=== PATIENT | female | born 1950 | race Caucasian/White ===

== ENCOUNTER 2023-06-30 09:28 | Inpatient (IN) | payer MEDICARE, MEDICAID, SELFPAY ==
[2023-06-30 09:31] VITALS: BP 134/62; PULSE 117; RESP 20; TEMP 36.2; O2SAT 95; BMI 13.6
--- NOTE | 2023-06-30 10:09 | EDS_ITS ---
HPI History of Present Illness Chief Complaint: Confusion [facility] Medical History (Updated 06/30/23 @ 09:37 by Suzanna Tena) Allergic rhinitis Candidal esophagitis COPD (chronic obstructive pulmonary disease) Gastric ulcer Hyperlipidemia Lower back pain Malignant neoplasm of unspecified site of left female breast Mild cognitive impairment Nicotine dependence Osteoporosis Thyrotoxicosis Allergy/AdvReac Type Severity Reaction Status Date / Time Penicillins Allergy Mild Other Verified 06/30/23 09:33 EXAM Physical Exam Const Vital Signs: 06/30/23 09:31 Temperature 97.2 F L Temperature Source Temporal Pulse Rate 117 H Respiratory Rate 20 H Blood Pressure 134/62 H Blood Pressure Mean 86 Pulse Ox 95 Oxygen Delivery Method Room Air MDM MDM MDM Narrative Medical decision making narrative: HISTORY OF PRESENT ILLNESS: 72-year-old female presents with concern for altered mental status. The patient denies being confused. Notes pt had COVID 1.5 weeks ago. Notes recent diarrhea. No falls or recent trauma. Notes symptoms started over the last 2 days. REVIEW OF SYSTEMS: Pertinent positives: None Pertinent negatives: Abdominal pain, nausea vomiting confusion, chest pain, shortness of breath, headache, visual disturbance, focal weakness, slurred speech, PHYSICAL EXAM: Nursing triage notes reviewed, Vital signs reviewed Constitutional: please see mdm HENT: MMM Eyes: Pupils equal round and reactive to light, Extraocular muscles intact Neck: No stridor, no JVD, full neck ROM Lungs: Clear to auscultation, No wheezing or rales. No increased work of breathing, no conversational dyspnea, no accessory muscle use, no nasal flaring. No respiratory distress noted Heart: Regular rate and rhythm, No murmurs, No rubs and No gallops, 2+ distal pulses (radial, femoral, posterior tibial) in all extremities Abdomen: Soft, there is no tenderness, rigidity, rebound or guarding, no obvious peritoneal signs, no palpable pulsatile abdominal masses, no auscultated abdominal bruit : No CVAT Extremities: No edema Neuro: Patient is alert and orient x 2 (person, place, not time), at baseline no focal neurological deficits, cranial nerves II through XII intact, 5/5 strength in all extremities. Intact sensation to light touch in all extremities, 2+ reflexes bilateral patella tendons. No ataxia. Skin: No rash or lesions noted MEDICAL DECISION MAKING: Chief Complaint: Altered mental status External records reviewed: ED visits or hospitalizations noted Factors affecting care: COPD, peptic ulcer disease, history of breast cancer, hyperlipidemia, cognitive impairment, cerebral aneurym Social determinants of health: Current everyday smoker History obtained from others: EMS, Family Consults: Internal Medicine MDM Narrative: The patient was initially tachycardic, tachypneic. There are no focal neurologic deficits. Patient had no complaints initially. I considered the following differential diagnosis: ICH, ACS, UTI, infectious or metabolic encephalopathy I obtained a broad lab and imaging workup to further elucidate etiology patient complaints. Treated patient with a 5 or cc bolus of normal saline. ALL IMAGES (IF OBTAINED) HAVE BEEN PERSONALLY REVIEWED AND INTERPRETED BY MYSELF. EKG with sinus tachycardia, normal axis, prolonged QT interval, no STEMI CBC without leukocytosis, no anemia, no thrombocytopenia COVID/flu negative VBG without significant CO2 retention and respiratory acidosis CMP with hypokalemia, no other significant Lillian normalities, no anion gap or MAGGIE No evidence of hepatobiliary obstruction on CMP Urinalysis shows no evidence of urinary inflammation suggestive of UTI High-sensitivity troponin is negative, no evidence of myocardial ischemia This is of the patient's history, physical exam, labs images suggest no acute explanation for her change in mental status. This may be continued deterioration from already known mild cognitive impairment. Given her age and assisted living status essentially living alone I do believe the patient should be observed and possibly placed in a more acceptable living environment (SNF, NH etc). Discussed this with the hospitalist (Dr. Kong) who agreed to admit the patient. The patient and/or family, caregivers express understanding. The patient and/or family, caregivers agrees with the plan. Shared decision making: I will have a discussion with the patient and or visitors regarding risk/benefits of further testing or admission. They will be made aware of of the risk/benefits inherent in this decision they will be given the opportunity to voice understanding. Total critical care time today provided was at least 0 minutes. This excludes separately billable procedures. Critical care time (if documented) is secondary to the patient having high probability of clinically significant/life threatening deterioration in the patient's condition which required my urgent intervention. Impression: 1. AMS 2. Hypokalemia 3. History of COPD Dispo: admit to med surg Lab Data Labs: Laboratory Results - last 24 hr 06/30/23 06/30/23 10:50 10:56 WBC 7.0 RBC 3.67 L Hgb 10.7 L Hct 35.9 L MCV 97.8 MCH 29.2 MCHC 29.8 L RDW Std Deviation 54.9 H RDW Coeff of Kriss 15.4 H Plt Count 222 MPV 11.6 Immature Gran % (Auto) 0.400 Neut % (Auto) 66.2 Lymph % (Auto) 21.7 [place] % (Auto) 9.5 Eos % (Auto) 1.9 Baso % (Auto) 0.3 Absolute Neuts (auto) 4.6 Absolute Lymphs (auto) 1.51 Nucleated RBC % 0 Sodium 140 Potassium 2.9 L Chloride 105 Carbon Dioxide 29.0 Anion Gap 6 BUN 32 H Creatinine 0.65 Estim Creat Clear Calc 26.66 Est GFR (MDRD) Af Amer 114 Est GFR (MDRD) Non-Af 94 BUN/Creatinine Ratio 48.9 H Glucose 87 Calcium 9.8 Total Bilirubin 0.70 AST 21 ALT 25 Alkaline Phosphatase 146 H Troponin I High Sens 22 Total Protein 7.2 Albumin 3.1 L Globulin 4.1 Albumin/Globulin Ratio 0.8 L Urine Color Yellow Urine Clarity Clear Urine pH 5.0 Ur Specific [place] 1.010 Urine Protein 30 H Urine Glucose (UA) Normal Urine Ketones 5 H Urine Occult Blood 25 H Urine Nitrite Negative Urine Bilirubin Negative Urine Urobilinogen Normal Ur Leukocyte Esterase Negative Urine RBC 0 SEEN Urine WBC 0-5 SEEN Ur Squamous Epith Cells 5-10 SEEN Urine Bacteria 1+ Urine Mucus 1+ ABG Data ABG results: ABG 06/30/23 11:27 Specimen Type MOLLY Sample Site Not entered VBG pH 7.48 H VBG pO2 15 L* VBG HCO3 27 H VBG Total CO2 28 VBG O2 Sat (Calc) 23 L VBG Base Excess 3 POC Mix VBG pCO2 Pt Tmp 36.1 L O2 Delivery Device Not entered Crit Call To/Read Back Yes Blood Gas Notified Whom TA Blood Gas Notified Time 11:29:14 Radiography Diagnostic Testing: Clinical Impression(s) from Imaging Studies Brain CT 06/30/23 10:34 IMPRESSION: Mild generalized volume loss and moderate chronic white matter changes. No hydrocephalus in shunt patient. Chronic right frontal encephalomalacia. 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 Coiling at the basilar tip. No acute intracranial hemorrhage identified. Electronically Signed: Ofelia Willingham MD at 11:40 EST , Chest X-Ray 06/30/23 11:07 IMPRESSION: Mild perihilar inflammatory change. Electronically Signed: Ofelia Willingham MD at 11:23 EST , Discharge Plan Triage Chief Complaint: Confusion ED Provider: Tomi Mcbride Dx/Rx/DC Orders Primary Care Provider: GONZÁLEZ MANCINI Referrals: NOT,DEFINED [Non-Staff] -
--- NOTE | 2023-06-30 10:34 | CT_ITS ---
HISTORY: confusion. TECHNIQUE: Multiple axial images were obtained of the head without intravenous contrast. A radiation dose optimization technique was used for this scan. 234 images. COMPARISON: None. FINDINGS: BRAIN PARENCHYMA: Multiple regions of low attenuation in the bilateral cerebral white matter. No acute intra-axial hemorrhage. Mild low attenuation in the right frontal lobe around the shunt catheter. Mild-moderate chronic left frontotemporal infarct with a small calcification. Artifact from coiling of the basilar tip. CSF SPACES: Shunt catheter tip in the third ventricle. Mild generalized volume loss without significant hydrocephalus. No midline shift or other significant mass effect. No acute extra-axial hemorrhage. OTHER: Right frontal ravinder hole. No significant air fluid levels in the paranasal sinuses or mastoid air cells. Bilateral lens resections. CT/Brain/Head without Contrast IMPRESSION: Mild generalized volume loss and moderate chronic white matter changes. No hydrocephalus in shunt patient. Chronic right frontal encephalomalacia. 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 Coiling at the basilar tip. No acute intracranial hemorrhage identified. Electronically Signed: Ofelia Willingham MD at 11:40 EST ,
--- NOTE | 2023-06-30 10:34 | EKG12_ITS ---
Test Reason : CONFUSED Blood Pressure : / mmHG Vent. Rate : 106 BPM Atrial Rate : 106 BPM P-R Int : 182 ms QRS Dur : 084 ms QT Int : 382 ms P-R-T Axes : 083 077 264 degrees QTc Int : 507 ms Sinus tachycardia Possible Left atrial enlargement Minimal voltage criteria for LVH, may be normal variant ( Sokolow-Montiel ) T wave abnormality, consider inferior ischemia T wave abnormality, consider anterior ischemia Abnormal ECG Confirmed by MARY LEON, KERMIT ([id number]), supervising editor news reel ELTON JOSEPH ([id number]) on 07/09/2023 9:14:58 AM Referred By: Confirmed By:KERMIT HERNANDEZ MD
--- OUTSIDE RECORDS SUMMARY | 2023-06-30 10:44 | XMS RPT_ITS | CCD ---
Author Name Unknown Address [address] [place] [address] Organization [facility] Care Team Providers Care Orientation And Mobility Specialist Name Role Phone Doncals, Floridalma Unavailable Unavailable PROVIDER, UNKNOWN Unavailable Unavailable Dino, Heron Unavailable Unavailable Doncals, Floridalma Unavailable Unavailable PROVIDER, UNKNOWN Unavailable Unavailable Dino, Heron Unavailable Unavailable Bartolome LEON, Pee E Unavailable [phone] Bartolome LEON, Pee E Unavailable Heron Sun MD Primary Care Provider Bartolome LEON, Pee E Unavailable [phone] Bartolome LEON, Pee E Unavailable [phone] Dino LEON, Heron Primary Care Provider [phone] Bartolome LEON, Pee E Unavailable Bartolome LEON, Pee E Unavailable Heron Sun MD Primary Care Provider Heron Sun MD Primary Care Provider NORA PEDRO Referring Unavailable DINO, HERON Primary Care Unavailable DINO, HERON Primary Care Unavailable HASAN, JANKI Referring Unavailable DINO, HERON Primary Care Unavailable HASAN, JANKI Referring Unavailable DINO, HERON Primary Care Unavailable RAGINI MCGEE Referring Unavailable DINO, HERON Primary Care Unavailable Dino LEON, Heron Primary Care Provider DINO HERON Referring Unavailable NORA PEDRO Attending Unavailable DINO, HERON Primary Care Unavailable DINO, HERON Referring Unavailable JANKI JOHN Attending Unavailable DINOHERON Primary Care Unavailable RAGINI MCGEE Attending Unavailable DAISY AN Referring Unavailable DINOHERON Primary Care Unavailable DAISY AN Referring Unavailable DINOHERON Primary Care Unavailable NORA PEDRO Attending Unavailable DINOHERON Primary Care Unavailable Allergies Allergy Classification Reported Allergen(s) Allergy Type Date of Onset Reaction(s) Facility (3 sources) Penicillins; Translations: [PENICILLINS] Propensity to adverse reactions to drug 06-28-2010 Unknown [facility] Work Phone: (15 sources) Penicillins Propensity to adverse reactions to drug 06-28-2010 Unknown [facility] Work Phone: Medications Current Medications Medication Drug Class(es) Dates Sig (Normalized) Sig (Original) benoxinate hydrochloride 4 mg/ml / fluorescein sodium 2.5 mg/ml ophthalmic solution (1 source) Diagnostic Dye Start: 11-13-2021 End: 11-14-2021 fluorescein-benoxi desmond 0.25-0.4 % 1 Drop (FLURESS) phenylephrine hydrochloride 25 mg/ml ophthalmic solution (1 source) alpha-1 Adrenergic Agonist Start: 11-13-2021 End: 11-14-2021 PHENYLephrine 2.5 % 1 Drop (AK-DILATE, SHERRI-SYNEPHRINE) tropicamide 10 mg/ml ophthalmic solution (1 source) Anticholinergic Start: 11-13-2021 End: 11-14-2021 tropicamide 1 % 1 Drop (MYDRIACYL) Completed/Discontinued Medications Medication Drug Class(es) Dates Sig (Normalized) Sig (Original) [id number] 200 actuat albuterol 0.09 mg/actuat metered dose inhaler (16 sources) beta2-Adrenergic Agonist Start: 05-21-2017 albuterol HFA (VENTOLIN HFA) 90 mcg/actuation inhaler Inhale by mouth as instructed. 18 g 0 05/21/2017 Active Problems Active Problems Problem Classification Problem Date Documented Date Episodic/Chronic Anxiety disorders (16 sources) Anxiety; Translations: [Anxiety disorder, unspecified] Onset: 7 05-21-2017 Chronic Cancer of breast (20 sources) Malignant neoplasm of upper-outer quadrant of female breast; Translations: [Malignant neoplasm of upper-outer quadrant of left female breast] Onset: 8 11-12-2017 Chronic Cardiac and circulatory congenital anomalies (16 sources) Congenital anomaly of cerebrovascular system; Translations: [Other malformations of cerebral vessels] Onset: 4 Chronic Cataract (17 sources) Bilateral pseudophakia; Translations: [Presence of intraocular lens] Onset: 5 Chronic Chronic obstructive pulmonary disease and bronchiectasis (16 sources) Chronic obstructive lung disease; Translations: [Chronic obstructive pulmonary disease, unspecified] Onset: 7 11-15-2017 Chronic Disorders of lipid metabolism (17 sources) Hyperlipidemia; Translations: [Hyperlipidemia, unspecified] Onset: 7 05-21-2017 Chronic Essential hypertension (17 sources) Hypertensive disorder; Translations: [Essential (primary) hypertension] Onset: 7 05-29-2021 Chronic Nutritional deficiencies (20 sources) Vitamin D deficiency; Translations: [Vitamin D deficiency, unspecified] Onset: 7 05-21-2017 Chronic Osteoporosis (16 sources) Osteoporosis; Translations: [Age-related osteoporosis without current pathological fracture] 05-21-2017 Chronic Other hematologic conditions (1 source) Other abnormality of red blood cells; Translations: [Other abnormality of red blood cells] Onset: 3 Episodic Other nervous system disorders (13 sources) Ventriculoperitoneal shunt in situ; Translations: [Presence of cerebrospinal fluid drainage device] Onset: 7 05-21-2017 Chronic Other nutritional; endocrine; and metabolic disorders (1 source) Hypercalcemia; Translations: [Hypercalcemia] Onset: 3 Chronic Other nutritional; endocrine; and metabolic disorders (1 source) Abnormal weight loss; Translations: [Abnormal weight loss] Episodic Retinal detachments; defects; vascular occlusion; and retinopathy (20 sources) Exudative age-related macular degeneration; Translations: [Exudative age-related macular degeneration, right eye, with active choroidal neovascularization] Onset: 8 Chronic Substance-related disorders (16 sources) Tobacco user; Translations: [Nicotine dependence, unspecified, uncomplicated] Onset: 1 09-09-2020 Chronic Thyroid disorders (20 sources) Graves' disease; Translations: [Thyrotoxicosis with diffuse goiter without thyrotoxic crisis or storm] Onset: 05-29-2021 Chronic Past or Other Problems Problem Classification Problem Date Documented Da te Episodic/Chronic Malaise and fatigue (16 sources) Asthenia; Translations: [Weakness] Onset: 05-21-2017 05-21-2017 Episodic Other circulatory disease (16 sources) History of subarachnoid hemorrhage; Translations: [Personal history of other diseases of the circulatory system] Onset: 05-21-2017 05-21-2017 Episodic Other eye disorders (17 sources) Tear film insufficiency; Translations: [Dry eye syndrome of bilateral lacrimal glands] Onset: 11-13-2021 Episodic Other gastrointestinal disorders (16 sources) Dysphagia; Translations: [Dysphagia, unspecified] Onset: 05-21-2017 05-21-2017 Episodic Other screening for suspected conditions (not mental disorders or infectious disease) (4 sources) Patient encounter status; Translations: [Encounter for screening mammogram for malignant neoplasm of breast] Onset: 10-04-2022 Episodic Results Test Name Value Interpretation Reference Range Facil ity Vital Signs Date Time Vital Sign Value Performing Clinician Faci lity 12-06-2022 11:06-0400 Diastolic blood pressure 94 mm[Hg] Janki John MD Work Phone: [facility] 12-06-2022 11:06-0400 Heart rate 92 /min Janki John MD Work Phone: [facility] 12-06-2022 11:06-0400 Systolic blood pressure 156 mm[Hg] Janki John MD Work Phone: [facility] 12-06-2022 10:31-0400 Body height 148.5 cm Janki John MD Work Phone: [facility] 12-06-2022 10:31-0400 Body weight 48.53 kg Janki John MD Work Phone: [facility] 12-06-2022 10:31-0400 Respiratory rate 16 /min Janki John MD Work Phone: [facility] 12-06-2022 10:31-0400 SaO2% (BldA) [Mass fraction] 97 % Janki John MD Work Phone: [facility] 09-26-2022 10:06-0400 Body temperature 97.81 [degF] Ragini Mcgee SHOP ASSISTANT.[facility] Work Phone: [facility] 09-26-2022 10:06-0400 Body weight 47.58 kg Ragini Mcgee SHOP ASSISTANT.CONTROL MANAGER Work Phone: [facility] 09-26-2022 10:06-0400 Diastolic blood pressure 76 mm[Hg] Ragini Mcgee SHOP ASSISTANT.CONTROL MANAGER Work Phone: [facility] 09-26-2022 10:06-0400 Heart rate 74 /min Ragini Mcgee SHOP ASSISTANT.[facility] Work Phone: [facility] 09-26-2022 10:06-0400 SaO2% (BldA) [Mass fraction] 93 % Ragini Mcgee SHOP ASSISTANT.[facility] Work Phone: [facility] 09-26-2022 10:06-0400 Systolic blood pressure 152 mm[Hg] Ragini Mcgee SHOP ASSISTANT.[facility] Work Phone: [facility] 06-11-2022 11:43-0500 Body temperature 98.71 [degF] Treatment Work Phone: [facility] 06-11-2022 11:43-0500 Body weight 45.9 kg Treatment Work Phone: [facility] 06-11-2022 11:43-0500 Diastolic blood pressure 67 mm[Hg] Treatment Work Phone: [facility] 06-11-2022 11:43-0500 Heart rate 68 /min Treatment Work Phone: [facility] 06-11-2022 11:43-0500 Respiratory rate 16 /min Treatment Work Phone: [facility] 06-11-2022 11:43-0500 SaO2% (BldA) [Mass fraction] 96 % Treatment Work Phone: [facility] 06-11-2022 11:43-0500 Systolic blood pressure 144 mm[Hg] Treatment Work Phone: [facility] 06-07-2022 14:00-0500 Body height 148.5 cm [facility]IST[facility] Work Phone: [facility] 06-07-2022 14:00-0500 Body weight 45.18 kg [facility] Work Phone: [facility] 06-07-2022 14:00-0500 Diastolic blood pressure 85 mm[Hg] Nora Kupiec SHOP ASSISTANT.[facility] Work Phone: [facility] 06-07-2022 14:00-0500 Heart rate 78 /min Nora Kupiec SHOP ASSISTANT.[facility] Work Phone: [facility] 06-07-2022 14:00-0500 Respiratory rate 20 /min Nora Kupiec SHOP ASSISTANT.[facility] Work Phone: [facility] 06-07-2022 14:00-0500 SaO2% (BldA) [Mass fraction] 97 % Nora Kupiec SHOP ASSISTANT.[facility] Work Phone: [facility] 06-07-2022 14:00-0500 Systolic blood pressure 135 mm[Hg] Nora Kupiec SHOP ASSISTANT.[facility] Work Phone: [facility] 02-23-2022 12:46-0400 Body weight 42.09 kg Nora Kupiec SHOP ASSISTANT.[facility] Work Phone: [facility] 02-23-2022 12:46-0400 Diastolic blood pressure 78 mm[Hg] Nora Kupiec SHOP ASSISTANT.[facility] Work Phone: [facility] 02-23-2022 12:46-0400 Heart rate 87 /min Nora Kupiec SHOP ASSISTANT.[facility] Work Phone: [facility] 02-23-2022 12:46-0400 SaO2% (BldA) [Mass fraction] 92 % Nora Kupiec SHOP ASSISTANT.CONTROL MANAGER Work Phone: [facility] 02-23-2022 12:46-0400 Systolic blood pressure 125 mm[Hg] Nora Pedro SHOP ASSISTANT.CONTROL MANAGER Work Phone: [facility] Encounters Encounter Date Encounter Type Care Provider Facility Start: 06-09-2023 Refill Daisy An MD Work Phone: Hematology/Oncology Procedures Date Procedure Procedure Detail Performing Clinician Start: 02-18-2023 Lipid 1996 panel - Serum or Plasma Daisy An MD Work Phone: Start: 11-13-2021 Computerized ophthalmic imaging retina Ovi Feliz OD Work Phone: Start: 04-20-2019 Mammography Ovi Feliz OD Work Phone: Start: 03-03-2018 Adult depression screening assessment Ovi Feliz OD Work Phone: Start: 05-21-2017 H/O: surgery Status post ventriculoperitoneal shunt Ovi Feliz OD Work Phone: Plan of Treatment Date Care Activity Detail Author Start: 02-19-2028 Lipid 1996 panel - S rian or Plasma Lipid Screening [facility] Start: 02-19-2028 LIPID SCREEN LIPID SCREEN [facility] Start: 11-20-2026 LIPID SCREEN LIPID SCREEN [facility] Start: 05-11-2026 LIPID SCREEN LIPID SCREEN [facility] Start: 02-18-2026 DIABETES SCREEN DIABETES SCREEN [facility] Start: 02-18-2026 Diabetes Screening Diabetes Screenin g [facility] Start: 08-13-2025 DIABETES SCREEN DIABETES SCREEN [facility] Start: 02-05-2025 DIABETES SCREEN DIABETES SCREEN [facility] Start: 11-20-2024 DIABETES SCREEN DIABETES SCREEN [facility] Start: 05-29-2024 DIABETES SCREEN DIABETES SCREEN [facility] Start: 03-08-2023 Covid-19 Vaccine ( season) Covid-19 Vaccine () [facility] Start: 03-08-2023 Influenza vaccination [facility] Start: 02-23-2023 BP CONTROLLED (<130/80) BP CON TROLLED (<130/80) [facility] Start: 01-09-2023 End: 03-11-2023 Thyrotropin [Units/volume] in Serum or Plasma TSH BLD Lab Routine Graves disease Expected: 01/09/2023, Expires: 03/11/2023 [facility] Work Phone: Immunizations Immunization Date Immunization Notes Care Provider Teresa mota 04-24-2021 influenza virus vacc ine, unspecified formulation Daisy An MD Work Phone: [facility] 04-11-2011 influenza virus vacc ine, unspecified formulation Ovi Feliz OD Work Phone: [facility] 06-07-2010 influenza virus vacc ine, unspecified formulation Ovi Feliz OD Work Phone: [facility] 06-07-2010 pneumococcal polysaccharide vaccine, 23 valent Ovi Feliz OD Work Phone: [facility] Payers Date Payer Category Payer Medicare 2022 Medicare [id number] 2021 Unknown [employer] BL[employer] SHIELD [employer] [id number] 2021-Present [phone] [address] [id number] 2021 Unknown ANTHEM [employer] S AND BLUE SHIELD [employer] [id number] 2021-Present [phone] [address] [place] [id number] [facility] [id number] 2021 Unknown [id number] Social History Date Type Detail Facility Start: 03-03-2018 End: 02-23-2022 Tobacco smoking status NHIS Smokes tobacco daily [facility] Start: 03-03-2018 History of tobacco use Cigarette Smo ker [facility] Start: 03-03-2018 End: 12-06-2022 Cigarettes smoked current (pack per day) - Reported 0.5 [facility] Start: 03-03-2018 End: 02-23-2022 Tobacco use and exposure Smokeless tobacco non-user [facility] Start: 11-13-2021 End: 12-06-2022 Alcohol intake Current non-drinker of alcohol (finding) [facility] Start: 1950 Sex Assigned At Not on file [facility] Start: 11-03-2021 End: 06-07-2022 Exposure to SARS-CoV-2 (event) Not sure [facility] Start: 03-03-2018 End: 12-06-2022 Tobacco use panel [facility] Adult Depression Scr eening Assessment 0 [facility] Medical Equipment Procedure Code Equipment Code Equipment Origin al Text Equipment Identifier Dates Kit Catheter Bactiseal [id number] - [id number] Start: 06-29-2010 Clinical Notes 05-27-2021 to 02-21-2023 Telephone Encounter - Janki John MD - 02/21/2023 12:51 PM EDTTelephone Encounter - Janki John MD - 12/10/2022 1:00 PM EDTPatient Cely John MD - 12/06/2022 10:49 AM EDT Note Date & Type Note Facility 02-21-2023 Miscellaneous Notes Please notify the patient that TSH is suppressed I would like her to increase methimazole to 10 mg twice a day I will recheck lab results at her follow up Janki John MD documented in this encounter [facility] 12-10-2022 Miscellaneous Notes Please notify the patient that her TSH has increased to 46 Stop methimazole at this time I would like to recheck TSH in 4 weeks Order is in Regards Janki John MD documented in this encounter [facility] 12-06-2022 Note HNO ID: [id number] Author: Janki John MD Service: ? Author Type: Physician Type: Progress Notes Filed: 12/06/2022 12:19 PM Note Text: Subjective: Lizett Valadez is a 72 year old female here for hyperthyroidism follow up. Hyperthyroidism was diagnosed in November 2018 TSI was elevated at 362 Last TSH was 11.5 in aug 2021 At that time, she was recommended to stop methimazole and repeat labs in 4 weeks Patient continued methimazole all this time Current treatment: Methimazole 5 mg BID General symptoms: Fatigue: yes,wakes up tired in the morning She has trouble staying asleep She drinks coffee all day long Energy level continues to vary Weight change: No Appetite change: No Change in bowel habits: No Temperature intolerance: cold intolerance Anxiety/Nervousness: No Tremor: No Palpitations: No REVIEW OF SYSTEMS: GENERAL:+ fatigue, No weight loss, malaise or fevers NECK:Negative for lumps, goiter, pain and significant neck swelling RESPIRATORY: Negative for cough, hemoptysis, wheezing or shortness of breath CARDIOVASCULAR: Negative for chest pain, leg swelling or palpitations GASTROINTESTINAL: No nausea, vomiting, or persistent diarrhea MUSCULOSKELETAL:no muscle aches, arthralgia NEUROLOGIC: no numbness, tingling, no Paresthesias, no headaches SKIN:Negative for lesions, rash, and itching ENDOCRINE: + cold intolerance, Negative for heat intolerance or goiter The remaining ROS are unremarkable ALLERGIES: ALLERGIES Allergen Reactions Penicillins Unknown MEDICATIONS: Current Outpatient Medications on File Prior to Visit Medication Sig anastrozole (ARIMIDEX) 1 mg tablet Take 1 tablet by mouth once daily. methIMAzole (TAPAZOLE) 5 mg tablet TAKE 1 TABLET BY MOUTH IN THE MORNING and TAKE 1 TABLET IN THE EVENING. jmkbcxkcshp-zttiucgnq-cqhboryw (TRELEGY ELLIPTA) 100-62.5-25 mcg inhalation powder metoprolol tartrate, short acting, (LOPRESSOR) 25 mg tablet Take 1 tablet by mouth every [address] (PROTONIX) 40 mg tablet Take 1 tablet by mouth once daily. amLODIPine (NORVASC) 2.5 mg tablet Take 1 tablet by mouth once daily. Ibuprofen 200 mg cap Take 2 capsules by mouth every 4 hours as needed. loratadine (CLARITIN) 10 mg tablet TAKE 1 TABLET BY MOUTH NIGHTLY albuterol HFA (VENTOLIN HFA) 90 mcg/actuation inhaler Inhale by mouth as instructed. BREO ELLIPTA 100-25 mcg/dose inhaler Inhale 1 Inhalation as instructed once daily. (Patient not taking: Reported on 12/06/2022) No current facility-administered medications on file prior to visit. 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) 2003 left sylvian fissure Breast cancer ([facility]) 11/2017 left breast Breast mass, left 11/2017 COPD (chronic obstructive pulmonary disease) ([facility]) Fracture of upper end of tibia 10/31/2015 Macular degeneration Migraine PCO (posterior capsular opacification) 05/25/2016 Pseudophakia of right eye Retinal hemorrhage of left eye 2004 left central vision loss Subarachnoid hemorrhage ([facility]) 05/2010 Tubal PHYSICAL EXAM: BP 158/94 Pulse 94 Resp 16 Ht 148.5 cm (4' 10.47 ) Wt 48.5 kg (107 lb) LMP 04/15/2015 SpO2 97% BMI 22.01 kg/m? Last 3 Encounter Wt Readings: Date: Wt: 01/20/2019 47.6 kg (105 lb) 12/09/2018 47.9 kg (105 lb 9.6 oz) 03/03/2018 44.4 kg (97 lb 14.4 oz) Alert and oriented x 3, no acute distress Extraocular motions intact, no exophthalmos, no lid lag Neck supple, no cervical lymphadenopathy Thyroid: normal size, normal texture, no palpable nodules Heart regular rate and rhythm, no murmers Chest clear, normal breath sounds, no wheezing Neuro: Gait normal. Sensation grossly intact. No focal findings Musculoskeletal: Muscular strength intact, No joint swelling Extremities trace ankle edema, no deformities Skin: no rashes/ erythema, dry skin noted LAB: Latest Reference Range AND Units 06/07/22 14:54 08/13/22 12:05 Free T4 0.9 - 1.7 ng/dL 0.3 (L) 0.5 (L) TSH 0.270 - 4.200 mIU/L 5.390 (H) 11.590 (H) Free T3 2.3 - 4.1 pg/mL 1.6 (L) 2.7 Thyroid US- february 2020 Mildly heterogeneous thyroid gland. No discrete thyroid nodules. 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 2) Elevated TSH 3) HTN Clinically, she appears hypothyroid She progressed to hypothyroidism in aug 2022 but continued to take methimazole Update thyroid function test Then will adjust Methimazole dose if needed She is aware of anti thyroid medication adverse effects BP was initially elevated Repeat was also above goal See PCP for BP mgmt I will notify the patient once the lab results become available Follow up to be determined based on the lab results Janki John MD [facility] 12-06-2022 Instructions Janki John MD - 12/06/2022 11:02 AM EDT Get thyroid labs drawn Stay off methimazole until we contact you with lab results documented in this encounter [facility] 12-06-2022 History of Present illness Narrative Subjective: Lizett Valadez is a 72 year old female here for hyperthyroidism follow up. Hyperthyroidism was diagnosed in November 2018 TSI was elevated at 362 Last TSH was 11.5 in aug 2021 At that time, she was recommended to stop methimazole and repeat labs in 4 weeks Patient continued methimazole all this time Current treatment: Methimazole 5 mg BID General symptoms: Fatigue: yes,wakes up tired in the morning She has trouble staying asleep She drinks coffee all day long Energy level continues to vary Weight change: No Appetite change: No Change in bowel habits: No Temperature intolerance: cold intolerance Anxiety/Nervousness: No Tremor: No Palpitations: No REVIEW OF SYSTEMS: GENERAL:+ fatigue, No weight loss, malaise or fevers NECK:Negative for lumps, goiter, pain and significant neck swelling RESPIRATORY: Negative for cough, hemoptysis, wheezing or shortness of breath CARDIOVASCULAR: Negative for chest pain, leg swelling or palpitations GASTROINTESTINAL: No nausea, vomiting, or persistent diarrhea MUSCULOSKELETAL:no muscle aches, arthralgia NEUROLOGIC: no numbness, tingling, no Paresthesias, no headaches SKIN:Negative for lesions, rash, and itching ENDOCRINE: + cold intolerance, Negative for heat intolerance or goiter The remaining ROS are unremarkable ALLERGIES: ALLERGIES Allergen Reactions Penicillins Unknown MEDICATIONS: Current Outpatient Medications on File Prior to Visit Medication Sig anastrozole (ARIMIDEX) 1 mg tablet Take 1 tablet by mouth once daily. methIMAzole (TAPAZOLE) 5 mg tablet TAKE 1 TABLET BY MOUTH IN THE MORNING and TAKE 1 TABLET IN THE EVENING. tivuhbcgnws-hfhfikixr-ewgyrdws (TRELEGY ELLIPTA) 100-62.5-25 mcg inhalation powder metoprolol tartrate, short acting, (LOPRESSOR) 25 mg tablet Take 1 tablet by mouth every [address] (PROTONIX) 40 mg tablet Take 1 tablet by mouth once daily. amLODIPine (NORVASC) 2.5 mg tablet Take 1 tablet by mouth once daily. Ibuprofen 200 mg cap Take 2 capsules by mouth every 4 hours as needed. loratadine (CLARITIN) 10 mg tablet TAKE 1 TABLET BY MOUTH NIGHTLY albuterol HFA (VENTOLIN HFA) 90 mcg/actuation inhaler Inhale by mouth as instructed. BREO ELLIPTA 100-25 mcg/dose inhaler Inhale 1 Inhalation as instructed once daily. (Patient not taking: Reported on 12/06/2022) No current facility-administered medications on file prior to visit. 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) 2003 left sylvian fissure Breast cancer ([facility]) 11/2017 left breast Breast mass, left 11/2017 COPD (chronic obstructive pulmonary disease) ([facility]) Fracture of upper end of tibia 10/31/2015 Macular degeneration Migraine PCO (posterior capsular opacification) 05/25/2016 Pseudophakia of right eye Retinal hemorrhage of left eye 2004 left central vision loss Subarachnoid hemorrhage ([facility]) 05/2010 Tubal PHYSICAL EXAM: BP 158/94 Pulse 94 Resp 16 Ht 148.5 cm (4' 10.47 ) Wt 48.5 kg (107 lb) LMP 04/15/2015 SpO2 97% BMI 22.01 kg/m Last 3 Encounter Wt Readings: Date: Wt: 01/20/2019 47.6 kg (105 lb) 12/09/2018 47.9 kg (105 lb 9.6 oz) 03/03/2018 44.4 kg (97 lb 14.4 oz) Alert and oriented x 3, no acute distress Extraocular motions intact, no exophthalmos, no lid lag Neck supple, no cervical lymphadenopathy Thyroid: normal size, normal texture, no palpable nodules Heart regular rate and rhythm, no murmers Chest clear, normal breath sounds, no wheezing Neuro: Gait normal. Sensation grossly intact. No focal findings Musculoskeletal: Muscular strength intact, No joint swelling Extremities trace ankle edema, no deformities Skin: no rashes/ erythema, dry skin noted LAB: Latest Reference Range & Units 06/07/22 14:54 08/13/22 12:05 Free T4 0.9 - 1.7 ng/dL 0.3 (L) 0.5 (L) TSH 0.270 - 4.200 mIU/L 5.390 (H) 11.590 (H) Free T3 2.3 - 4.1 pg/mL 1.6 (L) 2.7 Thyroid US- february 2020 Mildly heterogeneous thyroid gland. No discrete thyroid nodules. 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 2) Elevated TSH 3) HTN Clinically, she appears hypothyroid She progressed to hypothyroidism in aug 2022 but continued to take methimazole Update thyroid function test Then will adjust Methimazole dose if needed She is aware of anti thyroid medication adverse effects BP was initially elevated Repeat was also above goal See PCP for BP mgmt I will notify the patient once the lab results become available Follow up to be determined based on the lab results Janki John MD documented in this encounter [facility] 10-12-2022 Miscellaneous Notes Requester: Pharmacy Last Visit in Endocrinology: Provider name: Nora Pedro CNP , Date 06/07/2022 Next Scheduled Appt in Endo: 12/06/2022 Last Refill: 09/06/22 Number of Refills given: 0 PSS NOTE: Patient has scheduled appointment. Requested Prescriptions Pending Prescriptions Disp Refills methIMAzole (TAPAZOLE) 5 mg tablet [Pharmacy Med Name: methimazole 5 mg tablet] 60 tablet 1 Sig: TAKE 1 TABLET BY MOUTH IN THE MORNING and TAKE 1 TABLET IN THE EVENING. Please review and advise. Abby Lazo MA documented in this encounter [facility] 10-04-2022 Note HNO ID: [id number] Author: KHRIS Caraballo Service: Radiology Author Type: Technologist Type: Progress Notes Filed: 10/04/2022 12:55 PM Note Text: Radiology Service Progress Note PATIENT NAME: Lizett Valadez DATE OF SERVICE: October 04, 2022 TIME: 12:55 PM PATIENT IDENTITY VERIFICATION COMPLETED USING TWO (2) IDENTIFIERS: Name and Date of confirmed by patient verbally. FALL SCREENING: Has the patient had 2 falls in the last year or 1 fall with injury or currently using an Ambulatory Assistive Device (Walker, Cane, Wheelchair, Crutches, etc.)? Yes, Patient High Risk for Falls What interventions were put in place to prevent falls during this visit? Offered Assistance with Transfers/Clothing and Increased Observations by Caregivers PATIENT GENDER DATA: Female. status: : No status: NO. PATIENT RELEVANT IMPLANT DATA REVIEWED: Not Applicable RADIOLOGY DEPARTMENT: Bone Density PERIPHERAL IV DATA: Not applicable SIGNED BY: KHRIS Caraballo October 04, 2022 12:55 PM [facility] 09-26-2022 Note HNO ID: [id number] Author: Ragini Mcgee APRN.PATTIE Service: ? Author Type: Nurse Practitioner Type: Progress Notes Filed: 09/26/2022 12:55 PM Note Text: Chief Complaint: Established patient follow up History of Present Illness: Lizett is a 72 year old female who presents here today for follow up Feeling well No new complaints Continues to have hot flashes at night, but not too bothersome Also has difficulty sleeping Has tried melatonin which did not help Denies fevers or chills No sob or chest pain No bleeding or dark stool No urinary complaints No new lumps or bumps No new pains No rash or itching Hematology/Oncology History: Past medical history is carried forward from previous note: 09/27/2020 and updated appropriately Attending: Dr An Diagnosis: Left breast cancer - s/p lumpectomy with sentinel lymph node sampling - primary was 1.6 cm in size, single focus. - 2 sentinel lymph nodes negative. - margins were reportedly positive on the surgical path but from discussion with Dr. Butler, her surgeon, he stated that the pathologist told him that the margins were negative as the orientation was apparently different. - Oncotype DX score 7 - she met with radiation oncology on 12/05/17 with discussion regarding side effects and benefits, and Dr. An stressed the importance of radiation, however, the patient refused. - proceeded with the aromatase inhibitor alone - bone density scan in 08/2017 showed osteoporosis with lowest T-score of -4.9 in L1-L4 and -4.4 in right hip and she started on bisphosphonate with yearly Reclast - patient started on Anastrazole in 02/2019 with plans for 5 years total - repeat bone scan in 04/2020 again showed improvement in osteoporosis with the lowest T-score of -4.2 in right hip - last mammogram on 04/25/2020 showed no evidence of malignancy Current Treatment: Anastrazole - initiated 02/2019 Reclast, yearly - last 06/11/2022 Subjective/ Review of Systems: See HPI HEENT- denies any vision/hearing changes or headaches. RESP- denies shortness of breath, cough CARDIAC- denies chest pain, palpitations BREAST- no masses, pain, drainage GI- Denies nausea, vomiting, constipation, diarrhea, blood in stool - denies dysuria, hematuria MILLER ROD MILL- denies vaginal bleeding. No vaginal concerns SKIN- denies new rashes MUSCULAR- no new muscular/skeletal pain or weakness NEURO- denies new neuropathy PAIN- denies Objective/ Exam: BP 152/76 Pulse 74 Temp 36.6 ?C (97.8 ?F) (Temporal) Wt 47.6 kg (104 lb 14.4 oz) LMP 04/15/2015 SpO2 93% BMI 21.58 kg/m? GENERAL: Patient is a well developed, well nourished. Alert, oriented, pleasant and cooperative. NECK: Supple MOUTH: no redness, sores, or white patches BREAST: Right breast with no dominant masses/nodules, no nipple discharge and no adenopathy Left breast with surgical changes noted, no nodule, no skin changes, no adenopathy, no pain on exam Patient declined mine administrator supervisor. HEART: regular rate and rhythm LUNGS: clear to auscultation ABDOMEN: Abdomen soft, non-tender, + BS LOWER EXTREMITIES: No edema. Recent Testing Reviewed in Epic: - LABS Latest Reference Range AND Units 08/13/22 12:05 Sodium 136 - 144 mmol/L 137 Potassium 3.7 - 5.1 mmol/L 4.2 Chloride 97 - 105 mmol/L 101 CO2 22 - 30 mmol/L 26 BUN 7 - 21 mg/dL 10 Creatinine 0.58 - 0.96 mg/dL 0.60 Glucose 74 - 99 mg/dL 89 Protein, Total 6.3 - 8.0 g/dL 8.6 (H) Calcium 8.5 - 10.2 mg/dL 9.7 Ionized Calcium 1.08 - 1.30 mmol/L 1.28 Normalized CAlcium 1.08 - 1.30 mmol/L 1.23 Phosphorus 2.7 - 4.8 mg/dL 3.2 Albumin 3.9 - 4.9 g/dL 5.0 (H) Bilirubin, Total 0.2 - 1.3 mg/dL 0.4 Alkaline Phosphatase 34 - 123 U/L 96 ALT 7 - 38 U/L 16 AST 13 - 35 U/L 18 Anion Gap 9 - 18 mmol/L 10 eGFR >=60 mL/min/1.73m? 96 Vitamin D 25 Hydroxy 31.0 - 80.0 ng/mL 28.1 (L) MPA Result No M protein is identified. No M protein is identified. Staff Review (MPA) Reviewed by Jaimie Palomares M.D., Ph.D IgG 700 - 1,600 mg/dL 1,232 IgA 70 - 400 mg/dL 339 IgM 40 - 230 mg/dL 372 (H) [place] Free, Serum 3.3 - 19.4 mg/L 29.7 (H) Lambda Free, Serum 5.7 - 26.3 mg/L 15.2 K/L Ratio, Serum 0.26 - 1.65 1.95 (H) Free T4 0.9 - 1.7 ng/dL 0.5 (L) TSH 0.270 - 4.200 mIU/L 11.590 (H) Free T3 2.3 - 4.1 pg/mL 2.7 PTH, Intact 15 - 65 pg/mL 37 PTH Related Peptide 0.0 - 3.4 pmol/L <2.0 WBC 3.70 - 11.00 k/uL 6.48 RBC 3.90 - 5.20 m/uL 4.19 Hemoglobin 11.5 - 15.5 g/dL 13.9 Hematocrit 36.0 - 46.0 % 43.2 Platelet Count 150 - 400 k/uL 272 MCV 80.0 - 100.0 fL 103.1 (H) MCH 26.0 - 34.0 pg 33.2 MCHC 30.5 - 36.0 g/dL 32.2 MPV 9.0 - 12.7 fL 10.2 RDW-CV 11.5 - 15.0 % 14.1 DTYPE Auto Neut% % 60.7 Abs Neut (ANC) 1.45 - 7.50 k/uL 3.94 Lymph% % 26.7 Abs Lymph 1.00 - 4.00 k/uL 1.73 Lassen% % 5.9 Abs Lassen <0.87 k/uL 0.38 Eosin% % 5.9 Abs Eosin <0.46 k/uL 0.38 Baso% % 0.5 Abs Baso <0.11 k/uL 0.03 Immature Gran % % 0.3 IMMATURE GRAN (more content not included)... [facility] 09-26-2022 Instructions Ragini Mcgee APRN.CNP - 09/26/2022 10:16 AM EDT BONE MINERAL DENSITY PATIENT INSTRUCTIONS ======= Bone mineral density testing measures the amount of calcium in certain parts of your bones. This information determines how strong your bones are. The test is used to detect osteoporosis, a disease in which the bone's mineral content and density are low, increasing a person's risk of fractures. The lumbar spine (lower back) and the hip are the skeletal sites usually examined. For the test, remember that: 1. You cannot take this test if you are . 2. Eat a normal diet on the day of the test. 3. Take your medications as you normally would. 4. DO NOT take calcium supplements (such as Tums) for 24 hours before the test. 5. On the day of the test, leave valuables (jewelry or credit cards) at home. 6. The test should be performed prior to oral, rectal or IV contrast studies, or at least 7 days after any of these studies. For the test, you may be asked to wear a hospital gown. You will lie on your back, on a padded table, in a comfortable position. Generally, you can resume your usual activities immediately. documented in this encounter [facility] 09-26-2022 History of Present illness Narrative Chief Complaint: Established patient follow up History of Present Illness: Lizett is a 72 year old female who presents here today for follow up Feeling well No new complaints Continues to have hot flashes at night, but not too bothersome Also has difficulty sleeping Has tried melatonin which did not help Denies fevers or chills No sob or chest pain No bleeding or dark stool No urinary complaints No new lumps or bumps No new pains No rash or itching Hematology/Oncology History: Past medical history is carried forward from previous note: 09/27/2020 and updated appropriately Attending: Dr An Diagnosis: Left breast cancer - s/p lumpectomy with sentinel lymph node sampling - primary was 1.6 cm in size, single focus. - 2 sentinel lymph nodes negative. - margins were reportedly positive on the surgical path but from discussion with Dr. Butler, her surgeon, he stated that the pathologist told him that the margins were negative as the orientation was apparently different. - Oncotype DX score 7 - she met with radiation oncology on 12/05/17 with discussion regarding side effects and benefits, and Dr. An stressed the importance of radiation, however, the patient refused. - proceeded with the aromatase inhibitor alone - bone density scan in 08/2017 showed osteoporosis with lowest T-score of -4.9 in L1-L4 and -4.4 in right hip and she started on bisphosphonate with yearly Reclast - patient started on Anastrazole in 02/2019 with plans for 5 years total - repeat bone scan in 04/2020 again showed improvement in osteoporosis with the lowest T-score of -4.2 in right hip - last mammogram on 04/25/2020 showed no evidence of malignancy Current Treatment: Anastrazole - initiated 02/2019 Reclast, yearly - last 06/11/2022 Subjective/ Review of Systems: See HPI HEENT- denies any vision/hearing changes or headaches. RESP- denies shortness of breath, cough CARDIAC- denies chest pain, palpitations BREAST- no masses, pain, drainage GI- Denies nausea, vomiting, constipation, diarrhea, blood in stool - denies dysuria, hematuria MILLER ROD MILL- denies vaginal bleeding. No vaginal concerns SKIN- denies new rashes MUSCULAR- no new muscular/skeletal pain or weakness NEURO- denies new neuropathy PAIN- denies Objective/ Exam: BP 152/76 Pulse 74 Temp 36.6 C (97.8 F) (Temporal) Wt 47.6 kg (104 lb 14.4 oz) LMP 04/15/2015 SpO2 93% BMI 21.58 kg/m GENERAL: Patient is a well developed, well nourished. Alert, oriented, pleasant and cooperative. NECK: Supple MOUTH: no redness, sores, or white patches BREAST: Right breast with no dominant masses/nodules, no nipple discharge and no adenopathy Left breast with surgical changes noted, no nodule, no skin changes, no adenopathy, no pain on exam Patient declined mine administrator supervisor. HEART: regular rate and rhythm LUNGS: clear to auscultation ABDOMEN: Abdomen soft, non-tender, + BS LOWER EXTREMITIES: No edema. Recent Testing Reviewed in Epic: - LABS Latest Reference Range & Units 08/13/22 12:05 Sodium 136 - 144 mmol/L 137 Potassium 3.7 - 5.1 mmol/L 4.2 Chloride 97 - 105 mmol/L 101 CO2 22 - 30 mmol/L 26 BUN 7 - 21 mg/dL 10 Creatinine 0.58 - 0.96 mg/dL 0.60 Glucose 74 - 99 mg/dL 89 Protein, Total 6.3 - 8.0 g/dL 8.6 (H) Calcium 8.5 - 10.2 mg/dL 9.7 Ionized Calcium 1.08 - 1.30 mmol/L 1.28 Normalized CAlcium 1.08 - 1.30 mmol/L 1.23 Phosphorus 2.7 - 4.8 mg/dL 3.2 Albumin 3.9 - 4.9 g/dL 5.0 (H) Bilirubin, Total 0.2 - 1.3 mg/dL 0.4 Alkaline Phosphatase 34 - 123 U/L 96 ALT 7 - 38 U/L 16 AST 13 - 35 U/L 18 Anion Gap 9 - 18 mmol/L 10 eGFR >=60 mL/min/1.73m 96 Vitamin D 25 Hydroxy 31.0 - 80.0 ng/mL 28.1 (L) MPA Result No M protein is identified. No M protein is identified. Staff Review (MPA) Reviewed by Jaimie Palomares M.D., Ph.D IgG 700 - 1,600 mg/dL 1,232 IgA 70 - 400 mg/dL 339 IgM 40 - 230 mg/dL 372 (H) [place] Free, Serum 3.3 - 19.4 mg/L 29.7 (H) Lambda Free, Serum 5.7 - 26.3 mg/L 15.2 K/L Ratio, Serum 0.26 - 1.65 1.95 (H) Free T4 0.9 - 1.7 ng/dL 0.5 (L) TSH 0.270 - 4.200 mIU/L 11.590 (H) Free T3 2.3 - 4.1 pg/mL 2.7 PTH, Intact 15 - 65 pg/mL 37 PTH Related Peptide 0.0 - 3.4 pmol/L <2.0 WBC 3.70 - 11.00 k/uL 6.48 RBC 3.90 - 5.20 m/uL 4.19 Hemoglobin 11.5 - 15.5 g/dL 13.9 Hematocrit 36.0 - 46.0 % 43.2 Platelet Count 150 - 400 k/uL 272 MCV 80.0 - 100.0 fL 103.1 (H) MCH 26.0 - 34.0 pg 33.2 MCHC 30.5 - 36.0 g/dL 32.2 MPV 9.0 - 12.7 fL 10.2 RDW-CV 11.5 - 15.0 % 14.1 DTYPE Auto Neut% % 60.7 Abs Neut (ANC) 1.45 - 7.50 k/uL 3.94 Lymph% % 26.7 Abs Lymph 1.00 - 4.00 k/uL 1.73 Lassen% % 5.9 Abs Lassen <0.87 k/uL 0.38 Eosin% % 5.9 Abs Eosin <0.46 k/uL 0.38 Baso% % 0.5 Abs Baso <0.11 k/uL 0.03 Immature Gran % % 0.3 IMMATURE GRANS (ABS) <0.10 k/uL <0.03 NRBC /100 WBC 0.0 Absolute nRBC <0.01 k/uL <0.01 Assessment and Plan: (C50.912, Z17.0) Malignant neoplasm of left breast in female, estrogen receptor positive, unspecified site of breast (HCC) (primary encounter diagnosis) (Z13.820) Encounter for screening for osteoporosis (E03.9) Hypothyroidism, unspecified type (E55.9) Vitamin D deficiency - feeling well - no new complaints or concerns - tolerating Anastrazole with expected side effects (hot flashes) - clinical breast exam in office today was without any worrisome findings - continues on yearly Reclast for osteoporosis (last received 06/11/2022) - patient noted to have low Vit D level and is on a Vit D supplement - she follows with Endo for thyroid issues (last TSH was elevated at 11.590) and remains on Methimazole 5 mg BID for history of hyperthyroidism - CBC unremarkable - patient is overdue to repeat Mammogram and bone density scan (order placed) - reviewed and analyzed most recent lab results I spent a total of 33 minutes on the date of the service which included preparing to see the patient, [id number] patient care, completing clinical documentation, obtaining and/or reviewing separately obtained history, performing a medically appropriate examination, counseling and educating the patient/family/caregiver, ordering medications, tests, or procedures, communicating with other HCPs (not separately reported), independently interpreting results (not separately reported), and communicating results to the patient/family/caregiver. FOLLOW UP in [address] An Patient verbalized understanding, agrees with plan of care, and denies further questions at this time. Understands to call the office with further concerns/questions. Ragini Mcgee APRN.CNP September 26, 2022 documented in this encounter [facility] 08-22-2022 Miscellaneous Notes Pharmacy verified in [facility] Patient has been identified by name and date of : Yes Patient aware RX will be sent to pharmacy. No need to notify patient. Pharmacy phones for refill(s): Requested Prescriptions Pending Prescriptions Disp Refills anastrozole (ARIMIDEX) 1 mg tablet 90 tablet 3 Sig: Take 1 tablet by mouth once daily. Date of last office visit : Visit date not found Date of next office visit : 09/11/2022 Last 2 Encounter Wt Readings: Date: Wt: 06/11/2022 45.9 kg (101 lb 3.2 oz) 06/07/2022 45.2 kg (99 lb 9.6 oz) Not applicable Please advise. Ariadne Gonzalez Pss documented in this encounter [facility] 08-17-2022 Miscellaneous Notes Called and left voicemail with providers message. CLOSED Correct, we did not receive the results directly from 08/13/22. (I had labs ordered for 07/16/22 but that is not the order she had drawn) Results from 2 days ago were reviewed. TSH 11.590 Stop methimazole for now. Repeat labs in 4 wks. If she uses a lab order that is not mine she needs to contact us within a week if she does not hear from us regarding results. Thank you Patient called and left a twice (9 minutes apart). State's her lab results for her thyroid were completed and reviewed by Dr Sun and he told her she needs a dose adjustment and she is not sure why we have not contacted her to make an adjustment. Noted that the results only went to Dr Sun and were never forwarded to our office to review. Please review and advise. Results are in Epic. Note these were originally ordered by our office but when they get drawn at a non [facility] office then that provider has to assume/order the labs and then results only go to that provider and we do not receive unless that provider forwards to us. documented in this encounter [facility] 07-05-2022 Miscellaneous Notes 1st-time treatment report- non-oncology regimen. No assistance to support Reclast drug for Medicare-insured patients. No further assistance from at this time documented in this encounter [facility] 06-08-2022 Miscellaneous Notes Order placed Patient was last seen in office in May of 2021. She came into the office today to schedule a follow up with ragini mcgee and to schedule her mammogram. The current order expires prior to the first opening in [place]. Could a new order be placed so that she can get scheduled. She is coming in on Monday 06/11 for a reclast infusion. If the order could be placed prior to Saturday so that she can schedule this scan prior to her follow up with Ragini in July. documented in this encounter [facility] 06-07-2022 Note HNO ID: [id number] Author: Nora Pedro APRN.CONTROL MANAGER Service: ? Author Type: Nurse Practitioner Type: Progress Notes Filed: 06/07/2022 2:24 PM Note Text: Reason for Consultation: Graves Disease Referring Physician: SELF HISTORY OF PRESENT ILLNESS; Ms. Valadez is a 71 year old female presenting for follow up regarding Graves Disease. She was initially diagnosed with a thyroid disorder November 2018. Patient of Dr. John 02/23/22 History of Graves disease, breast CA, COPD, migraine, macular degeneration, AVM, aneurysm. Elevated TSI at 362 Taking methimazole 5mg 2 tabs in AM and 2 tab PM (20 mg total daily) Denies missing doses. Appetite variable. Grazes and has one larger meal per day. Using Ensure. She did not do the labs for March or May Labs from 02/05/22 TSH <0.005 Free T3 6.2 Free t4 1.8 WBC 8.85 AST 13 ALT 15 Severity, modifying factors, context and associated signs and symptoms are as follows: Thyroid pain: no Mass effect: None Energy: variable Sleep: chronic insomnia Temperature Intolerance: variable MILLER ROD MILL: Menopause age 45-50 GI: denies loose stools, frequent stools or constipation Weight: up about 7 lb Eyes: left eye blind; has macular degeneration; no longer drives Memory: Good Skin: skin dry. Neuro:occasional tremor *HPI reviewed and updated as needed PAST MEDICAL HISTORY Diagnosis Date Aneurysm (HCC) 06/02/2010 right ICA terminus AVM (arteriovenous malformation) 2003 left sylvian fissure Breast cancer (HCC) 11/2017 left breast Breast mass, left 11/2017 COPD (chronic obstructive pulmonary disease) (HCC) Fracture of upper end of tibia 10/31/2015 Macular degeneration Migraine PCO (posterior capsular opacification) 05/25/2016 Pseudophakia of right eye Retinal hemorrhage of left eye 2004 left central vision loss Subarachnoid hemorrhage (HCC) 05/2010 Tubal PAST SURGICAL HISTORY Procedure Laterality Date APPENDECTOMY 196 BREAST BIOPSY CORE Left 11/05/2017 BREAST LUMPECTOMY HX 11/21/2017 Left axillary sentinel lymph node biopsy, left breast lumpectomy with intraoperative ultrasound localization. CATARACT EXTRACTION HX Bilateral 2004, 03/2016 CREATION SHUNT; VENTRICULO-PERITONEAL Right 06/2010 right frontal ventriculoperitoneal shunt creation GAMMA KNIFE 1FX TX DELIVERY 2011 AVM SALPINGECTOMY Left 1974 tubal FAMILY HISTORY Problem Relation Age of Onset Macular Degen Brother Heart Mother Heart Father Social History Tobacco Use Smoking status: Every Day Packs/day: 0.50 Years: 53.00 Pack years: 26.50 Types: Cigarettes Start date: 03/03/2018 Smokeless tobacco: Never Substance Use Topics Alcohol use: No Drug use: No Current Outpatient Medications Medication Sig Dispense Refill suuqapwdxcm-yrfuogctq-yfnvpvih (TRELEGY ELLIPTA) 100-62.5-25 mcg inhalation powder methIMAzole (TAPAZOLE) 5 mg tablet Take 2 tabs in AM and 2 tab PM 120 tablet 3 anastrozole (ARIMIDEX) 1 mg tablet TAKE 1 TABLET BY MOUTH ONCE DAILY. [address] (PROTONIX) 40 mg tablet Take 1 tablet by mouth once daily. 30 tablet 1 Ibuprofen 200 mg cap Take 2 capsules by mouth every 4 hours as needed. loratadine (CLARITIN) 10 mg tablet TAKE 1 TABLET BY MOUTH NIGHTLY 1 BREO ELLIPTA 100-25 mcg/dose inhaler Inhale 1 Inhalation as instructed once daily. albuterol HFA (VENTOLIN HFA) 90 mcg/actuation inhaler Inhale by mouth as instructed. 18 g 0 metoprolol tartrate, short acting, (LOPRESSOR) 25 mg tablet Take 1 tablet by mouth every 12 hours. 60 tablet 0 amLODIPine (NORVASC) 2.5 mg tablet Take 1 tablet by mouth once daily. 30 tablet 1 No current facility-administered medications for this visit. Allergies As of Date: 06/07/2022 Allergen Noted Reaction PENICILLINS 06/28/2010 Unknown Fully Assessed 06/07/2022 REVIEW OF SYSTEMS: Review of Systems Respiratory: Negative for difficulty breathing. Cardiovascular: Negative for chest pain. Gastrointestinal: Negative for nausea, vomiting, diarrhea and constipation. PHYSICAL EXAM: BP 135/85 Pulse 78 Resp 20 Ht 148.5 cm (4' 10.47 ) Wt 45.2 kg (99 lb 9.6 oz) SpO2 97% BMI 20.49 kg/m2 Physical Exam Constitutional: Appearance: Normal appearance. Neck: Thyroid: No thyroid mass, thyromegaly or thyroid tenderness. Cardiovascular: Rate and Rhythm: Normal rate and regular rhythm. Pulmonary: Effort: Pulmonary effort is normal. Breath sounds: Normal breath sounds. Skin: General: Skin is warm and dry. Neurological: Mental Status: She is alert and oriented to person, place, and time. Psychiatric: Mood and Affect: Mood normal. Behavior: Behavior normal. DATA: No components found for: TOTALT4 Free T4 Date Value Ref Range Status 02/05/2022 1.8 (H) 0.9 - 1.7 ng/dL Final No components found for: TOTALT3 TSH Date Value Ref Range Status 02/05/2022 <0.005 (L) 0.270 - 4.200 mIU/L Final Free T3 Date Value (more content not included)... [facility] 06-07-2022 History of Present illness Narrative Reason for Consultation: Graves Disease Referring Physician: SELF HISTORY OF PRESENT ILLNESS; Ms. Valadez is a 71 year old female presenting for follow up regarding Graves Disease. She was initially diagnosed with a thyroid disorder November 2018. Patient of Dr. Christianne GODINEZ 02/23/22 History of Graves disease, breast CA, COPD, migraine, macular degeneration, AVM, aneurysm. Elevated TSI at 362 Taking methimazole 5mg 2 tabs in AM and 2 tab PM (20 mg total daily) Denies missing doses. Appetite variable. Grazes and has one larger meal per day. Using Ensure. She did not do the labs for March or May Labs from 02/05/22 TSH <0.005 Free T3 6.2 Free t4 1.8 WBC 8.85 AST 13 ALT 15 Severity, modifying factors, context and associated signs and symptoms are as follows: Thyroid pain: no Mass effect: None Energy: variable Sleep: chronic insomnia Temperature Intolerance: variable MILLER ROD MILL: Menopause age 45-50 GI: denies loose stools, frequent stools or constipation Weight: up about 7 lb Eyes: left eye blind; has macular degeneration; no longer drives Memory: Good Skin: skin dry. Neuro:occasional tremor *HPI reviewed and updated as needed PAST MEDICAL HISTORY Diagnosis Date Aneurysm (HCC) 06/02/2010 right ICA terminus AVM (arteriovenous malformation) 2003 left sylvian fissure Breast cancer (HCC) 11/2017 left breast Breast mass, left 11/2017 COPD (chronic obstructive pulmonary disease) ([facility]) Fracture of upper end of tibia 10/31/2015 Macular degeneration Migraine PCO (posterior capsular opacification) 05/25/2016 Pseudophakia of right eye Retinal hemorrhage of left eye 2004 left central vision loss Subarachnoid hemorrhage ([facility]) 05/2010 Tubal PAST SURGICAL HISTORY Procedure Laterality Date APPENDECTOMY 1960 BREAST BIOPSY CORE Left 11/05/2017 BREAST LUMPECTOMY HX 11/21/2017 Left axillary sentinel lymph node biopsy, left breast lumpectomy with intraoperative ultrasound localization. CATARACT EXTRACTION HX Bilateral 2004, 03/2016 CREATION SHUNT; VENTRICULO-PERITONEAL Right 06/2010 right frontal ventriculoperitoneal shunt creation GAMMA KNIFE 1FX TX DELIVERY 2011 AVM SALPINGECTOMY Left 1974 tubal FAMILY HISTORY Problem Relation Age of Onset Macular Degen Brother Heart Mother Heart Father Social History Tobacco Use Smoking status: Every Day Packs/day: 0.50 Years: 53.00 Pack years: 26.50 Types: Cigarettes Start date: 03/03/2018 Smokeless tobacco: Never Substance Use Topics Alcohol use: No Drug use: No Current Outpatient Medications Medication Sig Dispense Refill newcfvkuugb-vvymrqqcw-cubcvzlk (TRELEGY ELLIPTA) 100-62.5-25 mcg inhalation powder methIMAzole (TAPAZOLE) 5 mg tablet Take 2 tabs in AM and 2 tab PM 120 tablet 3 anastrozole (ARIMIDEX) 1 mg tablet TAKE 1 TABLET BY MOUTH ONCE DAILY. [address] (PROTONIX) 40 mg tablet Take 1 tablet by mouth once daily. 30 tablet 1 Ibuprofen 200 mg cap Take 2 capsules by mouth every 4 hours as needed. loratadine (CLARITIN) 10 mg tablet TAKE 1 TABLET BY MOUTH NIGHTLY 1 BREO ELLIPTA 100-25 mcg/dose inhaler Inhale 1 Inhalation as instructed once daily. albuterol HFA (VENTOLIN HFA) 90 mcg/actuation inhaler Inhale by mouth as instructed. 18 g 0 metoprolol tartrate, short acting, (LOPRESSOR) 25 mg tablet Take 1 tablet by mouth every 12 hours. 60 tablet 0 amLODIPine (NORVASC) 2.5 mg tablet Take 1 tablet by mouth once daily. 30 tablet 1 No current facility-administered medications for this visit. Allergies As of Date: 06/07/2022 Allergen Noted Reaction PENICILLINS 06/28/2010 Unknown Fully Assessed 06/07/2022 REVIEW OF SYSTEMS: Review of Systems Respiratory: Negative for difficulty breathing. Cardiovascular: Negative for chest pain. Gastrointestinal: Negative for nausea, vomiting, diarrhea and constipation. PHYSICAL EXAM: BP 135/85 Pulse 78 Resp 20 Ht 148.5 cm (4' 10.47 ) Wt 45.2 kg (99 lb 9.6 oz) SpO2 97% BMI 20.49 kg/m2 Physical Exam Constitutional: Appearance: Normal appearance. Neck: Thyroid: No thyroid mass, thyromegaly or thyroid tenderness. Cardiovascular: Rate and Rhythm: Normal rate and regular rhythm. Pulmonary: Effort: Pulmonary effort is normal. Breath sounds: Normal breath sounds. Skin: General: Skin is warm and dry. Neurological: Mental Status: She is alert and oriented to person, place, and time. Psychiatric: Mood and Affect: Mood normal. Behavior: Behavior normal. DATA: No components found for: TOTALT4 Free T4 Date Value Ref Range Status 02/05/2022 1.8 (H) 0.9 - 1.7 ng/dL Final No components found for: TOTALT3 TSH Date Value Ref Range Status 02/05/2022 <0.005 (L) 0.270 - 4.200 mIU/L Final Free T3 Date Value Ref Range Status 02/05/2022 6.2 (H) 2.3 - 4.1 pg/mL Final No results found for: MICROSOMAB RADIOLOGY: US Thyroid was done 02/2020--no discrete nodules ASSESSMENT: Ms. Valadez is a 71 year old female presenting for follow up regarding Grave's Disease . RECOMMENDATIONS: (E05.90) Hyperthyroidism (primary encounter diagnosis) Comment: She is tolerating methimazole well. Due to repeat labs Plan: TSH BLD, T4 FREE/FREE THYROX, T3 FREE BLD, CBC, COMP METABOLIC PANEL Continue current dose of methimazole Labs today--already in EMR Follow up in 6 months I spent a total of 20 minutes on the date of the service which included preparing to see the patient, [id number] patient care, completing clinical documentation, obtaining and/or reviewing separately obtained history, performing a medically appropriate examination, and counseling and educating the patient/family/caregiver. Nora Pedro, MSN, SHOP ASSISTANT, POLICE ARTIST-C, CDE Endocrinology [facility] Office [facility]/[address] [place] [address] Fax: documented in this encounter [facility] 02-23-2022 Note HNO ID: [id number] Author: Nora Pedro APRN.CONTROL MANAGER Service: ? Author Type: Nurse Practitioner Type: Progress Notes Filed: 02/23/2022 1:25 PM Note Text: Reason for Consultation: Graves Disease Referring Physician: SELF HISTORY OF PRESENT ILLNESS; Ms. Valadez is a 71 year old female presenting for follow up regarding Graves Disease. She was initially diagnosed with a thyroid disorder November 2018. Patient of Dr. John 12/20/2020 History of Graves disease, breast CA, COPD, migraine, macular degeneration, AVM, aneurysm. Elevated TSI at 362 Today reports fatigue and unable to do every thing she needs. Uses ensure 2 per day minimum. Has one good meal daily. Has low appetite Taking methimazole 5mg 2 tabs in AM and 1 tab PM (15 mg total daily)-- denies missing doses. Labs from 02/05/22 TSH <0.005 Free T3 6.2 Free t4 1.8 WBC 8.85 AST 13 ALT 15 Severity, modifying factors, context and associated signs and symptoms are as follows: Thyroid pain: no Mass effect: None Energy: decreased Sleep:Difficulty but not new Temperature Intolerance: variable MILLER ROD MILL: Menopause age 45-50 GI: denies loose stools, frequent stools or constipation Weight: down 10 lb since 2020 Eyes: left eye blind; has macular degeneration; no longer drives Memory: Good Skin: skin dry. Neuro:occasional tremor when lifting coffee pot. *HPI reviewed and updated as needed PAST MEDICAL HISTORY Diagnosis Date Aneurysm (HCC) 06/02/2010 right ICA terminus AVM (arteriovenous malformation) 2003 left sylvian fissure Breast cancer (HCC) 11/2017 left breast Breast mass, left 11/2017 COPD (chronic obstructive pulmonary disease) ([facility]) Fracture of upper end of tibia 10/31/2015 Macular degeneration Migraine PCO (posterior capsular opacification) 05/25/2016 Pseudophakia of right eye Retinal hemorrhage of left eye 2004 left central vision loss Subarachnoid hemorrhage (HCC) 05/2010 Tubal PAST SURGICAL HISTORY Procedure Laterality Date APPENDECTOMY 1960 BREAST BIOPSY CORE Left 11/05/2017 BREAST LUMPECTOMY HX 11/21/2017 Left axillary sentinel lymph node biopsy, left breast lumpectomy with intraoperative ultrasound localization. CATARACT EXTRACTION HX Bilateral 2004, 03/2016 CREATION SHUNT; VENTRICULO-PERITONEAL Right 06/2010 right frontal ventriculoperitoneal shunt creation GAMMA KNIFE 1FX TX DELIVERY 2011 AVM SALPINGECTOMY Left 1974 tubal FAMILY HISTORY Problem Relation Age of Onset Macular Degen Brother Heart Mother Heart Father Social History Tobacco Use Smoking status: Every Day Packs/day: 0.50 Years: 53.00 Pack years: 26.50 Types: Cigarettes Start date: 03/03/2018 Smokeless tobacco: Never Substance Use Topics Alcohol use: No Drug use: No Current Outpatient Medications Medication Sig Dispense Refill anastrozole (ARIMIDEX) 1 mg tablet TAKE 1 TABLET BY MOUTH ONCE DAILY. 90 tablet 3 methIMAzole (TAPAZOLE) 5 mg tablet Take 2 tabs in AM and 1 tab PM 90 tablet 0 metoprolol tartrate, short acting, (LOPRESSOR) 25 mg tablet Take 1 tablet by mouth every 12 hours. [address] (PROTONIX) 40 mg tablet Take 1 tablet by mouth once daily. 30 tablet 1 amLODIPine (NORVASC) 2.5 mg tablet Take 1 tablet by mouth once daily. 30 tablet 1 Ibuprofen 200 mg cap Take 2 capsules by mouth every 4 hours as needed. loratadine (CLARITIN) 10 mg tablet TAKE 1 TABLET BY MOUTH NIGHTLY 1 BREO ELLIPTA 100-25 mcg/dose inhaler Inhale 1 Inhalation as instructed once daily. albuterol HFA (VENTOLIN HFA) 90 mcg/actuation inhaler Inhale by mouth as instructed. 18 g 0 nicotine (NICODERM) 14 mg/24 hr Apply 1 Patch as directed once daily. 30 Patch 0 No current facility-administered medications for this visit. Allergies As of Date: 02/23/2022 Allergen Noted Reaction PENICILLINS 06/28/2010 Unknown Fully Assessed 02/23/2022 REVIEW OF SYSTEMS: Review of Systems Respiratory: Negative for difficulty breathing. Cardiovascular: Negative for chest pain. Gastrointestinal: Negative for nausea, vomiting, diarrhea and constipation. PHYSICAL EXAM: BP 125/78 (BP Site: Left Arm, BP Position: Sitting, BP Cuff Size: Small Adult) Pulse 87 Wt 42.1 kg (92 lb 12.8 oz) SpO2 92% BMI 18.74 kg/m2 Physical Exam Constitutional: Appearance: Normal appearance. Cardiovascular: Rate and Rhythm: Normal rate and regular rhythm. Pulmonary: Effort: Pulmonary effort is normal. Breath sounds: Normal breath sounds. Skin: General: Skin is warm and dry. Neurological: Mental Status: She is alert and oriented to person, place, and time. Psychiatric: Mood and Affect: Mood normal. Behavior: Behavior normal. DATA: No components found for: TOTALT4 Free T4 Date Value Ref Range Status 02/05/2022 1.8 (H) 0.9 - 1.7 ng/dL Final No components found for: TOTALT3 TSH Date Value Ref Range Status 02/05/2022 <0.005 (L) 0.270 - 4.200 mIU/L Fi (more content not included)... [facility] 02-23-2022 Instructions Nora Pedro APRN.CONTROL MANAGER - 02/23/2022 1:04 PM EDT Increase methimazole 5 mg tab to: AM 2 tabs PM 2 tabs 2. Repeat labs 4-5 wks. 3. Follow up 3 and 6 months. Nora Pedro, MSN, SHOP ASSISTANT, POLICE ARTIST-C, CDE Endocrinology [facility] Medical Office [facility]/[address] [place] [address] Fax: documented in this encounter [facility] 02-23-2022 History of Present illness Narrative Reason for Consultation: Graves Disease Referring Physician: SELF HISTORY OF PRESENT ILLNESS; Ms. Valadez is a 71 year old female presenting for follow up regarding Graves Disease. She was initially diagnosed with a thyroid disorder November 2018. Patient of Dr. Christianne GODINEZ 12/20/2020 History of Graves disease, breast CA, COPD, migraine, macular degeneration, AVM, aneurysm. Elevated TSI at 362 Today reports fatigue and unable to do every thing she needs. Uses ensure 2 per day minimum. Has one good meal daily. Has low appetite Taking methimazole 5mg 2 tabs in AM and 1 tab PM (15 mg total daily)-- denies missing doses. Labs from 02/05/22 TSH <0.005 Free T3 6.2 Free t4 1.8 WBC 8.85 AST 13 ALT 15 Severity, modifying factors, context and associated signs and symptoms are as follows: Thyroid pain: no Mass effect: None Energy: decreased Sleep:Difficulty but not new Temperature Intolerance: variable MILLER ROD MILL: Menopause age 45-50 GI: denies loose stools, frequent stools or constipation Weight: down 10 lb since 2020 Eyes: left eye blind; has macular degeneration; no longer drives Memory: Good Skin: skin dry. Neuro:occasional tremor when lifting coffee pot. *HPI reviewed and updated as needed PAST MEDICAL HISTORY Diagnosis Date Aneurysm (HCC) 06/02/2010 right ICA terminus AVM (arteriovenous malformation) 2003 left sylvian fissure Breast cancer (HCC) 11/2017 left breast Breast mass, left 11/2017 COPD (chronic obstructive pulmonary disease) ([facility]) Fracture of upper end of tibia 10/31/2015 Macular degeneration Migraine PCO (posterior capsular opacification) 05/25/2016 Pseudophakia of right eye Retinal hemorrhage of left eye 2004 left central vision loss Subarachnoid hemorrhage (HCC) 05/2010 Tubal PAST SURGICAL HISTORY Procedure Laterality Date APPENDECTOMY 1960 BREAST BIOPSY CORE Left 11/05/2017 BREAST LUMPECTOMY HX 11/21/2017 Left axillary sentinel lymph node biopsy, left breast lumpectomy with intraoperative ultrasound localization. CATARACT EXTRACTION HX Bilateral 2004, 03/2016 CREATION SHUNT; VENTRICULO-PERITONEAL Right 06/2010 right frontal ventriculoperitoneal shunt creation GAMMA KNIFE 1FX TX DELIVERY 2010 AVM SALPINGECTOMY Left 1974 tubal FAMILY HISTORY Problem Relation Age of Onset Macular Degen Brother Heart Mother Heart Father Social History Tobacco Use Smoking status: Every Day Packs/day: 0.50 Years: 53.00 Pack years: 26.50 Types: Cigarettes Start date: 03/03/2018 Smokeless tobacco: Never Substance Use Topics Alcohol use: No Drug use: No Current Outpatient Medications Medication Sig Dispense Refill anastrozole (ARIMIDEX) 1 mg tablet TAKE 1 TABLET BY MOUTH ONCE DAILY. 90 tablet 3 methIMAzole (TAPAZOLE) 5 mg tablet Take 2 tabs in AM and 1 tab PM 90 tablet 0 metoprolol tartrate, short acting, (LOPRESSOR) 25 mg tablet Take 1 tablet by mouth every 12 hours. [address] (PROTONIX) 40 mg tablet Take 1 tablet by mouth once daily. 30 tablet 1 amLODIPine (NORVASC) 2.5 mg tablet Take 1 tablet by mouth once daily. 30 tablet 1 Ibuprofen 200 mg cap Take 2 capsules by mouth every 4 hours as needed. loratadine (CLARITIN) 10 mg tablet TAKE 1 TABLET BY MOUTH NIGHTLY 1 BREO ELLIPTA 100-25 mcg/dose inhaler Inhale 1 Inhalation as instructed once daily. albuterol HFA (VENTOLIN HFA) 90 mcg/actuation inhaler Inhale by mouth as instructed. 18 g 0 nicotine (NICODERM) 14 mg/24 hr Apply 1 Patch as directed once daily. 30 Patch 0 No current facility-administered medications for this visit. Allergies As of Date: 02/23/2022 Allergen Noted Reaction PENICILLINS 06/28/2010 Unknown Fully Assessed 02/23/2022 REVIEW OF SYSTEMS: Review of Systems Respiratory: Negative for difficulty breathing. Cardiovascular: Negative for chest pain. Gastrointestinal: Negative for nausea, vomiting, diarrhea and constipation. PHYSICAL EXAM: BP 125/78 (BP Site: Left Arm, BP Position: Sitting, BP Cuff Size: Small Adult) Pulse 87 Wt 42.1 kg (92 lb 12.8 oz) SpO2 92% BMI 18.74 kg/m2 Physical Exam Constitutional: Appearance: Normal appearance. Cardiovascular: Rate and Rhythm: Normal rate and regular rhythm. Pulmonary: Effort: Pulmonary effort is normal. Breath sounds: Normal breath sounds. Skin: General: Skin is warm and dry. Neurological: Mental Status: She is alert and oriented to person, place, and time. Psychiatric: Mood and Affect: Mood normal. Behavior: Behavior normal. DATA: No components found for: TOTALT4 Free T4 Date Value Ref Range Status 02/05/2022 1.8 (H) 0.9 - 1.7 ng/dL Final No components found for: TOTALT3 TSH Date Value Ref Range Status 02/05/2022 <0.005 (L) 0.270 - 4.200 mIU/L Final Free T3 Date Value Ref Range Status 02/05/2022 6.2 (H) 2.3 - 4.1 pg/mL Final No results found for: MICROSOMAB RADIOLOGY: US Thyroid was done 02/2020--no discrete nodules ASSESSMENT: Ms. Valadez is a 71 year old female presenting for follow up regarding Grave's Disease . RECOMMENDATIONS: (E05.90) Hyperthyroidism(primary encounter diagnosis) Comment: Labs are in the hyperthyroid range. Methimazole dose adjusted. Plan: methIMAzole (TAPAZOLE) 5 mg tablet, TSH BLD, T4 FREE/FREE THYROX, T3 FREE BLD, TSH BLD, T4 FREE/FREE THYROX, T3 FREE BLD Increase methimazole 5 mg tab to: AM 2 tabs PM 2 tabs Repeat labs 4-5 wks. Follow up 3 and 6 months. (R63.4) Abnormal weight loss Comment/Plan: Likely due, in part, to hyperthyroidism I spent a total of 20 minutes on the date of the service which included preparing to see the patient, [id number] patient care, completing clinical documentation, obtaining and/or reviewing separately obtained history, performing a medically appropriate examination, counseling and educating the patient/family/caregiver, and ordering medications, tests, or procedures. Nora Pedro, MSN, SHOP ASSISTANT, POLICE ARTIST-C, CDE Endocrinology [facility] Medical Office [facility]/[address] [place] [address] Fax: documented in this encounter [facility] 01-17-2022 Miscellaneous Notes Requester: Patient Last Visit in Endocrinology: Provider name: Nora WhittenPATTIE haque , Date 12/20/2020 Next Scheduled Appt in Endo: 02/23/2022 Last Refill: 05/29/21 Number of Refills given: 0 Only given a 30 day supply no refills Pending Prescriptions Disp Refills METHIMAZOLE 5 MG TABLET 60 tablet 0 Sig: Take 2 tabs in AM and 1 tab PM AD: No Please review and advise. Lizzy Kaur LPN Patient phones requesting refills as follows: Date of last office visit : 12/20/2020 Date of next office visit : 02/23/2022 Pending Prescriptions Disp Refills METHIMAZOLE 5 MG TABLET 90 tablet 0 Sig: Take 2 tabs in AM and 1 tab PM AD: No Please review and advise. Hoa Mcnamara documented in this encounter [facility] 11-13-2021 History of Present illness Narrative Assessment and Plan: 1. Exudative age-related macular degeneration of right eye with active choroidal neovascularization (HCC) 2. 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 -AREDS 2 Vitamins are available over the counter at any pharmacy. -Continue care with Dr. Prajapati, [facility], as scheduled. -Advised Low Vision Consult with Dr. Hull. -Patient wishes to discuss with her family before proceeding. -Information given. -Please call the office with decreased vision or increased eye pain. 3. Dry eye syndrome of both eyes -Begin: Refresh Artificial tears, 1 Drop, three times a day, Both eyes. 4. Pseudophakia of both eyes -Stable / Observe Ovi Feliz, OD I have reviewed, confirmed, and edited as necessary the relevant ophthalmic history, review of systems, allergies, patient history, and ophthalmological examination findings as obtained by the ophthalmic technical staff. I have seen and examined Lizett Valadez. I have discussed the examination findings, diagnosis, and treatment options with Lizett Valadez and/or her family. I have also reviewed and agree with the assessment and plan as stated above and agree with all its relevant components. I gave the patient the opportunity to ask questions about the examination findings, diagnosis, and treatment options. documented in this encounter [facility] 11-13-2021 Instructions Ovi Feliz, OD - 11/13/2021 1:26 PM EDT Images from the original note were not included. Please monitor each eye daily with the Amsler Grid. AREDS 2 Vitamins are available over the counter at any pharmacy. Refresh Artificial tears, 1 drop, three times a day, Both eyes. documented in this encounter [facility] documented as of this encounter (statuses as of 11/13/2021) [facility] History of Past illness Narrative* Problem Noted Date Resolved Date Hallucinations, visual 05/27/2021 Hypokalemia 05/27/2021 05/29/2021 Altered mental status 05/27/2021 05/29/2021 Acute respiratory failure with hypoxia and hyper capnia 05/21/2017 05/21/2017 Gastric ulcer without hemorrhage or perforation 05/21/2017 11/15/2017 Pneumothorax 05/16/2017 11/15/2017 PCO (posterior capsular opacification) 6 05/27/2021 Fracture of upper end of tibia 10/31/2015 1 07/27/2020 Closed fracture of left proximal tibia 5 11/15/2017 Pain in left knee 04/17/2015 11/15/2017 CME (cystoid macular edema) 11/09/201411/2016 Age-related macular degeneration, dry, right eye 11/09/2014 11/09/2016 Subarachnoid hemorrhage 06/04/2010 11/16/19 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 documented as of this encounter (statuses as of 01/17/2022) [facility] History of Past illness Narrative* Problem Noted Date Resolved Date Hallucinations, visual 05/27/2021 Hypokalemia 05/27/2021 05/29/2021 Altered mental status 05/27/2021 05/29/2021 Acute respiratory failure with hypoxia and hyper capnia 05/21/2017 05/21/2017 Gastric ulcer without hemorrhage or perforation 05/21/2017 11/15/2017 Pneumothorax 05/16/2017 11/15/2017 PCO (posterior capsular opacification) 6 05/27/2021 Fracture of upper end of tibia 10/31/2015 1 07/27/2020 Closed fracture of left proximal tibia 5 11/15/2017 Pain in left knee 04/17/2015 11/15/2017 CME (cystoid macular edema) 11/09/201411/2016 Age-related macular degeneration, dry, right eye 11/09/2014 11/09/2016 Subarachnoid hemorrhage 06/04/2010 11/16/19 18 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 documented as of this encounter (statuses as of 02/23/2022) [facility] of Past illness Narrative* Problem Noted Date Resolved Date Hallucinations, visual 05/27/2021 Hypokalemia 05/27/2021 05/29/2021 Altered mental status 05/27/2021 05/29/2021 Acute respiratory failure with hypoxia and hyper capnia 05/21/2017 05/21/2017 Gastric ulcer without hemorrhage or perforation 05/21/2017 11/15/2017 Pneumothorax 05/16/2017 11/15/2017 PCO (posterior capsular opacification) 6 05/27/2021 Fracture of upper end of tibia 10/31/2015 1 07/27/2020 Closed fracture of left proximal tibia 5 11/15/2017 Pain in left knee 04/17/2015 11/15/2017 CME (cystoid macular edema) 11/09/2014 050 11/2016 Age-related macular degeneration, dry, right eye 11/09/2014 11/09/2016 Subarachnoid hemorrhage 06/04/2010 11/16/19 18 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 documented as of this encounter (statuses as of 06/07/2022) [facility] of Past illness Narrative* Problem Noted Date Resolved Date Hallucinations, visual 05/27/2021 Hypokalemia 05/27/2021 05/29/2021 Altered mental status 05/27/2021 05/29/2021 Acute respiratory failure with hypoxia and hyper capnia 05/21/2017 05/21/2017 Gastric ulcer without hemorrhage or perforation 05/21/2017 11/15/2017 Pneumothorax 05/16/2017 11/15/2017 PCO (posterior capsular opacification) 6 05/27/2021 Fracture of upper end of tibia 10/31/2015 1 07/27/2020 Closed fracture of left proximal tibia 5 11/15/2017 Pain in left knee 04/17/2015 11/15/2017 CME (cystoid macular edema) 11/09/201411/2016 Age-related macular degeneration, dry, right eye 11/09/2014 11/09/2016 Subarachnoid hemorrhage 06/04/2010 11/16/19 18 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 documented as of this encounter (statuses as of 06/08/2022) [facility] of Past illness Narrative* Problem Noted Date Resolved Date Hallucinations, visual 05/27/2021 Hypokalemia 05/27/2021 05/29/2021 Altered mental status 05/27/2021 05/29/2021 Acute respiratory failure with hypoxia and hyper capnia 05/21/2017 05/21/2017 Gastric ulcer without hemorrhage or perforation 05/21/2017 11/15/2017 Pneumothorax 05/16/2017 11/15/2017 PCO (posterior capsular opacification) 6 05/27/2021 Fracture of upper end of tibia 10/31/2015 1 07/27/2020 Closed fracture of left proximal tibia 5 11/15/2017 Pain in left knee 04/17/2015 11/15/2017 CME (cystoid macular edema) 11/09/20140 11/2016 Age-related macular degeneration, dry, right eye 11/09/2014 11/09/2016 Subarachnoid hemorrhage 06/04/2010 11/16/19 18 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 documented as of this encounter (statuses as of 06/11/2022) [facility] of Past illness Narrative* Problem Noted Date Resolved Date Hallucinations, visual 05/27/2021 Hypokalemia 05/27/2021 05/29/2021 Altered mental status 05/27/2021 05/29/2021 Acute respiratory failure with hypoxia and hyper capnia 05/21/2017 05/21/2017 Gastric ulcer without hemorrhage or perforation 05/21/2017 11/15/2017 Pneumothorax 05/16/2017 11/15/2017 PCO (posterior capsular opacification) 6 05/27/2021 Fracture of upper end of tibia 10/31/2015 1 07/27/2020 Closed fracture of left proximal tibia 5 11/15/2017 Pain in left knee 04/17/2015 11/15/2017 CME (cystoid macular edema) 11/09/2014 0511/2016 Age-related macular degeneration, dry, right eye 11/09/2014 11/09/2016 Subarachnoid hemorrhage 06/04/2010 11/16/19 18 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 documented as of this encounter (statuses as of 07/11/2022) [facility] of Past illness Narrative* Problem Noted Date Resolved Date Hallucinations, visual 05/27/2021 Hypokalemia 05/27/2021 05/29/2021 Altered mental status 05/27/2021 05/29/2021 Acute respiratory failure with hypoxia and hyper capnia 05/21/2017 05/21/2017 Gastric ulcer without hemorrhage or perforation 05/21/2017 11/15/2017 Pneumothorax 05/16/2017 11/15/2017 PCO (posterior capsular opacification) 6 05/27/2021 Fracture of upper end of tibia 10/31/2015 1 07/27/2020 Closed fracture of left proximal tibia 5 11/15/2017 Pain in left knee 04/17/2015 11/15/2017 CME (cystoid macular edema) 11/09/2014 05/0 11/2016 Age-related macular degeneration, dry, right eye 11/09/2014 11/09/2016 Subarachnoid hemorrhage 06/04/2010 11/16/19 18 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 documented as of this encounter (statuses as of 08/17/2022) [facility] of Past illness Narrative* Problem Noted Date Resolved Date Hallucinations, visual 05/27/2021 Hypokalemia 05/27/2021 05/29/2021 Altered mental status 05/27/2021 05/29/2021 Acute respiratory failure with hypoxia and hyper capnia 05/21/2017 05/21/2017 Gastric ulcer without hemorrhage or perforation 05/21/2017 11/15/2017 Pneumothorax 05/16/2017 11/15/2017 PCO (posterior capsular opacification) 6 05/27/2021 Fracture of upper end of tibia 10/31/2015 1 07/27/2020 Closed fracture of left proximal tibia 5 11/15/2017 Pain in left knee 04/17/2015 11/15/2017 CME (cystoid macular edema) 11/09/201411/2016 Age-related macular degeneration, dry, right eye 11/09/2014 11/09/2016 Subarachnoid hemorrhage 06/04/2010 11/16/19 18 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 documented as of this encounter (statuses as of 08/23/2022) [facility] History of Past illness Narrative* Problem Noted Date Resolved Date Hallucinations, visual 05/27/2021 Hypokalemia 05/27/2021 05/29/2021 Altered mental status 05/27/2021 05/29/2021 Acute respiratory failure with hypoxia and hyper capnia 05/21/2017 05/21/2017 Gastric ulcer without hemorrhage or perforation 05/21/2017 11/15/2017 Pneumothorax 05/16/2017 11/15/2017 PCO (posterior capsular opacification) 6 05/27/2021 Fracture of upper end of tibia 10/31/2015 1 07/27/2020 Closed fracture of left proximal tibia 5 11/15/2017 Pain in left knee 04/17/2015 11/15/2017 CME (cystoid macular edema) 11/09/20140 11/2016 Age-related macular degeneration, dry, right eye 11/09/2014 11/09/2016 Subarachnoid hemorrhage 06/04/2010 11/16/19 18 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 documented as of this encounter (statuses as of 09/26/2022) [facility] History of Past illness Narrative* Problem Noted Date Resolved Date Hallucinations, visual 05/27/2021 Hypokalemia 05/27/2021 05/29/2021 Altered mental status 05/27/2021 05/29/2021 Acute respiratory failure with hypoxia and hyper capnia 05/21/2017 05/21/2017 Gastric ulcer without hemorrhage or perforation 05/21/2017 11/15/2017 Pneumothorax 05/16/2017 11/15/2017 PCO (posterior capsular opacification) 6 05/27/2021 Fracture of upper end of tibia 10/31/2015 1 07/27/2020 Closed fracture of left proximal tibia 5 11/15/2017 Pain in left knee 04/17/2015 11/15/2017 CME (cystoid macular edema) 11/09/201411/2016 Age-related macular degeneration, dry, right eye 11/09/2014 11/09/2016 Subarachnoid hemorrhage 06/04/2010 11/16/19 18 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 documented as of this encounter (statuses as of 10/12/2022) [facility] History of Past illness Narrative* Problem Noted Date Resolved Date Hallucinations, visual 05/27/2021 Hypokalemia 05/27/2021 05/29/2021 Altered mental status 05/27/2021 05/29/2021 Acute respiratory failure with hypoxia and hyper capnia 05/21/2017 05/21/2017 Gastric ulcer without hemorrhage or perforation 05/21/2017 11/15/2017 Pneumothorax 05/16/2017 11/15/2017 PCO (posterior capsular opacification) 6 05/27/2021 Fracture of upper end of tibia 10/31/2015 07/27/2020 Closed fracture of left proximal tibia 5 11/15/2017 Pain in left knee 04/17/2015 11/15/2017 CME (cystoid macular edema) 11/09/201411/2016 Age-related macular degeneration, dry, right eye 11/09/2014 11/09/2016 Subarachnoid hemorrhage 06/04/2010 11/16/19 18 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 documented as of this encounter (statuses as of 11/02/2022) [facility] History of Past illness Narrative* Problem Noted Date Resolved Date Hallucinations, visual 05/27/2021 Hypokalemia 05/27/2021 05/29/2021 Altered mental status 05/27/2021 05/29/2021 Acute respiratory failure with hypoxia and hyper capnia 05/21/2017 05/21/2017 Gastric ulcer without hemorrhage or perforation 05/21/2017 11/15/2017 Pneumothorax 05/16/2017 11/15/2017 PCO (posterior capsular opacification) 6 05/27/2021 Fracture of upper end of tibia 10/31/2015 1 07/27/2020 Closed fracture of left proximal tibia 5 11/15/2017 Pain in left knee 04/17/2015 11/15/2017 CME (cystoid macular edema) 11/09/201411/2016 Age-related macular degeneration, dry, right eye 11/09/2014 11/09/2016 Subarachnoid hemorrhage 06/04/2010 11/16/19 18 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 documented as of this encounter (statuses as of 12/06/2022) [facility] History of Past illness Narrative* Problem Noted Date Resolved Date Hallucinations, visual 05/27/2021 Hypokalemia 05/27/2021 05/29/2021 Altered mental status 05/27/2021 05/29/2021 Acute respiratory failure with hypoxia and hyper capnia 05/21/2017 05/21/2017 Gastric ulcer without hemorrhage or perforation 05/21/2017 11/15/2017 Pneumothorax 05/16/2017 11/15/2017 PCO (posterior capsular opacification) 6 05/27/2021 Fracture of upper end of tibia 10/31/2015 1 07/27/2020 Closed fracture of left proximal tibia 5 11/15/2017 Pain in left knee 04/17/2015 11/15/2017 CME (cystoid macular edema) 11/09/2014 05/0 11/2016 Age-related macular degeneration, dry, right eye 11/09/2014 11/09/2016 Subarachnoid hemorrhage 06/04/2010 11/16/19 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 documented as of this encounter (statuses as of 12/10/2022) [facility] History of Past illness Narrative* Problem Noted Date Diagnosed Date Resolved Date Hallucinations, visual 05/27/202105/29 Hypokalemia 05/27/2021 05/29/2021 Altered mental status 05/27/20212020 Acute respiratory failure wi th hypoxia and hypercapnia 05/21/2017 05/21/2017 Gastric ulcer without hemorr randy or perforation 05/21/2017 11/15/2017 Pneumothorax 05/16/2017 11/15/2017 PCO (posterior capsular opacification) 05/25/2016 05/27/2021 Fracture of upper end of tibia 10/31/2015 05/27/2021 Closed fracture of left proximal tibia 04/17/2015 11/15/2017 Pain in left knee 04/17/2015 11/15/2017 CME (cystoid macular edema) 11/09/2014 11/09/2016 Age-related macular degenera tion, dry, right eye 11/09/2014 11/09/2016 Subarachnoid hemorrhage 06/04/201011/05 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/2010 11/15/2017 documented as of this encounter (statuses as of 02/21/2023) [facility] History of Past illness Narrative* Problem Noted Date Diagnosed Date Resolved Date Hallucinations, visual 05/27/202105/29 Hypokalemia 05/27/2021 05/29/2021 Altered mental status 05/27/20212020 Acute respiratory failure wi th hypoxia and hypercapnia 05/21/2017 05/21/2017 Gastric ulcer without hemorr randy or perforation 05/21/2017 11/15/2017 Pneumothorax 05/16/2017 11/15/2017 PCO (posterior capsular opacification) 05/25/2016 05/27/2021 Fracture of upper end of tibia 10/31/2015 05/27/2021 Closed fracture of left proximal tibia 04/17/2015 11/15/2017 Pain in left knee 04/17/2015 11/15/2017 CME (cystoid macular edema) 11/09/2014 11/09/2016 Age-related macular degenera tion, dry, right eye 11/09/2014 11/09/2016 Subarachnoid hemorrhage 06/04/201011/05 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/2010 11/15/2017 documented as of this encounter (statuses as of 06/12/2023) [facility] Diagnosis 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) Dry eye syndrome of both eyes Pseudophakia of both eyes Lens replaced by other means [facility] Hyperthyroidism Thyrotoxicosis without mention of goiter or other cause, without mention of thyrotoxic crisis or storm [facility] Diagnosis Hyperthyroidism- Primary Thyrotoxicosis without mention of goiter or other cause, without mention of thyrotoxic crisis or storm Abnormal weight loss Loss of weight [facility] Diagnosis Hyperthyroidism- Primary Thyrotoxicosis without mention of goiter or other cause, without mention of thyrotoxic crisis or storm [facility] Diagnosis Malignant neoplasm of upper-outer quadrant of left breast in female, estrogen receptor positive (HCC)- Primary Encounter for screening mammogram for malignant neoplasm of breast Other screening mammogram [facility] Diagnosis Malignant neoplasm of upper-outer quadrant of left breast in female, estrogen receptor positive (HCC)- Primary [facility] Diagnosis Hyperthyroidism- Primary Thyrotoxicosis without mention of goiter or other cause, without mention of thyrotoxic crisis or storm [facility] Diagnosis Malignant neoplasm of upper-outer quadrant of left breast in female, estrogen receptor positive (HCC) [facility] Diagnosis Malignant neoplasm of left breast in female, estrogen receptor positive, unspecified site of breast (HCC)- Primary Encounter for screening for osteoporosis Special screening for osteoporosis Hypothyroidism, unspecified type Vitamin D deficiency Unspecified vitamin D deficiency [facility]* Diagnosis Hyperthyroidism Thyrotoxicosis without mention of goiter or other cause, without mention of thyrotoxic crisis or storm documented in this encounter [facility] note* Diagnosis Malignant neoplasm of upper-outer quadrant of left breast in female, estrogen receptor positive (HCC) [facility]* Diagnosis Graves disease- Primary Toxic diffuse goiter without mention of thyrotoxic crisis or storm Primary hypertension Unspecified essential hypertension Elevated TSH Nonspecific abnormal results of thyroid function study documented in this encounter [facility] note* Diagnosis Graves disease- Primary Toxic diffuse goiter without mention of thyrotoxic crisis or storm documented in this encounter [facility] note* Diagnosis Malignant neoplasm of upper-outer quadrant of left breast in female, estrogen receptor positive (HCC) documented in this encounter [facility] for referral (narrative)* Diagnostic Procedure Only (Routine) - Pending Review Specialty Diagnoses / Procedures Referred By Elsy knapp Referred To Contact [facility] Diagnoses Encounter for screening mammogram for malignant neoplasm of breast Procedures REGINALD SCREENING W EVON SCREENING DIGITAL BREAST TOMOSYNTHESIS BI SCREENING MAMMOGRAPHY BI 2-[place] [address] [place] [address] [facility] [address] [place] [id number] Referral ID Status Reason Start Date Expiration Date Visits Requested Visits Authorized [id number] Pending Review Auto-Generat ed Referral 06/08/2022 07/07/2023 1 1 [facility] Summary Purpose Family History No Family History Records FoundNo Family History Records FoundNo Family History Records Found Advance Directives Documents on File Type Date Recorded 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 Advance Directive(s) 05/26/2021 9:21 PM Advance Directive(s) 11/21/2017 8:37 AM Advance Directive(s) 05/16/2017 6:20 AM Latest Code Status on File Code Status Date Activated Date Inactivated Comments DNR-CCA 05/27/2021 1:41 PM 05/29/2021 10:09 PM DNR Order Discussed With: Surrogate Decision Frank mora Surrogate Decision Maker Name: Meeta Forman Surrogate Decision Maker Surrogate Decision Maker Relationship: Nearest A dult Relative Latest Code Status on File Code Status Date Activated Date Inactivated Comments DNR-CCA 05/27/2021 1:41 PM 05/29/2021 10:09 PM Latest Code Status on File Code Status Date Activated Date Inactivated Comments DNR-CCA 05/27/2021 1:41 PM 05/29/2021 10:09 PM Question Answer Comments DNR Order Discussed With: Surrogate Decision Frank er Surrogate Decision Maker Name: Meeta Forman Surrogate Decision Maker Surrogate Decision Maker Relationship: Nearest Adult Relative Medications Administered Section Active Administered Medications - up to 3 most recent administrations Medication Order MAR Action Action Date Dose Rate Site fluorescein-benoxinate 0.25-0.4 % 1 Drop (FLURESS) 1 Drop, BOTH EYES, DIRECTED, Starting on Sat11/13/21 at 1330, Until Sat11/14/21 at 0129, Administer for applanation tonometry. In the event of a Fluress shortage, administer Divya-Fluor 1 drop into both eyes as directed for applanation tonometry, [facility] MED ORDERS Given 11/13/2021 1:08 PM EDT 1 Drop PHENYLephrine 2.5 % 1 Drop (AK-DILATE, SHERRI-SYNEPHRINE) 1 Drop, BOTH EYES, DIRECTED, Starting on Sat11/13/21 at 1330, Until Sat11/14/21 at 0129, Administer for dilation PROTECT FROM LIGHT, [facility] MED ORDERS Given 11/13/2021 1:08 PM EDT 1 Drop tropicamide 1 % 1 Drop (MYDRIACYL) 1 Drop, BOTH EYES, DIRECTED, Starting on Sat11/13/21 at 1330, Until Sat11/14/21 at 0129, Administer for dilation, [facility] MED ORDERS Given 11/13/2021 1:08 PM EDT 1 Drop Inactive Administered Medications - up to 3 most recent administrations Medication Order MAR Action Action Date Dose Rate Site zoledronic acid 5 mg PREMIX piggyback (RECLAST) 5 mg, INTRAVENOUS, at 400 mL/hr, Administer over 15 Minutes, ONCE, 1 dose, On 06/11/22 at 1230, Contact the prescriber if any of the following are noted: Recent Dental Procedures done (except cleaning only). Low corrected serum calcium levels (less than 7mg/dL). Creatinine clearance less than 35 ml/min. Hazardous Potential Reproductive Risk Drug: Use appropriate PPE. New Bag/Syringe/Bottle 06/11/2022 12:15 PM EST 5 mg 400 mL/hr Additional Source Comments INFORMATION SOURCE (unrecogn ized section and content) DATE CREATED AUTHOR AUTHOR'S ORGANIZ ATION 02/19/2023 [facility] DATE CREATED AUTHOR AUTHOR'S ORGANIZ ATION 02/22/2023 [facility] Source Comments (unrecognize d section and content) In the event this informatio n is protected by the Federal Confidentiality of Alcohol and Drug Abuse Patient Records regulations: The Federal rules restrict any use of the information to criminally investigate or prosecute any alcohol or drug abuse patient.[facility] event this information is protected by the Federal Confidentiality of Alcohol and Drug Abuse Patient Records regulations: The Federal rules restrict any use of the information to criminally investigate or prosecute any alcohol or drug abuse patient.[facility] the event this information is protected by the Federal Confidentiality of Alcohol and Drug Abuse Patient Records regulations: The Federal rules restrict any use of the information to criminally investigate or prosecute any alcohol or drug abuse patient.[facility] the event this information is protected by the Federal Confidentiality of Alcohol and Drug Abuse Patient Records regulations: The Federal rules restrict any use of the information to criminally investigate or prosecute any alcohol or drug abuse patient.[facility] the event this information is protected by the Federal Confidentiality of Alcohol and Drug Abuse Patient Records regulations: The Federal rules restrict any use of the information to criminally investigate or prosecute any alcohol or drug abuse patient.[facility] the event this information is protected by the Federal Confidentiality of Alcohol and Drug Abuse Patient Records regulations: The Federal rules restrict any use of the information to criminally investigate or prosecute any alcohol or drug abuse patient.[facility] the event this information is protected by the Federal Confidentiality of Alcohol and Drug Abuse Patient Records regulations: The Federal rules restrict any use of the information to criminally investigate or prosecute any alcohol or drug abuse patient.[facility] the event this information is protected by the Federal Confidentiality of Alcohol and Drug Abuse Patient Records regulations: The Federal rules restrict any use of the information to criminally investigate or prosecute any alcohol or drug abuse patient.[facility] the event this information is protected by the Federal Confidentiality of Alcohol and Drug Abuse Patient Records regulations: The Federal rules restrict any use of the information to criminally investigate or prosecute any alcohol or drug abuse patient.[facility] the event this information is protected by the Federal Confidentiality of Alcohol and Drug Abuse Patient Records regulations: The Federal rules restrict any use of the information to criminally investigate or prosecute any alcohol or drug abuse patient.[facility] the event this information is protected by the Federal Confidentiality of Alcohol and Drug Abuse Patient Records regulations: The Federal rules restrict any use of the information to criminally investigate or prosecute any alcohol or drug abuse patient.[facility] the event this information is protected by the Federal Confidentiality of Alcohol and Drug Abuse Patient Records regulations: The Federal rules restrict any use of the information to criminally investigate or prosecute any alcohol or drug abuse patient.[facility] the event this information is protected by the Federal Confidentiality of Alcohol and Drug Abuse Patient Records regulations: The Federal rules restrict any use of the information to criminally investigate or prosecute any alcohol or drug abuse patient.[facility] the event this information is protected by the Federal Confidentiality of Alcohol and Drug Abuse Patient Records regulations: The Federal rules restrict any use of the information to criminally investigate or prosecute any alcohol or drug abuse patient.[facility] the event this information is protected by the Federal Confidentiality of Alcohol and Drug Abuse Patient Records regulations: The Federal rules restrict any use of the information to criminally investigate or prosecute any alcohol or drug abuse patient.[facility] the event this information is protected by the Federal Confidentiality of Alcohol and Drug Abuse Patient Records regulations: The Federal rules restrict any use of the information to criminally investigate or prosecute any alcohol or drug abuse patient.[facility] Reason for Visit (unrecogniz ed section and content) Reason Onset Date Comments Refill Request 01/17/2022 Reason Comments Follow Up Thyroid Problem Reason Comments Graves Disease Reason Comments Orders Reason Comments Infusion reclast Specialty Diagnoses / Procedures Referred By Contac t Referred To Contact Diagnoses Malignant neoplasm of upper-outer quadrant of left breast in female, estrogen receptor positive (HCC) Procedures INJECTION, ZOLEDRONIC ACID, [address] [place] [address] [place] [address] [facility] [address] [address] Referral ID Status Reason Start Date Expiration Date V isits Requested Visits Authorized [id number] Authorized 05/11/2021 05/09/2023 5 5 Reason Comments Benefits Investigation Reason Comments Results Reason Onset Date Comments Refill Request 08/22/2022 Reason Comments Follow Up Reason Comments Refill Request Reason Comments Follow Up Established Patient Care Teams (unrecognized sec tion and content) Orientation And Mobility Specialist Relationship Specialty Start Date End Date Heron Sun MD [address] [place] [address] PCP - General Internal Medicine 05/20/17 Pee Mancuso MD [address] [place] [address] Referring Orthopedics 04/19/15 Pee Mancuso MD [address] [place] [address] Home Care Physician Orthopedics 04/19/15 Orientation And Mobility Specialist Relationship Specialty Start Date End Date Heron Sun MD [address] [place] [address] PCP - General Internal Medicine 05/20/17 Pee Mancuso MD [address] [place] [address] Referring Orthopedics 04/19/15 Pee Mancuso MD [address] [place] [address] Home Care Physician Orthopedics 04/19/15 Orientation And Mobility Specialist Relationship Specialty Start Date End Date Heron Sun MD [address] [place] [address] PCP - General Internal Medicine 05/20/17 Pee Mancuso MD [address] [place] [address] Referring Orthopedics 04/19/15 Pee Mancuso MD [address] [place] [address] Home Care Provider Orthopedics 04/19/15 Orientation And Mobility Specialist Relationship Specialty Start Date End Date Heron Sun MD [address] [place] [address] PCP - General Internal Medicine 05/20/17 Pee Mancuso MD [address] [place] [address] Referring Orthopedics 04/19/15 Pee Mancuso MD [address] [place] [address] Home Care Provider Orthopedics 04/19/15 Orientation And Mobility Specialist Relationship Specialty Start Date End Date Heron Sun MD [address] [place] [address] PCP - General Internal Medicine 05/20/17 Pee Mancuso MD [address] [place] [address] Referring Orthopedics 04/19/15 Pee Mancuso MD [address] [place] [address] Home Care Provider Orthopedics 04/19/15 Orientation And Mobility Specialist Relationship Specialty Start Date End Date Heron Sun MD [address] [place] [address] PCP - General Internal Medicine 05/20/17 Pee Mancuso MD [address] [place] [address] Referring Orthopedics 04/19/15 Pee Mancuso MD [address] [place] [address] Home Care Provider Orthopedics 04/19/15 Orientation And Mobility Specialist Relationship Specialty Start Date End Date Heron Sun MD [address] [place] [address] PCP - General Internal Medicine 05/20/17 Pee Mancuso MD [address] [place] [address] Referring Orthopedics 04/19/15 Pee Mancuso MD [address] [address] Home Care Provider Orthopedics 04/19/15 Orientation And Mobility Specialist Relationship Specialty Start Date End Date Heron Sun MD [address] [address] PCP - General Internal Medicine 05/20/17 Pee Mancuso MD [address] [place] [address] Referring Orthopedics 04/19/15 Pee Mancuso MD [address] [place] [address] Home Care Provider Orthopedics 04/19/15 Orientation And Mobility Specialist Relationship Specialty Start Date End Date Heron Sun MD [address] [address] PCP - General Internal Medicine 05/20/17 Pee Mancuso MD [address] [place] [address] Referring Orthopedics 04/19/15 Pee Mancuso MD [address] [place] [address] Home Care Provider Orthopedics 04/19/15 Orientation And Mobility Specialist Relationship Specialty Start Date End Date Heron Sun MD [address] [address] PCP - General Internal Medicine 05/20/17 Pee Mancuso MD [address] [address] Referring Orthopedics 04/19/15 Pee Mancuso MD [address] [address] Home Care Provider Orthopedics 04/19/15 FOR RECORDS PERTAINING TO PATIENTS WHO ARE OR HAVE BEEN ENROLLED IN A CHEMICAL DEPENDENCY/SUBSTANCEABUSE PROGRAM, SOME INFORMATION MAY BE OMITTED. This clinical summary was aggregated from multiple sources. Caution should be exercised in using it in the provision of clinical care. This summary normalizes information from multiple sources, and as a consequence, information in this document may materially change the coding, format and clinical context of patient data. In addition, data may be omitted in some cases. CLINICAL DECISIONS SHOULD BE BASED ON THE PRIMARY CLINICAL RECORDS. [employer] [facility]. provides no warranty or guarantee of the accuracy or completeness of information in this document.
[2023-06-30] MEDS: 0.9% Normal Saline (500mL Bag) 500 ML 1000 ML IV (10:55)
[2023-06-30 11:00] LABS: Red Blood Cells-Urine 0 SEEN /hpf (0-5)
[2023-06-30 11:00] LABS: Absolute Lymphocyte Count 1.51 X10^3/uL (0.83-4.51); Absolute Neutrophil Count 4.6 X10^3/uL (2.0-7.7); Basophil# 0.02 X10^3/uL; Basophil% 0.3 % (0-1); Eosinophil# 0.13 X10^3/uL; Eosinophils% 1.9 % (0-5); Hematocrit 35.9 % (37-47); Hemoglobin 10.7 g/dL (12.0-15.0); Lymphocyte # 1.51 X10^3/ul (0.83-4.51); Lymphocyte % 21.7 % (19-41); Mean Corp Hgb Conc 29.8 g/dL (32-36); Mean Corpuscular Hgb 29.2 pg (27.0-32.0); Mean Corpuscular Volume 97.8 fL (81-99); Mean Platelet Vol. 11.6 fl (6.2-12.0); Monocyte# 0.66 X10^3/uL; Monocyte% 9.5 % (0-10); NRBC Flagged by Analyzer 0 % (0-5); Neutrophil % 66.2 % (47-70); Platelet Count 222 K/mm3 (150-450); RBC Distribution Width CV 15.4 % (11.6-14.6); RBC Distribution Width SD 54.9 fl (35.1-43.9); Red Blood Count 3.67 M/mm3 (4.2-5.4)
[2023-06-30 11:05] LABS: Color, Urine Yellow (Yellow); Glucose, Dipstick Normal (Normal); Ketone-Dipstick 5 mg/dl (Negative); Leukocyte Esterase-Dipstick Negative /ul (Negative); Nitrite-Dipstick Negative (Negative); Occult Blood-Urine 25 /ul (Negative); Protein-Dipstick 30 mg/dl (Negative); Urine Bilirubin Dipstick Negative (Negative); Urine Clarity Clear (Clear); Urine Urobilinogen Normal (Normal)
--- NOTE | 2023-06-30 11:07 | RAD_ITS ---
HISTORY: confusion. TECHNIQUE: XR Chest 1 View. COMPARISON: None. FINDINGS: CARDIOMEDIASTINAL BORDERS: Cardiac silhouette within normal limits in size. Mediastinal contour unremarkable. LUNGS: Mild bronchial wall thickening in the perihilar regions. ELECTRICIAN CONSTRUCTOR SUPERVISOR shunt catheter in the right neck, chest, and abdomen. PLEURA: No pleural effusion or pneumothorax seen. OSSEOUS STRUCTURES: Osteopenia with age indeterminate compression fractures. RAD/Chest 1 View (Portable) IMPRESSION: Mild perihilar inflammatory change. Electronically Signed: Ofelia Willingham MD at 11:23 EST ,
[2023-06-30 11:14] LABS: Bacteria 1+ /hpf (None Seen); Mucous, Urine 1+ /hpf (<or=2+); Squamous Epithelial Cells - UA 5-10 SEEN /hpf (5-10); White Blood Cells 0-5 SEEN /hpf (0-5)
[2023-06-30 11:25] LABS: ALB/GLOB Ratio 0.8 RATIO (0.9-2.4); AST(SGOT) 21 U/L (15-37); Alanine Aminotransfer ALT/SGPT 25 U/L (13-56); Albumin, Serum 3.1 g/dL (3.2-5.0); Alkaline Phosphatase 146 U/L (45-117); Anion Gap 6 (5-15); BUN 32 mg/dL (7-18); BUN/Creat Ratio 48.9 RATIO (10-20); Calcium,Total 9.8 mg/dL (8.5-10.1); Chloride 105 mmol/L (98-107); Creatinine, Serum 0.65 mg/dL (0.55-1.02); EST Glomerular Filtration Rate 94 mL/min (>60); Est Glom Filt Rate - Afr Amer 114 mL/min (>60); Estimated Creatinine Clearance 26.66 ml/min; Globulin 4.1 g/dL (2.2-4.2); Glucose 87 mg/dL (74-106); Potassium 2.9 mmol/L (3.5-5.1); Protein, Total 7.2 g/dL (6.4-8.2); Sodium Level 140 mmol/L (136-145); Troponin-I HS 22 pg/mL (3.0-54.0)
[2023-06-30 11:31] LABS: Blood Gas Specimen Type VEN; O2 Delivery Device Not entered; SITE Not entered; Time Given 11:29:14; VBG BASE EXCESS 3 mmol/L (-1.0-3.5); VBG Bicarbonate 27 mmol/L (22-26); VBG PO2 15 mmHg (25-40); VBG SO2 23 % (50-70); VBG TCO2 28 mmol/L (23-33); VBG pCO2 36.1 mmHg (41-51); VBG pH 7.48 (7.32-7.42)
[2023-06-30 12:00] VITALS: BP 97/75; PULSE 64; RESP 16; O2SAT 98
[2023-06-30 12:26] VITALS: BP 98/74; PULSE 114; RESP 20; O2SAT 94
--- NOTE | 2023-06-30 12:27 | HP.PCM.HOS_ITS ---
HPI - General General Date of Service: 06/30/23 Chief Complaint: confusion HPI Narrative ALISSA MAK, is a 72 F who presents from her assisted living with the [facility] plaint of confusion. On my evaluation, the patient is alert and oriented x 3 though she did get the year off for . But knew was the day before [place]. Patient was evaluated emergency room and was noted to be hypokalemic and did receive potassium. No other etiology of confusion could be identified. Patient is complaining of weight loss, poor appetite, difficulty swallowing due to pain when she eats. [facility] Medical History (Updated 06/30/23 @ 12:[address] Ck Kong DO) Allergic rhinitis Candidal esophagitis COPD (chronic obstructive pulmonary disease) Gastric ulcer Hyperlipidemia Intracranial hemorrhage Lower back pain Malignant neoplasm of unspecified site of left female breast Mild cognitive impairment Nicotine dependence Osteoporosis Thyrotoxicosis Allergy/AdvReac Type Severity Reaction Status Date / Time Penicillins Allergy Mild Other Verified 06/30/23 09:33 Family History (Updated 06/30/23 @ 12:[address] Ck Kong DO) Grandfather Intracranial hemorrhage Surgical History (Updated 06/30/23 @ 12:[address] Ck Kong DO) S/P FOOD PROCESSOR shunt Social History (Updated 06/30/23 @ 12:[address] Ck Kong DO) Smoking Status: Current every day smoker Vital Signs Vital Signs Vital Signs: 06/30/23 09:31 06/30/23 12:00 Temperature 36.2 C L Temperature Source Temporal Pulse Rate 117 H 64 Respiratory Rate 20 H 16 Blood Pressure 134/62 H 97/75 Blood Pressure Mean 86 82 Pulse Ox 95 98 Oxygen Delivery Method Room Air Room Air Weight Weight: 33.7 kg Body Mass Index (BMI) 13.6 Physical Exam Const alert and oriented x3 Constitutional Narrative: Cachectic. Afebrile. Patient FOOD PROCESSOR shunt, which has a small diameter, is present on her neck as well as on her chest underneath her skin. Patient has prominent bony structures including her ribs, clavicles and scapula present HEENT HEENT Narrative: Mucous membranes dry. Dentures in place. Thrush. Eyes EOMs intact bilaterally Eyes Narrative: No icterus. Neck Neck Narrative: No thyromegaly. No lymphadenopathy. Resp normal respiratory effort, no retractions, no use of accessory muscles and clear to auscultation bilaterally Cardio regular rate, regular rhythm, S1 normal heart sound and S2 normal heart sound GI normal to inspection, nondistended, normoactive bowel sounds, soft to palpation, non-tender and non-distended Extremity normal to inspection and no clubbing, cyanosis or edema Neuro oriented x3 and moves all extremities Sensorium / Orientation: awake and alert Psych affect normal Results Lab / Micro Data 06/30/23 10:50 06/30/23 10:50 Labs: Laboratory Results - last 24 hr 06/30/23 10:50: WBC 7.0, RBC 3.67 L, Hgb 10.7 L, Hct 35.9 L, MCV 97.8, MCH 29.2, MCHC 29.8 L, RDW Std Deviation 54.9 H, RDW Coeff of Kriss 15.4 H, Plt Count 222, MPV 11.6, Immature Gran % (Auto) 0.400, Neut % (Auto) 66.2, Lymph % (Auto) 21.7, [place] % (Auto) 9.5, Eos % (Auto) 1.9, Baso % (Auto) 0.3, Absolute Neuts (auto) 4.6, Absolute Lymphs (auto) 1.51, Nucleated RBC % 0, Sodium 140, Potassium 2.9 L , Chloride 105, Carbon Dioxide 29.0, Anion Gap 6, BUN 32 H, Creatinine 0.65, Estim Creat Clear Calc 26.66, Est GFR (MDRD) Af Amer 114, Est GFR (MDRD) Non-Af 94, BUN/Creatinine Ratio 48.9 H, Glucose 87, Calcium 9.8, Total Bilirubin 0.70, AST 21, ALT 25, Alkaline Phosphatase 146 H, Troponin I High Sens 22, Total Protein 7.2, Albumin 3.1 L, Globulin 4.1, Albumin/Globulin Ratio 0.8 L 06/30/23 10:56: Urine Color Yellow, Urine Clarity Clear, Urine pH 5.0, Ur Sp ecific [place] 1.010, Urine Protein 30 H, Urine Glucose (UA) Normal, Urine Ketones 5 H, Urine Occult Blood 25 H, Urine Nitrite Negative, Urine Bilirubin Negative, Urine Urobilinogen Normal, Ur Leukocyte Esterase Negative, Urine RBC 0 SEEN, Urine WBC 0-5 SEEN, Ur Squamous Epith Cells 5-10 SEEN, Urine Bacteria 1+, Urine Mucus 1+ Micro: Microbiology 06/30/23 11:09 Nasal Secretion SARS-CoV-2 & FLU Antigen (Rapid) - Final ABG Data ABG results: ABG 06/30/23 11:27 Specimen Type MOLLY Sample Site Not entered VBG pH 7.48 H VBG pO2 15 L* VBG HCO3 27 H VBG Total CO2 28 VBG O2 Sat (Calc) 23 L VBG Base Excess 3 POC Mix VBG pCO2 Pt Tmp 36.1 L O2 Delivery Device Not entered Crit Call To/Read Back Yes Blood Gas Notified Whom TA Blood Gas Notified Time 11:29:14 Imagaing Radiology Impression Brain CT 06/30/23 10:34 IMPRESSION: Mild generalized volume loss and moderate chronic white matter changes. No hydrocephalus in shunt patient. Chronic right frontal encephalomalacia. 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 Coiling at the basilar tip. No acute intracranial hemorrhage identified. Electronically Signed: Ofelia Willingham MD at 11:40 EST , Chest X-Ray 06/30/23 11:07 IMPRESSION: Mild perihilar inflammatory change. Electronically Signed: Ofelia Willingham MD at 11:23 EST , Assessment & Plan Assessment/Plan (1) Failure to thrive: (2) Severe protein-calorie malnutrition: (3) Dehydration: (4) Thrush: PLAN: Plan Failure to thrive * Patient reportedly confused but patient appears to be compensated my standpoint but will evaluate for reversible causes including hypothyroidism and vitamin deficiency. Will check a TSH and B12 and folate. * Complicating this is severe protein calorie malnutrition * PT OT evaluate and treat Severe protein calorie malnutrition * Evidenced by the patient's profound cachectic appearance * Start supplements * Consult nutrition for further input * Complicating this may be the underlying thrush that makes it difficult for her to eat * Check phosphorus in the morning Dehydration * Mouth is extremely dry * IV fluids Thrush * Start nystatin swish and swallow Hypokalemia * Replaced in the ED * Check magnesium Tobacco abuse: Cessation advised History of intracranial hemorrhage: Status post FOOD PROCESSOR shunt. No acute issues at present. VTE prophylaxis: Hold off on chemical prophylaxis given her history of intracranial hemorrhage. SCDs. CODE STATUS: Addressed with the emergency room physician and the patient. Patient is DNR Comfort Care arrest no intubation Disposition: To be determined. Patient is from assisted living. Unclear if patient will be strong enough to return. Case management to assist. Charges/Coding Visit Charges Inpatient E&M: 50175 Init Hosp L2
--- OUTSIDE RECORDS SUMMARY | 2023-06-30 12:46 | XMS RPT_ITS | CCD ---
Author Name Unknown Address [address] [place] [address] Organization [facility] Care Team Providers Care Product Assurance Engineer Name Role Phone Doncals, Floridalma Unavailable Unavailable PROVIDER, UNKNOWN Unavailable Unavailable Dino, Heron Unavailable Unavailable Doncals, Floridalma Unavailable Unavailable PROVIDER, UNKNOWN Unavailable Unavailable Dino, Heron Unavailable Unavailable Bartolome LEON, Pee E Unavailable Bartolome LEON, Pee E Unavailable [phone] Heron Sun MD Primary Care Provider Bartolome LEON, Pee E Unavailable Bartolome LEON, Pee E Unavailable Dino LEON, Heron Primary Care Provider Bartolome LEON, Pee E Unavailable Bartolome LEON, Pee E Unavailable Heron Sun MD Primary Care Provider [phone] Heron Sun MD Primary Care Provider NORA [...] to adverse reactions to drug 06-28-2010 Unknown [facility] Work Phone: (15 sources) Penicillins Propensity to adverse reactions to drug 06-28-2010 Unknown [facility] Work Phone: Medications Current Medications Medication [...] Drug Class(es) Dates Sig (Normalized) Sig (Original) [id number] 200 actuat albuterol 0.09 mg/actuat metered dose [...] 94 mm[Hg] Janki John MD Work Phone: [facility] 12-06-2022 11:06-0400 Heart rate 92 /min Janki John MD Work Phone: [facility] 12-06-2022 11:06-0400 Systolic blood pressure 156 mm[Hg] Janki John MD Work Phone: [facility] 12-06-2022 10:31-0400 Body height 148.5 cm Janki John MD Work Phone: [facility] 12-06-2022 10:31-0400 Body weight 48.53 kg Janki John MD Work Phone: [facility] 12-06-2022 10:31-0400 Respiratory rate 16 /min Janki John MD Work Phone: [facility] 12-06-2022 10:31-0400 SaO2% (BldA) [Mass fraction] 97 % Janki John MD Work Phone: [facility] 09-26-2022 10:06-0400 Body temperature 97.81 [degF] Ragini Mcgee CARDIOTHORACIC SURGEON.[facility] Work Phone: [facility] 09-26-2022 10:06-0400 Body weight 47.58 kg Ragini Mcgee CARDIOTHORACIC SURGEON.SERVICE STATION EQUIPMENT MECHANIC Work Phone: [facility] 09-26-2022 10:06-0400 Diastolic blood pressure 76 mm[Hg] Ragini Mcgee CARDIOTHORACIC SURGEON.SERVICE STATION EQUIPMENT MECHANIC Work Phone: [facility] 09-26-2022 10:06-0400 Heart rate 74 /min Ragini Mcgee CARDIOTHORACIC SURGEON.[facility] Work Phone: [facility] 09-26-2022 10:06-0400 SaO2% (BldA) [Mass fraction] 93 % Ragini Mcgee CARDIOTHORACIC SURGEON.[facility] Work Phone: [facility] 09-26-2022 10:06-0400 Systolic blood pressure 152 mm[Hg] Ragini Mcgee CARDIOTHORACIC SURGEON.[facility] Work Phone: [facility] 06-11-2022 11:43-0500 Body temperature 98.71 [degF] Treatment Work Phone: [facility] 06-11-2022 11:43-0500 Body weight 45.9 kg Treatment Work Phone: [facility] 06-11-2022 11:43-0500 Diastolic blood pressure 67 mm[Hg] Treatment Work Phone: [facility] 06-11-2022 11:43-0500 Heart rate 68 /min Treatment Work Phone: [facility] 06-11-2022 11:43-0500 Respiratory rate 16 /min Treatment Work Phone: [facility] 06-11-2022 11:43-0500 SaO2% (BldA) [Mass fraction] 96 % Treatment Work Phone: [facility] 06-11-2022 11:43-0500 Systolic blood pressure 144 mm[Hg] Treatment Work Phone: [facility] 06-07-2022 14:00-0500 Body height 148.5 cm [facility] CARDIOTHORACIC SURGEON.[facility] Work Phone: [facility] 06-07-2022 14:00-0500 Body weight 45.18 kg [facility] CARDIOTHORACIC SURGEON.[facility] Work Phone: [facility] 06-07-2022 14:00-0500 Diastolic blood pressure 85 mm[Hg] Nora Kupiec CARDIOTHORACIC SURGEON.[facility] Work Phone: [facility] 06-07-2022 14:00-0500 Heart rate 78 /min Nora Kupiec CARDIOTHORACIC SURGEON.[facility] Work Phone: [facility] 06-07-2022 14:00-0500 Respiratory rate 20 /min Nora Kupiec CARDIOTHORACIC SURGEON.[facility] Work Phone: [facility] 06-07-2022 14:00-0500 SaO2% (BldA) [Mass fraction] 97 % Nora Kupiec CARDIOTHORACIC SURGEON.[facility] Work Phone: [facility] 06-07-2022 14:00-0500 Systolic blood pressure 135 mm[Hg] Nora Kupiec CARDIOTHORACIC SURGEON.[facility] Work Phone: [facility] 02-23-2022 12:46-0400 Body weight 42.09 kg Nora Kupiec CARDIOTHORACIC SURGEON.[facility] Work Phone: [facility] 02-23-2022 12:46-0400 Diastolic blood pressure 78 mm[Hg] Nora Kupiec CARDIOTHORACIC SURGEON.[facility] Work Phone: [facility] 02-23-2022 12:46-0400 Heart rate 87 /min Nora Kupiec CARDIOTHORACIC SURGEON.[facility] Work Phone: [facility] 02-23-2022 12:46-0400 SaO2% (BldA) [Mass fraction] 92 % Nora Kupiec CARDIOTHORACIC SURGEON.SERVICE STATION EQUIPMENT MECHANIC Work Phone: [facility] 02-23-2022 12:46-0400 Systolic blood pressure 125 mm[Hg] Nora Pedro CARDIOTHORACIC SURGEON.SERVICE STATION EQUIPMENT MECHANIC Work Phone: [facility] Encounters Encounter Date Encounter Type Care [...] - S rian or Plasma Lipid Screening [facility] Start: 02-19-2028 LIPID SCREEN LIPID SCREEN [facility] Start: 11-20-2026 LIPID SCREEN LIPID SCREEN [facility] Start: 05-11-2026 LIPID SCREEN LIPID SCREEN [facility] Start: 02-18-2026 DIABETES SCREEN DIABETES SCREEN [facility] Start: 02-18-2026 Diabetes Screening Diabetes Screenin g [facility] Start: 08-13-2025 DIABETES SCREEN DIABETES SCREEN [facility] Start: 02-05-2025 DIABETES SCREEN DIABETES SCREEN [facility] Start: 11-20-2024 DIABETES SCREEN DIABETES SCREEN [facility] Start: 05-29-2024 DIABETES SCREEN DIABETES SCREEN [facility] Start: 03-08-2023 Covid-19 Vaccine ( season) Covid-19 Vaccine () [facility] Start: 03-08-2023 Influenza vaccination [facility] Start: 02-23-2023 BP CONTROLLED (<130/80) BP CON TROLLED (<130/80) [facility] Start: 01-09-2023 End: 03-11-2023 Thyrotropin [Units/volume] in Serum or Plasma TSH BLD Lab Routine Graves disease Expected: 01/09/2023, Expires: 03/11/2023 [facility] Work Phone: Immunizations Immunization Date Immunization Notes Care Provider Teresa mota 04-24-2021 influenza virus vacc ine, unspecified formulation Daisy An MD Work Phone: [facility] 04-11-2011 influenza virus vacc ine, unspecified formulation Ovi Feliz OD Work Phone: [facility] 06-07-2010 influenza virus vacc ine, unspecified formulation Ovi Feliz OD Work Phone: [facility] 06-07-2010 pneumococcal polysaccharide vaccine, 23 valent Ovi Feliz OD Work Phone: [facility] Payers Date Payer Category Payer Medicare 2022 Medicare [id number] 2021 Unknown ANTHEM BLUE CROS S AND BLUE SHIELD AN[employer]M [employer] [id number] 2021-Present [phone] [address] [id number] 2021 Unknown ANTHEM BLUE CROS S AND BLUE SHIELD AN[employer]M MED[employer] [id number] 2021-Present [phone] [address] [place] [id number] [facility] [id number] 2021 Unknown [id number] Social History Date Type Detail Facility Start: 03-03-2018 End: 02-23-2022 Tobacco smoking status NHIS Smokes tobacco daily [facility] Start: 03-03-2018 History of tobacco use Cigarette Smo ker [facility] Start: 03-03-2018 End: 12-06-2022 Cigarettes smoked current (pack per day) - Reported 0.5 [facility] Start: 03-03-2018 End: 02-23-2022 Tobacco use and exposure Smokeless tobacco non-user [facility] Start: 11-13-2021 End: 12-06-2022 Alcohol intake Current non-drinker of alcohol (finding) [facility] Start: 1950 Sex Assigned At Not on file [facility] Start: 11-03-2021 End: 06-07-2022 Exposure to SARS-CoV-2 (event) Not sure [facility] Start: 03-03-2018 End: 12-06-2022 Tobacco use panel [facility] Adult Depression Scr eening Assessment 0 [facility] Medical Equipment Procedure Code Equipment Code Equipment Origin al Text Equipment Identifier Dates Kit Catheter Bactiseal [id number] - [id number] Start: 06-29-2010 Clinical Notes 05-27-2021 to [...] Janki John MD documented in this encounter [facility] 12-10-2022 Miscellaneous Notes Please notify the patient that her TSH has increased to 46 Stop methimazole at this time I would like to recheck TSH in 4 weeks Order is in Regards Janki John MD documented in this encounter [facility] 12-06-2022 Note HNO ID: [id number] Author: Janki John MD Service: ? Author [...] and TAKE 1 TABLET IN THE EVENING. 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 iqgcmjwwccg-vxtdjjgrd-dnumqsyc (TRELEGY ELLIPTA) 100-62.5-25 mcg inhalation powder metoprolol [...] malformation) 2003 left sylvian fissure Breast cancer ([facility]) 11/2017 left breast Breast mass, left 11/2017 COPD (chronic obstructive pulmonary disease) ([facility]) Fracture of upper end of tibia 10/31/2015 Macular degeneration Migraine PCO (posterior capsular opacification) 05/25/2016 Pseudophakia of right eye Retinal hemorrhage of left eye 2004 left central vision loss Subarachnoid hemorrhage ([facility]) 05/2010 Tubal PHYSICAL EXAM: BP 158/94 Pulse [...] Janki John MD documented in this encounter [facility] 10-12-2022 Miscellaneous Notes Requester: Pharmacy Last [...] Abby Lazo MA documented in this encounter [facility] 10-04-2022 Note HNO ID: [id number] Author: KHRIS Caraballo Service: Radiology Author Type: [...] KHRIS Caraballo October 04, 2022 12:55 PM [facility] 09-26-2022 Note HNO ID: [id number] Author: Ragini Mcgee APRN.PATTIE Service: ? Author [...] blood in stool - denies dysuria, hematuria WATER TENDER- denies vaginal bleeding. No vaginal concerns SKIN- [...] adenopathy, no pain on exam Patient declined oncology navigator. HEART: regular rate and rhythm LUNGS: clear [...] identified. Staff Review (MPA) Reviewed by Jaimie Palomarse M.D., Ph.D IgG 700 - 1,600 mg/dL 1,232 IgA 70 - 400 mg/dL 339 IgM 40 - 230 mg/dL 372 (H) [place] Free, Serum 3.3 - 19.4 mg/L 29.7 [...] Abs Lymph 1.00 - 4.00 k/uL 1.73 [place]% % 5.9 Abs [place] <0.87 k/uL 0.38 Eosin% % 5.9 Abs Eosin <0.46 k/uL 0.38 Baso% % 0.5 Abs Baso <0.11 k/uL 0.03 Immature Gran % % 0.3 IMMATURE GRAN (more content not included)... [facility] 09-26-2022 Instructions Ragini Mcgee APRN.CNP - 09/26/2022 [...] usual activities immediately. documented in this encounter [facility] 09-26-2022 History of Present illness Narrative [...] blood in stool - denies dysuria, hematuria WATER TENDER- denies vaginal bleeding. No vaginal concerns SKIN- [...] adenopathy, no pain on exam Patient declined oncology navigator. HEART: regular rate and rhythm LUNGS: clear [...] IgM 40 - 230 mg/dL 372 (H) [place] Free, Serum 3.3 - 19.4 mg/L 29.7 [...] Abs Lymph 1.00 - 4.00 k/uL 1.73 [place]% % 5.9 Abs [place] <0.87 k/uL 0.38 Eosin% % 5.9 Abs [...] which included preparing to see the patient, [id number] patient care, completing clinical documentation, obtaining and/or [...] September 26, 2022 documented in this encounter [facility] 08-22-2022 Miscellaneous Notes Pharmacy verified in [facility] Patient has been identified by name and [...] Ariadne Gonzalez Pss documented in this encounter [facility] 08-17-2022 Miscellaneous Notes Called and left [...] forwards to us. documented in this encounter [facility] 07-05-2022 Miscellaneous Notes 1st-time treatment report- non-oncology regimen. No assistance to support Reclast drug for Medicare-insured patients. No further assistance from at this time documented in this encounter [facility] 06-08-2022 Miscellaneous Notes Order placed Patient was last seen in office in May of 2021. She came into the office today to schedule a follow up with ragini mcgee and to schedule her mammogram. The current order expires prior to the first opening in [place]. Could a new order be placed so that she can get scheduled. She is coming in on Monday 06/11 for a reclast infusion. If the order could be placed prior to Saturday so that she can schedule this scan prior to her follow up with Ragini in July. documented in this encounter [facility] 06-07-2022 Note HNO ID: [id number] Author: Nora Pedro APRN.SERVICE STATION EQUIPMENT MECHANIC Service: ? Author Type: Nurse Practitioner Type: [...] variable Sleep: chronic insomnia Temperature Intolerance: variable WATER TENDER: Menopause age 45-50 GI: denies loose stools, [...] Current Outpatient Medications Medication Sig Dispense Refill hmuutisggcq-lsythvlqz-cylkmjka (TRELEGY ELLIPTA) 100-62.5-25 mcg inhalation powder methIMAzole [...] T3 Date Value (more content not included)... [facility] 06-07-2022 History of Present illness Narrative Reason [...] variable Sleep: chronic insomnia Temperature Intolerance: variable WATER TENDER: Menopause age 45-50 GI: denies loose stools, [...] left 11/2017 COPD (chronic obstructive pulmonary disease) ([facility]) Fracture of upper end of tibia 10/31/2015 Macular degeneration Migraine PCO (posterior capsular opacification) 05/25/2016 Pseudophakia of right eye Retinal hemorrhage of left eye 2004 left central vision loss Subarachnoid hemorrhage ([facility]) 05/2010 Tubal PAST SURGICAL HISTORY Procedure Laterality [...] Current Outpatient Medications Medication Sig Dispense Refill hnbwzabvofe-ehbvlqiwc-odieaqfk (TRELEGY ELLIPTA) 100-62.5-25 mcg inhalation powder methIMAzole [...] which included preparing to see the patient, fvzu-fz-szgh patient care, completing clinical documentation, obtaining and/or reviewing separately obtained history, performing a medically appropriate examination, and counseling and educating the patient/family/caregiver. Nora Pedro, MSN, CARDIOTHORACIC SURGEON, RRTS-C, CDE Endocrinology [facility] Office [facility]/[address] [place] [address] Fax: documented in this encounter [facility] 02-23-2022 Note HNO ID: [id number] Author: Nora Pedro APRN.SERVICE STATION EQUIPMENT MECHANIC Service: ? Author Type: Nurse Practitioner Type: [...] Sleep:Difficulty but not new Temperature Intolerance: variable WATER TENDER: Menopause age 45-50 GI: denies loose stools, [...] left 11/2017 COPD (chronic obstructive pulmonary disease) ([facility]) Fracture of upper end of tibia 10/31/2015 [...] 4.200 mIU/L Fi (more content not included)... [facility] 02-23-2022 Instructions Nora Pedro APRN.SERVICE STATION EQUIPMENT MECHANIC - 02/23/2022 1:04 PM EDT Increase methimazole 5 mg tab to: AM 2 tabs PM 2 tabs 2. Repeat labs 4-5 wks. 3. Follow up 3 and 6 months. Nora Pedro, MSN, CARDIOTHORACIC SURGEON, RRTS-C, CDE Endocrinology [facility] Medical Office [facility]/[address] [place] [address] Fax: documented in this encounter [facility] 02-23-2022 History of Present illness Narrative [...] Sleep:Difficulty but not new Temperature Intolerance: variable WATER TENDER: Menopause age 45-50 GI: denies loose stools, [...] left 11/2017 COPD (chronic obstructive pulmonary disease) ([facility]) Fracture of upper end of tibia 10/31/2015 [...] which included preparing to see the patient, gstz-vv-azfg patient care, completing clinical documentation, obtaining and/or reviewing separately obtained history, performing a medically appropriate examination, counseling and educating the patient/family/caregiver, and ordering medications, tests, or procedures. Nora Pedro, MSN, CARDIOTHORACIC SURGEON, RRTS-C, CDE Endocrinology [facility] Medical Office [facility]/[address] [place] [address] Fax: documented in this encounter [facility] 01-17-2022 Miscellaneous Notes Requester: Patient Last [...] advise. Hoa Mcnamara documented in this encounter [facility] 11-13-2021 History of Present illness Narrative [...] care with Dr. Prajapati, [facility], as scheduled. -Advised Low Vision Consult with [...] and treatment options. documented in this encounter [facility] 11-13-2021 Instructions Ovi Feliz, OD - 11/13/2021 1:26 PM EDT Images from the original note were not included. Please monitor each eye daily with the [place] Grid. AREDS 2 Vitamins are available over the counter at any pharmacy. Refresh Artificial tears, 1 drop, three times a day, Both eyes. documented in this encounter [facility] documented as of this encounter (statuses as of 11/13/2021) [facility] History of Past illness Narrative* Problem [...] of this encounter (statuses as of 01/17/2022) [facility] History of Past illness Narrative* Problem [...] of this encounter (statuses as of 02/23/2022) [facility] History of Past illness Narrative* Problem [...] of this encounter (statuses as of 06/07/2022) [facility] History of Past illness Narrative* Problem [...] of this encounter (statuses as of 06/08/2022) [facility] of Past illness Narrative* Problem [...] of this encounter (statuses as of 06/11/2022) [facility] of Past illness Narrative* Problem [...] of this encounter (statuses as of 07/11/2022) [facility] of Past illness Narrative* Problem [...] of this encounter (statuses as of 08/17/2022) [facility] of Past illness Narrative* Problem [...] of this encounter (statuses as of 08/23/2022) [facility] of Past illness Narrative* Problem [...] of this encounter (statuses as of 09/26/2022) [facility] of Past [facility] Narrative* Problem [...] of this encounter (statuses as of 10/12/2022) [facility] of Past illness Narrative* Problem [...] of this encounter (statuses as of 11/02/2022) [facility] of [facility] Narrative* Problem [...] of this encounter (statuses as of 12/06/2022) [facility] of Past illness Narrative* Problem [...] of this encounter (statuses as of 12/10/2022) [facility] of [facility] Narrative* Problem [...] of this encounter (statuses as of 02/21/2023) [facility] Narrative* Problem [...] of this encounter (statuses as of 06/12/2023) [facility] Diagnosis 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) Dry eye syndrome of both eyes Pseudophakia of both eyes Lens replaced by other means [facility] Diagnosis Hyperthyroidism Thyrotoxicosis without mention of goiter or other cause, without mention of thyrotoxic crisis or storm [facility] Diagnosis Hyperthyroidism- Primary Thyrotoxicosis without mention of goiter or other cause, without mention of thyrotoxic crisis or storm Abnormal weight loss Loss of weight [facility]* Diagnosis Hyperthyroidism- Primary Thyrotoxicosis without mention of goiter or other cause, without mention of thyrotoxic crisis or storm [facility]* Diagnosis Malignant neoplasm of upper-outer quadrant of left breast in female, estrogen receptor positive (HCC)- Primary Encounter for screening mammogram for malignant neoplasm of breast Other screening mammogram [facility] Diagnosis Malignant neoplasm of upper-outer quadrant of left breast in female, estrogen receptor positive (HCC)- Primary [facility]* Diagnosis Hyperthyroidism- Primary Thyrotoxicosis without mention of goiter or other cause, without mention of thyrotoxic crisis or storm [facility]* Diagnosis Malignant neoplasm of upper-outer quadrant of left breast in female, estrogen receptor positive (HCC) [facility] Diagnosis Malignant neoplasm of left breast in female, estrogen receptor positive, unspecified site of breast (HCC)- Primary Encounter for screening for osteoporosis Special screening for osteoporosis Hypothyroidism, unspecified type Vitamin D deficiency Unspecified vitamin D deficiency [facility]* Diagnosis Hyperthyroidism Thyrotoxicosis without mention of goiter or other cause, without mention of thyrotoxic crisis or storm documented in this encounter [facility] note* Diagnosis Malignant neoplasm of upper-outer quadrant of left breast in female, estrogen receptor positive (HCC) [facility]* Diagnosis Graves disease- Primary Toxic diffuse goiter without mention of thyrotoxic crisis or storm Primary hypertension Unspecified essential hypertension Elevated TSH Nonspecific abnormal results of thyroid function study documented in this encounter [facility] note* Diagnosis Graves disease- Primary Toxic diffuse goiter without mention of thyrotoxic crisis or storm documented in this encounter [facility] note* Diagnosis Malignant neoplasm of upper-outer quadrant of left breast in female, estrogen receptor positive (HCC) documented in this encounter [facility] for referral (narrative)* Diagnostic Procedure Only (Routine) - Pending Review Specialty Diagnoses / Procedures Referred By Elsy knapp Referred To Contact [facility] Diagnoses Encounter for screening mammogram for malignant neoplasm of breast Procedures REGINALD SCREENING W EVON SCREENING DIGITAL BREAST TOMOSYNTHESIS BI SCREENING MAMMOGRAPHY BI 2-[place] [id number] [place], [place] [facility] [address] [place] [id number] Referral ID Status Reason Start Date Expiration Date Visits Requested Visits Authorized [id number] Pending Review Auto-Generat ed Referral 06/08/2022 07/07/2023 1 1 [facility] Summary Purpose Family History No Family History Records FoundNo Family History Records FoundNo Family History Records Found Advance Directives Documents on File Type Date 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 Advance Directive(s) 05/26/2021 9:21 PM [...] DATE CREATED AUTHOR AUTHOR'S ORGANIZ ATION 02/19/2023 [facility] DATE CREATED AUTHOR AUTHOR'S ORGANIZ ATION 02/22/2023 [facility] Source Comments (unrecognize d section and content) In the event this informatio n is protected by the Federal Confidentiality of Alcohol and Drug Abuse Patient Records regulations: The Federal rules restrict any use of the information to criminally investigate or prosecute any alcohol or drug abuse patient.[facility] the event this information is protected by the Federal Confidentiality of Alcohol and Drug Abuse Patient Records regulations: The Federal rules restrict any use of the information to criminally investigate or prosecute any alcohol or drug abuse patient.[facility] the event this information is protected by the Federal Confidentiality of Alcohol and Drug Abuse Patient Records regulations: The Federal rules restrict any use of the information to criminally investigate or prosecute any alcohol or drug abuse patient.[facility] the event this information is protected by the Federal Confidentiality of Alcohol and Drug Abuse Patient Records regulations: The Federal rules restrict any use of the information to criminally investigate or prosecute any alcohol or drug abuse patient.[facility] the event this information is protected by the Federal Confidentiality of Alcohol and Drug Abuse Patient Records regulations: The Federal rules restrict any use of the information to criminally investigate or prosecute any alcohol or drug abuse patient.[facility] the event this information is protected by the Federal Confidentiality of Alcohol and Drug Abuse Patient Records regulations: The Federal rules restrict any use of the information to criminally investigate or prosecute any alcohol or drug abuse patient.[facility] the event this information is protected by the Federal Confidentiality of Alcohol and Drug Abuse Patient Records regulations: The Federal rules restrict any use of the information to criminally investigate or prosecute any alcohol or drug abuse patient.[facility] the event this information is protected by the Federal Confidentiality of Alcohol and Drug Abuse Patient Records regulations: The Federal rules restrict any use of the information to criminally investigate or prosecute any alcohol or drug abuse patient.[facility] the event this information is protected by the Federal Confidentiality of Alcohol and Drug Abuse Patient Records regulations: The Federal rules restrict any use of the information to criminally investigate or prosecute any alcohol or drug abuse patient.[facility] the event this information is protected by the Federal Confidentiality of Alcohol and Drug Abuse Patient Records regulations: The Federal rules restrict any use of the information to criminally investigate or prosecute any alcohol or drug abuse patient.[facility] the event this information is protected by the Federal Confidentiality of Alcohol and Drug Abuse Patient Records regulations: The Federal rules restrict any use of the information to criminally investigate or prosecute any alcohol or drug abuse patient.[facility] the event this information is protected by the Federal Confidentiality of Alcohol and Drug Abuse Patient Records regulations: The Federal rules restrict any use of the information to criminally investigate or prosecute any alcohol or drug abuse patient.[facility] the event this information is protected by the Federal Confidentiality of Alcohol and Drug Abuse Patient Records regulations: The Federal rules restrict any use of the information to criminally investigate or prosecute any alcohol or drug abuse patient.[facility] the event this information is protected by the Federal Confidentiality of Alcohol and Drug Abuse Patient Records regulations: The Federal rules restrict any use of the information to criminally investigate or prosecute any alcohol or drug abuse patient.[facility] the event this information is protected by the Federal Confidentiality of Alcohol and Drug Abuse Patient Records regulations: The Federal rules restrict any use of the information to criminally investigate or prosecute any alcohol or drug abuse patient.[facility] the event this information is protected by the Federal Confidentiality of Alcohol and Drug Abuse Patient Records regulations: The Federal rules restrict any use of the information to criminally investigate or prosecute any alcohol or drug abuse patient.[facility] Reason for Visit (unrecogniz ed section [...] ZOLEDRONIC ACID, [address] [place] [address] [place] [address] [facility] [address] [address] Referral ID Status Reason Start Date Expiration Date V isits Requested Visits Authorized [id number] Authorized 05/11/2021 05/09/2023 5 5 Reason Comments Benefits Investigation Reason Comments Results Reason Onset Date Comments Refill Request 08/22/2022 Reason Comments Follow Up Reason Comments Refill Request Reason Comments Follow Up Established Patient Care Teams (unrecognized sec tion and content) Product Assurance Engineer Relationship Specialty Start Date End Date Heron Sun MD [address] [place] [address] PCP - General Internal Medicine 05/20/17 Pee Mancuso MD [address] [place] [address] Referring Orthopedics 04/19/15 Pee Mancuso MD [address] [place] [address] Home Care Physician Orthopedics 04/19/15 Product Assurance Engineer Relationship Specialty Start Date End Date Heron Sun MD [address] [place] [address] PCP - General Internal Medicine 05/20/17 Pee Mancuso MD [address] [place] [address] Referring Orthopedics 04/19/15 Pee Mancuso MD [address] [place] [address] Home Care Physician Orthopedics 04/19/15 Product Assurance Engineer Relationship Specialty Start Date End Date Heron Sun MD [address] [place] [address] PCP - General Internal Medicine 05/20/17 Pee Mancuso MD [address] [place] [address] Referring Orthopedics 04/19/15 Pee Mancuso MD [address] [place] [address] Home Care Provider Orthopedics 04/19/15 Product Assurance Engineer Relationship Specialty Start Date End Date Heron Sun MD [address] [place] [address] PCP - General Internal Medicine 05/20/17 Pee Mancuso MD [address] [place] [address] Referring Orthopedics 04/19/15 Pee Mancuso MD [address] [place] [address] Home Care Provider Orthopedics 04/19/15 Product Assurance Engineer Relationship Specialty Start Date End Date Heron Sun MD [address] [place] [address] PCP - General Internal Medicine 05/20/17 Pee Mancuso MD [address] [place] [address] Referring Orthopedics 04/19/15 Pee Mancuso MD [address] [place] [address] Home Care Provider Orthopedics 04/19/15 Product Assurance Engineer Relationship Specialty Start Date End Date Heron Sun MD [address] [place] [address] PCP - General Internal Medicine 05/20/17 Pee Mancuso MD [address] [place] [address] Referring Orthopedics 04/19/15 Pee Mancuso MD [address] [place] [address] Home Care Provider Orthopedics 04/19/15 Product Assurance Engineer Relationship Specialty Start Date End Date Heron Sun MD [address] [place] [address] PCP - General Internal Medicine 05/20/17 Pee Mancuso MD [address] [place] [address] Referring Orthopedics 04/19/15 Pee Mancuso MD [address] [address] Home Care Provider Orthopedics 04/19/15 Product Assurance Engineer Relationship Specialty Start Date End Date Heron Sun MD [address] [address] PCP - General Internal Medicine 05/20/17 Pee Mancuso MD [address] [place] [address] Referring Orthopedics 04/19/15 Pee Mancuso MD [address] [place] [address] Home Care Provider Orthopedics 04/19/15 Product Assurance Engineer Relationship Specialty Start Date End Date Heron Sun MD [address] [address] PCP - General Internal Medicine 05/20/17 Pee Mancuso MD [address] [place] [address] Referring Orthopedics 04/19/15 Pee Mancuso MD [address] [place] [address] Home Care Provider Orthopedics 04/19/15 Product Assurance Engineer Relationship Specialty Start Date End Date Heron Sun MD [address] [address] PCP - General Internal Medicine 05/20/17 Pee Mancuso MD [address] [address] Referring Orthopedics 04/19/15 Pee Mancuso MD [address] [address] Home Care Provider Orthopedics 04/19/15 FOR RECORDS [...] BE BASED ON THE PRIMARY CLINICAL RECORDS. [facility]. provides no warranty or guarantee of the accuracy or completeness of information in this document.
[2023-06-30] MEDS: Potassium Chloride Oral Soln 20 MEQ/15 ML UDC 40 MEQ PO (12:59)
[2023-06-30 13:06] LABS: Thyroid Stim Hormone (TSH) < 0.01 uIU/mL (0.358-3.74)
[2023-06-30 14:00] VITALS: BMI 13.6
[2023-06-30 14:15] VITALS: BP 102/63; PULSE 100; RESP 18; TEMP 36.6; O2SAT 94
[2023-06-30] MEDS: NYSTATIN 500,000 UNIT/5 ML UDC 500000 UNIT PO ×3 (14:47→20:57)
[2023-06-30] MEDS: 0.9% Normal Saline (1000mL) 1,000 ML 150 ML IV (14:47)
[2023-06-30] MEDS: Ensure Plus High Protein 120 ML LIQUID PO (17:41)
[2023-06-30 20:42] VITALS: BP 149/82; PULSE 116; RESP 20; TEMP 36.8; O2SAT 93
[2023-07-01] VITALS (14 sets, daily range): BP systolic 114–161; BP diastolic 58–84; PULSE 92–129; RESP 16–38; TEMP 36.6–37.4; O2SAT 89–100
[2023-07-01 05:11] LABS: Absolute Lymphocyte Count 1.94 X10^3/uL (0.83-4.51); Absolute Neutrophil Count 5.5 X10^3/uL (2.0-7.7); Basophil# 0.01 X10^3/uL; Basophil% 0.1 % (0-1); Eosinophil# 0.16 X10^3/uL; Eosinophils% 1.9 % (0-5); Hematocrit 36.2 % (37-47); Hemoglobin 10.9 g/dL (12.0-15.0); Lymphocyte # 1.94 X10^3/ul (0.83-4.51); Lymphocyte % 23.2 % (19-41); Mean Corp Hgb Conc 30.1 g/dL (32-36); Mean Corpuscular Hgb 29.2 pg (27.0-32.0); Mean Corpuscular Volume 97.1 fL (81-99); Mean Platelet Vol. 11.5 fl (6.2-12.0); Monocyte# 0.77 X10^3/uL; Monocyte% 9.2 % (0-10); NRBC Flagged by Analyzer 0 % (0-5); Neutrophil # 5.46 X10^3/uL (2.7-7.7); Neutrophil % 65.5 % (47-70); Platelet Count 258 K/mm3 (150-450); RBC Distribution Width CV 15.4 % (11.6-14.6); RBC Distribution Width SD 54.2 fl (35.1-43.9); Red Blood Count 3.73 M/mm3 (4.2-5.4); White Blood Count 8.4 K/mm3 (4.4-11.0)
--- NOTE | 2023-07-01 06:26 | RAD_ITS ---
EXAM: XR CHEST, 1 VIEW CLINICAL INDICATION: tachypneic TECHNIQUE: Frontal view of the chest. COMPARISON: June 30, 2023. FINDINGS: LUNGS AND PLEURAL SPACES: Mild increased opacity at the right lung apex is likely due to summation shadow from overlapping anterior first rib, multiple posterior ribs, scapula and clavicle. The lungs are well-inflated, possibly mildly hyperinflated, likely related to very thin body habitus. No pneumothorax. No effusion. No alysa pulmonary vascular congestion or focal consolidation. HEART: Unremarkable. Cardiac silhouette not enlarged. MEDIASTINUM: Central airways and mediastinal contour are unremarkable. BONES/JOINTS: Compression deformity of T7 again noted. SOFT TISSUES: Unremarkable. TUBES, LINES AND DEVICES: Similar appearance of intact shunt catheter in the right neck and overlying the chest. RAD/Chest 1 View (Portable) IMPRESSION: Stable chest. Electronically Signed: Alina Jacobs MD at 6:58 EST ,
[2023-07-01 07:01] LABS: Anion Gap 8 (5-15); BUN 12 mg/dL (7-18); BUN/Creat Ratio 47.4 RATIO (10-20); Calcium,Total 9.3 mg/dL (8.5-10.1); Chloride 111 mmol/L (98-107); Creatinine, Serum 0.25 mg/dL (0.55-1.02); EST Glomerular Filtration Rate 282 mL/min (>60); Est Glom Filt Rate - Afr Amer 341 mL/min (>60); Estimated Creatinine Clearance 26.66 ml/min; Glucose 89 mg/dL (74-106); Magnesium 1.8 mg/dL (1.6-2.6); Phosphorus 4.1 mg/dL (2.5-4.9); Potassium 3.1 mmol/L (3.5-5.1); Sodium Level 144 mmol/L (136-145)
[2023-07-01 07:04] LABS: Allen Test Positive; Base Excess 2 mmol/L (-2 to +2); Bicarbonate 25.6 mmol/L (22-26); Blood Gas Specimen Type ART; Mode Not entered; O2 Delivery Device Cannula; PO2 64 mmHG (75-100); SITE R Radial; SO2 94 % (95-99); Total Carbon Dioxide 27 mmol/L; pCO2 35.1 mmHg (35-45); pH 7.47 (7.35-7.45)
[2023-07-01 07:31] LABS: Troponin-I HS 107 pg/mL (3.0-54.0)
--- NOTE | 2023-07-01 07:33 | PN.HOSP_ITS ---
Reason for Visit Reason for Visit: Diagnoses Candidal stomatitis (06/30/23) Unspecified severe protein-calorie malnutrition (06/30/23) Dehydration (06/30/23) Subjective Subjective Feels weak. Objective Data Objective Data Vital Signs: Vital Signs Temp Pulse Resp BP Pulse Ox O2 Del Method O2 Flow Rate 37.4 C H 105 H 38 H 131/78 H 95 Nasal Cannula 2 07/01/23 06:35 07/01/23 06:35 07/01/23 06:35 07/01/23 06:35 07/01/23 06:35 07/01/23 06:35 07/01/23 06:35 Oxygen Flow Rate (L/min) 2 Oxygen Delivery Method Nasal Cannula Weight: 33.7 kg Body Mass Index (BMI) 13.6 Intake & Output: Intake and Output for Last 24 Hours 06/29/23 06/30/23 07/01/23 23:59 23:59 23:59 Intake Total 1500 / 1500 Balance 1500 / 1500 Lab / Micro Data 07/01/23 04:55 07/01/23 04:55 Labs: Laboratory Results - last 24 hr 06/30/23 10:50: WBC 7.0, RBC 3.67 L, Hgb 10.7 L, Hct 35.9 L, MCV 97.8, MCH 29.2, MCHC 29.8 L, RDW Std Deviation 54.9 H, RDW Coeff of Kriss 15.4 H, Plt Count 222, MPV 11.6, Immature Gran % (Auto) 0.400, Neut % (Auto) 66.2, Lymph % (Auto) 21.7, Concordia % (Auto) 9.5, Eos % (Auto) 1.9, Baso % (Auto) 0.3, Absolute Neuts (auto) 4.6, Absolute Lymphs (auto) 1.51, Nucleated RBC % 0, Sodium 140, Potassium 2.9 L , Chloride 105, Carbon Dioxide 29.0, Anion Gap 6, BUN 32 H, Creatinine 0.65, Estim Creat Clear Calc 26.66, Est GFR (MDRD) Af Amer 114, Est GFR (MDRD) Non-Af 94, BUN/Creatinine Ratio 48.9 H, Glucose 87, Calcium 9.8, Total Bilirubin 0.70, AST 21, ALT 25, Alkaline Phosphatase 146 H, Troponin I High Sens 22, Total Protein 7.2, Albumin 3.1 L, Globulin 4.1, Albumin/Globulin Ratio 0.8 L, Folate 18.70, TSH < 0.01 L 06/30/23 10:56: Urine Color Yellow, Urine Clarity Clear, Urine pH 5.0, Ur Specific Marshall 1.010, Urine Protein 30 H, Urine Glucose (UA) Normal, Urine Ketones 5 H, Urine Occult Blood 25 H, Urine Nitrite Negative, Urine Bilirubin Negative, Urine Urobilinogen Normal, Ur Leukocyte Esterase Negative, Urine RBC 0 SEEN, Urine WBC 0-5 SEEN, Ur Squamous Epith Cells 5-10 SEEN, Urine Bacteria 1+, Urine Mucus 1+ 07/01/23 04:55: WBC 8.4, RBC 3.73 L, Hgb 10.9 L, Hct 36.2 L, MCV 97.1, MCH 29.2, MCHC 30.1 L, RDW Std Deviation 54.2 H, RDW Coeff of Kriss 15.4 H, Plt Count 258, MPV 11.5, Immature Gran % (Auto) 0.100, Neut % (Auto) 65.5, Lymph % (Auto) 23.2, Concordia % (Auto) 9.2, Eos % (Auto) 1.9, Baso % (Auto) 0.1, Absolute Neuts (auto) 5.5, Absolute Lymphs (auto) 1.94, Nucleated RBC % 0, Sodium 144, Potassium 3.1 L , Chloride 111 H, Carbon Dioxide 25.0, Anion Gap 8, BUN 12, Creatinine 0.25 L, Estim Creat Clear Calc 26.66, Est GFR (MDRD) Af Amer 341, Est GFR (MDRD) Non-Af 282, BUN/Creatinine Ratio 47.4 H, Glucose 89, Calcium 9.3, Phosphorus 4.1, Magnesium 1.8 07/01/23 07:00: Troponin I High Sens 107 H Micro: Microbiology 06/30/23 11:09 Nasal Secretion SARS-CoV-2 & FLU Antigen (Rapid) - Final ABG Data ABG results: ABG 06/30/23 07/01/23 11:27 07:01 Specimen Type MOLLY ART Sample Site Not entered R Radial pH 7.47 H Bicarbonate Actual 25.6 Total CO2 27 Base Excess 2 O2 Saturation 94 L O2 % 2.0 ABG pCO2 35.1 ABG pO2 64 L Jaylon Test Positive VBG pH 7.48 H VBG pO2 15 L* VBG HCO3 27 H VBG Total CO2 28 VBG O2 Sat (Calc) 23 L VBG Base Excess 3 POC Mix VBG pCO2 Pt Tmp 36.1 L O2 Delivery Device Not entered Cannula Vent Mode Not entered Crit Call To/Read Back Yes Blood Gas Notified Whom TA Blood Gas Notified Time 11:29:14 Radiography Diagnostic Testing: Radiology Impression Brain CT 06/30/23 10:34 IMPRESSION: Mild generalized volume loss and moderate chronic white matter changes. No hydrocephalus in shunt patient. Chronic right frontal encephalomalacia. 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 Coiling at the basilar tip. No acute intracranial hemorrhage identified. Electronically Signed: Ofelia Willingham MD at 11:40 EST , Chest X-Ray 06/30/23 11:07 IMPRESSION: Mild perihilar inflammatory change. Electronically Signed: Ofelia Willingham MD at 11:23 EST , Chest X-Ray 07/01/23 06:26 IMPRESSION: Stable chest. Electronically Signed: Alina Jacobs MD at 6:58 EST , Physical Exam Const alert and no apparent distress Constitutional Narrative: cachetic. afebrile. HEENT head/scalp atraumatic HEENT Narrative: MM dry. thrush. Resp normal respiratory effort, no retractions, no use of accessory muscles and clear to auscultation bilaterally Cardio regular rate, regular rhythm, S1 normal heart sound and S2 normal heart sound GI normal to inspection, nondistended, normoactive bowel sounds Assessment & Plan Assessment/Plan (1) Failure to thrive: (2) Severe protein-calorie malnutrition: (3) Dehydration: (4) Thrush: PLAN: Plan Failure to thrive * Patient reportedly confused but patient appears to be compensated my standpoint but will evaluate for reversible causes including hypothyroidism a nd vitamin deficiency. Will check a TSH and B12 and folate. * Complicating this is severe protein calorie malnutrition * PT OT evaluate and treat Severe protein calorie malnutrition * Evidenced by the patient's profound cachectic appearance * Start supplements * Consult nutrition for further input * Complicating this may be the underlying thrush that makes it difficult for her to eat * Phosphorus WNL, Mg 1.8 Dehydration * Mouth is extremely dry * IV fluids Thrush * Start nystatin swish and swallow Hypokalemia * Improved, but still low. Replace. 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 * Low TSH and free T4 and T3 elevated. Patient does not recall if she is taking any thyroid medication. * Through [employer]: Note from December 06 patient had hyperthyroidism secondary to Graves' disease that progressed to hypothyroidism. Patient did have her methimazole increased to 10 mg twice daily. This was the last note available through [employer] on 02/21/2023 * Resume methimazole Elevated troponin * unclear significance. * transfer to PCU. * start ASA * check echo. Tobacco abuse: Cessation advised History of intracranial hemorrhage: Status post OCCUPATIONAL THERAPY MANAGER shunt. No acute issues at present. VTE prophylaxis: Hold off on chemical prophylaxis given her history of intracranial hemorrhage. SCDs. CODE STATUS: Addressed with the emergency room physician and the patient. Patient is DNR Comfort Care arrest no intubation Disposition: To be determined. Patient is from assisted living. Unclear if p atient will be strong enough to return. Case management to assist. Charges/Coding Visit Charges Inpatient E&M: 84176 Subs Hosp L2
[2023-07-01] MEDS: Menthol/Lanolin/Calamine/Znox 113 GM Tube 1 APPLIC TOPICAL ×2 (08:09→22:16)
[2023-07-01] MEDS: NYSTATIN 500,000 UNIT/5 ML UDC 500000 UNIT PO ×2 (08:09→22:16)
[2023-07-01] MEDS: Ensure Plus High Protein 120 ML LIQUID PO ×2 (08:09→13:39)
[2023-07-01 08:21] LABS: Free T3 21.5 pg/mL (2.18-3.98); T4 Free Direct 7.04 ng/dL (0.76-1.46)
--- NOTE | 2023-07-01 13:09 | ECHOD_ITS ---
Reason For Study: ELEVATED TROPONINS Procedure This was a 2D Doppler, Color Flow transthoracic echocardiogram. Exam performed portable in patient room. Left Ventricle Normal LV size. Left ventricular systolic function is normal. The estimated ejection fraction is 60- 65 %. Stage 1 diastolic dysfunction. No regional wall motion abnormalities noted. Right Ventricle Normal RV size. Normal systolic function. Atria The left and right atria are normal. Prominent eustachian valve. Mitral Valve The mitral valve is structurally normal. No prolapse or stenosis seen. Tricuspid Valve Normal tricuspid valve. Trivial tricuspid valve insufficiency. Right ventricular systolic pressure estimated to be 39 mmHg. Aortic Valve Trisinus/trileaflet aortic valve. Pulmonic Valve The pulmonic valve is not well visualized. Great Vessels Normal aortic root. Pericardium/Pleural No pericardial effusion. MMode/2D Measurements & Calculations LVIDd: 3.6 cm IVSd: 0.94 cm Ao root diam: 2.7 cm LVIDs: 2.1 cm LVPWd: 1.0 cm RVDd: 3.2 cm FS: 42.6 % LAV(MOD-bp): 50.7 ml LVAd ap4: 19.5 cm2 SV(MOD-sp4): 28.1 ml LAV(MOD-bp) Indexed: 40.5 ml/m2 LVLd ap4: 6.6 cm LAV(MOD-sp2): 43.4 ml EDV(MOD-sp4): 47.7 ml LAV(MOD-sp4): 50.4 ml EDV(sp4-el): 49.0 ml LVAs ap4: 10.6 cm2 LVLs ap4: 5.2 cm ESV(MOD-sp4): 19.6 ml ESV(sp4-el): 18.6 ml EF(MOD-sp4): 58.9 % EF(sp4-el): 62.0 % SV(sp4-el): 30.4 ml LA A4 area: 16.8 cm2 LA dimension(2D): 3.6 cm RA A4 area: 13.6 cm2 TAPSE: 2.4 cm Time Measurements MV dec time: 0.22 sec Doppler Measurements & Calculations MV E max andrea: 81.4 cm/sec Lat Peak E' Andrea: 9.6 cm/sec Med Peak E' Andrea: 10.5 cm/sec MV A max andrea: 101.2 cm/sec E/E' lat: 8.5 E/E' med: 7.8 MV E/A: 0.80 Ao V2 max: 154.9 cm/sec LV V1 max: 140.0 cm/sec PA V2 max: 151.6 cm/sec Ao max P.6 mmHg LV V1 max P.9 mmHg PA V2 mean: 108.5 cm/sec Ao V2 mean: 96.1 cm/sec LV V1 mean P.1 mmHg Ao mean P.2 mmHg LV V1 mean: 80.6 cm/sec Ao V2 VTI: 22.6 cm LV V1 VTI: 18.1 cm AV (velocity ratio): 0.80 TR max andrea: 301.2 cm/sec TR max P.3 mmHg ECHO/Echo Complete Interpretation Summary The estimated ejection fraction is 60-65 %. Stage 1 diastolic dysfunction. Structually normal valves. No previous echo for comparison. Ordering Physician: Ck Kong Referring Physician: OTD Performed By: Jenna Pino, SOFIA, RVT
--- NOTE | 2023-07-01 13:11 | NURSING ---
pt being transferred to PCU, report called and given to Yamil FELIZ
[2023-07-01] MEDS: Aspirin 325 MG Tablet PO (13:41)
[2023-07-01] MEDS: Albuterol 2.5 MG/3 ML VIAL.NEB. INHALATION (14:04)
[2023-07-01] MEDS: Budesonide Respules 0.5 MG/2 ML AMPUL.NEB. INHALATION (19:24)
[2023-07-01] MEDS: Ipratropium/Albuterol Sulfate 3 ML AMPUL.NEB INHALATION (19:24)
[2023-07-01] MEDS: 0.9% Saline Lock 10 ML Syringe IV (20:31)
[2023-07-01] MEDS: Metoprolol(XL)Succ 25 MG Tablet PO (22:16)
[2023-07-01] MEDS: amLODIPine 2.5 MG Tablet PO (22:16)
[2023-07-01] MEDS: Methimazole 5 MG Tablet 10 MG PO (22:17)
[2023-07-02] VITALS (10 sets, daily range): BP systolic 109–125; BP diastolic 55–88; PULSE 87–114; RESP 20–28; TEMP 36.8–37.3; O2SAT 2–96
[2023-07-02 06:30] LABS: Absolute Lymphocyte Count 1.31 X10^3/uL (0.83-4.51); Absolute Neutrophil Count 23.4 X10^3/uL (2.0-7.7); Basophil# 0.03 X10^3/uL; Basophil% 0.1 % (0-1); Eosinophil# 0.01 X10^3/uL; Hematocrit 31.1 % (37-47); Hemoglobin 9.7 g/dL (12.0-15.0); Lymphocyte # 1.31 X10^3/ul (0.83-4.51); Lymphocyte % 4.9 % (19-41); Mean Corp Hgb Conc 31.2 g/dL (32-36); Mean Corpuscular Hgb 29.7 pg (27.0-32.0); Mean Corpuscular Volume 95.1 fL (81-99); Mean Platelet Vol. 11.4 fl (6.2-12.0); Monocyte# 1.42 X10^3/uL; Monocyte% 5.4 % (0-10); NRBC Flagged by Analyzer 0 % (0-5); Neutrophil % 88.4 % (47-70); POSITIVE DIFFERENTIAL YES; Platelet Count 185 K/mm3 (150-450); RBC Distribution Width CV 15.6 % (11.6-14.6); RBC Distribution Width SD 53.1 fl (35.1-43.9); Red Blood Count 3.27 M/mm3 (4.2-5.4); White Blood Count 26.5 K/mm3 (4.4-11.0)
[2023-07-02 06:36] LABS: Differential Indicated SCAN CRITERIA MET
[2023-07-02] MEDS: Budesonide Respules 0.5 MG/2 ML AMPUL.NEB. INHALATION ×2 (06:47→20:01)
[2023-07-02] MEDS: Ipratropium/Albuterol Sulfate 3 ML AMPUL.NEB INHALATION ×2 (06:47→20:01)
[2023-07-02 06:56] LABS: ALB/GLOB Ratio 0.6 RATIO (0.9-2.4); AST(SGOT) 23 U/L (15-37); Alanine Aminotransfer ALT/SGPT 24 U/L (13-56); Albumin, Serum 2.3 g/dL (3.2-5.0); Alkaline Phosphatase 145 U/L (45-117); Anion Gap 5 (5-15); BUN 18 mg/dL (7-18); BUN/Creat Ratio 80.4 RATIO (10-20); Chloride 104 mmol/L (98-107); Creatinine, Serum 0.22 mg/dL (0.55-1.02); EST Glomerular Filtration Rate 324 mL/min (>60); Est Glom Filt Rate - Afr Amer 392 mL/min (>60); Estimated Creatinine Clearance 26.66 ml/min; Globulin 3.7 g/dL (2.2-4.2); Glucose 89 mg/dL (74-106); Sodium Level 138 mmol/L (136-145)
[2023-07-02 07:05] LABS: Differential Comment SCANNED
--- NOTE | 2023-07-02 07:38 | PN.HOSP_ITS ---
Reason for Visit Reason for Visit: Diagnoses Candidal stomatitis (06/30/23) Unspecified severe protein-calorie malnutrition (06/30/23) Dehydration (06/30/23) Subjective Subjective Wants to go home. Objective Data Objective Data Vital Signs: Vital Signs Temp Pulse Resp BP Pulse Ox O2 Del Method O2 Flow Rate 36.8 C 87 28 H 112/58 L 95 Nasal Cannula 2 07/02/23 06:30 07/02/23 06:30 07/02/23 06:30 07/02/23 06:30 07/02/23 06:30 07/02/23 06:30 07/02/23 02:32 Oxygen Flow Rate (L/min) 2 Oxygen Delivery Method Nasal Cannula Weight: 33.7 kg Body Mass Index (BMI) 13.6 Intake & Output: Intake and Output for Last 24 Hours 06/30/23 07/01/23 07/02/23 23:59 23:59 23:59 Intake Total 1500 / 1500 660 / 660 30 Balance 1500 / 1500 660 / 660 Medical Nutrition Assessment Dietitian: Malnutrition Criteria Met Start: 07/01/23 10:27 Freq: Status: Active Protocol: Document 07/01/23 11:16 AG (Rec: 07/01/23 11:16 AG Other) Nutrition Malnutrition Evidence of Malnutrition Exists Yes Malnutrition (severe): Chronic Evidenced By Suboptimal Energy Intake ( Severe),Physical Changes ( Severe) Clinical Problem Chronic Disease or Condition Related Malnutrition Etiology severe, chronic malnutrition related to inadequate energy intake Signs/Symptoms as evidenced by estimated PO intake meeting <75% of estimated energy needs > 3 months, severe muscle wasting/ fat loss evident per physical exam in orbital, clavicle, acromion, and temporal areas, BMI 13.6 Status Active Problem Recommendation Dietitian Recommendations/Changes Continue regular diet, will add fortified foods and magic cup w/ dinner. Will increase ensure supplement to 120mL 4x/ day in between meals. Will monitor electrolytes, given risk for refeeding. May benefit from speech therapy evaluation. Lab / Micro Data 07/02/23 06:10 07/02/23 06:10 Labs: Laboratory Results - last 24 hr 07/01/23 04:55: B-Natriuretic Peptide 1144.0 H 07/01/23 07:00: Free T4 7.04 H, Free T3 pg/dL 21.5 H 07/02/23 06:10: WBC 26.5 H, RBC 3.27 L, Hgb 9.7 L, Hct 31.1 L, MCV 95.1, MCH 29.7, MCHC 31.2 L, RDW Std Deviation 53.1 H, RDW Coeff of Kriss 15.6 H, Plt Count 185, MPV 11.4, Immature Gran % (Auto) 1.200 H, Neut % (Auto) 88.4 H, Lymph % (Auto) 4.9 L, [place] % (Auto) 5.4, Eos % (Auto) 0.0, Baso % (Auto) 0.1, Absolute Neuts (auto) 23.4 H, Absolute Lymphs (auto) 1.31, Nucleated RBC % 0, Differential Comment SCANNED, Sodium 138, Potassium 3.0 L, Chloride 104, Carbon Dioxide 29.0, Anion Gap 5, BUN 18, Creatinine 0.22 L, Estim Creat Clear Calc 26.66, Est GFR (MDRD) Af Amer 392, Est GFR (MDRD) Non-Af 324, BUN/Creatinine Ratio 80.4 H, Glucose 89, Calcium 9.0, Total Bilirubin 1.70 H, AST 23, ALT 24, Alkaline Phosphatase 145 H, Total Protein 6.0 L, Albumin 2.3 L, Globulin 3.7, Albumin/Globulin Ratio 0.6 L Micro: Microbiology 06/30/23 11:09 Nasal Secretion SARS-CoV-2 & FLU Antigen (Rapid) - Final Physical Exam Const alert and no apparent distress Constitutional Narrative: Cachectic. Afebrile. HEENT head/scalp atraumatic HEENT Narrative: Mucous membranes still dry. Positive thrush. Eyes Eyes Narrative: No icterus. Resp Resp Narrative: Coarse breath sounds bilaterally Cardio regular rate, regular rhythm, S1 normal heart sound and S2 normal heart sound GI normal to inspection, nondistended, normoactive bowel sounds, soft to palpation, non-tender and non-distended Extremity Extremity Narrative: No edema Neuro moves all extremities and no focal motor deficits Sensorium / Orientation: awake and alert Psych Mood & Affect: anxious Assessment & Plan Assessment/Plan (1) Failure to thrive: (2) Severe protein-calorie malnutrition: (3) Dehydration: (4) Thrush: PLAN: Plan Failure to thrive * Patient reportedly confused but patient appears to be compensated my standpoint but will evaluate for reversible causes including hypothyroidism and vitamin deficiency. Will check a TSH and B12 and folate. * Complicating this is severe protein calorie malnutrition * Patient was contact-guard assist with supine to sit and sit to stand and ambulation. Saw therapy on the and did require oxygen as it dropped down to 86% and heart rate increased to 150. Patient only able to walk 20 feet at that time. She had a shuffling gait Severe protein calorie malnutrition * Evidenced by the patient's profound cachectic appearance * Start supplements * Consult nutrition for further input * Complicating this may be the underlying thrush that makes it difficult for her to eat * Phosphorus WNL, Mg 1.8 Dehydration * Mouth is extremely dry * Improving though mouth is still dry. Thrush * Continue nystatin swish and swallow Hypokalemia * Improved, but still low. Replace. 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 * Low TSH and free T4 and T3 elevated. Patient does not recall if she is taking any thyroid medication. * Through [facility]): Note from December 06 patient had hyperthyroidism secondary to Graves' disease that progressed to hypothyroidism. Patient did have her methimazole increased to 10 mg twice daily. This was the last note available through [facility] on 02/21/2023 * Resume methimazole. Will revert to daily dosing rather than BID given le ukocytosis (methimazole associated agranulocytosis seems unlikely after only 1 dose). * Follow up with endocrinology as outpt. * Avoid IV iodinated contrast, if possible. Elevated troponin * unclear significance. BNP elevated at 1140, but no clinical evidence of CHF. * transfer to PCU. * start ASA * Echocardiogram shows an EF 60 to 65%. Stage I diastolic dysfunction. * Will check stress test. Leukocytosis * Unclear significance. White count went from 8.2 to 26.5. * UA on the was negative. CXR on the was negative. COVID and flu negative on the . * Monitor * Cannot rule our agranulocytosis from methimazole, but has only received 1 dose of methimazole (thus far), which is the only new thing that has been started. Monitor closely * Check BCx. Tobacco abuse: Cessation advised History of intracranial hemorrhage: Status post MARINA DRY DOCK MANAGER shunt. No acute issues at present. VTE prophylaxis: Hold off on chemical prophylaxis given her history of intracranial hemorrhage. SCDs. CODE STATUS: Addressed with the emergency room physician and the patient. Patient is DNR Comfort Care arrest no intubation Disposition: To be determined. Patient is from assisted living. Unclear if patient will be strong enough to return. Case management to assist. Charges/Coding Visit Charges Inpatient E&M: 38443 Subs Hosp L2
[2023-07-02 08:37] LABS: Vitamin B12 416 pg/mL (211-911)
[2023-07-02] MEDS: amLODIPine 2.5 MG Tablet PO ×2 (08:49→21:46)
[2023-07-02] MEDS: Metoprolol(XL)Succ 25 MG Tablet PO ×2 (08:49→21:46)
[2023-07-02] MEDS: NYSTATIN 500,000 UNIT/5 ML UDC 500000 UNIT PO ×3 (08:49→21:48)
[2023-07-02] MEDS: Anastrozole 1 MG TABLET PO (08:50)
[2023-07-02] MEDS: Menthol/Lanolin/Calamine/Znox 113 GM Tube 1 APPLIC TOPICAL ×2 (08:50→21:47)
[2023-07-02] MEDS: Loratadine 10 MG Tablet PO (08:50)
[2023-07-02] MEDS: Aspirin 81 MG TAB.CHEW PO (08:50)
[2023-07-02] MEDS: Ensure Plus High Protein 120 ML LIQUID PO ×3 (08:50→21:56)
--- NOTE | 2023-07-02 14:00 | CASEMGMT ---
Social Work - SDOH screening Met with patient, introducing to self and social work role. Patient appearing overwhelmed with some of the questions, as evidenced by patient repeatedly telling this fiction and nonfiction prose writer that is just unsure about things and that it is hard to always recall specifics. This fiction and nonfiction prose writer did slow down and patient was able to answer orientation questions appropriately. Alert and oriented to person, age, place, month and year. Patient shared that has been living at [facility] for a couple of weeks. Prior to this had been living on her own in the [facility]. Patient admits things were getting tough at home, as patient was not always eating like she should, in part due to patient not wanting to acknowledge that she was running out of food because did not want to burden family to take her to the grocery store more often. Patient reports has been reliant on her older brother and nieces and nephews for support. Patient reports moved into the assisted living a couple of weeks ago to be closer to family, and receive more support regarding nutrition. Patient reports would like to return to the assisted living if able. Patient denies having any power of trade mark attorney for healthcare or living will. Reports it is okay to talk to any of her nieces and nephews but that needs Scarlet Forman is the primary contact. Scarlet is a nurse practitioner. This fiction and nonfiction prose writer called [facility] and spoke with the nurse Concha. This fiction and nonfiction prose writer confirmed that patient has only been at the facility for a couple of weeks. This fiction and nonfiction prose writer let Concha know clinical updates will be faxed, to ensure that the assisted living feels able to accept patient back. This fiction and nonfiction prose writer called patient's niece Scarlet. Scarlet confirms much of what patient shared with this fiction and nonfiction prose writer. Scarlet does report the patient has had some episodes of confusion though has maintained being alert and oriented x 4. Scarlet reports belief that the assisted living should be able to take care of patient's needs. Home health therapy could be ordered at the assisted living if needed. Scarlet reports patient did just get over COVID last week. Scarlet reports patient did express concerned about not being able to find glasses, phone hospice chaplain into pants. This fiction and nonfiction prose writer did update chargeback specialist. Collaboration with discharge wedding planning internship regarding need to fax updates to the assisted living. Plan: Anticipate return back to assisted living. Monitor for need for home health therapy. Patient does not use oxygen at the assisted living, so we will also need to monitor for this. -ILEANA Knox, CLEANER FURNITURE
--- NOTE | 2023-07-02 15:51 | CASEMGMT ---
Social Work As per admitting surgery center administrator, pt does not have LW/POA and declined further information. ILEANA Bowen
--- NOTE | 2023-07-02 16:06 | CASEMGMT ---
Discharge Planning Updates faxed to [facility]. Lizzy Mckeon, Discharge Planning Asst.
--- NOTE | 2023-07-02 16:35 | CASEMGMT ---
Met with patient to complete FLORES form. FLORES form explained to patient who voiced understanding and signed form. Original form placed in pt?s chart and copy provided to?patient. Lizzy Mckeon, Discharge Planning Asst.
[2023-07-02] MEDS: Acetaminophen 325 MG Tablet 650 MG PO (21:47)
[2023-07-02] MEDS: Methimazole 5 MG Tablet 10 MG PO (21:48)
[2023-07-03] VITALS (10 sets, daily range): BP systolic 91–110; BP diastolic 56–72; PULSE 73–89; RESP 16–24; TEMP 36.2–36.6; O2SAT 93–100; BMI 12.2
[2023-07-03 03:42] LABS: Absolute Lymphocyte Count 1.57 X10^3/uL (0.83-4.51); Absolute Neutrophil Count 13.2 X10^3/uL (2.0-7.7); Basophil# 0.01 X10^3/uL; Basophil% 0.1 % (0-1); Eosinophil# 0.22 X10^3/uL; Eosinophils% 1.3 % (0-5); Hematocrit 32.7 % (37-47); Hemoglobin 10.2 g/dL (12.0-15.0); Lymphocyte # 1.57 X10^3/ul (0.83-4.51); Lymphocyte % 9.6 % (19-41); Mean Corp Hgb Conc 31.2 g/dL (32-36); Mean Corpuscular Hgb 30.4 pg (27.0-32.0); Mean Corpuscular Volume 97.6 fL (81-99); Mean Platelet Vol. 11.7 fl (6.2-12.0); Monocyte# 1.29 X10^3/uL; Monocyte% 7.9 % (0-10); NRBC Flagged by Analyzer 0 % (0-5); Neutrophil # 13.18 X10^3/uL (2.7-7.7); Neutrophil % 80.7 % (47-70); Platelet Count 184 K/mm3 (150-450); RBC Distribution Width CV 15.5 % (11.6-14.6); Red Blood Count 3.35 M/mm3 (4.2-5.4); White Blood Count 16.3 K/mm3 (4.4-11.0)
[2023-07-03 04:09] LABS: ALB/GLOB Ratio 0.6 RATIO (0.9-2.4); AST(SGOT) 14 U/L (15-37); Alanine Aminotransfer ALT/SGPT 20 U/L (13-56); Albumin, Serum 2.2 g/dL (3.2-5.0); Alkaline Phosphatase 133 U/L (45-117); Anion Gap 4 (5-15); BUN 26 mg/dL (7-18); BUN/Creat Ratio 80.2 RATIO (10-20); Calcium,Total 8.2 mg/dL (8.5-10.1); Chloride 106 mmol/L (98-107); Creatinine, Serum 0.32 mg/dL (0.55-1.02); EST Glomerular Filtration Rate 212 mL/min (>60); Est Glom Filt Rate - Afr Amer 256 mL/min (>60); Estimated Creatinine Clearance 26.66 ml/min; Globulin 3.7 g/dL (2.2-4.2); Glucose 100 mg/dL (74-106); Potassium 3.1 mmol/L (3.5-5.1); Protein, Total 5.9 g/dL (6.4-8.2); Sodium Level 142 mmol/L (136-145)
[2023-07-03] MEDS: Aspirin 81 MG TAB.CHEW PO (05:17)
[2023-07-03] MEDS: Potassium Chloride Oral Soln 20 MEQ/15 ML UDC 40 MEQ PO (05:17)
[2023-07-03] MEDS: 0.9% Saline Lock 10 ML Syringe IV ×3 (05:28→15:44)
[2023-07-03] MEDS: Ipratropium/Albuterol Sulfate 3 ML AMPUL.NEB INHALATION ×3 (07:29→18:38)
[2023-07-03] MEDS: Budesonide Respules 0.5 MG/2 ML AMPUL.NEB. INHALATION ×2 (07:29→18:38)
[2023-07-03] MEDS: Potassium Chloride 10mEq/100mL 10 MEQ/100 ML IV.SOLN. 100 MEQ IV BOLUS ×2 (07:38→10:32)
--- NOTE | 2023-07-03 08:35 | PCM.PN.HOSP ---
Reason for Visit Reason for Visit: Confusion Subjective Subjective Mrs. Hutchins is a 72-year-old white female who presented from the assisted living facility at which she resides for confusion. On presentation she was completely alert and oriented x with only slight confusion on time stating the year was 2019 but did note was the day prior to . The patient denied any confusion on presentation and evidently had COVID about a week and a half prior to presentation. She complained of some recent diarrhea and difficulty swallowing. She had no falls or recent trauma and noted that symptoms started about 2 days prior to presentation. Her overall review of systems was fairly unremarkable. Vital signs on presentation showed that she was afebrile, heart rate was 117, respiratory rate was 20, blood pressure was 134/62 and oxygen saturation was 95% on room air. Her CBC showed a hemoglobin of 10.7 but was otherwise unremarkable. An ABG was performed and was unremarkable. Her chemistry panel demonstrated a normal sodium but significant hypokalemia with a potassium of 2.9, she appeared dehydrated given her markedly low BMI of 13.6 having a BUN of 32 and a serum creatinine of 0.65. I would expect this to be much lower given her body habitus. Her glucose was normal 87, calcium was normal and troponin was normal. Her BNP was markedly elevated at 1144. Her TSH was undetectable with a free T4 of 7.04 and a free T3 of 21.5 she evidently has a history of hyperthyroidism but was not taking her methimazole. She was also recent beta evan at 25 mg p.o. twice daily cardiac enzymes were cycled and she had a max of 107. Echocardiogram was found to be unremarkable with EF of 60 to 65%, stage I diastolic function, structurally normal valves with no previous echo for comparison. Her methimazole was reinitiated at 10 mg daily, given these findings. Her heart rates have improved. She has had persistently low potassium levels which have been replaced. She was found to be severely malnourished and placed on supplementations as well as a liberalize diet. I suspect her BNP was markedly elevated due to high-output heart failure with her thyroid abnormalities. She did complain of swallowing difficulties on presentation this was so far thought to be related to thrush and she was placed on nystatin swish and swallow. Her dietitian p.o. intake has been for while hospitalized. I discussed this with the patient she states the food is horrible. Also indicates that the cookies that her niece brought and are not good either which is why she is not eating them. Has multiple complaints about the food. Does admit to some depression and I did discuss with her the fact that we started mirtazapine to see if it would help with depression and appetite stimulation. Stress test is pending. I tried to ascertain information with regards to her thyroid and she indicates her vice president research told her to stop the methimazole however this is unclear and her history accuracy is somewhat questionable. I did inform her that we will have her follow-up with pulmonary medicine for probable COPD. She states she has never been seen by medical research associate but still smokes intermittently. States she got 5 packs of cigarettes in early May and has just used them all. Overall she feels like she is smoking less. Objective Data Objective Data Vital Signs: Vital Signs Temp Pulse Resp BP Pulse Ox O2 Del Method O2 Flow Rate 97.1 F L 85 20 H 105/72 98 Nasal Cannula 2 07/03/23 06:46 07/03/23 07:28 07/03/23 07:28 07/03/23 06:46 07/03/23 07:28 07/03/23 07:49 07/03/23 07:49 Oxygen Flow Rate (L/min) 2 Oxygen Delivery Method Nasal Cannula Weight: 33.7 kg Body Mass Index (BMI) 13.6 Intake & Output: Intake and Output for Last 24 Hours 07/01/23 07/02/23 07/03/23 23:59 23:59 23:59 Intake Total 660 / 660 30 / 30 Output Total 100 / 100 100 / 100 Balance 660 / 660 -70 / -70 -100 / -100 Medical Nutrition Assessment Dietitian: Malnutrition Criteria Met Start: 07/01/23 10:27 Freq: Status: Active Protocol: Document 07/02/23 12:02 (Rec: 07/02/23 12:02 [id number]) Nutrition Malnutrition Evidence of Malnutrition Exists Yes Malnutrition (severe): Chronic Evidenced By Suboptimal Energy Intake ( Severe),Physical Changes ( Severe) Clinical Problem Chronic Disease or Condition Related Malnutrition Etiology severe, chronic malnutrition related to inadequate energy intake Signs/Symptoms as evidenced by estimated PO intake meeting <75% of estimated energy needs > 3 months, severe muscle wasting/ fat loss evident per physical exam in orbital, clavicle, acromion, and temporal areas, BMI 13.6 Status Active Problem Recommendation Dietitian Recommendations/Changes 1) Continue regular diet, fortified foods and magic cup w/ dinner; ensure plus high protein 120mL 4x/day in between meals. Texture/ consistency modifications per SOLAR SALES REPRESENTATIVE. 2) Recommend appetite stimulant, mental health eval. Pt appears depressed. 3) Will monitor electrolytes, given risk for refeeding. Daily wts. Lab / Micro Data 07/03/23 03:32 07/03/23 03:32 Labs: Laboratory Results - last 24 hr 07/01/23 04:55: Vitamin B12 416 07/03/23 03:32: WBC 16.3 H, RBC 3.35 L, Hgb 10.2 L, Hct 32.7 L, MCV 97.6, MCH 30.4, MCHC 31.2 L, RDW Std Deviation 55.0 H, RDW Coeff of Kriss 15.5 H, Plt Count 184, MPV 11.7, Immature Gran % (Auto) 0.400, Neut % (Auto) 80.7 H, Lymph % (Auto) 9.6 L, [place] % (Auto) 7.9, Eos % (Auto) 1.3, Baso % (Auto) 0.1, Absolute Neuts (auto) 13.2 H, Absolute Lymphs (auto) 1.57, Nucleated RBC % 0, Sodium 142, Potassium 3.1 L, Chloride 106, Carbon Dioxide 32.0, Anion Gap 4 L, BUN 26 H, Creatinine 0.32 L, Estim Creat Clear Calc 26.66, Est GFR (MDRD) Af Amer 256, Est GFR (MDRD) Non-Af 212, BUN/Creatinine Ratio 80.2 H, Glucose 100, Calcium 8.2 L, Total Bilirubin 1.00, AST 14 L, ALT 20, Alkaline Phosphatase 133 H, Total Protein 5.9 L, Albumin 2.2 L, Globulin 3.7, Albumin/Globulin Ratio 0.6 L Micro: Microbiology 06/30/23 11:09 Nasal Secretion SARS-CoV-2 & FLU Antigen (Rapid) - Final Radiography Diagnostic Testing: Radiology Impression Echocardiogram 07/01/23 13:09 Interpretation Summary The estimated ejection fraction is 60-65 %. Stage 1 diastolic dysfunction. Structually normal valves. No previous echo for comparison. Ordering Physician: Ck Kong Referring Physician: OTD Performed By: Jenna Pino, SOFIA, RVT Physical Exam Const alert, oriented x3 and no apparent distress; Negative for average body habitus, healthy appearing or well nourished Constitutional Narrative: Cachectic, older, white female, sitting up in bed, appears older than stated age, appears comfortable and nontoxic currently, watching television HEENT head/scalp atraumatic and moist oral mucous membranes HEENT Narrative: Dentition is poor, Mallampati is 1, no thrush Head and Scalp: normocephalic Eyes PERRL, EOMs intact bilaterally and conjunctivae normal Eyes Narrative: No scleral icterus Neck no lymphadenopathy and supple Neck Narrative: Trachea midline, thyroid is enlarged Resp normal respiratory effort, no retractions, no use of accessory muscles and clear to auscultation bilaterally Resp Narrative: Diffusely diminished but clear Auscultation: Negative for rales, rhonchi or wheezes Cardio regular rate, regular rhythm, S1 normal heart sound, S2 normal heart sound, no murmurs, no rub, no gallops and no clicks GI normal to inspection, nondistended, normoactive bowel sounds, soft to palpation and non-tender GI Narrative: Scaphoid abdomen min Extremity Extremity Narrative: Severely decreased lean muscle mass, trace lower extremity edema, no cyanosis or clubbing Skin no rashes or lesions noted, skin turgor normal, no jaundice, no petechiae and no mottling Skin Narrative: Skin is thin Neuro oriented x3, moves all extremities and no focal motor deficits Speech: speech normal Psych Psych Narrative: Affect is flattened mood seems depressed, eye contact is fair Assessment & Plan Assessment/Plan (1) Severe protein-calorie malnutrition: (2) Failure to thrive: (3) Dehydration: (4) Thrush: (5) Hypokalemia: (6) Refeeding syndrome: (7) Depression: (8) Leukocytosis: (9) Hyperthyroidism: (10) Elevated brain natriuretic peptide (BNP) level: (11) Elevated troponin I level: (12) Hypoxia: PLAN: Plan Adult failure to thrive -Per documentation patient does seem to fluctuate with mental status at baseline -Has been alert and oriented x 4 during her hospitalization -Plan is to return to assisted living with possible home health -Suspect thyroid issues may be contributing to this -B12 level was 416 -Folate was 18.7 -Continue PT/OT Hypoxia -Markedly elevated BNP on presentation likely related to high-output heart failure with hypothyroidism -Suspect patient also has COPD based on appearance of chest x-ray being hyperinflated and history of tobacco abuse -Will give Lasix 20 mg x 1 dose IV push and continue to monitor oxygen needs -May require supplemental oxygen at baseline -Would recommend pulmonary follow-up after discharge as I do suspect she has COPD and does need pulmonary function tests Elevated troponin level -Significance is uncertain -May be related to hypothyroidism -Stress test is pending given normal echocardiogram appearance -Echo was unremarkable BNP elevation -Suspect related to 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 -Will give Lasix 20 mg IV push x 1 dose but no significant signs of decompensation Dehydration -Resolved Hypokalemia -Suspect related to severe malnutrition and possible refeeding -Check magnesium and phosphorus as well -Replace with IV and oral Severe malnutrition with suspected refeeding syndrome -Malnutrition issues are multifactorial -Will start Remeron -Thyroid issues likely playing an factor -Dietitian is following -Continue liberalize diet with supplements -Will start daily multivitamin -Check magnesium and phosphate -Patient also with some odynophagia that is suspected to be related to thrush -If this continues to be a problem could consider Diflucan x 1 dose and if still problematic would consider GI consult for EGD Dysphagia -Speech therapy has swallowing eval with MBS scheduled for tomorrow -Would suspect that enlarged thyroid is contributing to this Hyperthyroidism secondary to Graves' disease -Patient has history of hypothyroid documented however had not been taking methimazole from what we can tell -TSH was undetectable -Free T4 and T3 were elevated -Methimazole restarted on the -Will repeat free T4 tomorrow with 48 hours of treatment to assess trend -Will need follow-up with endocrinology after discharge -Thyroid is currently enlarged will need continued monitoring with outpatient follow-up after she has been on therapeutic methimazole for some time -If remains enlarged despite normalizing thyroid function, may need imaging Thrush -Continue nystatin swish and spit -Currently no identifiable thrush on exam Leukocytosis -Etiology is unclear -White count went from 8.2-26.5 within a 24-hour. -Trending down without any antimicrobial treatment other than nystatin -Cultures are pending -Patient afebrile -Repeat CBC in a.m. History of intracranial hemorrhage -Status post TOOL MAKER BENCH shunt -No acute issues -CT of the brain was unremarkable Tobacco abuse -Recommend ongoing cessation Suspected depression -Add Remeron 15 mg nightly DVT prophylaxis -Chemoprophylaxis held on admission due to history of intracranial hemorrhage as etiology was unclear -SCDs in place CODE STATUS -DNR CCA with no intubation Disposition -Current plan is return to assisted living with home health care once medically stable--> most likely tomorrow Charges/Coding Visit Charges Inpatient E&M: 96262 [facility] Hosp L3
[2023-07-03 09:07] LABS: Magnesium 2.2 mg/dL (1.6-2.6); Phosphorus 3.9 mg/dL (2.5-4.9)
[2023-07-03] MEDS: Menthol/Lanolin/Calamine/Znox 113 GM Tube 1 APPLIC TOPICAL ×2 (10:29→22:38)
[2023-07-03] MEDS: Metoprolol(XL)Succ 25 MG Tablet PO ×2 (10:31→22:38)
[2023-07-03] MEDS: NYSTATIN 500,000 UNIT/5 ML UDC 500000 UNIT PO ×4 (10:31→22:38)
[2023-07-03] MEDS: Loratadine 10 MG Tablet PO (10:31)
[2023-07-03] MEDS: amLODIPine 2.5 MG Tablet PO ×2 (10:31→22:37)
[2023-07-03] MEDS: Methimazole 5 MG Tablet 10 MG PO (10:31)
[2023-07-03] MEDS: Anastrozole 1 MG TABLET PO (10:31)
[2023-07-03] MEDS: Acetaminophen 325 MG Tablet 650 MG PO (13:27)
[2023-07-03] MEDS: Furosemide 20 MG/2 ML VIAL IV (15:45)
[2023-07-03] MEDS: Ensure Plus High Protein 120 ML LIQUID PO ×2 (18:03→22:38)
[2023-07-03] MEDS: Mirtazapine 15 MG Tablet PO (22:37)
[2023-07-04] VITALS (9 sets, daily range): BP systolic 98–141; BP diastolic 51–69; PULSE 75–91; RESP 16–26; TEMP 36.4–36.7; O2SAT 90–97; BMI 12.4
[2023-07-04 04:27] LABS: Absolute Lymphocyte Count 1.16 X10^3/uL (0.83-4.51); Absolute Neutrophil Count 6.3 X10^3/uL (2.0-7.7); Basophil# 0.02 X10^3/uL; Basophil% 0.2 % (0-1); Eosinophils% 5.7 % (0-5); Hematocrit 34.4 % (37-47); Hemoglobin 10.8 g/dL (12.0-15.0); Lymphocyte # 1.16 X10^3/ul (0.83-4.51); Lymphocyte % 13.2 % (19-41); Mean Corp Hgb Conc 31.4 g/dL (32-36); Mean Corpuscular Hgb 30.8 pg (27.0-32.0); Monocyte# 0.73 X10^3/uL; Monocyte% 8.3 % (0-10); NRBC Flagged by Analyzer 0 % (0-5); Neutrophil # 6.34 X10^3/uL (2.7-7.7); Neutrophil % 72.3 % (47-70); Platelet Count 207 K/mm3 (150-450); RBC Distribution Width CV 15.5 % (11.6-14.6); RBC Distribution Width SD 55.1 fl (35.1-43.9); Red Blood Count 3.51 M/mm3 (4.2-5.4); White Blood Count 8.8 K/mm3 (4.4-11.0)
[2023-07-04 04:48] LABS: Anion Gap 6 (5-15); BUN 23 mg/dL (7-18); BUN/Creat Ratio 121.1 RATIO (10-20); Calcium,Total 8.5 mg/dL (8.5-10.1); Chloride 107 mmol/L (98-107); Creatinine, Serum 0.19 mg/dL (0.55-1.02); EST Glomerular Filtration Rate 392 mL/min (>60); Est Glom Filt Rate - Afr Amer 474 mL/min (>60); Estimated Creatinine Clearance 24.12 ml/min; Glucose 78 mg/dL (74-106); Magnesium 1.9 mg/dL (1.6-2.6); Potassium 3.5 mmol/L (3.5-5.1); Sodium Level 144 mmol/L (136-145); T4 Free Direct 3.24 ng/dL (0.76-1.46)
[2023-07-04 05:14] LABS: Phosphorus 2.9 mg/dL (2.5-4.9)
[2023-07-04] MEDS: Budesonide Respules 0.5 MG/2 ML AMPUL.NEB. INHALATION ×2 (07:36→19:36)
[2023-07-04] MEDS: Ipratropium/Albuterol Sulfate 3 ML AMPUL.NEB INHALATION ×3 (07:36→19:36)
[2023-07-04] MEDS: Acetaminophen 325 MG Tablet 650 MG PO (09:43)
[2023-07-04] MEDS: Loratadine 10 MG Tablet PO (09:43)
[2023-07-04] MEDS: Aspirin 81 MG TAB.CHEW PO (09:43)
[2023-07-04] MEDS: amLODIPine 2.5 MG Tablet PO ×2 (09:43→20:54)
[2023-07-04] MEDS: Metoprolol(XL)Succ 25 MG Tablet PO ×2 (09:43→20:54)
[2023-07-04] MEDS: Ensure Plus High Protein 120 ML LIQUID PO ×3 (09:43→20:54)
[2023-07-04] MEDS: NYSTATIN 500,000 UNIT/5 ML UDC 500000 UNIT PO ×4 (09:44→20:54)
[2023-07-04] MEDS: Methimazole 5 MG Tablet 10 MG PO (09:44)
[2023-07-04] MEDS: Multivitamins,Therapeutic Tablet 1 TABLET PO (09:44)
[2023-07-04] MEDS: Anastrozole 1 MG TABLET PO (09:44)
[2023-07-04] MEDS: Menthol/Lanolin/Calamine/Znox 113 GM Tube 1 APPLIC TOPICAL ×2 (09:44→20:54)
--- NOTE | 2023-07-04 09:50 | CASEMGMT ---
Discharge Planning Updates faxed to [facility]. Lizzy Mckeon, Discharge Planning Asst.
--- NOTE | 2023-07-04 14:20 | SP.MBSS_ITS ---
Modified Barium Swallow Patient Information Study Date: 07/04/23 Study Time: 13:00 Direct Billable Minutes: 115 Total Minutes procedure & reportin Diagnosis: Hypoxia R09.02, Dehydration E86.0 Referring Physician: Luzmaria Hollis Reason for Referral: Objectively assess swallow function, assess risk for aspiration, and determine recommendations for least restrictive diet textures and compensatory strategies to improve safety of swallow. Medical History: PMH: Allergic rhinitis, Candidal esophagitis, COPD, Gastric ulcer, GLD, HLD, ICH, Lower back pain, Malignant neoplasm of unspecified site of left female breast, Mild cognitive impairment, Nicotine dependence, and Osteoporosis. She presented to [facility] ED 06/30/2023 from [facility] with confusion. In the ER she was noted to be hypokalemic and did receive potassium. Patient is complaining of weight loss, poor appetite, difficulty swallowing due to pain when she eats. She was admitted for management of Failure to thrive, Severe protein-calorie malnutrition, Dehydration, and Thrush. ST consulted due to concerns for difficulty swallowing medications. BSE recommended Soft and bite size textures / Thin liquids - Direct supervision, medications crushed in applesauce, oral care after meals with removal of dentures, liquids by straw only, sips one at a time, small bites/sips, alternate bites/sips, sitting upright during and 30 min after food/drink, check for pocketing. MBSS was planned for yesterday, 07/03/23; however, she was on clear liquids until after 4pm awaiting results of her stress test. Current Diet Ordered: Soft and bite size textures / Thin liquids Dentition: Upper Dentures and Lower Dentures Mental Status: Impaired (Confusion) Respiratory Status: Oxygenating on Room Air Penetration-Aspiration Scale Penetration-Aspiration Scale: OBJECTIVE ASSESSMENT OF SWALLOW FUNCTION (QUANTITATIVE ? PER TRIAL): PENETRATION / ASPIRATION SCALE (KRUSE): 1 = does not enter airway 2 = enters airway/above vocal folds/ejected 3 = enters airway/above vocal folds/not ejected 4 = enters airway/contacts vocal folds/ejected 5 = enters airway/contacts vocal folds/not ejected 6 = enters airway/below vocal folds/ejected 7 = enters airway/below vocal folds/not ejected despite effort 8 = enters airway/below vocal folds/no effort VIDEOFLOROSCOPIC SCALE SCORE (KRUSE): Grade I = aspiration of material that has penetrated into the laryngeal vestibule, intact cough reflex Grade II = aspiration < 10 % of the bolus, intact cough reflex Grade III = aspiration of < 10 % of the bolus, reduced cough reflex or aspiration of > 10 % of the bolus, intact cough reflex Grade IV = aspiration of > 10 % of the bolus, reduced cough reflex Penetration-Aspiration Scale Score Thin Liquid via teaspoon: Result: 2= enter airway/above vocal folds/ejected Thin Liquid via teaspoon Trial 2: Result: 5= enters airways/contacts vocal folds/not ejected Comment: No cough reflex in response to deep laryngeal penetration. Thin Liquid via sequential sips: cup: Result: 5= enters airways/contacts vocal folds/not ejected Comment: No cough reflex in response to deep laryngeal penetration. OPERATION SUPERVISOR cued cough and re-swallow, which was minimally effective in clearing contrast. [place] Thick Liquid via small single sip: cup: Result: 2= enter airway/above vocal folds/ejected [place] Thick Liquid via small single sip: cup Trial 2: Result: 2= enter airway/above vocal folds/ejected [place] Thick Liquid via teaspoon: Result: 1= does not enter airway Pudding via teaspoon: Result: 1= does not enter airway Comment: Esophageal screen - Mild esophageal retention with min retrograde flow. Trace SILENT aspiration of residues remaining on the vocal folds from previous trials. Thin Liquid via sequential sips:straw: Result: 8= enters airway/below vocal folds/no effort Comment: OPERATION SUPERVISOR cued cough and re-swallow, which was minimally effective in clearing contrast. Thin Liquid via small single sip: cup Effortful swallow: Result: 1= does not enter airway Thin Liquid via small single sip: cup Effortful swallow Trial 2: Result: 1= does not enter airway Oral Phase Labial Seal: Interlabial escape, no progression to anterior lip Tongue Control During Bolus Hold: Posterior escape of less than half of bolus (thin liquids via sequential sips by straw) Bolus Transport/Lingual Motion: Delayed initiation of tongue motion Oral Residue: Majority of bolus remaining (piecemeal deglutition of pudding by tsp requiring multiple swallows to clear) Pharyngeal Phase Initiation of Pharyngeal Swallow: Bolus head at posterior laryngeal surgace of epiglottis (thin liquid via straw) Soft Palate Elevation: No bolus between soft palate and pharyngeal wall Laryngeal Elevation: Partial superior movement thyroid cart/partial apprx aryt- epig petiole Anterior Hyoid Excursion: Partial anterior movement Epiglottic Movement: Partial inversion Laryngeal Vestibule Closure at Height of Swallow: Incomplete; narrow column of air/contrast in laryngeal vestibule Pharyngeal Stripping Wave: Present - diminished Pharyngoesophageal Segment Opening: Parital distension and partial duration; parital obstruction of flow Tongue Base Retraction: Narrow column of contrast between tongue base & post. pharyngeal wall Pharyngeal Residue: Collection of residue within or on pharyngeal structures Esophageal Phase Esophageal Clearance: Esophageal retention w/ retrograde flow below pharyngoesophageal seg. Diagnosis/Impression Diagnosis: Mild-moderate oropharyngeal dysphagia R13.12 Impression: The oral phase is primarily marked by... -Decreased bolus control with <1/2 of the bolus spilling posteriorly to the posterior surface of the epiglottis prior to swallow onset observed with thin liquids via straw. -Mildly delayed tongue motion for A-P transport. -Piecemeal deglutition with pudding requiring multiple swallows to mostly clear the oral cavity. The pharyngeal phase is primarily marked by... -Decreased airway closure during the swallow due to decreased anterior hyoid excursion, partial epiglottic inversion, and decreased laryngeal elevation. -Moderately-severely decreased tongue base retraction, severely decreased UES opening/duration, and no pharyngeal stripping wave with resulting moderate- severe pharyngeal residues after the swallow. -Silent aspiration of thin liquids by straw. Trace silent post prandial aspiration of residues in the laryngeal vestibule seen during pudding trial. Deep laryngeal penetration of thin liquids via tsp and cup, no cough reflex. Use of small cup sips with effortful swallow was effective in decreasing risk for aspiration. OPERATION SUPERVISOR discussed with the patient that thickened liquid trials did not result in aspiration; however, the OPERATION SUPERVISOR is recommending to continue with thin liquids with use of compensatory strategies rather than a downgrade to thickener due to diagnosis of dehydration. Will watch respiratory status closely. Recommendations Diet: Mechanical Soft Textures (Soft and bite size textures - IDDSI Level 6) and Thin Liquids Comment: Medications crushed in applesauce, oral care after meals with removal of dentures, check for pocketing. Compensatory Strategies: Small Bites, Small Sips (Effortful swallows), No Straws, Slow Rate (Sips one at a time), Alternate bites/solids and sips/liquids, Sitting upright and Remain sitting upright for 30 minutes after PO intake Supervision: 1:1 Close Supervision Recommend Repeat Modified Barium Swallow: TBD Need for Skilled Speech Therapy Services: Yes Comment: -Monitor diet tolerance and train in recommended diet textures and aspiration precautions. Will monitor respiratory status closely when assessing diet t olerance. -Train in use of oropharyngeal exercises to promote improved tongue base retraction, hyolaryngeal elevation/excursion, pharyngeal stripping wave, and UES opening/duration. Education Completed: 1. Described result of evaluation. and 2. Pt understands evaluation & agrees with goals and treatment plan. Status Active ST Patient: Active Contact Information [facility] Speech Therapy:: Ratna Wilhelm M.A. [facility]-OPERATION SUPERVISOR Speech-Language Pathologist [facility] [address] [place] [address] [email or web address] [phone]
--- NOTE | 2023-07-04 15:50 | PN.HOSP_ITS ---
Reason for Visit Reason for Visit: Confusion Subjective Subjective Patient states she is overall feeling better. Free T4 is improving on methimazole. I did discuss the case with Dr. Corrigan and she had no other recommendations and will follow with her after discharge. Patient is anxious to go however she did poorly on her modified barium swallow showing mild to moderate oropharyngeal dysphagia with recommended diet being mechanical soft with soft and bite-size textures and thin liquids. We did discuss this with the assisted living and they felt her level of care was too high to be able to come back to assisted living and are locating that she will need skilled discharge before returning to assisted living. Objective Data Objective Data Vital Signs: Vital Signs Temp Pulse Resp BP Pulse Ox O2 Del Method O2 Flow Rate 98.1 F 75 22 H 141/59 H 92 Room Air 2 07/04/23 09:42 07/04/23 13:47 07/04/23 13:47 07/04/23 09:42 07/04/23 09:42 07/04/23 14:04 07/03/23 07:49 Oxygen Flow Rate (L/min) 2 Oxygen Delivery Method Room Air Weight: 30.9 kg Body Mass Index (BMI) 12.4 Intake & Output: Intake and Output for Last 24 Hours 07/02/23 07/03/23 07/04/23 23:59 23:59 23:59 Intake Total 30 / 30 440 / 440 120 / 120 Output Total 100 / 100 100 / 100 300 / 300 Balance -70 / -70 340 / 340 -180 / -180 Medical Nutrition Assessment Dietitian: Malnutrition Criteria Met Start: 07/01/23 10:27 Freq: Status: Active Protocol: Document 07/02/23 12:02 (Rec: 07/02/23 12:02 [id number]) Nutrition Malnutrition Evidence of Malnutrition Exists Yes Malnutrition (severe): Chronic Evidenced By Suboptimal Energy Intake ( Severe),Physical Changes ( Severe) Clinical Problem Chronic Disease or Condition Related Malnutrition Etiology severe, chronic malnutrition related to inadequate energy intake Signs/Symptoms as evidenced by estimated PO intake meeting <75% of estimated energy needs > 3 months, severe muscle wasting/ fat loss evident per physical exam in orbital, clavicle, acromion, and temporal areas, BMI 13.6 Status Active Problem Recommendation Dietitian Recommendations/Changes 1) Continue regular diet, fortified foods and magic cup w/ dinner; ensure plus high protein 120mL 4x/day in between meals. Texture/ consistency modifications per MAINTENANCE AND UTILITIES SUPERVISOR. 2) Recommend appetite stimulant, mental health eval. Pt appears depressed. 3) Will monitor electrolytes, given risk for refeeding. Daily wts. Lab / Micro Data 07/04/23 03:45 07/04/23 03:45 Labs: Laboratory Results - last 24 hr 07/04/23 03:45: WBC 8.8, RBC 3.51 L, Hgb 10.8 L, Hct 34.4 L, MCV 98.0, MCH 30.8, MCHC 31.4 L, RDW Std Deviation 55.1 H, RDW Coeff of Kriss 15.5 H, Plt Count 207, MPV 12.0, Immature Gran % (Auto) 0.300, Neut % (Auto) 72.3 H, Lymph % (Auto) 13.2 L, [place] % (Auto) 8.3, Eos % (Auto) 5.7 H, Baso % (Auto) 0.2, Absolute Neuts (auto) 6.3, Absolute Lymphs (auto) 1.16, Nucleated RBC % 0, Sodium 144, Potassium 3.5, Chloride 107, Carbon Dioxide 31.0, Anion Gap 6, BUN 23 H, Creatinine 0.19 L, Estim Creat Clear Calc 24.12, Est GFR (MDRD) Af Amer 474, Est GFR (MDRD) Non-Af 392, BUN/Creatinine Ratio 121.1 H, Glucose 78, Calcium 8.5, Phosphorus 2.9, Magnesium 1.9, Free T4 3.24 H Micro: Microbiology 07/02/23 08:55 Blood Culture (Wb) - Left Hand Blood Culture - Preliminary No growth in 48 hours. 07/02/23 08:50 Blood Culture (Wb) - Anticubital Left Blood Culture - Preliminary No growth in 48 hours. 06/30/23 11:09 Nasal Secretion SARS-CoV-2 & FLU Antigen (Rapid) - Final Physical Exam Const alert, oriented x3 and no apparent distress; Negative for average body habitus, healthy appearing or well nourished Constitutional Narrative: Cachectic, older, white female, sitting up in bed, appears older than stated age, appears comfortable and nontoxic currently, watching television HEENT head/scalp atraumatic and moist oral mucous membranes Eyes PERRL, EOMs intact bilaterally and conjunctivae normal Eyes Narrative: No scleral icterus Neck no lymphadenopathy and supple Neck Narrative: Trachea midline, thyroid is enlarged Resp normal respiratory effort, no retractions, no use of accessory muscles and clear to auscultation bilaterally Resp Narrative: Diffusely diminished but clear Auscultation: Negative for rales, rhonchi or wheezes Cardio regular rate, regular rhythm, S1 normal heart sound, S2 normal heart sound, no murmurs, no rub, no gallops and no clicks GI normal to inspection, nondistended, normoactive bowel sounds, soft to palpation, non-tender and non-distended GI Narrative: Scaphoid abdomen min Extremity normal to inspection and no clubbing, cyanosis or edema Extremity Narrative: Severely decreased lean muscle mass, trace lower extremity edema, no cyanosis or clubbing Skin no rashes or lesions noted, skin turgor normal, no jaundice, no petechiae and no mottling Skin Narrative: Skin is thin Neuro oriented x3, moves all extremities and no focal motor deficits Sensorium / Orientation: awake and alert Speech: speech normal Psych affect normal Psych Narrative: Affect is flattened mood seems depressed, eye contact is fair Mood & Affect: anxious Assessment & Plan Assessment/Plan (1) Severe protein-calorie malnutrition: (2) Failure to thrive: (3) Dehydration: (4) Thrush: (5) Hypokalemia: (6) Refeeding syndrome: (7) Depression: (8) Leukocytosis: (9) Hyperthyroidism: (10) Elevated brain natriuretic peptide (BNP) level: (11) Elevated troponin I level: (12) Hypoxia: (13) Dysphagia: PLAN: Plan Adult failure to thrive -Per documentation patient does seem to fluctuate with mental status at baseline -Has been alert and oriented x 4 during her hospitalization -Initial plan was return to assisted living with home health however needs are too great for this at this point so she will need skilled placement -Suspect thyroid issues may be contributing to this -B12 level was 416 -Folate was 18.7 -Continue PT/OT Dysphagia -MBS done today and mild to moderate oropharyngeal dysphagia noted -Diet recommendations are mechanical soft with soft and bite-size textures and thin liquids -Meds are to be crushed in applesauce with oral care after meals and removal of dentures to check for pocketing -Small bites with small sips, no straws, slow rate and alternate bites of solids and liquids with remaining upright 30 minutes after p.o. intake was recommended -She is to have one-on-one close supervision while eating -Repeat modified barium swallow is to be performed at speech therapy's discretion after treatment -Ongoing speech therapy -Unfortunately these needs preclude her from returning to assisted living and she will need skilled placement Hypoxia -Markedly elevated BNP on presentation likely related to high-output heart fail ure with hypothyroidism -Suspect patient also has COPD based on appearance of chest x-ray being hype rinflated and history of tobacco abuse -Patient is now on room air but I do suspect she will need oxygen with exertion -May require supplemental oxygen at baseline -Pulmonary medicine follow-up after discharge Elevated troponin level -Significance is uncertain -May be related to hypothyroidism -Stress test read is pending -Echo was unremarkable BNP elevation -Suspect related to 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 -Currently remains stable Hypokalemia -Resolved -Mag and Phos within normal limits Severe malnutrition with suspected refeeding syndrome -Malnutrition issues are multifactorial -Continue Remeron -Thyroid issues likely playing an factor -Dietitian is following -Continue liberalize diet with supplements -Continue multivitamin Hyperthyroidism secondary to Graves' disease -Patient has history of hypothyroid documented however had not been taking methimazole from what we can tell -TSH was undetectable -Free T4 and T3 were elevated -Methimazole restarted on the -Will repeat free T4 tomorrow with 48 hours of treatment to assess trend -Will need follow-up with endocrinology after discharge -Thyroid is currently enlarged will need continued monitoring with outpatient follow-up after she has been on therapeutic methimazole for some time -If remains enlarged despite normalizing thyroid function, may need imaging Toxic/metabolic encephalopathy -Mental status appears to be improving with treatment of hyperthyroidism -Once she is optimized from a thyroid standpoint she will need neurocognitive testing to rule out any signs of dementia Thrush -Continue nystatin swish and spit -Currently no identifiable thrush on exam Leukocytosis -Resolved -All cultures are unremarkable -Suspect reactive Debility/generalized weakness -Continue PT/OT/speech therapy -Will need skilled placement at discharge History of intracranial hemorrhage -Status post BAG PRESSER shunt -No acute issues -CT of the brain was unremarkable Tobacco abuse -Recommend ongoing cessation Depression -Continue Remeron 15 mg nightly DVT prophylaxis -Chemoprophylaxis held on admission due to history of intracranial hemorrhage as etiology was unclear -SCDs in place CODE STATUS -DNR CCA with no intubation Disposition -Plan was to return to assisted living with home health care however needs are currently too great for this and she will require skilled placement. She is now medically stable for discharge. Will await decision on placement and acceptance and then patient will need pre-CERT. I do expect she will likely be here through the weekend. Charges/Coding Visit Charges Inpatient E&M: 46059 Subs Hosp L2
--- NOTE | 2023-07-04 16:11 | CASEMGMT ---
Discharge Planning [facility] is unable to take patient back with her current speach precautions. They would like her to go to a SNF in the hopes they can be discontinued. Both patient and her neice updated. A list of SNF providers including quality and resource use data and consistent with the patient's preferred geographic region, medical needs, and insurance network were provided to patient michelle via email from the [facility] Guide link. Lizzy Mckeon, Discharge Planning Asst.
--- NOTE | 2023-07-04 16:22 | STRESSREP ---
Stress Test Report Pharmacologic myocardial perfusion stress test : After informed consent was obtained and auscultation was completed, the patient received a stress dose of Lexiscan while undergoing continuous 12 lead ECG monitoring. The baseline heart rate was _77_ bpm and herminia to a maximum of _92_ bpm. The baseline blood pressure was _122/70_ and herminia to a maximum of 110/64__. The baseline ECG revealed _NSR___. Following administration of Lexiscan, there were no ST-T changes suggestive of ischemia. The patient received a stress dose of Lexiscan and was then injected with __33.3__ millicuries of Technetium 99M Sestamibi. For rest images the patient was injected with _10___millicuries of Technetium 99M Sestamibi. FINDINGS: The raw cine images were reviewed. The post stress and rest perfusion images were reviewed as well as the computer quantification. There was very poor uptake on the rest images noted with much better uptake during stress images, there was small size apical fixed defect with no reversibility noted . On the gated portion of the study, overall ejection fraction calculated at __69__%. CONCLUSION: 1. Non-diagnostic Lexiscan ECG study. 2. Gated spect Sestamibi study is probably normal. 3. There was a small size apical fixed defect with no reversibility which could be due to apical thinning. There was no ischemia noted. 4. Left ventricular function was preserved.
--- NOTE | 2023-07-04 18:30 | CASEMGMT ---
Social Work Patient's niece Scarlet Forman presented to the unit. This machine sign writer discussed with Scarlet choices for intermediate facility. Scarlet reports preference would be first choice [facility] and second choice the [facility]. Scarlet reports agreement to have a referral sent to both facilities, though if both can accept [facility] would be first choice. Scarlet confirms goal would be for patient to turn back to [facility] once speech issues have been worked through. Referrals sent via care for two both facilities identified. Plan: short-term intermediate facility pending referrals at [facility] and [facility]. -ILEANA Knox, LEARNING DEVELOPER *This note was generated with [employer] dictation software. It may contain incorrect words, spelling, and punctuation that were not noted in review of the chart prior to signing*
[2023-07-04] MEDS: Mirtazapine 15 MG Tablet PO (20:54)
[2023-07-05] VITALS (9 sets, daily range): BP systolic 99–108; BP diastolic 53–61; PULSE 77–96; RESP 16–34; TEMP 36.5–36.8; O2SAT 87–98
[2023-07-05 06:22] LABS: Absolute Lymphocyte Count 1.43 X10^3/uL (0.83-4.51); Absolute Neutrophil Count 4.1 X10^3/uL (2.0-7.7); Basophil# 0.03 X10^3/uL; Basophil% 0.4 % (0-1); Eosinophils% 7.2 % (0-5); Hematocrit 34.3 % (37-47); Hemoglobin 10.3 g/dL (12.0-15.0); Lymphocyte # 1.43 X10^3/ul (0.83-4.51); Lymphocyte % 20.6 % (19-41); Mean Corpuscular Hgb 29.5 pg (27.0-32.0); Mean Corpuscular Volume 98.3 fL (81-99); Mean Platelet Vol. 11.6 fl (6.2-12.0); Monocyte# 0.82 X10^3/uL; Monocyte% 11.8 % (0-10); NRBC Flagged by Analyzer 0 % (0-5); Neutrophil # 4.13 X10^3/uL (2.7-7.7); Neutrophil % 59.6 % (47-70); Platelet Count 233 K/mm3 (150-450); RBC Distribution Width CV 15.1 % (11.6-14.6); RBC Distribution Width SD 54.8 fl (35.1-43.9); Red Blood Count 3.49 M/mm3 (4.2-5.4); White Blood Count 6.9 K/mm3 (4.4-11.0)
[2023-07-05 06:46] LABS: Anion Gap 3 (5-15); BUN 21 mg/dL (7-18); BUN/Creat Ratio 108.8 RATIO (10-20); Calcium,Total 8.8 mg/dL (8.5-10.1); Chloride 110 mmol/L (98-107); Creatinine, Serum 0.19 mg/dL (0.55-1.02); EST Glomerular Filtration Rate 385 mL/min (>60); Est Glom Filt Rate - Afr Amer 466 mL/min (>60); Estimated Creatinine Clearance 24.44 ml/min; Glucose 81 mg/dL (74-106); Potassium 3.8 mmol/L (3.5-5.1); Sodium Level 142 mmol/L (136-145)
[2023-07-05] MEDS: Ipratropium/Albuterol Sulfate 3 ML AMPUL.NEB INHALATION ×3 (07:00→19:07)
[2023-07-05] MEDS: Budesonide Respules 0.5 MG/2 ML AMPUL.NEB. INHALATION ×2 (07:00→19:07)
--- NOTE | 2023-07-05 09:34 | CASEMGMT ---
Discharge Planning Patient has been accepted by [facility]. Precert to be submitted. Updated Avenue to disregard referral. Lizzy Mckeon, Discharge Planning Asst.
[2023-07-05] MEDS: Multivitamins,Therapeutic Tablet 1 TABLET PO (09:52)
[2023-07-05] MEDS: Methimazole 5 MG Tablet 10 MG PO (09:52)
[2023-07-05] MEDS: Aspirin 81 MG TAB.CHEW PO (09:52)
[2023-07-05] MEDS: Loratadine 10 MG Tablet PO (09:52)
[2023-07-05] MEDS: NYSTATIN 500,000 UNIT/5 ML UDC 500000 UNIT PO ×3 (09:53→18:34)
[2023-07-05] MEDS: Anastrozole 1 MG TABLET PO (09:53)
[2023-07-05] MEDS: Menthol/Lanolin/Calamine/Znox 113 GM Tube 1 APPLIC TOPICAL ×2 (09:56→21:03)
--- NOTE | 2023-07-05 11:55 | CASEMGMT ---
GABY called Xochitl, patient's niece and let her know that [facility] accepted patient. Once insurance approves patient will be moved. GABY let Xochitl know that this could be over the weekend or it could be Saturday. Regardless someone will call her and notify her that patient was approved and will be moving. GABY completed a PASRR in [employer] system. Plan: d/c to [facility] pending pre-cert. Shawna Brown MSW CINDY
[2023-07-05] MEDS: Ensure Plus High Protein 120 ML LIQUID PO (15:02)
--- NOTE | 2023-07-05 15:49 | PN.HOSP_ITS ---
Reason for Visit Reason for Visit: Confusion/altered mental status Subjective Subjective No significant issues overnight. Patient states she is tired today but did not sleep well overnight. I discussed with her her need to go to a skilled facility and we are currently awaiting pre-CERT from the insurance company. I did discuss with her that she will likely be her over the weekend unless we get pre- CERT later today or tomorrow and she voiced understanding. Objective Data Objective Data Vital Signs: Vital Signs Temp Pulse Resp BP Pulse Ox O2 Del Method O2 Flow Rate 98.2 F 79 20 H 99/53 L 87 Room Air 2 07/05/23 09:46 07/05/23 12:32 07/05/23 12:32 07/05/23 09:46 07/05/23 14:16 07/05/23 09:46 07/03/23 07:49 Oxygen Flow Rate (L/min) 2 Oxygen Delivery Method Room Air Weight: 30.9 kg Body Mass Index (BMI) 12.4 Intake & Output: Intake and Output for Last 24 Hours 07/03/23 07/04/23 07/05/23 23:59 23:59 23:59 Intake Total 440 / 440 360 / 360 Output Total 100 / 100 600 / 600 Balance 340 / 340 -240 / -240 Medical Nutrition Assessment Dietitian: Malnutrition Criteria Met Start: 07/01/23 10:27 Freq: Status: Active Protocol: Document 07/02/23 12:02 (Rec: 07/02/23 12:02 [id number]) Nutrition Malnutrition Evidence of Malnutrition Exists Yes Malnutrition (severe): Chronic Evidenced By Suboptimal Energy Intake ( Severe),Physical Changes ( Severe) Clinical Problem Chronic Disease or Condition Related Malnutrition Etiology severe, chronic malnutrition related to inadequate energy intake Signs/Symptoms as evidenced by estimated PO intake meeting <75% of estimated energy needs > 3 months, severe muscle wasting/ fat loss evident per physical exam in orbital, clavicle, acromion, and temporal areas, BMI 13.6 Status Active Problem Recommendation Dietitian Recommendations/Changes 1) Continue regular diet, fortified foods and magic cup w/ dinner; ensure plus high protein 120mL 4x/day in between meals. Texture/ consistency modifications per BAKER HELPER. 2) Recommend appetite stimulant, mental health eval. Pt appears depressed. 3) Will monitor electrolytes, given risk for refeeding. Daily wts. Lab / Micro Data 07/05/23 05:35 07/05/23 05:35 Labs: Laboratory Results - last 24 hr 07/05/23 05:35: WBC 6.9, RBC 3.49 L, Hgb 10.3 L, Hct 34.3 L, MCV 98.3, MCH 29.5, MCHC 30.0 L, RDW Std Deviation 54.8 H, RDW Coeff of Kriss 15.1 H, Plt Count 233, MPV 11.6, Immature Gran % (Auto) 0.400, Neut % (Auto) 59.6, Lymph % (Auto) 20.6, [place] % (Auto) 11.8 H, Eos % (Auto) 7.2 H, Baso % (Auto) 0.4, Absolute Neuts (auto) 4.1, Absolute Lymphs (auto) 1.43, Nucleated RBC % 0, Sodium 142, Potassium 3.8, Chloride 110 H, Carbon Dioxide 29.0, Anion Gap 3 L, BUN 21 H, Creatinine 0.19 L, Estim Creat Clear Calc 24.44, Est GFR (MDRD) Af Amer 466, Est GFR (MDRD) Non-Af 385, BUN/Creatinine Ratio 108.8 H, Glucose 81, Calcium 8.8 Micro: Microbiology 07/02/23 08:55 Blood Culture (Wb) - Left Hand Blood Culture - Preliminary No growth in 48 hours. 07/02/23 08:50 Blood Culture (Wb) - Anticubital Left Blood Culture - Preliminary No growth in 48 hours. 06/30/23 11:09 Nasal Secretion SARS-CoV-2 & FLU Antigen (Rapid) - Final Physical Exam Const alert, oriented x3 and no apparent distress; Negative for average body habitus, healthy appearing or well nourished Constitutional Narrative: Cachectic, older, white female, sitting up in bed sleeping but awakens easily, appears older than stated age, appears comfortable and nontoxic HEENT head/scalp atraumatic and moist oral mucous membranes HEENT Narrative: Temporal wasting, dentition is poor, Mallampati is 2, no thrush Head and Scalp: normocephalic Resp normal respiratory effort, no retractions, no use of accessory muscles and clear to auscultation bilaterally Resp Narrative: Diffusely diminished but clear Auscultation: Negative for rales, rhonchi or wheezes Cardio regular rate, regular rhythm, S1 normal heart sound, S2 normal heart sound, no murmurs, no rub, no gallops and no clicks GI normal to inspection, nondistended, normoactive bowel sounds, soft to palpation, non-tender and non-distended GI Narrative: Scaphoid abdomen Extremity normal to inspection and no clubbing, cyanosis or edema Extremity Narrative: Severely decreased lean muscle mass, no cyanosis or clubbing Skin no rashes or lesions noted, skin turgor normal, no jaundice, no petechiae and no mottling Skin Narrative: Skin is thin and fragile Neuro oriented x3, moves all extremities and no focal motor deficits Sensorium / Orientation: awake and alert Speech: speech normal Psych affect normal Psych Narrative: Patient seems somewhat depressed but interacts appropriately Assessment & Plan Assessment/Plan (1) Severe protein-calorie malnutrition: (2) Failure to thrive: (3) Dehydration: (4) Thrush: (5) Hypokalemia: (6) Refeeding syndrome: (7) Depression: (8) Leukocytosis: (9) Hyperthyroidism: (10) Elevated brain natriuretic peptide (BNP) level: (11) Elevated troponin I level: (12) Hypoxia: (13) Dysphagia: PLAN: Plan Adult failure to thrive -Has been alert and oriented x 4 since I started seeing her on 07/03/2023 -Initial plan was return to assisted living with home health however needs are too great for this at this point so she will need skilled placement -Has been except at [facility] and currently awaiting pre-CERT from insurance -Suspect thyroid issues are significantly contributing -B12 level was 416 -Folate was 18.7 -Continue PT/OT Dysphagia -MBS done 07/04/2023 and mild to moderate oropharyngeal dysphagia noted -Diet recommendations are mechanical soft with soft and bite-size textures and thin liquids -Meds are to be crushed in applesauce with oral care after meals and removal of dentures to check for pocketing -Small bites with small sips, no straws, slow rate and alternate bites of solids and liquids with remaining upright 30 minutes after p.o. intake was recommended -She is to have one-on-one close supervision while eating -Repeat modified barium swallow is to be performed at speech therapy's discretion after treatment -Ongoing speech therapy -Unfortunately these needs preclude her from returning to assisted living and she will need skilled placement Hypoxia -Resolved and stable on room air -Patient most likely has COPD at baseline with long history of tobacco abuse -Pulmonary medicine follow-up after discharge Elevated troponin level -Significance is uncertain -May be related to hypothyroidism -Stress test was unremarkable -Echo was unremarkable BNP elevation -Suspect related to 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 -Currently remains stable Hypokalemia -Resolved Severe malnutrition with suspected refeeding syndrome -Malnutrition issues are multifactorial -Continue Remeron -Thyroid issues likely playing an factor -Dietitian is following -Continue liberalize diet with supplements -Continue multivitamin Hyperthyroidism secondary to Graves' disease -Patient has history of hypothyroid documented however had not been taking methimazole from what we can tell -TSH was undetectable -Free T4 and T3 were elevated -Methimazole restarted on the -Free T4 is trending towards normal -Will need follow-up with endocrinology after discharge--> discussed case with Dr. Corrigan and she will get her in shortly after discharge for follow-up -Thyroid is currently enlarged will need continued monitoring with outpatient follow-up after she has been on therapeutic methimazole for some time -If remains enlarged despite normalizing thyroid function, may need imaging Toxic/metabolic encephalopathy -Mental status appears to be improving with treatment of hyperthyroidism -Once she is optimized from a thyroid standpoint she will need neurocognitive testing to rule out any signs of dementia Thrush -Resolving Leukocytosis -Resolved -All cultures are unremarkable -Suspect reactive Debility/generalized weakness -Continue PT/OT/speech therapy -Will need skilled placement at discharge History of 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 Currently awaiting pre-CERT from insurance. Patient has been medically ready for discharge since 07/04/2023 Charges/Coding Visit Charges Inpatient E&M: 97974 Subs Hosp L2
[2023-07-05] MEDS: amLODIPine 2.5 MG Tablet PO (21:01)
[2023-07-05] MEDS: Mirtazapine 15 MG Tablet PO (21:01)
[2023-07-05] MEDS: Metoprolol(XL)Succ 25 MG Tablet PO (21:01)
[2023-07-05] MEDS: Ensure Clear 120 ML Liquid PO (21:09)
[2023-07-06] VITALS (8 sets, daily range): BP systolic 102–128; BP diastolic 61–82; PULSE 73–95; RESP 16–20; TEMP 36.5–36.6; O2SAT 93–97
[2023-07-06] MEDS: Acetaminophen 325 MG Tablet 650 MG PO (01:22)
[2023-07-06] MEDS: Ipratropium/Albuterol Sulfate 3 ML AMPUL.NEB INHALATION ×3 (07:15→19:34)
[2023-07-06] MEDS: Budesonide Respules 0.5 MG/2 ML AMPUL.NEB. INHALATION ×2 (07:15→19:34)
[2023-07-06] MEDS: Loratadine 10 MG Tablet PO (10:23)
[2023-07-06] MEDS: Anastrozole 1 MG TABLET PO (10:23)
[2023-07-06] MEDS: Aspirin 81 MG TAB.CHEW PO (10:23)
[2023-07-06] MEDS: Multivitamins,Therapeutic Tablet 1 TABLET PO (10:23)
[2023-07-06] MEDS: Menthol/Lanolin/Calamine/Znox 113 GM Tube 1 APPLIC TOPICAL ×2 (10:24→21:12)
[2023-07-06] MEDS: Methimazole 5 MG Tablet 10 MG PO (10:24)
[2023-07-06] MEDS: NYSTATIN 500,000 UNIT/5 ML UDC 500000 UNIT PO ×3 (10:24→21:10)
[2023-07-06] MEDS: Ensure Plus High Protein 120 ML LIQUID PO ×3 (10:30→21:19)
--- NOTE | 2023-07-06 10:30 | PN.HOSP_ITS ---
Reason for Visit Reason for Visit: Confusion/altered mental status Subjective Subjective No issues overnight. Patient states she slept so-so last night. No complaints. Objective Data Objective Data Vital Signs: Vital Signs Temp Pulse Resp BP Pulse Ox O2 Del Method O2 Flow Rate 97.8 F 81 16 102/63 96 Room Air 2 07/06/23 10:20 07/06/23 10:20 07/06/23 10:20 07/06/23 10:20 07/06/23 10:20 07/06/23 10:20 07/03/23 07:49 Oxygen Flow Rate (L/min) 2 Oxygen Delivery Method Room Air Weight: 30.9 kg Body Mass Index (BMI) 12.4 Intake & Output: Intake and Output for Last 24 Hours 07/04/23 07/05/23 07/06/23 23:59 23:59 23:59 Intake Total 360 / 360 270 / 270 Output Total 600 / 600 Balance -240 / -240 270 / 270 Medical Nutrition Assessment Dietitian: Malnutrition Criteria Met Start: 07/01/23 10:27 Freq: Status: Active Protocol: Document 07/02/23 12:02 (Rec: 07/02/23 12:02 [id number]) Nutrition Malnutrition Evidence of Malnutrition Exists Yes Malnutrition (severe): Chronic Evidenced By Suboptimal Energy Intake ( Severe),Physical Changes ( Severe) Clinical Problem Chronic Disease or Condition Related Malnutrition Etiology severe, chronic malnutrition related to inadequate energy intake Signs/Symptoms as evidenced by estimated PO intake meeting <75% of estimated energy needs > 3 months, severe muscle wasting/ fat loss evident per physical exam in orbital, clavicle, acromion, and temporal areas, BMI 13.6 Status Active Problem Recommendation Dietitian Recommendations/Changes 1) Continue regular diet, fortified foods and magic cup w/ dinner; ensure plus high protein 120mL 4x/day in between meals. Texture/ consistency modifications per CUSTOMER TRAINER. 2) Recommend appetite stimulant, mental health eval. Pt appears depressed. 3) Will monitor electrolytes, given risk for refeeding. Daily wts. Lab / Micro Data 07/05/23 05:35 07/05/23 05:35 Micro: Microbiology 07/02/23 08:55 Blood Culture (Wb) - Left Hand Blood Culture - Preliminary No growth in 48 hours. 07/02/23 08:50 Blood Culture (Wb) - Anticubital Left Blood Culture - Preliminary No growth in 48 hours. 06/30/23 11:09 Nasal Secretion SARS-CoV-2 & FLU Antigen (Rapid) - Final Physical Exam Const alert, oriented x3 and no apparent distress Constitutional Narrative: Cachectic, older, white female, sitting up in bed watching television, appears comfortable and nontoxic HEENT head/scalp atraumatic HEENT Narrative: Mallampati is 1, dentures in place, no thrush Head and Scalp: normocephalic Extremity no clubbing, cyanosis or edema Extremity Narrative: Marked decreased lean muscle mass Neuro oriented x3, moves all extremities and no focal motor deficits Speech: speech normal Psych Psych Narrative: Affect is slightly flattened mood seems somewhat depressed but patient's eye contact is good and she is pleasant Assessment & Plan Assessment/Plan (1) Dysphagia: (2) Elevated brain natriuretic peptide (BNP) level: (3) Hyperthyroidism: (4) Leukocytosis: (5) Depression: (6) Refeeding syndrome: (7) Hypokalemia: (8) Dehydration: (9) Severe protein-calorie malnutrition: (10) Failure to thrive: PLAN: Plan Adult failure to thrive -Has been alert and oriented x 4 since I started seeing her on 07/03/2023 -Initial plan was return to assisted living with home health however needs are too great for this at this point so she will need skilled placement -Has been except at [facility] and currently awaiting pre-CERT from insurance -Suspect thyroid issues are significantly contributing -B12 level was 416 -Folate was 18.7 -Continue PT/OT Dysphagia -MBS done 07/04/2023 and mild to moderate oropharyngeal dysphagia noted -Diet recommendations are mechanical soft with soft and bite-size textures and thin liquids -Meds are to be crushed in applesauce with oral care after meals and removal of dentures to check for pocketing -Small bites with small sips, no straws, slow rate and alternate bites of solids and liquids with remaining upright 30 minutes after p.o. intake was recommended -She is to have one-on-one close supervision while eating -Repeat modified barium swallow is to be performed at speech therapy's discre tion after treatment -Ongoing speech therapy -Unfortunately these needs preclude her from returning to assisted living and she will need skilled placement Hypoxia -Resolved and stable on room air -Patient most likely has COPD at baseline with long history of tobacco abuse -Pulmonary medicine follow-up after discharge Elevated troponin level -Significance is uncertain -May be related to hypothyroidism -Stress test was unremarkable -Echo was unremarkable BNP elevation -Suspect related to 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 -Currently remains stable Hypokalemia -Resolved Severe malnutrition with suspected refeeding syndrome -Malnutrition issues are multifactorial -Continue Remeron -Thyroid issues likely playing an factor -Dietitian is following -Continue liberalize diet with supplements -Continue multivitamin Hyperthyroidism secondary to Graves' disease -Patient has history of hypothyroid documented however had not been taking methimazole from what we can tell -TSH was undetectable -Free T4 and T3 were elevated -Methimazole restarted on the -Free T4 is trending towards normal -Will need follow-up with endocrinology after discharge--> discussed case with Dr. Corrigan and she will get her in shortly after discharge for follow-up -Thyroid is currently enlarged will need continued monitoring with outpatient follow-up after she has been on therapeutic methimazole for some time -If remains enlarged despite normalizing thyroid function, may need imaging Toxic/metabolic encephalopathy -Mental status appears to be improving with treatment of hyperthyroidism -Once she is optimized from a thyroid standpoint she will need neurocognitive testing to rule out any signs of dementia Thrush -Resolving Leukocytosis -Resolved -All cultures are unremarkable -Suspect reactive Debility/generalized weakness -Continue PT/OT/speech therapy -Will need skilled placement at discharge History of intracranial hemorrhage -Status post 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 Currently awaiting pre-CERT from insurance. Patient has been medically ready for discharge since 07/04/2023 Charges/Coding Visit Charges Inpatient E&M: 77596 Subs Hosp L1
--- NOTE | 2023-07-06 14:26 | CASEMGMT ---
Social Work SW checked [employer] several times, pt has not been approved by insurance. It is anticipated pt will be here until Saturday pending precert. ILEANA Bowen
[2023-07-06] MEDS: Mirtazapine 15 MG Tablet PO (21:20)
[2023-07-07] VITALS (9 sets, daily range): BP systolic 92–119; BP diastolic 59–73; PULSE 78–98; RESP 16–18; TEMP 36.5–36.7; O2SAT 93–98
[2023-07-07 05:58] LABS: Absolute Lymphocyte Count 2.16 X10^3/uL (0.83-4.51); Absolute Neutrophil Count 2.7 X10^3/uL (2.0-7.7); Basophil# 0.02 X10^3/uL; Basophil% 0.3 % (0-1); Eosinophil# 0.35 X10^3/uL; Eosinophils% 5.9 % (0-5); Hematocrit 33.3 % (37-47); Hemoglobin 10.4 g/dL (12.0-15.0); Lymphocyte # 2.16 X10^3/ul (0.83-4.51); Lymphocyte % 36.4 % (19-41); Mean Corp Hgb Conc 31.2 g/dL (32-36); Mean Corpuscular Hgb 30.1 pg (27.0-32.0); Mean Corpuscular Volume 96.2 fL (81-99); Monocyte% 11.8 % (0-10); NRBC Flagged by Analyzer 0 % (0-5); Neutrophil # 2.69 X10^3/uL (2.7-7.7); Neutrophil % 45.3 % (47-70); POSITIVE MORPHOLOGY YES; Platelet Count 233 K/mm3 (150-450); RBC Distribution Width CV 14.9 % (11.6-14.6); RBC Distribution Width SD 51.9 fl (35.1-43.9); Red Blood Count 3.46 M/mm3 (4.2-5.4); White Blood Count 5.9 K/mm3 (4.4-11.0)
[2023-07-07 06:08] LABS: Differential Indicated SCAN CRITERIA MET
[2023-07-07 06:24] LABS: Anion Gap 5 (5-15); BUN 18 mg/dL (7-18); Calcium,Total 8.7 mg/dL (8.5-10.1); Chloride 110 mmol/L (98-107); Creatinine, Serum 0.26 mg/dL (0.55-1.02); EST Glomerular Filtration Rate 272 mL/min (>60); Est Glom Filt Rate - Afr Amer 329 mL/min (>60); Estimated Creatinine Clearance 24.44 ml/min; Glucose 82 mg/dL (74-106); Potassium 4.3 mmol/L (3.5-5.1); Sodium Level 142 mmol/L (136-145); T4 Free Direct 1.76 ng/dL (0.76-1.46)
[2023-07-07] MEDS: Budesonide Respules 0.5 MG/2 ML AMPUL.NEB. INHALATION ×2 (06:44→20:38)
[2023-07-07] MEDS: Ipratropium/Albuterol Sulfate 3 ML AMPUL.NEB INHALATION ×3 (06:44→20:38)
[2023-07-07 07:11] LABS: Differential Comment SCANNED
[2023-07-07] MEDS: Anastrozole 1 MG TABLET PO (09:35)
[2023-07-07] MEDS: Methimazole 5 MG Tablet 10 MG PO (09:35)
[2023-07-07] MEDS: Multivitamins,Therapeutic Tablet 1 TABLET PO (09:35)
[2023-07-07] MEDS: Loratadine 10 MG Tablet PO (09:35)
[2023-07-07] MEDS: NYSTATIN 500,000 UNIT/5 ML UDC 500000 UNIT PO (09:35)
[2023-07-07] MEDS: Aspirin 81 MG TAB.CHEW PO (09:35)
[2023-07-07] MEDS: Ensure Plus High Protein 120 ML LIQUID PO ×2 (09:36→21:55)
[2023-07-07] MEDS: Menthol/Lanolin/Calamine/Znox 113 GM Tube 1 APPLIC TOPICAL ×2 (09:38→21:55)
--- NOTE | 2023-07-07 10:54 | PCM.PN.HOSP ---
Reason for Visit Reason for Visit: Confusion/altered mental status Subjective Subjective Patient states she slept well overnight. Indicates her appetite is actually starting to improve. Reports that she is trying to drink her supplements and reported that she was hungry for dinner last evening. Denies any current issues or needs. Objective Data Objective Data Vital Signs: Vital Signs Temp Pulse Resp BP Pulse Ox O2 Del Method O2 Flow Rate 97.7 F L 95 17 104/73 94 Room Air 2 07/07/23 09:15 07/07/23 09:29 07/07/23 09:15 07/07/23 09:29 07/07/23 09:15 07/07/23 09:23 07/03/23 07:49 Oxygen Flow Rate (L/min) 2 Oxygen Delivery Method Room Air Weight: 30.9 kg Body Mass Index (BMI) 12.4 Intake & Output: Intake and Output for Last 24 Hours 07/05/23 07/06/23 07/07/23 23:59 23:59 23:59 Intake Total 950 / 950 Output Total 200 / 200 Balance 750 / 750 Medical Nutrition Assessment Dietitian: Malnutrition Criteria Met Start: 07/01/23 10:27 Freq: Status: Active Protocol: Document 07/02/23 12:02 (Rec: 07/02/23 12:02 [id number]) Nutrition Malnutrition Evidence of Malnutrition Exists Yes Malnutrition (severe): Chronic Evidenced By Suboptimal Energy Intake ( Severe),Physical Changes ( Severe) Clinical Problem Chronic Disease or Condition Related Malnutrition Etiology severe, chronic malnutrition related to inadequate energy intake Signs/Symptoms as evidenced by estimated PO intake meeting <75% of estimated energy needs > 3 months, severe muscle wasting/ fat loss evident per physical exam in orbital, clavicle, acromion, and temporal areas, BMI 13.6 Status Active Problem Recommendation Dietitian Recommendations/Changes 1) Continue regular diet, fortified foods and magic cup w/ dinner; ensure plus high protein 120mL 4x/day in between meals. Texture/ consistency modifications per CYLINDER PRESS OPERATOR HELPER. 2) Recommend appetite stimulant, mental health eval. Pt appears depressed. 3) Will monitor electrolytes, given risk for refeeding. Daily wts. Lab / Micro Data 07/07/23 05:42 07/07/23 05:42 Labs: Laboratory Results - last 24 hr 07/07/23 05:42: WBC 5.9, RBC 3.46 L, Hgb 10.4 L, Hct 33.3 L, MCV 96.2, MCH 30.1, MCHC 31.2 L, RDW Std Deviation 51.9 H, RDW Coeff of Kriss 14.9 H, Plt Count 233, MPV 11.0, Immature Gran % (Auto) 0.300, Neut % (Auto) 45.3 L, Lymph % (Auto) 36.4, [place] % (Auto) 11.8 H, Eos % (Auto) 5.9 H, Baso % (Auto) 0.3, Absolute Neuts (auto) 2.7, Absolute Lymphs (auto) 2.16, Nucleated RBC % 0, Differential Comment SCANNED, Sodium 142, Potassium 4.3, Chloride 110 H, Carbon Dioxide 27.0, Anion Gap 5, BUN 18, Creatinine 0.26 L, Estim Creat Clear Calc 24.44, Est GFR (MDRD) Af Amer 329, Est GFR (MDRD) Non-Af 272, BUN/Creatinine Ratio 69.0 H, Glucose 82, Calcium 8.7, Free T4 1.76 H Micro: Microbiology 07/02/23 08:55 Blood Culture (Wb) - Left Hand Blood Culture - Final No growth in 5 days. 07/02/23 08:50 Blood Culture (Wb) - Anticubital Left Blood Culture - Final No growth in 5 days. 06/30/23 11:09 Nasal Secretion SARS-CoV-2 & FLU Antigen (Rapid) - Final Physical Exam Const alert, oriented x3 and no apparent distress; Negative for average body habitus, healthy appearing or well nourished Constitutional Narrative: Cachectic, older, white female, lying in left side-lying in bed watching television, appears comfortable and nontoxic HEENT head/scalp atraumatic and moist oral mucous membranes HEENT Narrative: Dentures in place, Mallampati is 1, no thrush Resp Resp Narrative: Diffusely diminished but clear GI GI Narrative: Scaphoid abdomen Neuro Sensorium / Orientation: awake, alert, oriented to person, oriented to place and oriented to time Speech: speech normal Psych affect normal Psych Narrative: Mood seems to be improved and patient interacts more, remains appropriate with interactions Mood & Affect: anxious Assessment & Plan Assessment/Plan (1) Dysphagia: (2) Elevated brain natriuretic peptide (BNP) level: (3) Hyperthyroidism: (4) Leukocytosis: (5) Depression: (6) Refeeding syndrome: (7) Hypokalemia: (8) Dehydration: (9) Severe protein-calorie malnutrition: (10) Failure to thrive: PLAN: Plan Adult failure to thrive -Has been alert and oriented x 4 since I started seeing her on 07/03/2023 -Initial plan was return to assisted living with home health however needs are too great for this at this point so she will need skilled placement -Has been except at [facility] and currently still awaiting pre-CERT from insurance -Suspect thyroid issues are significantly contributing -B12 level was 416 -Folate was 18.7 -Continue PT/OT Dysphagia -MBS done 07/04/2023 and mild to moderate oropharyngeal dysphagia noted -Diet recommendations are mechanical soft with soft and bite-size textures and thin liquids -Meds are to be crushed in applesauce with oral care after meals and removal of dentures to check for pocketing -Small bites with small sips, no straws, slow rate and alternate bites of solids and liquids with remaining upright 30 minutes after p.o. 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 -Currently remains stable Severe malnutrition with suspected refeeding syndrome -Malnutrition issues are multifactorial -Continue Remeron -Thyroid issues likely playing an factor -Dietitian is following -Continue liberalize diet with supplements -Continue multivitamin Hyperthyroidism secondary to Graves' disease -Patient has history of hypothyroid documented however had not been taking methimazole from what we can tell -TSH was undetectable -Free T4 and T3 were elevated -Methimazole restarted on the -Free T4 is trending towards normal--> down to 1.78 today from 7.04 on admission -Will need follow-up with endocrinology after discharge--> discussed case with Dr. Corrigan and she will get her in shortly after discharge for follow-up -Thyroid is currently enlarged will need continued monitoring with outpatient follow-up after she has been on therapeutic methimazole for some time -If remains enlarged despite normalizing thyroid function, may need imaging Toxic/metabolic encephalopathy -Mental status appears to be improving with treatment of hyperthyroidism -Once she is optimized from a thyroid standpoint she will need neurocognitive testing to rule out any signs of dementia Debility/generalized weakness -Continue PT/OT/speech therapy -Will need skilled placement at discharge History of intracranial hemorrhage -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 Currently awaiting pre-CERT from insurance. Patient has been medically ready for discharge since 07/04/2023 Charges/Coding Visit Charges Inpatient E&M: 06031 Subs Hosp L1
[2023-07-07] MEDS: Ensure Clear 120 ML Liquid PO ×2 (14:27→18:21)
[2023-07-07] MEDS: Acetaminophen 325 MG Tablet 650 MG PO (18:21)
[2023-07-07] MEDS: Metoprolol(XL)Succ 25 MG Tablet PO (21:56)
[2023-07-07] MEDS: amLODIPine 2.5 MG Tablet PO (21:57)
[2023-07-07] MEDS: Mirtazapine 15 MG Tablet PO (22:04)
[2023-07-08] VITALS (9 sets, daily range): BP systolic 92–121; BP diastolic 46–74; PULSE 73–99; RESP 16–20; TEMP 36.4–36.9; O2SAT 93–95
[2023-07-08] MEDS: Budesonide Respules 0.5 MG/2 ML AMPUL.NEB. INHALATION ×2 (07:22→19:53)
[2023-07-08] MEDS: Ipratropium/Albuterol Sulfate 3 ML AMPUL.NEB INHALATION ×3 (07:22→19:53)
[2023-07-08] MEDS: Multivitamins,Therapeutic Tablet 1 TABLET PO (09:38)
[2023-07-08] MEDS: Anastrozole 1 MG TABLET PO (09:38)
[2023-07-08] MEDS: Ensure Plus High Protein 120 ML LIQUID PO ×3 (09:38→17:15)
[2023-07-08] MEDS: Menthol/Lanolin/Calamine/Znox 113 GM Tube 1 APPLIC TOPICAL ×2 (09:38→21:25)
[2023-07-08] MEDS: amLODIPine 2.5 MG Tablet PO ×2 (09:38→21:24)
[2023-07-08] MEDS: Methimazole 5 MG Tablet 10 MG PO (09:38)
[2023-07-08] MEDS: Loratadine 10 MG Tablet PO (09:38)
[2023-07-08] MEDS: Metoprolol(XL)Succ 25 MG Tablet PO ×2 (09:38→21:24)
[2023-07-08] MEDS: Aspirin 81 MG TAB.CHEW PO (09:38)
--- NOTE | 2023-07-08 11:01 | PCM.PN.HOSP ---
Subjective Subjective Patient remained stable. No issues overnight. Continues to report her appetite seems to be improving. I did try to encourage her to get up to a chair however she states that she does not like sitting in the chairs as they are uncomfortable for her. Objective Data Objective Data Vital Signs: Vital Signs Temp Pulse Resp BP Pulse Ox O2 Del Method O2 Flow Rate 97.6 F L 99 16 115/74 93 Room Air 2 07/08/23 09:30 07/08/23 09:38 07/08/23 09:30 07/08/23 09:30 07/08/23 09:30 07/08/23 09:30 07/03/23 07:49 Oxygen Flow Rate (L/min) 2 Oxygen Delivery Method Room Air Weight: 30.9 kg Body Mass Index (BMI) 12.4 Intake & Output: Intake and Output for Last 24 Hours 07/06/23 07/07/23 07/08/23 23:59 23:59 23:59 Intake Total 950 / 950 700 / 700 Output Total 200 / 200 1000 / 1000 Balance 750 / 750 -300 / -300 Medical Nutrition Assessment Dietitian: Malnutrition Criteria Met Start: 07/01/23 10:27 Freq: Status: Active Protocol: Document 07/02/23 12:02 (Rec: 07/02/23 12:02 [id number]) Nutrition Malnutrition Evidence of Malnutrition Exists Yes Malnutrition (severe): Chronic Evidenced By Suboptimal Energy Intake ( Severe),Physical Changes ( Severe) Clinical Problem Chronic Disease or Condition Related Malnutrition Etiology severe, chronic malnutrition related to inadequate energy intake Signs/Symptoms as evidenced by estimated PO intake meeting <75% of estimated energy needs > 3 months, severe muscle wasting/ fat loss evident per physical exam in orbital, clavicle, acromion, and temporal areas, BMI 13.6 Status Active Problem Recommendation Dietitian Recommendations/Changes 1) Continue regular diet, fortified foods and magic cup w/ dinner; ensure plus high protein 120mL 4x/day in between meals. Texture/ consistency modifications per SUBSURFACE AUGMENTEE ELINT OPERATOR. 2) Recommend appetite stimulant, mental health eval. Pt appears depressed. 3) Will monitor electrolytes, given risk for refeeding. Daily wts. Lab / Micro Data 07/07/23 05:42 07/07/23 05:42 Micro: Microbiology 07/02/23 08:55 Blood Culture (Wb) - Left Hand Blood Culture - Final No growth in 5 days. 07/02/23 08:50 Blood Culture (Wb) - Anticubital Left Blood Culture - Final No growth in 5 days. 06/30/23 11:09 Nasal Secretion SARS-CoV-2 & FLU Antigen (Rapid) - Final Physical Exam Const alert, oriented x3 and no apparent distress; Negative for average body habitus, healthy appearing or well nourished Constitutional Narrative: Cachectic, older, white female, sitting up in bed, watching television, appears comfortable and nontoxic HEENT head/scalp atraumatic and moist oral mucous membranes HEENT Narrative: Temporal wasting Head and Scalp: normocephalic Neuro oriented x3, moves all extremities and no focal motor deficits Psych Mood & Affect: anxious Assessment & Plan Assessment/Plan (1) Dysphagia: (2) Elevated brain natriuretic peptide (BNP) level: (3) Hyperthyroidism: (4) Leukocytosis: (5) Depression: (6) Refeeding syndrome: (7) Hypokalemia: (8) Dehydration: (9) Severe protein-calorie malnutrition: (10) Failure to thrive: PLAN: Plan Adult failure to thrive -Has been alert and oriented x 4 since I started seeing her on 07/03/2023 -Initial plan was return to assisted living with home health however needs are too great for this at this point so she will need skilled placement -Has been except at [facility] and currently still awaiting pre-CERT from insurance -Suspect thyroid issues are significantly contributing -B12 level was 416 -Folate was 18.7 -Continue PT/OT Dysphagia -MBS done 07/04/2023 and mild to moderate oropharyngeal dysphagia noted -Diet recommendations are mechanical soft with soft and bite-size textures and thin liquids -Meds are to be crushed in applesauce with oral care after meals and removal of dentures to check for pocketing -Small bites with small sips, no straws, slow rate and alternate bites of solids and liquids with remaining upright 30 minutes after p.o. 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 -Currently remains stable Severe malnutrition with suspected refeeding syndrome -Malnutrition issues are multifactorial -Continue Remeron -Patient states her appetite seems to be moving -Thyroid issues likely playing an factor -Dietitian is following -Continue liberalized diet and supplements -Continue multivitamin Hyperthyroidism secondary to Graves' disease -Patient has history of hypothyroid documented however had not been taking methimazole from what we can tell -TSH was undetectable -Free T4 and T3 were elevated -Methimazole restarted on the -Free T4 is trending towards normal--> down to 1.78 today from 7.04 on admission -Will need follow-up with endocrinology after discharge--> discussed case with Dr. Corrigan and she will get her in shortly after discharge for follow-up -Thyroid is currently enlarged will need continued monitoring with outpatient follow-up after she has been on therapeutic methimazole for some time -If remains enlarged despite normalizing thyroid function, may need imaging Toxic/metabolic encephalopathy -Mental status appears to be improving with treatment of hyperthyroidism -Once she is optimized from a thyroid standpoint she will need neurocognitive testing to rule out any signs of dementia Debility/generalized weakness -Continue PT/OT/speech therapy -Will need skilled placement at discharge History of intracranial hemorrhage -Status post 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 Currently awaiting pre-CERT from insurance. Patient has been medically ready for discharge since 07/04/2023 Charges/Coding Visit Charges Inpatient E&M: 62565 Subs Hosp L1
[2023-07-08] MEDS: Ensure Clear 120 ML Liquid PO (21:24)
[2023-07-08] MEDS: Mirtazapine 15 MG Tablet PO (21:24)
[2023-07-09] VITALS (11 sets, daily range): BP systolic 97–140; BP diastolic 54–65; PULSE 73–93; RESP 16–18; TEMP 36.4–36.8; O2SAT 94–100
[2023-07-09] MEDS: Ipratropium/Albuterol Sulfate 3 ML AMPUL.NEB INHALATION ×3 (07:33→19:21)
[2023-07-09] MEDS: Budesonide Respules 0.5 MG/2 ML AMPUL.NEB. INHALATION ×2 (07:33→19:21)
[2023-07-09] MEDS: Multivitamins,Therapeutic Tablet 1 TABLET PO (08:30)
[2023-07-09] MEDS: Aspirin 81 MG TAB.CHEW PO (08:30)
--- NOTE | 2023-07-09 08:57 | CASEMGMT ---
Discharge Planning Updates sent to [facility] via [facility]. Lizzy Mckeon, Discharge Planning Asst.
[2023-07-09] MEDS: Menthol/Lanolin/Calamine/Znox 113 GM Tube 1 APPLIC TOPICAL ×2 (10:17→21:44)
[2023-07-09] MEDS: Anastrozole 1 MG TABLET PO (10:17)
[2023-07-09] MEDS: Ensure Plus High Protein 120 ML LIQUID PO ×2 (10:18→14:19)
[2023-07-09] MEDS: Methimazole 5 MG Tablet 10 MG PO (10:18)
[2023-07-09] MEDS: Loratadine 10 MG Tablet PO (10:18)
--- NOTE | 2023-07-09 13:33 | CASEMGMT ---
GABY received a phone call from [facility] and [facility] indicating that the medical provider would like to talk with the physician before making a determination. The phone number is [phone] option 5. GABY notified physician. Shawna WHITE
--- NOTE | 2023-07-09 14:20 | CASEMGMT ---
Physician spoke with insurance. The insurance physician was going to review and will have an answer today. Shawna WHITE
--- NOTE | 2023-07-09 15:50 | CASEMGMT ---
GABY called patient's niece Xochitl explaining that insurance may deny patient for [place]. Xochitl said patient would not be able to private pay. Xochitl thinks patient may qualify for Medicaid. GABY met with patient. Introduced self and role at [facility]. GABY explained to patient that her insurance is still pending. SW did let patient know that her insurance may deny her. Patient that is her only insurance. GABY explained Medicaid to patient and she would be agreeable to complete the application. GABY will contact Audrey with [employer] to assist. Shawna Brown METAL GRADER CINDY
--- NOTE | 2023-07-09 16:16 | PCM.PN.HOSP ---
Reason for Visit Reason for Visit: Diagnoses Candidal stomatitis (07/03/23) Elevated white blood cell count, unspecified (07/03/23) Thyrotoxicosis, unspecified without thyrotoxic crisis or storm (07/03/23) Unspecified severe protein-calorie malnutrition (07/03/23) Dehydration (07/03/23) Hypokalemia (07/03/23) Other disorders of electrolyte and fluid balance, not elsewhere classified (07/03/23) Depression, unspecified (07/03/23) Hypoxemia (07/03/23) Dysphagia, unspecified (07/03/23) Other specified abnormal findings of blood chemistry (07/03/23) Objective Data Objective Data Vital Signs: Vital Signs Temp Pulse Resp BP Pulse Ox O2 Del Method O2 Flow Rate 97.6 F L 83 16 97/54 L 100 Room Air 2 07/09/23 14:37 07/09/23 14:37 07/09/23 14:37 07/09/23 14:37 07/09/23 14:37 07/09/23 14:37 07/03/23 07:49 Oxygen Flow Rate (L/min) 2 Oxygen Delivery Method Room Air Weight: 30.9 kg Body Mass Index (BMI) 12.4 Intake & Output: Intake and Output for Last 24 Hours 07/07/23 07/08/23 07/09/23 23:59 23:59 23:59 Intake Total 700 / 700 480 / 480 Output Total 1000 / 1000 Balance -300 / -300 480 / 480 Medical Nutrition Assessment Dietitian: Malnutrition Criteria Met Start: 07/01/23 10:27 Freq: Status: Active Protocol: Document 07/08/23 12:40 LO (Rec: 07/08/23 12:40 [id number]) Nutrition Malnutrition Evidence of Malnutrition Exists Yes Malnutrition (severe): Chronic Evidenced By Suboptimal Energy Intake ( Severe),Physical Changes ( Severe) Clinical Problem Chronic Disease or Condition Related Malnutrition Etiology severe, chronic malnutrition related to inadequate energy intake Signs/Symptoms as evidenced by estimated PO intake meeting <75% of estimated energy needs > 3 months, severe muscle wasting/ fat loss evident per physical exam in orbital, clavicle, acromion, and temporal areas, BMI 12.5 Status Active Problem Recommendation Dietitian Recommendations/Changes 1) Continue regular diet, fortified foods and magic cup w/ dinner; ensure plus high protein 120mL 4x/day or Ensure Clear 4x in between meals. Texture/consistency modifications per NUCLEAR MEDICINE CHIEF TECHNOLOGIST. 2) Continue to monitor electrolytes given risk for refeeding. Daily wts. Lab / Micro Data 07/07/23 05:42 07/07/23 05:42 Micro: Microbiology 07/02/23 08:55 Blood Culture (Wb) - Left Hand Blood Culture - Final No growth in 5 days. 07/02/23 08:50 Blood Culture (Wb) - Anticubital Left Blood Culture - Final No growth in 5 days. 06/30/23 11:09 Nasal Secretion SARS-CoV-2 & FLU Antigen (Rapid) - Final
--- NOTE | 2023-07-09 16:30 | PN.HOSP_ITS ---
Reason for Visit Reason for Visit: Mental status change Subjective Subjective No issues overnight. Patient states her appetite continues to improve. States she feels okay. Objective Data Objective Data Vital Signs: Vital Signs Temp Pulse Resp BP Pulse Ox O2 Del Method O2 Flow Rate 97.6 F L 83 16 97/54 L 100 Room Air 2 07/09/23 14:37 07/09/23 14:37 07/09/23 14:37 07/09/23 14:37 07/09/23 14:37 07/09/23 14:37 07/03/23 07:49 Oxygen Flow Rate (L/min) 2 Oxygen Delivery Method Room Air Weight: 30.9 kg Body Mass Index (BMI) 12.4 Intake & Output: Intake and Output for Last 24 Hours 07/07/23 07/08/23 07/09/23 23:59 23:59 23:59 Intake Total 700 / 700 480 / 480 Output Total 1000 / 1000 Balance -300 / -300 480 / 480 Medical Nutrition Assessment Dietitian: Malnutrition Criteria Met Start: 07/01/23 10:27 Freq: Status: Active Protocol: Document 07/08/23 12:40 LO (Rec: 07/08/23 12:40 LO [id number]) Nutrition Malnutrition Evidence of Malnutrition Exists Yes Malnutrition (severe): Chronic Evidenced By Suboptimal Energy Intake ( Severe),Physical Changes ( Severe) Clinical Problem Chronic Disease or Condition Related Malnutrition Etiology severe, chronic malnutrition related to inadequate energy intake Signs/Symptoms as evidenced by estimated PO intake meeting <75% of estimated energy needs > 3 months, severe muscle wasting/ fat loss evident per physical exam in orbital, clavicle, acromion, and temporal areas, BMI 12.5 Status Active Problem Recommendation Dietitian Recommendations/Changes 1) Continue regular diet, fortified foods and magic cup w/ dinner; ensure plus high protein 120mL 4x/day or Ensure Clear 4x in between meals. Texture/consistency modifications per MECHANICAL SPECIALIST. 2) Continue to monitor electrolytes given risk for refeeding. Daily wts. Lab / Micro Data 07/07/23 05:42 07/07/23 05:42 Micro: Microbiology 07/02/23 08:55 Blood Culture (Wb) - Left Hand Blood Culture - Final No growth in 5 days. 07/02/23 08:50 Blood Culture (Wb) - Anticubital Left Blood Culture - Final No growth in 5 days. 06/30/23 11:09 Nasal Secretion SARS-CoV-2 & FLU Antigen (Rapid) - Final Physical Exam Const alert, oriented x3 and no apparent distress; Negative for average body habitus, healthy appearing or well nourished Constitutional Narrative: Cachectic, older, white female, appears older than stated age, lying in bed, watching television, appears comfortable nontoxic, appears chronically ill HEENT head/scalp atraumatic Head and Scalp: normocephalic Neuro oriented x3, moves all extremities and no focal motor deficits Psych affect normal Psych Narrative: Affect is stable, eye contact is good, patient interacts appropriately and mood is stable Assessment & Plan Assessment/Plan (1) Dysphagia: (2) Hyperthyroidism: (3) Depression: (4) Severe protein-calorie malnutrition: (5) Failure to thrive: PLAN: Plan Adult failure to thrive -Has been alert and oriented x 4 since I started seeing her on 07/03/2023 -Initial plan was return to assisted living with home health however needs are too great for this at this point so she will need skilled placement -Has been except at [facility] and currently still awaiting pre-CERT from insurance -Suspect thyroid issues are significantly contributing -B12 level was 416 -Folate was 18.7 -Continue PT/OT Dysphagia -MBS done 07/04/2023 and mild to moderate oropharyngeal dysphagia noted -Diet recommendations are mechanical soft with soft and bite-size textures and thin liquids -Meds are to be crushed in applesauce with oral care after meals and removal of dentures to check for pocketing -Small bites with small sips, no straws, slow rate and alternate bites of solids and liquids with remaining upright 30 minutes after p.o. 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 -Currently remains stable Severe malnutrition with suspected refeeding syndrome -Malnutrition issues are multifactorial -Continue Remeron -Patient states her appetite seems to be moving -Thyroid issues likely playing an factor -Dietitian is following -Continue liberalized diet and supplements -Continue multivitamin Hyperthyroidism secondary to Graves' disease -Patient has history of hypothyroid documented however had not been taking methimazole from what we can tell -TSH was undetectable -Free T4 and T3 were elevated -Methimazole restarted on the -Free T4 is trending towards normal--> down to 1.78 today from 7.04 on admission -Will need follow-up with endocrinology after discharge--> discussed case with Dr. Corrigan and she will get her in shortly after discharge for follow-up -Thyroid is currently enlarged will need continued monitoring with outpatient follow-up after she has been on therapeutic methimazole for some time -If remains enlarged despite normalizing thyroid function, may need imaging Toxic/metabolic encephalopathy -Mental status appears to be improving with treatment of hyperthyroidism -Once she is optimized from a thyroid standpoint she will need neurocognitive testing to rule out any signs of dementia Debility/generalized weakness -Continue PT/OT/speech therapy -Will need skilled placement at discharge History of intracranial hemorrhage -Status post 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 Currently awaiting pre-CERT from insurance. Patient has been medically ready for discharge since 07/04/2023. I did do a peer to peer with the director for the insurance today. They are looking to see if they can get her placed in skilled facility but strictly by CMS guidelines they did not think she would qualify and may need to proceed with ECF placement. Family cannot afford that but they do feel she may be able to do Medicaid however the nursing facility that has excepted her will not admit her with a Medicaid pending number. Charges/Coding Visit Charges Inpatient E&M: 94022 Subs Hosp L1
[2023-07-09] MEDS: Ensure Clear 120 ML Liquid PO (17:23)
[2023-07-09] MEDS: Mirtazapine 15 MG Tablet PO (21:44)
[2023-07-09] MEDS: Ondansetron 4 MG/2 ML Vial IV (23:19)
[2023-07-09] MEDS: 0.9% Saline Lock 10 ML Syringe IV (23:19)
[2023-07-10] VITALS (8 sets, daily range): BP systolic 99–120; BP diastolic 57–64; PULSE 81–117; RESP 16–20; TEMP 36.6–37.1; O2SAT 90–94
[2023-07-10] MEDS: Ipratropium/Albuterol Sulfate 3 ML AMPUL.NEB INHALATION ×3 (06:31→19:22)
[2023-07-10] MEDS: Budesonide Respules 0.5 MG/2 ML AMPUL.NEB. INHALATION ×2 (06:31→19:22)
[2023-07-10] MEDS: Ensure Clear 120 ML Liquid PO ×2 (09:46→13:55)
[2023-07-10] MEDS: Anastrozole 1 MG TABLET PO (09:47)
[2023-07-10] MEDS: Aspirin 81 MG TAB.CHEW PO (09:47)
[2023-07-10] MEDS: Multivitamins,Therapeutic Tablet 1 TABLET PO (09:47)
[2023-07-10] MEDS: Loratadine 10 MG Tablet PO (09:48)
[2023-07-10] MEDS: Methimazole 5 MG Tablet 10 MG PO (09:48)
[2023-07-10] MEDS: Menthol/Lanolin/Calamine/Znox 113 GM Tube 1 APPLIC TOPICAL (09:48)
[2023-07-10 10:10] LABS: Pathologist Review Reviewed
--- NOTE | 2023-07-10 10:10 | CASEMGMT ---
SW asked [place] [facility] if they have heard from insurance. Rosa was going to check. Shawna Brown BIG DATA LEAD CINDY
--- NOTE | 2023-07-10 12:51 | CASEMGMT ---
Patient was denied by insurance for retirement facility. [employer] completed a Medicaid application with patient today and will get it sent to S. GABY asked [facility] if they will take patient on pending Medicaid. Once GABY has this answer SW will contact patient's niece Xochitl. Shawna Brown DATA WAREHOUSE CONSULTANTGeeta WHITE
--- NOTE | 2023-07-10 13:01 | CASEMGMT ---
[facility] is not able to take patient on pending Medicaid. GABY called patient's niece Scarlet and let her know this information. Scarlet is aware a Medicaid application was completed. Scarlet's next choices are [facility] and [facility]. GABY let her know GABY will work on the referrals. Shawna Brown CLINIC LEAD CINDY
--- NOTE | 2023-07-10 13:08 | CASEMGMT ---
GABY sent referrals to [facility]. Shawna WHITE
--- NOTE | 2023-07-10 13:18 | CASEMGMT ---
[facility] has declined patient as they do not take pending Medicaid. GABY called [facility] and let them know about referral. Shawna Brown BLENDER OPERATOR CINDY
--- NOTE | 2023-07-10 14:41 | PN.HOSP_ITS ---
Reason for Visit Reason for Visit: Confusion Subjective Subjective No issues overnight. Patient remained stable. Was denied skilled at discharge so now looking at ECF placement and working on getting pending Medicaid number along with a facility that accepts pending Medicaid. Objective Data Objective Data Vital Signs: Vital Signs Temp Pulse Resp BP Pulse Ox O2 Del Method O2 Flow Rate 98.5 F 97 16 120/59 L 94 Room Air 2 07/10/23 13:50 07/10/23 13:50 07/10/23 13:50 07/10/23 13:50 07/10/23 13:50 07/10/23 13:50 07/03/23 07:49 Oxygen Flow Rate (L/min) 2 Oxygen Delivery Method Room Air Weight: 30.9 kg Body Mass Index (BMI) 12.4 Intake & Output: Intake and Output for Last 24 Hours 07/08/23 07/09/23 07/10/23 23:59 23:59 23:59 Intake Total 480 / 480 120 / 120 120 / 120 Output Total 200 / 200 Balance 480 / 480 -80 / -80 120 / 120 Medical Nutrition Assessment Dietitian: Malnutrition Criteria Met Start: 07/01/23 10:27 Freq: Status: Active Protocol: Document 07/08/23 12:40 LO (Rec: 07/08/23 12:40 [id number]) Nutrition Malnutrition Evidence of Malnutrition Exists Yes Malnutrition (severe): Chronic Evidenced By Suboptimal Energy Intake ( Severe),Physical Changes ( Severe) Clinical Problem Chronic Disease or Condition Related Malnutrition Etiology severe, chronic malnutrition related to inadequate energy intake Signs/Symptoms as evidenced by estimated PO intake meeting <75% of estimated energy needs > 3 months, severe muscle wasting/ fat loss evident per physical exam in orbital, clavicle, acromion, and temporal areas, BMI 12.5 Status Active Problem Recommendation Dietitian Recommendations/Changes 1) Continue regular diet, fortified foods and magic cup w/ dinner; ensure plus high protein 120mL 4x/day or Ensure Clear 4x in between meals. Texture/consistency modifications per GERIATRIC PHYSICIAN. 2) Continue to monitor electrolytes given risk for refeeding. Daily wts. Lab / Micro Data 07/07/23 05:42 07/07/23 05:42 Labs: Laboratory Results - last 24 hr 07/07/23 05:42: Diff Path Review Reviewed Micro: Microbiology 07/02/23 08:55 Blood Culture (Wb) - Left Hand Blood Culture - Final No growth in 5 days. 07/02/23 08:50 Blood Culture (Wb) - Anticubital Left Blood Culture - Final No growth in 5 days. 06/30/23 11:09 Nasal Secretion SARS-CoV-2 & FLU Antigen (Rapid) - Final Physical Exam Const alert, oriented x3 and no apparent distress; Negative for average body habitus, healthy appearing or well nourished Constitutional Narrative: Cachectic, older, white female, appears older than stated age, lying in bed, watching television, appears comfortable nontoxic, appears chronically ill Resp normal respiratory effort, no retractions, no use of accessory muscles and clear to auscultation bilaterally Resp Narrative: Diffusely diminished but clear Auscultation: Negative for rales, rhonchi or wheezes GI GI Narrative: Scaphoid abdomen Skin Skin Narrative: Skin is thin and fragile Neuro Sensorium / Orientation: awake, alert, oriented to person, oriented to place and oriented to time Psych affect normal Psych Narrative: Affect is stable, eye contact is good, patient interacts appropriately and mood is stable Mood & Affect: anxious Assessment & Plan Assessment/Plan (1) Dysphagia: (2) Hyperthyroidism: (3) Depression: (4) Severe protein-calorie malnutrition: (5) Failure to thrive: PLAN: Plan Adult failure to thrive -Has been alert and oriented x 4 since I started seeing her on 07/03/2023 -Initial plan was return to assisted living with home health however needs are too great for this at this point so she will need skilled placement -Has been except at [facility] and currently still awaiting pre-CERT from insurance -Suspect thyroid issues are significantly contributing -B12 level was 416 -Folate was 18.7 -Continue PT/OT Dysphagia -MBS done 07/04/2023 and mild to moderate oropharyngeal dysphagia noted -Diet recommendations are mechanical soft with soft and bite-size textures and thin liquids -Meds are to be crushed in applesauce with oral care after meals and removal of dentures to check for pocketing -Small bites with small sips, no straws, slow rate and alternate bites of solids and liquids with remaining upright 30 minutes after p.o. 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 -Currently remains stable Severe malnutrition with suspected refeeding syndrome -Malnutrition issues are multifactorial -Continue Remeron -Patient states her appetite seems to be moving -Thyroid issues likely playing an factor -Dietitian is following -Continue liberalized diet and supplements -Continue multivitamin Hyperthyroidism secondary to Graves' disease -Patient has history of hypothyroid documented however had not been taking methimazole from what we can tell -TSH was undetectable -Free T4 and T3 were elevated -Methimazole restarted on the -Free T4 is trending towards normal--> most recent free T4 is 1.78 which had trended down from 7.04 on admission -Will need follow-up with endocrinology after discharge--> discussed case with Dr. Corrigan and she will get her in shortly after discharge for follow-up -Thyroid is currently enlarged will need continued monitoring with outpatient fo llow-up after she has been on therapeutic methimazole for some time -If remains enlarged despite normalizing thyroid function, may need imaging Toxic/metabolic encephalopathy -Resolved -Mental status is stable -Once she is optimized from a thyroid standpoint she will need neurocognitive testing to rule out any signs of dementia Debility/generalized weakness -Continue PT/OT/speech therapy -Will need skilled placement at discharge History of intracranial hemorrhage -Status post CHIEF NURSE shunt -No acute issues -CT of the brain was unremarkable Tobacco abuse -Recommend ongoing cessation Depression -Continue Remeron 15 mg nightly DVT prophylaxis -Chemoprophylaxis held on admission due to history of intracranial hemorrhage as etiology was unclear -SCDs in place CODE STATUS -DNR CCA with no intubation Disposition -Insurance denied skilled placement. Plan is for ECF placement at discharge. P atient will require a pending Medicaid number for this and this paperwork has been filed. Unfortunately, [facility] does not take pending Medicaid number so we are now searching for another facility that we will except a pending Medicaid number. Plan is to discharge as soon as we have an accepting facility. Charges/Coding Visit Charges Inpatient E&M: 28924 Subs Hosp L1
--- NOTE | 2023-07-10 15:27 | CASEMGMT ---
GABY called [facility] and left a message for Shaye in admissions. Shawna Brown TECHNICAL SERVICES ASSISTANT CINDY
[2023-07-10] MEDS: Ensure Plus High Protein 120 ML LIQUID PO ×2 (17:59→21:27)
--- NOTE | 2023-07-10 19:28 | CPS ---
spo2 on room air 93%
[2023-07-10] MEDS: amLODIPine 2.5 MG Tablet PO (21:27)
[2023-07-10] MEDS: Metoprolol(XL)Succ 25 MG Tablet PO (21:28)
[2023-07-10] MEDS: Mirtazapine 15 MG Tablet PO (21:28)
[2023-07-11] VITALS (8 sets, daily range): BP systolic 101–113; BP diastolic 44–60; PULSE 72–92; RESP 14–24; TEMP 36.3–36.8; O2SAT 92–99
[2023-07-11] MEDS: Ipratropium/Albuterol Sulfate 3 ML AMPUL.NEB INHALATION ×3 (06:46→20:43)
[2023-07-11] MEDS: Budesonide Respules 0.5 MG/2 ML AMPUL.NEB. INHALATION ×2 (06:46→20:42)
[2023-07-11] MEDS: Aspirin 81 MG TAB.CHEW PO (09:30)
[2023-07-11] MEDS: Ensure Plus High Protein 120 ML LIQUID PO ×3 (09:31→21:47)
[2023-07-11] MEDS: Anastrozole 1 MG TABLET PO (09:31)
[2023-07-11] MEDS: Ensure Clear 120 ML Liquid PO (09:31)
[2023-07-11] MEDS: Loratadine 10 MG Tablet PO (09:31)
[2023-07-11] MEDS: Multivitamins,Therapeutic Tablet 1 TABLET PO (09:31)
[2023-07-11] MEDS: Menthol/Lanolin/Calamine/Znox 113 GM Tube 1 APPLIC TOPICAL (09:32)
[2023-07-11] MEDS: Methimazole 5 MG Tablet 10 MG PO (09:32)
--- NOTE | 2023-07-11 09:43 | CASEMGMT ---
GABY called [facility] and left a message for Shaye requesting a return call. Shawna Brown STAINED GLASS JOINER CINDY
--- NOTE | 2023-07-11 12:09 | CASEMGMT ---
[facility] has declined patient. SW called patient's niece and left her a voice mail letting her know this information. GABY requested a return call. Shawna WHITE
--- NOTE | 2023-07-11 13:53 | CASEMGMT ---
GABY spoke with patient's niece Scarlet. Scarlet asked SW to send a referral to [facility]. GABY sent a referral to [facility] via [facility]. Shawna Brown RECORDING STUDIO INTERNGeeta WHITE
--- NOTE | 2023-07-11 15:57 | PCM.PN.HOSP ---
Reason for Visit Reason for Visit: Confusion Subjective Subjective No issues overnight. Patient states her appetite is much improved. I discussed with dietitian and they indicate her p.o. intake has been much improved. Still on modified diet but plan to touch base with speech therapy to see if we can remove some of the restrictions and enable her to go back to assisted living or if she still needs ongoing placement as we are having significant difficulty with placement and she has now been here long enough that I am hoping there may have been some improvement however if they still think she needs the restrictions that are in place she will need to go to [facility]. Objective Data Objective Data Vital Signs: Vital Signs Temp Pulse Resp BP Pulse Ox O2 Del Method O2 Flow Rate 97.3 F L 90 14 113/60 99 Room Air 2 07/11/23 15:06 07/11/23 15:06 07/11/23 15:06 07/11/23 15:06 07/11/23 15:06 07/11/23 15:06 07/03/23 07:49 Oxygen Flow Rate (L/min) 2 Oxygen Delivery Method Room Air Weight: 30.9 kg Body Mass Index (BMI) 12.4 Intake & Output: Intake and Output for Last 24 Hours 07/09/23 07/10/23 07/11/23 23:59 23:59 23:59 Intake Total 120 / 120 120 / 320 440 / 440 Output Total 200 / 200 Balance -80 / -80 120 / 320 440 / 440 Medical Nutrition Assessment Dietitian: Malnutrition Criteria Met Start: 07/01/23 10:27 Freq: Status: Active Protocol: Document 07/08/23 12:40 (Rec: 07/08/23 12:40 [id number]) Nutrition Malnutrition Evidence of Malnutrition Exists Yes Malnutrition (severe): Chronic Evidenced By Suboptimal Energy Intake ( Severe),Physical Changes ( Severe) Clinical Problem Chronic Disease or Condition Related Malnutrition Etiology severe, chronic malnutrition related to inadequate energy intake Signs/Symptoms as evidenced by estimated PO intake meeting <75% of estimated energy needs > 3 months, severe muscle wasting/ fat loss evident per physical exam in orbital, clavicle, acromion, and temporal areas, BMI 12.5 Status Active Problem Recommendation Dietitian Recommendations/Changes 1) Continue regular diet, fortified foods and magic cup w/ dinner; ensure plus high protein 120mL 4x/day or Ensure Clear 4x in between meals. Texture/consistency modifications per JEWELRY TECHNICIAN. 2) Continue to monitor electrolytes given risk for refeeding. Daily wts. Lab / Micro Data 07/07/23 05:42 07/07/23 05:42 Micro: Microbiology 07/02/23 08:55 Blood Culture (Wb) - Left Hand Blood Culture - Final No growth in 5 days. 07/02/23 08:50 Blood Culture (Wb) - Anticubital Left Blood Culture - Final No growth in 5 days. 06/30/23 11:09 Nasal Secretion SARS-CoV-2 & FLU Antigen (Rapid) - Final Physical Exam Const alert, oriented x3 and no apparent distress; Negative for average body habitus, healthy appearing or well nourished Constitutional Narrative: Cachectic, white female who appears much older than age stated age, lying in bed, appears comfortable and nontoxic Extremity no clubbing, cyanosis or edema Extremity Narrative: Pedal pulses are 2+, significant decrease in muscle mass Neuro oriented x3 and moves all extremities Psych affect normal Psych Narrative: Tracks appropriately, much less depressed, eye contact is good Assessment & Plan Assessment/Plan (1) Dysphagia: (2) Hyperthyroidism: (3) Depression: (4) Severe protein-calorie malnutrition: (5) Failure to thrive: PLAN: Plan Adult failure to thrive -Has been alert and oriented x 4 since I started seeing her on 07/03/2023 -Initial plan was return to assisted living with home health however needs are too great for this at this point so she will need skilled placement -Patient was denied skilled and will either need to go to [facility] or back to assisted living depending on speech therapy -Suspect thyroid issues are significantly contributing -B12 level was 416 -Folate was 18.7 -Continue PT/OT Dysphagia -MBS done 07/04/2023 and mild to moderate oropharyngeal dysphagia noted -Diet recommendations are mechanical soft with soft and bite-size textures and thin liquids -Meds are to be crushed in applesauce with oral care after meals and removal of dentures to check for pocketing -Small bites with small sips, no straws, slow rate and alternate bites of solids and liquids with remaining upright 30 minutes after p.o. 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 -Currently remains stable Severe malnutrition with suspected refeeding syndrome -Malnutrition issues are multifactorial -Continue Remeron -Patient states her appetite seems to be moving -Thyroid issues likely playing an factor -Dietitian is following -Continue liberalized diet and supplements -Continue multivitamin Hyperthyroidism secondary to Graves' disease -Patient has history of hypothyroid documented however had not been taking methimazole from what we can tell -TSH was undetectable -Free T4 and T3 were elevated -Methimazole restarted on the -Free T4 is trending towards normal--> most recent free T4 is 1.78 which had trended down from 7.04 on admission -Will need follow-up with endocrinology after discharge--> discussed case with Dr. 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 Plan is for ECF placement at discharge. Patient will require a pending Medicaid number for this and this paperwork has been filed. Unfortunately, [facility] does not take pending Medicaid number so we are now searching for another facility that we will except a pending Medicaid number. Plan is to discharge as soon as we have an accepting facility. Also, will touch base with speech therapy to see if they can remove any other restrictions or if she still needs the restrictions with her diet. If some of the restrictions can be scaled back then we may be able to get her back to assisted living. She has been here for some time since the restrictions were in place I am hoping that she has had improvement with the delay of discharge that she can go back to assisted living. I have tried to call speech therapy office but nobody answers and will try again tomorrow morning. Charges/Coding Visit Charges Inpatient E&M: 98187 Subs Hosp L1
[2023-07-11] MEDS: Mirtazapine 15 MG Tablet PO (21:34)
[2023-07-12] VITALS (10 sets, daily range): BP systolic 112–139; BP diastolic 54–84; PULSE 74–102; RESP 14–38; TEMP 36.2–36.8; O2SAT 91–96
[2023-07-12] MEDS: MELATONIN 3 MG TABLET 6 MG PO (00:23)
[2023-07-12 06:21] LABS: Bacteria 0 SEEN /hpf (None Seen); Mucous, Urine 0 SEEN /hpf (<or=2+); Red Blood Cells-Urine 0 SEEN /hpf (0-5); Squamous Epithelial Cells - UA 0 SEEN /hpf (5-10); White Blood Cells 0 SEEN /hpf (0-5)
[2023-07-12] MEDS: Ipratropium/Albuterol Sulfate 3 ML AMPUL.NEB INHALATION ×3 (06:40→19:32)
[2023-07-12] MEDS: Budesonide Respules 0.5 MG/2 ML AMPUL.NEB. INHALATION ×2 (06:40→19:32)
[2023-07-12 07:07] LABS: Color, Urine Yellow (Yellow); Glucose, Dipstick Normal (Normal); Ketone-Dipstick Negative (Negative); Leukocyte Esterase-Dipstick 25 /ul (Negative); Nitrite-Dipstick Negative (Negative); Occult Blood-Urine Negative /ul (Negative); Protein-Dipstick 15 mg/dl (Negative); Urine Bilirubin Dipstick Negative (Negative); Urine Clarity Clear (Clear); Urine Urobilinogen Normal (Normal)
[2023-07-12] MEDS: Aspirin 81 MG TAB.CHEW PO (09:02)
[2023-07-12] MEDS: Metoprolol(XL)Succ 25 MG Tablet PO ×2 (09:03→22:20)
[2023-07-12] MEDS: Multivitamins,Therapeutic Tablet 1 TABLET PO (09:03)
[2023-07-12] MEDS: Loratadine 10 MG Tablet PO (09:03)
[2023-07-12] MEDS: Anastrozole 1 MG TABLET PO (09:03)
[2023-07-12] MEDS: Methimazole 5 MG Tablet 10 MG PO (09:03)
[2023-07-12] MEDS: amLODIPine 2.5 MG Tablet PO ×2 (09:04→22:20)
[2023-07-12] MEDS: Menthol/Lanolin/Calamine/Znox 113 GM Tube 1 APPLIC TOPICAL ×2 (09:04→22:21)
--- NOTE | 2023-07-12 09:21 | CT_ITS ---
HISTORY: shunt. TECHNIQUE: Multiple axial images were obtained of the head without intravenous contrast. A radiation dose optimization technique was used for this scan. 233 images. COMPARISON: 06/30/2023. FINDINGS: BRAIN PARENCHYMA: Multiple foci and zones of low attenuation in the bilateral cerebral white matter compatible with chronic small vessel ischemic gliosis. Mild right frontal gliosis along the shunt catheter tract. Chronic left temporal infarct with mild mineralization. Chronic bilateral basal ganglia lacunar infarcts. No acute intra-axial hemorrhage identified. CSF SPACES: Unchanged size of ventricles with shunt catheter tip at the foramen of Monro/third ventricle. Mild generalized volume loss. No midline shift or other significant mass effect. No acute extra-axial hemorrhage seen. Artifact from coiling of the basilar tip. OTHER: Right frontal ravinder hole. No significant air fluid levels in the paranasal sinuses or mastoid air cells. Bilateral lens resections. CT/Brain/Head without Contrast IMPRESSION: No acute intracranial process identified. Unchanged size of ventricles in shunt patient. Chronic involutional and white matter changes. 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 Electronically Signed: Ofelia Willingham MD at 10:35 EST ,
--- NOTE | 2023-07-12 10:12 | NURSING ---
Patient noted to have increased confusion this am, baseline slight disorientation at night. She was grasping at something not there and thinking the bed remote was a basket that she needed to take with her. The patient appeared to become frustrated but was redirected and allowed this RN to take her vitals and start medication administration; however, while taking pills she became upset and did not want to finish taking pills. This RN persuaded her to take one more bite and have some water and after doing so the patient threw her water cup and dirty spoon at this RN and said get out of my life . Dr. Hollis notified of patient's acute confusion and becoming uncooperative. CBC, CMP, ammonia level, and head CT ordered. Results pending. Patient resting in bed at this time. bed alarm on for safety.
[2023-07-12 10:49] LABS: Absolute Lymphocyte Count 1.28 X10^3/uL (0.83-4.51); Absolute Neutrophil Count 6.4 X10^3/uL (2.0-7.7); Basophil# 0.02 X10^3/uL; Basophil% 0.2 % (0-1); Eosinophil# 0.26 X10^3/uL; Eosinophils% 3.1 % (0-5); Hematocrit 32.2 % (37-47); Hemoglobin 9.8 g/dL (12.0-15.0); Lymphocyte # 1.28 X10^3/ul (0.83-4.51); Lymphocyte % 15.2 % (19-41); Mean Corp Hgb Conc 30.4 g/dL (32-36); Mean Corpuscular Hgb 29.5 pg (27.0-32.0); Mean Platelet Vol. 10.3 fl (6.2-12.0); Monocyte# 0.47 X10^3/uL; Monocyte% 5.6 % (0-10); NRBC Flagged by Analyzer 0 % (0-5); Neutrophil # 6.37 X10^3/uL (2.7-7.7); Neutrophil % 75.5 % (47-70); Platelet Count 345 K/mm3 (150-450); RBC Distribution Width CV 15.4 % (11.6-14.6); RBC Distribution Width SD 54.3 fl (35.1-43.9); Red Blood Count 3.32 M/mm3 (4.2-5.4); White Blood Count 8.4 K/mm3 (4.4-11.0)
[2023-07-12 11:13] LABS: ALB/GLOB Ratio 0.6 RATIO (0.9-2.4); AST(SGOT) 18 U/L (15-37); Alanine Aminotransfer ALT/SGPT 39 U/L (13-56); Albumin, Serum 2.6 g/dL (3.2-5.0); Alkaline Phosphatase 143 U/L (45-117); Anion Gap 4 (5-15); BUN 16 mg/dL (7-18); BUN/Creat Ratio 60.6 RATIO (10-20); Calcium,Total 9.4 mg/dL (8.5-10.1); Chloride 107 mmol/L (98-107); Creatinine, Serum 0.26 mg/dL (0.55-1.02); EST Glomerular Filtration Rate 268 mL/min (>60); Est Glom Filt Rate - Afr Amer 324 mL/min (>60); Estimated Creatinine Clearance 24.44 ml/min; Globulin 4.4 g/dL (2.2-4.2); Glucose 93 mg/dL (74-106); Potassium 4.1 mmol/L (3.5-5.1); Sodium Level 137 mmol/L (136-145)
[2023-07-12 11:14] LABS: Ammonia < 10.0 umol/L (11-32)
[2023-07-12 13:57] LABS: Allen Test Positive; Base Excess 2 mmol/L (-2 to +2); Bicarbonate 26.2 mmol/L (22-26); Blood Gas Specimen Type ART; Mode Not entered; O2 Delivery Device Room Air; PO2 64 mmHG (75-100); SITE R Radial; SO2 93 % (95-99); Total Carbon Dioxide 27 mmol/L; pCO2 39.8 mmHg (35-45); pH 7.43 (7.35-7.45)
[2023-07-12 14:18] LABS: Vitamin D,25 Hydroxy 36.8 ng/mL
--- NOTE | 2023-07-12 14:44 | CASEMGMT ---
[facility] accepted patient. sent them a copy of the Medicaid hannah. Await pending number. SW called patient's niece, Scarlet and let her know [facility] accepted patient. GABY explained SW is still hoping to get a pending number today and patient will then go today. Someone will notify her if this happens. Plan: d/c to [facility] pending receipt of pending Medicaid number. Shawna Brown STRADDLE BUGGY OPERATOR CINDY
[2023-07-12] MEDS: Ensure Plus High Protein 120 ML LIQUID PO ×2 (14:55→22:19)
--- NOTE | 2023-07-12 15:21 | PCM.TXEXTCAR ---
Diet Diet Order/Speech Therapy: 07/04/23 07:09 Diet: Regular - General Food consistency:: Soft & Bite Sized Liquid Consistency:: Regular/Thin Dietary Modifications:: Fortified Foods Type of Dietary Supplement:: Magic Cup Dessert @dinner Is pt able to select menu?: Yes Diet Comments: Direct Sup, No straws,Single sips w/effortfu swallows,Oral care after meal Routine Orders/Code Status Suppository Frequency: Daily PRN O2 Frequency: PRN (Patient has severe COPD and may need intermittent oxygen for saturations less than 89%) Keep PO Greater than or Equal to (%): 89 Routine Lab Work: CBC (1 week), BMP (1 week) and - (TSH 4 week) Code Status: DNRCC-A (no ETT) Wound(s) coccyx: Wound Type: Pressure Injury back: Wound Type: Pressure Injury Suggestions for Active Care Change Position every (hours): 2 Therapies Weight Bearing: Full weight bearing Physical Therapy: Eval and Treat Occupational Therapy: Eval and Treat Speech Therapy: Eval and Treat Problem/Diagnosis (1) Dysphagia: Status: Acute Code(s): R13.10 - Dysphagia, unspecified (2) Hyperthyroidism: Status: Acute Code(s): E05.90 - Thyrotoxicosis, unspecified without thyrotoxic crisis or storm (3) Depression: Status: Acute Code(s): F32.A - Depression, unspecified (4) Severe protein-calorie malnutrition: Status: Acute Code(s): E43 - Unspecified severe protein-calorie malnutrition (5) Failure to thrive: Status: Acute Plan I highly suspect patient has mild cognitive impairment versus dementia and will need a neurocognitive evaluation once her thyroid is stabilized to assess further for this however the patient does have intermittent confusion that is consistent with sundowning. Allergies/Procedures Done in Hospital Allergies Penicillins Allergy (Mild, Verified 06/30/23 09:33) Other Procedures: EKG and - (CT brain x 2/stress test/modified barium swallow/chest x-ray) Type of Care/Length of Stay Estimated LOS: More Than 30 Days Type of Care Needed: Intermediate Rehab Potential: Fair Prognosis: Fair Additional Orders/Day of Discharge Day of Discharge: 07/12/23 Dietary and Speech Recommendations Dietitian Recommendations/Changes: 1) Continue regular diet, fortified foods and magic cup w/ dinner; ensure plus high protein or ensure clear 120mL 4x/day in between meals. Texture/consistency modifications per HEADLINER INSTALLER. 2) Continue to monitor electrolytes given risk for refeeding. Daily wts. Speech Linguistic Eval Summary: Modified Barium Swallow Patient Information Study Date: 07/04/23 Study Time: 13:00 Direct Billable Minutes: 115 Total Minutes procedure & reportin Diagnosis: Hypoxia R09.02, Dehydration E86.0 Referring Physician: Luzmaria Hollis Reason for Referral: Objectively assess swallow function, assess risk for aspiration, and determine recommendations for least restrictive diet textures and compensatory strategies to improve safety of swallow. Medical History: PMH: Allergic rhinitis, Candidal esophagitis, COPD, Gastric ulcer, GLD, HLD, ICH, Lower back pain, Malignant neoplasm of unspecified site of left female breast, Mild cognitive impairment, Nicotine dependence, and Osteoporosis. She presented to [facility] ED 06/30/2023 from [facility] with confusion. In the ER she was noted to be hypokalemic and did receive potassium. Patient is complaining of weight loss, poor appetite, difficulty swallowing due to pain when she eats. She was admitted for management of Failure to thrive, Severe protein-calorie malnutrition, Dehydration, and Thrush. ST consulted due to concerns for difficulty swallowing medications. BSE recommended Soft and bite size textures / Thin liquids - Direct supervision, medications crushed in applesauce, oral care after meals with removal of dentures, liquids by straw only, sips one at a time, small bites/sips, alternate bites/sips, sitting upright during and 30 min after food/drink, check for pocketing. MBSS was planned for yesterday, 07/03/23; however, she was on clear liquids until after 4pm awaiting results of her stress test. Current Diet Ordered: Soft and bite size textures / Thin liquids Dentition: Upper Dentures and Lower Dentures Mental Status: Impaired (Confusion) Respiratory Status: Oxygenating on Room Air Penetration-Aspiration Scale Penetration-Aspiration Scale: OBJECTIVE ASSESSMENT OF SWALLOW FUNCTION (QUANTITATIVE ? PER TRIAL): PENETRATION / ASPIRATION SCALE (KRUSE): 1 = does not enter airway 2 = enters airway/above vocal folds/ejected 3 = enters airway/above vocal folds/not ejected 4 = enters airway/contacts vocal folds/ejected 5 = enters airway/contacts vocal folds/not ejected 6 = enters airway/below vocal folds/ejected 7 = enters airway/below vocal folds/not ejected despite effort 8 = enters airway/below vocal folds/no effort VIDEOFLOROSCOPIC SCALE SCORE (KRUSE): Grade I = aspiration of material that has penetrated into the laryngeal vestibule, intact cough reflex Grade II = aspiration < 10 % of the bolus, intact cough reflex Grade III = aspiration of < 10 % of the bolus, reduced cough reflex or aspiration of > 10 % of the bolus, intact cough reflex Grade IV = aspiration of > 10 % of the bolus, reduced cough reflex Penetration-Aspiration Scale Score Thin Liquid via teaspoon: Result: 2= enter airway/above vocal folds/ejected Thin Liquid via teaspoon Trial 2: Result: 5= enters airways/contacts vocal folds/not ejected Comment: No cough reflex in response to deep laryngeal penetration. Thin Liquid via sequential sips: cup: Result: 5= enters airways/contacts vocal folds/not ejected Comment: No cough reflex in response to deep laryngeal penetration. HEADLINER INSTALLER cued cough and re-swallow, which was minimally effective in clearing contrast. [place] Thick Liquid via small single sip: cup: Result: 2= enter airway/above vocal folds/ejected [place] Thick Liquid via small single sip: cup Trial 2: Result: 2= enter airway/above vocal folds/ejected [place] Thick Liquid via teaspoon: Result: 1= does not enter airway Pudding via teaspoon: Result: 1= does not enter airway Comment: Esophageal screen - Mild esophageal retention with min retrograde flow. Trace SILENT aspiration of residues remaining on the vocal folds from previous trials. Thin Liquid via sequential sips:straw: Result: 8= enters airway/below vocal folds/no effort Comment: HEADLINER INSTALLER cued cough and re-swallow, which was minimally effective in clearing contrast. Thin Liquid via small single sip: cup Effortful swallow: Result: 1= does not enter airway Thin Liquid via small single sip: cup Effortful swallow Trial 2: Result: 1= does not enter airway Oral Phase Labial Seal: Interlabial escape, no progression to anterior lip Tongue Control During Bolus Hold: Posterior escape of less than half of bolus (thin liquids via sequential sips by straw) Bolus Transport/Lingual Motion: Delayed initiation of tongue motion Oral Residue: Majority of bolus remaining (piecemeal deglutition of pudding by tsp requiring multiple swallows to clear) Pharyngeal Phase Initiation of Pharyngeal Swallow: Bolus head at posterior laryngeal surgace of epiglottis (thin liquid via straw) Soft Palate Elevation: No bolus between soft palate and pharyngeal wall Laryngeal Elevation: Partial superior movement thyroid cart/partial apprx aryt-epig petiole Anterior Hyoid Excursion: Partial anterior movement Epiglottic Movement: Partial inversion Laryngeal Vestibule Closure at Height of Swallow: Incomplete; narrow column of air/contrast in laryngeal vestibule Pharyngeal Stripping Wave: Present - diminished Pharyngoesophageal Segment Opening: Parital distension and partial duration; parital obstruction of flow Tongue Base Retraction: Narrow column of contrast between tongue base & post. pharyngeal wall Pharyngeal Residue: Collection of residue within or on pharyngeal structures Esophageal Phase Esophageal Clearance: Esophageal retention w/ retrograde flow below pharyngoesophageal seg. Diagnosis/Impression Diagnosis: Mild-moderate oropharyngeal dysphagia R13.12 Impression: The oral phase is primarily marked by... -Decreased bolus control with <1/2 of the bolus spilling posteriorly to the posterior surface of the epiglottis prior to swallow onset observed with thin liquids via straw. -Mildly delayed tongue motion for A-P transport. -Piecemeal deglutition with pudding requiring multiple swallows to mostly clear the oral cavity. The pharyngeal phase is primarily marked by... -Decreased airway closure during the swallow due to decreased anterior hyoid excursion, partial epiglottic inversion, and decreased laryngeal elevation. -Moderately-severely decreased tongue base retraction, severely decreased UES opening/duration, and no pharyngeal stripping wave with resulting moderate-severe pharyngeal residues after the swallow. -Silent aspiration of thin liquids by straw. Trace silent post prandial aspiration of residues in the laryngeal vestibule seen during pudding trial. Deep laryngeal penetration of thin liquids via tsp and cup, no cough reflex. Use of small cup sips with effortful swallow was effective in decreasing risk for aspiration. HEADLINER INSTALLER discussed with the patient that thickened liquid trials did not result in aspiration; however, the HEADLINER INSTALLER is recommending to continue with thin liquids with use of compensatory strategies rather than a downgrade to thickener due to diagnosis of dehydration. Will watch respiratory status closely. Recommendations Diet: Mechanical Soft Textures (Soft and bite size textures - IDDSI Level 6) and Thin Liquids Comment: Medications crushed in applesauce, oral care after meals with removal of dentures, check for pocketing. Compensatory Strategies: Small Bites, Small Sips (Effortful swallows), No Straws, Slow Rate (Sips one at a time), Alternate bites/solids and sips/liquids, Sitting upright and Remain sitting upright for 30 minutes after PO intake Supervision: 1:1 Close Supervision Recommend Repeat Modified Barium Swallow: TBD Need for Skilled Speech Therapy Services: Yes Comment: -Monitor diet tolerance and train in recommended diet textures and aspiration precautions. Will monitor respiratory status closely when assessing diet tolerance. -Train in use of oropharyngeal exercises to promote improved tongue base retraction, hyolaryngeal elevation/excursion, pharyngeal stripping wave, and UES opening/duration. Education Completed: 1. Described result of evaluation. and 2. Pt understands evaluation & agrees with goals and treatment plan. Status Active ST Patient: Active Contact Information [facility] Speech Therapy:: Ratna Wilhelm M.A. [facility]-HEADLINER INSTALLER Speech-Language Pathologist [facility] Discharge Plan Admission Admit Date/Time: 07/03/23 14:23 Attending Provider: Luzmaria Hollis Primary Care Provider: GONZÁLEZ MANCINI Consulting Providers: Ck Kong Discharge Orders/Prescriptions Prescriptions: No Action anastrozole 1 mg tablet 1 mg PO DAILY amlodipine 2.5 mg tablet 2.5 mg PO BID metoprolol succinate 25 mg tablet extended release 24 hr 25 mg PO BID albuterol sulfate [Ventolin HFA] 90 mcg/actuation HFA aerosol inhaler 2 puff INHALATION PRN Patient Comments: INHALE 2 PUFFS BY MOUTH EVERY 4 HOURS NEEDED FOR WHEEZING or SHORTNESS OF BREATH loratadine 10 mg tablet 10 mg PO DAILY Patient Comments: TAKE 1 TABLET BY MOUTH NIGHTLY Trelegy Ellipta 100-62.5-25 mcg blister with device 1 inh INHALATION BID Patient Comments: INHALE 1 PUFF DIRECTED EVERY DAY Referrals / Follow Up: GONZÁLEZ MANCINI [Other] Carlos Eduardo Toledo MD [Med Staff - Active Staff] - 08/28/23 7:15 am Librado Corrigan MD [Med Staff - Courtesy Staff] - 09/02/23 1:30 pm ( )
--- NOTE | 2023-07-12 16:32 | CASEMGMT ---
SW checked with [employer] and they are trying to obtain a pending number for SW. Shawna Brown SCANNING TECH HAND CANDY CUTTER
--- NOTE | 2023-07-12 16:52 | PN.HOSP_ITS ---
Reason for Visit Reason for Visit: CONFUSION Subjective Subjective Was some worsening confusion than her typical last night. She has been having some sundowning. Her room was moved and I suspect this made it worse as well. Highly suspect she has mild cognitive impairment versus mild dementia. Workup was completely unremarkable. Patient has no complaints at this time. Appetite has significantly improved. Objective Data Objective Data Vital Signs: Vital Signs Temp Pulse Resp BP Pulse Ox O2 Del Method O2 Flow Rate 97.1 F L 92 14 113/64 96 Room Air 2 07/12/23 14:51 07/12/23 14:51 07/12/23 14:51 07/12/23 14:51 07/12/23 14:51 07/12/23 14:51 07/03/23 07:49 Oxygen Flow Rate (L/min) 2 Oxygen Delivery Method Room Air Weight: 30.9 kg Body Mass Index (BMI) 12.4 Intake & Output: Intake and Output for Last 24 Hours 07/10/23 07/11/23 07/12/23 23:59 23:59 23:59 Intake Total 120 / 320 740 / 740 200 / 200 Balance 120 / 320 740 / 740 200 / 200 Medical Nutrition Assessment Dietitian: Malnutrition Criteria Met Start: 07/01/23 10:2 7 Freq: Status: Active Protocol: Document 07/08/23 12:40 (Rec: 07/08/23 12:40 [id number]) Nutrition Malnutrition Evidence of Malnutrition Exists Yes Malnutrition (severe): Chronic Evidenced By Suboptimal Energy Intake ( Severe),Physical Changes ( Severe) Clinical Problem Chronic Disease or Condition Related Malnutrition Etiology severe, chronic malnutrition related to inadequate energy intake Signs/Symptoms as evidenced by estimated PO intake meeting <75% of estimated energy needs > 3 months, severe muscle wasting/ fat loss evident per physical exam in orbital, clavicle, acromion, and temporal areas, BMI 12.5 Status Active Problem Recommendation Dietitian Recommendations/Changes 1) Continue regular diet, fortified foods and magic cup w/ dinner; ensure plus high protein 120mL 4x/day or Ensure Clear 4x in between meals. 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 2) Continue to monitor electrolytes given risk for refeeding. Daily wts. Lab / Micro Data 07/12/23 10:30 07/12/23 10:30 Labs: Laboratory Results - last 24 hr 07/12/23 05:48: Urine Color Yellow, Urine Clarity Clear, Urine pH 6.0, Ur Specific Grant 1.020, Urine Protein 15 H, Urine Glucose (UA) Normal, Urine Ketones Negative, Urine Occult Blood Negative, Urine Nitrite Negative, Urine Bilirubin Negative, Urine Urobilinogen Normal, Ur Leukocyte Esterase 25 H, Urine RBC 0 SEEN, Urine WBC 0 SEEN, Ur Squamous Epith Cells 0 SEEN, Urine Bacteria 0 SEEN, Urine Mucus 0 SEEN 07/12/23 10:30: WBC 8.4, RBC 3.32 L, Hgb 9.8 L, Hct 32.2 L, MCV 97.0, MCH 29.5, MCHC 30.4 L, RDW Std Deviation 54.3 H, RDW Coeff of Kriss 15.4 H, Plt Count 345, MPV 10.3, Immature Gran % (Auto) 0.400, Neut % (Auto) 75.5 H, Lymph % (Auto) 15.2 L, Rooks % (Auto) 5.6, Eos % (Auto) 3.1, Baso % (Auto) 0.2, Absolute Neuts (auto) 6.4, Absolute Lymphs (auto) 1.28, Nucleated RBC % 0, Sodium 137, Potassium 4.1, Chloride 107, Carbon Dioxide 26.0, Anion Gap 4 L, BUN 16, Creatinine 0.26 L, Estim Creat Clear Calc 24.44, Est GFR (MDRD) Af Amer 324, Est GFR (MDRD) Non-Af 268, BUN/Creatinine Ratio 60.6 H, Glucose 93, Calcium 9.4, Total Bilirubin 0.40, AST 18, ALT 39, Alkaline Phosphatase 143 H, Ammonia < 10.0 L, Total Protein 7.0, Albumin 2.6 L, Globulin 4.4 H, Albumin/Globulin Ratio 0.6 L, Vitamin D 25-Hydroxy 36.8 Micro: Microbiology 07/02/23 08:55 Blood Culture (Wb) - Left Hand Blood Culture - Final No growth in 5 days. 07/02/23 08:50 Blood Culture (Wb) - Anticubital Left Blood Culture - Final No growth in 5 days. 06/30/23 11:09 Nasal Secretion SARS-CoV-2 & FLU Antigen (Rapid) - Final ABG Data ABG results: ABG 07/12/23 13:52 Specimen Type ART Sample Site R Radial pH 7.43 Bicarbonate Actual 26.2 H Total CO2 27 Base Excess 2 O2 Saturation 93 L ABG pCO2 39.8 ABG pO2 64 L Jaylon Test Positive O2 Delivery Device Room Air Vent Mode Not entered Radiography Diagnostic Testing: Radiology Impression Brain CT 07/12/23 09:21 IMPRESSION: No acute intracranial process identified. Unchanged size of ventricles in shunt patient. Chronic involutional and white matter changes. 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 Electronically Signed: Ofelia Willingham MD at 10:35 EST , Physical Exam Const alert and no apparent distress; Negative for average body habitus, healthy appearing or well nourished Constitutional Narrative: Cachectic, white female who appears much older than age stated age, lying in bed, appears comfortable and nontoxic, oriented to self, place intermittently, and month but not year she was able to tell me it was 24 but then told me it was 1925 HEENT head/scalp atraumatic and moist oral mucous membranes HEENT Narrative: Mallampati 1, no thrush Head and Scalp: normocephalic Neck no lymphadenopathy and supple Neck Narrative: Trachea midline, thyroid is enlarged Resp normal respiratory effort, no retractions, no use of accessory muscles and clear to auscultation bilaterally Resp Narrative: Diffusely diminished but clear Auscultation: Negative for rales, rhonchi or wheezes Cardio regular rate, regular rhythm, S1 normal heart sound, S2 normal heart sound, no murmurs, no rub, no gallops and no clicks GI normal to inspection, nondistended, normoactive bowel sounds, soft to palpation, non-tender and non-distended GI Narrative: Scaphoid abdomen Extremity normal to inspection and no clubbing, cyanosis or edema Extremity Narrative: Pedal pulses are 2+, significant decrease in muscle mass Skin no rashes or lesions noted, skin turgor normal, no jaundice, no petechiae and no mottling Skin Narrative: Skin is thin and fragile Neuro oriented x3, moves all extremities and no focal motor deficits Sensorium / Orientation: awake, alert, oriented to person and oriented to place Speech: speech normal Psych affect normal Psych Narrative: Tracks appropriately, much less depressed, eye contact is good Mood & Affect: anxious Assessment & Plan Assessment/Plan (1) Dysphagia: (2) Hyperthyroidism: (3) Depression: (4) Severe protein-calorie malnutrition: (5) Failure to thrive: PLAN: Plan Adult failure to thrive -Has been alert and oriented x 4 since I started seeing her on 07/03/2023 -Some confusion this morning however the patient did not sleep well last night -Obtain CBC, CMP, ammonia level, ABG, and got a head CT -All workup was unremarkable so I suspect this is likely related to some delirium due to lack of sleep and underlying mild cognitive impairment versus mild dementia -He needs are still too great to return to assisted living -Plan is for ECF once we obtain a Medicaid pending number but unfortunately this will not be able to be performed at until Saturday now -Suspect thyroid issues are significantly contributing -B12 level was 416 -Folate was 18.7 -Continue PT/OT Dysphagia -MBS done 07/04/2023 and mild to moderate oropharyngeal dysphagia noted -Diet recommendations are mechanical soft with soft and bite-size textures and thin liquids -Meds are to be crushed in applesauce with oral care after meals and removal of dentures to check for pocketing -Small bites with small sips, no straws, slow rate and alternate bites of solids and liquids with remaining upright 30 minutes after p.o. intake was recommended -She is to have one-on-one close supervision while eating -Repeat modified barium swallow is to be performed at speech therapy's discretion after treatment -Ongoing speech therapy -Unfortunately these needs preclude her from returning to assisted living and she will need skilled placement -Discussed case with speech therapy to see if she is improved at all that we could remove some of the restrictions and they feel she still needs the restrictions at discharge so she will need to go to ECF Elevated troponin level -Significance is uncertain -May be related to hypothyroidism -Stress test was unremarkable -Echo was unremarkable BNP elevation -Suspect related to 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 -Currently remains stable Severe malnutrition with suspected refeeding syndrome -Malnutrition issues are multifactorial -Continue Remeron -Patient states her appetite seems to be moving -Thyroid issues likely playing an factor -Dietitian is following -Continue liberalized diet and supplements -Continue multivitamin Hyperthyroidism secondary to Graves' disease -Patient has history of hypothyroid documented however had not been taking methimazole from what we can tell -TSH was undetectable -Free T4 and T3 were elevated -Methimazole restarted on the -Free T4 is trending towards normal--> most recent free T4 is 1.78 which had trended down from 7.04 on admission -Will need follow-up with endocrinology after discharge--> discussed case with Andrea Corrigan and she will get her in shortly after discharge for follow-up -Thyroid is currently enlarged will need continued monitoring with outpatient follow-up after she has been on therapeutic methimazole for some time -If remains enlarged despite normalizing thyroid function, may need imaging Toxic/metabolic encephalopathy -Slightly confused today however did not sleep well last night -Workup as noted above was unremarkable -Mental status is stable -Once she is optimized from a thyroid standpoint she will need neurocognitive testing to rule out any signs of dementia -I do highly suspect the patient may have some baseline mild cognitive impairment versus mild dementia -Will start Risperdal 1 mg nightly Debility/generalized weakness -Continue PT/OT/speech therapy History of intracranial hemorrhage -Status post BIODIESEL PLANT MANAGER shunt -No acute issues -CT of the brain was unremarkable Tobacco abuse -Recommend ongoing cessation Depression -Continue Remeron 15 mg nightly DVT prophylaxis -Chemoprophylaxis held on admission due to history of intracranial hemorrhage as etiology was unclear -SCDs in place CODE STATUS -DNR CCA with no intubation Disposition -Patient has been accepted at [facility] for ECF placement however we are awaiting Medicaid pending number. This has not yet been obtained and the company used to be open over the weekend however they are not open now over the weekend so she will not be able to be discharged at least until Saturday. Charges/Coding Visit Charges Inpatient E&M: 61570 Subs Hosp L2
--- NOTE | 2023-07-12 16:55 | CASEMGMT ---
SW has not received a pending Medicaid number yet. SW cannot obtain a level of care from [facility] until SW has a pending number. SW called [facility] and there is no longer weekend coverage. SW will be unable to get a level of care or pending Medicaid number over the weekend. SW notified physician that patient will be here through the weekend. SW also called patient's niece Scarlet and let her know this as well. Plan: [facility] pending receipt of pending Medicaid number and level of care from [facility]. Shawna Brown THERMOMETER TESTER CINDY
--- NOTE | 2023-07-12 18:04 | CASEMGMT ---
Laura from [facility] said SW does not need a level of care to send patient. did obtain a pending Medicaid number [id number]. Green sheet on chart for discharge Saturday. SW called patient's niece Scarlet and let her know this information. Physician was also notified. Plan: d/c to [facility] under intermediate level of care on a PASRR. Physicians will transport patient. Shawna WHITE
[2023-07-12] MEDS: Ensure Clear 120 ML Liquid PO (22:19)
[2023-07-12] MEDS: RisperiDONE 1 MG Tablet PO (22:20)
[2023-07-12] MEDS: Mirtazapine 15 MG Tablet PO (22:21)
[2023-07-13 03:00] VITALS: BP 130/84; PULSE 95; RESP 17; TEMP 36.6; O2SAT 96
[2023-07-13 06:57] VITALS: PULSE 74; RESP 16
[2023-07-13] MEDS: Ipratropium/Albuterol Sulfate 3 ML AMPUL.NEB INHALATION (07:00)
[2023-07-13] MEDS: Budesonide Respules 0.5 MG/2 ML AMPUL.NEB. INHALATION (07:00)
[2023-07-13 09:00] VITALS: BP 106/68; PULSE 85; RESP 14; TEMP 36.4; O2SAT 95
[2023-07-13] MEDS: Anastrozole 1 MG TABLET PO (10:04)
[2023-07-13] MEDS: Methimazole 5 MG Tablet 10 MG PO (10:04)
[2023-07-13] MEDS: Multivitamins,Therapeutic Tablet 1 TABLET PO (10:05)
[2023-07-13] MEDS: Menthol/Lanolin/Calamine/Znox 113 GM Tube 1 APPLIC TOPICAL (10:05)
[2023-07-13] MEDS: Aspirin 81 MG TAB.CHEW PO (10:05)
[2023-07-13] MEDS: Loratadine 10 MG Tablet PO (10:06)
[2023-07-13] MEDS: Ensure Plus High Protein 120 ML LIQUID PO (10:06)
--- NOTE | 2023-07-13 13:28 | PCM.DC.SUM ---
Providers Date of Admission: 06/30/23 Date of Discharge: 07/13/23 Primary Care Physician: GONZÁLEZ MANCINI Reason For Visit: MALNUTRITION Diagnosis Discharge Diagnosis (1) Dysphagia: Status: Acute Code(s): R13.10 - Dysphagia, unspecified (2) Hyperthyroidism: Status: Acute Code(s): E05.90 - Thyrotoxicosis, unspecified without thyrotoxic crisis or storm (3) Depression: Status: Acute Code(s): F32.A - Depression, unspecified (4) Severe protein-calorie malnutrition: Status: Acute Code(s): E43 - Unspecified severe protein-calorie malnutrition (5) Failure to thrive: Status: Acute Medications at Discharge Home Medications amlodipine 2.5 mg tablet 2.5 mg PO BID 06/30/23 anastrozole 1 mg tablet 1 mg PO DAILY 06/30/23 fluticasone fur. 100 mcg-umeclid 62.5 mcg-vilant 25 mcg inhalat.powder (Trelegy Ellipta) 1 inh inhalation BID 06/30/23 loratadine 10 mg tablet 10 mg PO DAILY 06/30/23 metoprolol succinate 25 mg tablet,extended release 24 hr 25 mg PO BID htn 06/30/23 acetaminophen 325 mg tablet 650 mg (2 x 325 mg) PO Q6H PRN PRN Pain 1-10 Or Fever>100.7 #0 tabs 07/12/23 albuterol sulfate 2.5 mg/3 mL (0.083 %) solution for nebulization 2.5 mg (3 mL) inhalation Q2H PRN PRN Wheezing #75 mL 07/12/23 food supplemt, lactose-reduced 0.08 gram-1.5 kcal/mL oral liquid (Ensure Plus High Protein) 120 ml PO 4X/DAY #0 mL 07/12/23 ipratropium 0.5 mg-albuterol 3 mg (2.5 mg base)/3 mL nebulization soln 3 ml inhalation Q6HWA.RT #0 mL 07/12/23 menthol 0.44 %-zinc oxide 20.6 % topical ointment (Calmoseptine) 1 applic topical BID #0 grams 07/12/23 methimazole 5 mg tablet 10 mg (2 x 5 mg) PO DAILY #0 tabs 07/12/23 mirtazapine 15 mg tablet 15 mg PO QHS #0 tabs 07/12/23 multivitamin 1 tab PO BREAKFAST #0 tabs 07/12/23 risperidone 1 mg tablet 1 mg PO QHS #0 tabs 07/12/23 Hospital Course Operations None Procedures EKG, Stress test and - (CT brain x 2/chest x-ray/modified barium swallow) Summary of Care Provided Minutes Spent on Discharge: 45 Hospital Course: Mrs. Hutchins is a 72-year-old white female who presented from the assisted living facility at which she resides for confusion. On presentation, she was completely alert and oriented x with only slight confusion on time stating the year was 2019 but did note was the day prior to . The patient denied any confusion on presentation and evidently had COVID about a week and a half prior to presentation. She complained of some recent diarrhea and difficulty swallowing. She had no falls or recent trauma and noted that symptoms started about 2 days prior to presentation. Her overall review of systems was fairly unremarkable. Vital signs on presentation showed that she was afebrile, heart rate was 117, respiratory rate was 20, blood pressure was 134/62 and oxygen saturation was 95% on room air. Her CBC showed a hemoglobin of 10.7 but was otherwise unremarkable. An ABG was performed and was unremarkable. Her chemistry panel demonstrated a normal sodium but significant hypokalemia with a potassium of 2.9, she appeared dehydrated given her markedly low BMI of 13.6 having a BUN of 32 and a serum creatinine of 0.65. Her glucose was normal 87, calcium was normal and troponin was normal. Her BNP was markedly elevated at 1144. Her TSH was undetectable with a free T4 of 7.04 and a free T3 of 21.5 she evidently has a history of hyperthyroidism but was not taking her methimazole. She was also recent beta evan at 25 mg p.o. twice daily cardiac enzymes were cycled and she had a max of 107. Echocardiogram was found to be unremarkable with EF of 60 to 65%, stage I diastolic function, structurally normal valves with no previous echo for comparison. Stress test was obtained and found to be negative. Her methimazole was reinitiated at 10 mg daily, given these findings. Her heart rates improved with the addition of the methimazole and the beta-evan. Her free T4 had trended down and prior to discharge was 1.76 down from 7.04 on admission. We have set up follow-up with endocrinology, Dr. Corrigan, and I talked to Dr. Corrigan with regards to the patient and we have set up follow-up after discharge. She has had persistently low potassium levels which have been replaced and finally have stabilized. She was found to be severely malnourished and placed on supplementations as well as a liberalize diet. I suspect her BNP was markedly elevated due to high-output heart failure with her thyroid abnormalities. She had no signs or symptoms of heart failure during her hospitalization. She did complain of swallowing difficulties on presentation this was so far thought to be related to thrush and she was placed on nystatin swish and swallow. Speech therapy was consulted and evaluated the patient and recommended modified barium swallow. This was performed and the patient was found to have mild to moderate oropharyngeal dysphagia. A mechanical soft and thin liquid diet was recommended however her medications were to be crushed in applesauce and she was to have oral care after meals with removal of her dentures checking for pocketing. Compensatory strategies of small bites, small sips, no straws, slow rate, alternate bites and solids and sips and liquids along with sitting upright and remaining upright for 30 minutes after p.o. intake were recommended as well. They also recommended her supervision be one-on-one. We checked with the assisted living facility with regards to these restrictions to her p.o. intake and they were not able to provide the support or ongoing speech therapy that she would require after discharge so we pursued intermediate facility placement. Unfortunately her insurance denied this indicating that she did not have enough skilled need to go to a nursing facility. Case management and social work then worked with the family and obtaining a pending Medicaid number so she can go as an ECF resident until her strength improved enough to revert back to assisted living. Her appetite overall did improve throughout her hospitalization. We did start Remeron 15 mg nightly to help with appetite stimulation and depression. She did have intermittent confusion throughout her hospital stay. This persisted even after her thyroid dysfunction was improving. I highly suspect she may have some baseline mild cognitive impairment versus mild dementia however we are unable to fully diagnose this until her thyroid is stabilized. I would recommend neurocognitive testing after her thyroid is stabilized as an outpatient. In addition to the Remeron she was placed on Risperdal at night to to help with her ing. This seemed to help her dramatically. She was able to be discharged to SNF in [facility] on 07/13/2023 in stable condition. Will need ongoing physical, occupational, and speech therapy. Discharge diagnoses: Adult failure to thrive Mild to moderate oropharyngeal phase dysphagia Elevated troponin-negative stress test BNP elevation-related to hyperthyroidism Severe malnutrition Electrolyte abnormalities-resolved Hyperthyroidism secondary to Graves' disease Toxic/metabolic encephalopathy Debility Generalized weakness History of intracranial hemorrhage Tobacco abuse Depression Suspected mild cognitive impairment versus dementia Physical Exam Narrative Patient states she is feeling well and slept much better last night. Const alert, oriented x3 and no apparent distress; Negative for average body habitus, healthy appearing or well nourished Constitutional Narrative: Cachectic, white female who appears much older than age stated age, lying in bed in left side-lying, appears comfortable and awakens easily and interacts normally today General Appearance: cooperative, comfortable, well kempt and well developed Orientation / Consciousness: awake, oriented to person, oriented to place and oriented to time Exam Limitations: no limitations Nutritional Appearance: cachectic HEENT normocephalic, head/scalp atraumatic, hearing grossly normal bilaterally and moist oral mucous membranes HEENT Narrative: Dentures in place, Mallampati is 1, no thrush Eyes PERRL, EOMs intact bilaterally and conjunctivae normal Eyes Narrative: No scleral icterus Neck no lymphadenopathy and supple Neck Narrative: Trachea midline, thyroid is enlarged Resp normal respiratory effort, no retractions, no use of accessory muscles and clear to auscultation bilaterally Resp Narrative: Diffusely diminished but clear Auscultation: Negative for rales, rhonchi or wheezes Cardio regular rate, regular rhythm, S1 normal heart sound, S2 normal heart sound, no murmurs, no rub, no gallops and no clicks GI normal to inspection, nondistended, normoactive bowel sounds, soft to palpation, non-tender and non-distended GI Narrative: Scaphoid abdomen Extremity normal to inspection and no clubbing, cyanosis or edema Extremity Narrative: Pedal pulses are 2+, significant decrease in muscle mass Skin no rashes or lesions noted, skin turgor normal, no jaundice, no petechiae and no mottling Skin Narrative: Skin is thin and fragile Neuro oriented x3, CN's II-XII intact bilaterally, moves all extremities and no focal motor deficits Neuro Narrative: Mild to moderate generalized weakness noted proximal greater than distal Sensorium / Orientation: awake, alert, oriented to person, oriented to place and oriented to time Speech: speech normal Psych affect normal Psych Narrative: Eye contact is good, interacts appropriately, mood seems stable Medical Records Data Medical Nutrition Assessment Dietitian: Malnutrition Criteria Met Start: 07/01/23 10:27 Freq: Status: Active Protocol: Document 07/08/23 12:40 LO (Rec: 07/08/23 12:40 LO [id number]) Nutrition Malnutrition Evidence of Malnutrition Exists Yes Malnutrition (severe): Chronic Evidenced By Suboptimal Energy Intake ( Severe),Physical Changes ( Severe) Clinical Problem Chronic Disease or Condition Related Malnutrition Etiology severe, chronic malnutrition related to inadequate energy intake Signs/Symptoms as evidenced by estimated PO intake meeting <75% of estimated energy needs > 3 months, severe muscle wasting/ fat loss evident per physical exam in orbital, clavicle, acromion, and temporal areas, BMI 12.5 Status Active Problem Recommendation Dietitian Recommendations/Changes 1) Continue regular diet, fortified foods and magic cup w/ dinner; ensure plus high protein 120mL 4x/day or Ensure Clear 4x in between meals. Texture/consistency modifications per [employer]. 2) Continue to monitor electrolytes given risk for refeeding. Daily wts. Weight / BMI Weight Weight: 30.9 kg Body Mass Index (BMI) 12.4 ABG / Lab / Microbiology Data 07/12/23 10:30 07/12/23 10:30 Laboratory: Laboratory Results - last 24 hr 07/12/23 10:30: Vitamin D 25-Hydroxy 36.8 Microbiology: Microbiology 07/02/23 08:55 Blood Culture (Wb) - Left Hand Blood Culture - Final No growth in 5 days. 07/02/23 08:50 Blood Culture (Wb) - Anticubital Left Blood Culture - Final No growth in 5 days. 06/30/23 11:09 Nasal Secretion SARS-CoV-2 & FLU Antigen (Rapid) - Final ABG: ABG 07/12/23 13:52 Specimen Type ART Sample Site R Radial pH 7.43 Bicarbonate Actual 26.2 H Total CO2 27 Base Excess 2 O2 Saturation 93 L ABG pCO2 39.8 ABG pO2 64 L Jaylon Test Positive O2 Delivery Device Room Air Vent Mode Not entered D/C Instructions Discharge Diet: Swallowing Precautions Meaningful Use Info Meaningful Use Diagnoses (Choose all that apply): None applicable Discharge Plan Admission Admit Date/Time: 07/03/23 14:23 Primary Reason for Your Visit: confusion Attending Provider: Luzmaria Hollis Primary Care Provider: GONZÁLEZ MANCINI Consulting Providers: Ck Kong Instructions Additional Instructions / Restrictions: 1. I do highly suspect patient has some baseline cognitive impairment or dementia and she will need evaluated with a neurocognitive evaluation after her thyroid is stabilized. She has evidence of sundowning and intermittent confusion. Medical workup has been negative. 2. Please call Dr. Talat Corrigan with any questions regarding her thyroid. She will need a repeat TSH in 4 weeks. Discharge Orders/Prescriptions Prescriptions: New multivitamin Tablet 1 tab PO BREAKFAST Qty: 0 0RF acetaminophen 325 mg Tablet 650 mg PO Q6H PRN PRN (Reason: Pain 1-10 Or Fever>100.7) Qty: 0 0RF ipratropium-albuterol 0.5 mg-3 mg(2.5 mg base)/3 mL Solution For Nebulization 3 ml inhalation Q6HWA.RT Qty: 0 0RF albuterol sulfate 2.5 mg /3 mL (0.083 %) Solution For Nebulization 2.5 mg inhalation Q2H PRN PRN (Reason: Wheezing) Qty: 75 0RF methimazole 5 mg Tablet 10 mg PO DAILY Qty: 0 0RF mirtazapine 15 mg Tablet 15 mg PO QHS Qty: 0 0RF risperidone 1 mg Tablet 1 mg PO QHS Qty: 0 0RF menthol-zinc oxide [Calmoseptine] 0.44-20.6 % Ointment 1 applic topical BID Qty: 0 0RF Protocol: *Topical Application Instructions APPLICATION INSTRUCTIONS: buttocks, coccyx Ensure Plus High Protein 0.08 gram-1.5 kcal/mL Liquid 120 ml PO 4X/DAY Qty: 0 0RF Continued anastrozole 1 mg tablet 1 mg PO DAILY amlodipine 2.5 mg tablet 2.5 mg PO BID metoprolol succinate 25 mg tablet extended release 24 hr 25 mg PO BID loratadine 10 mg tablet 10 mg PO DAILY Patient Comments: TAKE 1 TABLET BY MOUTH NIGHTLY Trelegy Ellipta 100-62.5-25 mcg blister with device 1 inh INHALATION BID Patient Comments: INHALE 1 PUFF DIRECTED EVERY DAY Discontinued albuterol sulfate [Ventolin HFA] 90 mcg/actuation HFA aerosol inhaler 2 puff INHALATION PRN Patient Comments: INHALE 2 PUFFS BY MOUTH EVERY 4 HOURS NEEDED FOR WHEEZING or SHORTNESS OF BREATH Referrals / Follow Up: GONZÁLEZ MANCINI [Other] - See Referral Note (Within 1 to 2 weeks after discharge from nursing facility) Carlos Eduardo Toledo MD [Med Staff - Active Staff] - 08/28/23 7:15 am Librado Corrigan MD [Med Staff - Courtesy Staff] - 09/02/23 1:30 pm ( ) Disposition Disposition (needs filled in before D/C Order can be placed): NonSkilled NH/Intermed Care Charges/Coding Visit Charges Inpatient E&M: 88872 SNF Disch >30 Min
--- NOTE | 2023-07-13 13:43 | NURSING ---
I spoke with Scarlet pt's niece to inform her that the pt will be picked up at 1500 to go to [facility].
== END 2023-07-13 15:08 | disposition intermediate care facility (04) | DRG 643 ==
LOC: ED 10:57 → MS3 12:44 → PCU 07-01 15:26
PROVIDERS: Internal Medicine; Emergency Provider Emergency Medicine; Visit Provider Internal Medicine
DX: E05.00 Thyrotoxicosis with diffuse goiter without thyrotoxic crisis or storm (principal); E43 Unspecified severe protein-calorie malnutrition; G92.8 Other toxic encephalopathy; I43 Cardiomyopathy in diseases classified elsewhere; B37.0 Candidal stomatitis; F03.A18 Unspecified dementia, mild, with other behavioral disturbance; Z68.1 Body mass index [BMI] 19.9 or less, adult; I50.83 High output heart failure; E86.0 Dehydration; J44.9 Chronic obstructive pulmonary disease, unspecified; F32.A Depression, unspecified; E78.5 Hyperlipidemia, unspecified; E87.6 Hypokalemia; F17.210 Nicotine dependence, cigarettes, uncomplicated; R62.7 Adult failure to thrive; R53.81 Other malaise; R79.89 Other specified abnormal findings of blood chemistry; R13.12 Dysphagia, oropharyngeal phase; Z98.2 Presence of cerebrospinal fluid drainage device; R09.02 Hypoxemia; Z66 Do not resuscitate; Z20.822 Contact with and (suspected) exposure to COVID-19; Z79.899 Other long term (current) drug therapy; Z86.16 Personal history of COVID-19
CPT/HCPCS: 36415; 36600; 70450; 71045; 74230; 78452; 80048; 80053; 81001; 82140; 82306; 82607; 82746; 82803; 83735; 83880; 84100; 84439; 84443; 84481; 84484; 85025; 87040; 87428; 92507; 92526; 92610; 92611; 93005; 93017; 93306; 94640; 94668; 97110; 97112; 97116; 97162; 97166; 97530; 97535; 97802; 97803; 99285; A9500; J7030; J7040; A4216; J1940; J2405; J2785

== ENCOUNTER → 2023-07-15 | Outpatient (REF) | payer MEDICARE, SELFPAY ==
[2023-07-15 09:17] LABS: Absolute Neutrophil Count 2.9 X10^3/uL (2.0-7.7); Basophil# 0.02 X10^3/uL; Basophil% 0.4 % (0-1); Eosinophil# 0.45 X10^3/uL; Eosinophils% 7.9 % (0-5); Hematocrit 31.4 % (37-47); Hemoglobin 9.6 g/dL (12.0-15.0); Lymphocyte % 31.6 % (19-41); Mean Corp Hgb Conc 30.6 g/dL (32-36); Mean Corpuscular Hgb 30.4 pg (27.0-32.0); Mean Corpuscular Volume 99.4 fL (81-99); Mean Platelet Vol. 11.5 fl (6.2-12.0); Monocyte# 0.52 X10^3/uL; Monocyte% 9.1 % (0-10); NRBC Flagged by Analyzer 0 % (0-5); Neutrophil # 2.89 X10^3/uL (2.7-7.7); Neutrophil % 50.6 % (47-70); Platelet Count 333 K/mm3 (150-450); RBC Distribution Width CV 15.5 % (11.6-14.6); RBC Distribution Width SD 56.6 fl (35.1-43.9); Red Blood Count 3.16 M/mm3 (4.2-5.4); White Blood Count 5.7 K/mm3 (4.4-11.0)
[2023-07-15 09:31] LABS: Vitamin B12 372 pg/mL (211-911); Vitamin D,25 Hydroxy 44.7 ng/mL
[2023-07-15 10:28] LABS: Anion Gap 6 (5-15); BUN 29 mg/dL (7-18); Chloride 111 mmol/L (98-107); EST Glomerular Filtration Rate 232 mL/min (>60); Est Glom Filt Rate - Afr Amer 281 mL/min (>60); Glucose 74 mg/dL (74-106); Magnesium 2.2 mg/dL (1.6-2.6); Potassium 4.4 mmol/L (3.5-5.1); Sodium Level 142 mmol/L (136-145); Thyroid Stim Hormone (TSH) < 0.01 uIU/mL (0.358-3.74)
== END ==
LOC: OLS.SW 04:00
PROVIDERS: Referring Provider Internal Medicine; Visit Provider Internal Medicine
DX: Z02.2 Encounter for examination for admission to residential institution (principal); E05.90 Thyrotoxicosis, unspecified without thyrotoxic crisis or storm; F32.A Depression, unspecified
CPT/HCPCS: 36415; 80048; 82306; 82607; 83735; 84443; 85025

== ENCOUNTER → 2023-07-17 | Outpatient (REF) | payer MEDICARE, SELFPAY ==
--- OUTSIDE RECORDS SUMMARY | 2023-07-17 08:25 | XMS RPT_ITS | CCD ---
Author Name Unknown Address [address] [place] [address] Organization [facility] Care Team Providers Care Passport Support Manager Name Role Phone Doncals, Floridalma Unavailable Unavailable PROVIDER, UNKNOWN Unavailable Unavailable Dino, Heron Unavailable Unavailable Doncals, Floridalma Unavailable Unavailable PROVIDER, UNKNOWN Unavailable Unavailable Dino, Heron Unavailable Unavailable Bartolome LEON, Pee E Unavailable Bartolome LEON, Pee E Unavailable [phone] Heron Sun MD Primary Care Provider [phone] Bartolome LEON, Pee E Unavailable Bartolome LEON, Pee E Unavailable Dino LEON, Heron Primary Care Provider Bartolome LEON, Pee E Unavailable [phone] Bartolome LEON, Pee E Unavailable Heron Sun MD Primary Care Provider [phone] Heron Sun MD Primary Care Provider NORA PEDRO Referring Unavailable DINO, HERON Primary Care Unavailable DINO, HERON Primary Care Unavailable HASAN, JANKI Referring Unavailable DINO, HERON Primary Care Unavailable HASAN, JANKI Referring Unavailable DINO, HERON Primary Care Unavailable RAGINI MCGEE Referring Unavailable DINO, HERON Primary Care Unavailable Dino LEON, Heron Primary Care Provider [phone] DINO HERON Referring Unavailable NORA PEDRO Attending [...] to adverse reactions to drug 06-28-2010 Unknown [facility] Work Phone: (15 sources) Penicillins Propensity to adverse reactions to drug 06-28-2010 Unknown [facility] Work Phone: Medications Current Medications [...] Drug Class(es) Dates Sig (Normalized) Sig (Original) [id number] 200 actuat albuterol 0.09 mg/actuat metered dose [...] 94 mm[Hg] Janki John MD Work Phone: [facility] 12-06-2022 11:06-0400 Heart rate 92 /min Janki John MD Work Phone: [facility] 12-06-2022 11:06-0400 Systolic blood pressure 156 mm[Hg] Janki John MD Work Phone: [facility] 12-06-2022 10:31-0400 Body height 148.5 cm Janki John MD Work Phone: [facility] 12-06-2022 10:31-0400 Body weight 48.53 kg Janki John MD Work Phone: [facility] 12-06-2022 10:31-0400 Respiratory rate 16 /min Janki John MD Work Phone: [facility] 12-06-2022 10:31-0400 SaO2% (BldA) [Mass fraction] 97 % Janki John MD Work Phone: [facility] 09-26-2022 10:06-0400 Body temperature 97.81 [degF] Ragini Mcgee PICKING TECH.[facility] Work Phone: [facility] 09-26-2022 10:06-0400 Body weight 47.58 kg Ragini Mcgee PICKING TECH.TEST DECK SUPERVISOR Work Phone: [facility] 09-26-2022 10:06-0400 Diastolic blood pressure 76 mm[Hg] Ragini Mcgee PICKING TECH.TEST DECK SUPERVISOR Work Phone: [facility] 09-26-2022 10:06-0400 Heart rate 74 /min Ragini Mcgee PICKING TECH.[facility] Work Phone: [facility] 09-26-2022 10:06-0400 SaO2% (BldA) [Mass fraction] 93 % Ragini Mcgee PICKING TECH.[facility] Work Phone: [facility] 09-26-2022 10:06-0400 Systolic blood pressure 152 mm[Hg] Ragini Mcgee PICKING TECH.[facility] Work Phone: [facility] 06-11-2022 11:43-0500 Body temperature 98.71 [degF] Treatment Work Phone: [facility] 06-11-2022 11:43-0500 Body weight 45.9 kg Treatment Work Phone: [facility] 06-11-2022 11:43-0500 Diastolic blood pressure 67 mm[Hg] Treatment Work Phone: [facility] 06-11-2022 11:43-0500 Heart rate 68 /min Treatment Work Phone: [facility] 06-11-2022 11:43-0500 Respiratory rate 16 /min Treatment Work Phone: [facility] 06-11-2022 11:43-0500 SaO2% (BldA) [Mass fraction] 96 % Treatment Work Phone: [facility] 06-11-2022 11:43-0500 Systolic blood pressure 144 mm[Hg] Treatment Work Phone: [facility] 06-07-2022 14:00-0500 Body height 148.5 cm [facility] PICKING TECH.[facility] Work Phone: [facility] 06-07-2022 14:00-0500 Body weight 45.18 kg [facility] PICKING TECH.[facility] Work Phone: [facility] 06-07-2022 14:00-0500 Diastolic blood pressure 85 mm[Hg] Nora Kupiec PICKING TECH.[facility] Work Phone: [facility] 06-07-2022 14:00-0500 Heart rate 78 /min Nora Kupiec PICKING TECH.[facility] Work Phone: [facility] 06-07-2022 14:00-0500 Respiratory rate 20 /min Nora Kupiec PICKING TECH.[facility] Work Phone: [facility] 06-07-2022 14:00-0500 SaO2% (BldA) [Mass fraction] 97 % Nora Kupiec PICKING TECH.[facility] Work Phone: [facility] 06-07-2022 14:00-0500 Systolic blood pressure 135 mm[Hg] Nora Kupiec PICKING TECH.[facility] Work Phone: [facility] 02-23-2022 12:46-0400 Body weight 42.09 kg Nora Kupiec PICKING TECH.[facility] Work Phone: [facility] 02-23-2022 12:46-0400 Diastolic blood pressure 78 mm[Hg] Nora Kupiec PICKING TECH.[facility] Work Phone: [facility] 02-23-2022 12:46-0400 Heart rate 87 /min Nora Kupiec PICKING TECH.[facility] Work Phone: [facility] 02-23-2022 12:46-0400 SaO2% (BldA) [Mass fraction] 92 % Nora Kupiec PICKING TECH.TEST DECK SUPERVISOR Work Phone: [facility] 02-23-2022 12:46-0400 Systolic blood pressure 125 mm[Hg] Nora Pedro PICKING TECH.TEST DECK SUPERVISOR Work Phone: [facility] Encounters Encounter Date Encounter Type [...] Start: 02-19-2028 Lipid 1996 panel - S iran or Plasma Lipid Screening [facility] Start: 02-19-2028 LIPID SCREEN LIPID SCREEN [facility] Start: 11-20-2026 LIPID SCREEN LIPID SCREEN [facility] Start: 05-11-2026 LIPID SCREEN LIPID SCREEN [facility] Start: 02-18-2026 DIABETES SCREEN DIABETES SCREEN [facility] Start: 02-18-2026 Diabetes Screening Diabetes Screenin g [facility] Start: 08-13-2025 DIABETES SCREEN DIABETES SCREEN [facility] Start: 02-05-2025 DIABETES SCREEN DIABETES SCREEN [facility] Start: 11-20-2024 DIABETES SCREEN DIABETES SCREEN [facility] Start: 05-29-2024 DIABETES SCREEN DIABETES SCREEN [facility] Start: 03-08-2023 Covid-19 Vaccine ( season) Covid-19 Vaccine () [facility] Start: 03-08-2023 Influenza vaccination [facility] Start: 02-23-2023 BP CONTROLLED (<130/80) BP CON TROLLED (<130/80) [facility] Start: 01-09-2023 End: 03-11-2023 Thyrotropin [Units/volume] in Serum or Plasma TSH BLD Lab Routine Graves disease Expected: 01/09/2023, Expires: 03/11/2023 [facility] Work Phone: Immunizations Immunization Date Immunization Notes Care Provider Teresa mota 04-24-2021 influenza virus vacc ine, unspecified formulation Daisy An MD Work Phone: [facility] 04-11-2011 influenza virus vacc ine, unspecified formulation Ovi Feliz OD Work Phone: [facility] 06-07-2010 influenza virus vacc ine, unspecified formulation Ovi Feliz OD Work Phone: [facility] 06-07-2010 pneumococcal polysaccharide vaccine, 23 valent Ovi Feliz OD Work Phone: [facility] Payers Date Payer Category Payer Medicare 2022 Medicare [id number] 2021 Unknown ANTHEM BLUE CROS S AND BLUE SHIELD ANTHEM MEDIBLUE PRIME SELECT [id number] 2021-Present [phone] [id number] [id number] 2021 Unknown ANTHEM BLUE CROS S AND BLUE SHIELD ANTHEM MEDIBLUE [employer]IME [employer] [id number] 2021-Present [phone] [address] [place] [id number] [facility] [id number] 2021 Unknown [id number] Social History Date Type Detail Facility Start: 03-03-2018 End: 02-23-2022 Tobacco smoking status NHIS Smokes tobacco daily [facility] Start: 03-03-2018 History of tobacco use Cigarette Smo ker [facility] Start: 03-03-2018 End: 12-06-2022 Cigarettes smoked current (pack per day) - Reported 0.5 [facility] Start: 03-03-2018 End: 02-23-2022 Tobacco use and exposure Smokeless tobacco non-user [facility] Start: 11-13-2021 End: 12-06-2022 Alcohol intake Current non-drinker of alcohol (finding) [facility] Start: 1950 Sex Assigned At Not on file [facility] Start: 11-03-2021 End: 06-07-2022 Exposure to SARS-CoV-2 (event) Not sure [facility] Start: 03-03-2018 End: 12-06-2022 Tobacco use panel [facility] Adult Depression Scr eening Assessment 0 [facility] Medical Equipment Procedure Code Equipment Code Equipment Origin al Text Equipment Identifier Dates Kit Catheter Bactiseal [id number] - [id number] Start: 06-29-2010 Clinical Notes 05-27-2021 to [...] Janki John MD documented in this encounter [facility] 12-10-2022 Miscellaneous Notes Please notify the patient that her TSH has increased to 46 Stop methimazole at this time I would like to recheck TSH in 4 weeks Order is in Regards Janki John MD documented in this encounter [facility] 12-06-2022 Note HNO ID: [id number] Author: Janki John MD Service: ? Author [...] and TAKE 1 TABLET IN THE EVENING. 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 bskxjdhddxp-mozjwmwpo-hgosivwp (TRELEGY ELLIPTA) 100-62.5-25 mcg inhalation powder metoprolol [...] malformation) 2003 left sylvian fissure Breast cancer ([facility]) 11/2017 left breast Breast mass, left 11/2017 COPD (chronic obstructive pulmonary disease) ([facility]) Fracture of upper end of tibia 10/31/2015 Macular degeneration Migraine PCO (posterior capsular opacification) 05/25/2016 Pseudophakia of right eye Retinal hemorrhage of left eye 2004 left central vision loss Subarachnoid hemorrhage ([facility]) 05/2010 Tubal PHYSICAL EXAM: BP 158/94 Pulse [...] Janki John MD documented in this encounter [facility] 10-12-2022 Miscellaneous Notes Requester: Pharmacy [...] Abby Lazo MA documented in this encounter [facility] 10-04-2022 Note HNO ID: [id number] Author: KHRIS Caraballo Service: Radiology Author Type: [...] KHRIS Caraballo October 04, 2022 12:55 PM [facility] 09-26-2022 Note HNO ID: [id number] Author: Ragini Mcgee APRN.PATTIE Service: ? Author [...] blood in stool - denies dysuria, hematuria DATA GOVERNANCE CONSULTANT- denies vaginal bleeding. No vaginal concerns SKIN- [...] adenopathy, no pain on exam Patient declined social media project manager. HEART: regular rate and rhythm LUNGS: clear [...] IgM 40 - 230 mg/dL 372 (H) [place] Free, Serum 3.3 - 19.4 mg/L 29.7 [...] Abs Lymph 1.00 - 4.00 k/uL 1.73 Deuel% % 5.9 Abs Deuel <0.87 k/uL 0.38 Eosin% % 5.9 Abs Eosin <0.46 k/uL 0.38 Baso% % 0.5 Abs Baso <0.11 k/uL 0.03 Immature Gran % % 0.3 IMMATURE GRAN (more content not included)... [facility] 09-26-2022 Instructions Ragini Mcgee APRN.CNP - 09/26/2022 [...] usual activities immediately. documented in this encounter [facility] 09-26-2022 History of Present illness [...] blood in stool - denies dysuria, hematuria DATA GOVERNANCE CONSULTANT- denies vaginal bleeding. No vaginal concerns SKIN- [...] adenopathy, no pain on exam Patient declined social media project manager. HEART: regular rate and rhythm LUNGS: clear [...] IgM 40 - 230 mg/dL 372 (H) [place] Free, Serum 3.3 - 19.4 mg/L 29.7 [...] Abs Lymph 1.00 - 4.00 k/uL 1.73 Deuel% % 5.9 Abs Deuel <0.87 k/uL 0.38 Eosin% % 5.9 Abs [...] which included preparing to see the patient, zjmm-[id number] patient care, completing clinical documentation, obtaining and/or [...] September 26, 2022 documented in this encounter [facility] 08-22-2022 Miscellaneous Notes Pharmacy verified in [facility] Patient has been identified by name [...] Ariadne Gonzalez Pss documented in this encounter [facility] 08-17-2022 Miscellaneous Notes Called and [...] forwards to us. documented in this encounter [facility] 07-05-2022 Miscellaneous Notes 1st-time treatment report- non-oncology regimen. No assistance to support Reclast drug for Medicare-insured patients. No further assistance from at this time documented in this encounter [facility] 06-08-2022 Miscellaneous Notes Order placed Patient was last seen in office in May of 2021. She came into the office today to schedule a follow up with ragini mcgee and to schedule her mammogram. The current order expires prior to the first opening in [place]. Could a new order be placed so that she can get scheduled. She is coming in on Monday 06/11 for a reclast infusion. If the order could be placed prior to Saturday so that she can schedule this scan prior to her follow up with Ragini in July. documented in this encounter [facility] 06-07-2022 Note HNO ID: [id number] Author: Nora Pedro APRN.TEST DECK SUPERVISOR Service: ? Author Type: Nurse Practitioner Type: [...] variable Sleep: chronic insomnia Temperature Intolerance: variable DATA GOVERNANCE CONSULTANT: Menopause age 45-50 GI: denies loose stools, [...] Current Outpatient Medications Medication Sig Dispense Refill bfrpelpmlhp-wmyfykwvj-ovacljqm (TRELEGY ELLIPTA) 100-62.5-25 mcg inhalation powder methIMAzole [...] T3 Date Value (more content not included)... [facility] 06-07-2022 History of Present illness Narrative Reason [...] variable Sleep: chronic insomnia Temperature Intolerance: variable DATA GOVERNANCE CONSULTANT: Menopause age 45-50 GI: denies loose stools, [...] left 11/2017 COPD (chronic obstructive pulmonary disease) ([facility]) Fracture of upper end of tibia 10/31/2015 Macular degeneration Migraine PCO (posterior capsular opacification) 05/25/2016 Pseudophakia of right eye Retinal hemorrhage of left eye 2004 left central vision loss Subarachnoid hemorrhage ([facility]) 05/2010 Tubal PAST SURGICAL HISTORY Procedure Laterality [...] Current Outpatient Medications Medication Sig Dispense Refill rzkywcqyunj-oqivuhzcc-jqvjmtwl (TRELEGY ELLIPTA) 100-62.5-25 mcg inhalation powder methIMAzole [...] which included preparing to see the patient, kthh-di-xrta patient care, completing clinical documentation, obtaining and/or reviewing separately obtained history, performing a medically appropriate examination, and counseling and educating the patient/family/caregiver. Nora Pedro, MSN, PICKING TECH, MANAGER BUSINESS OPERATIONS-C, CDE Endocrinology [facility] Office [facility]/[address] [place] [address] Fax: documented in this encounter [facility] 02-23-2022 Note HNO ID: [id number] Author: Nora Pedro APRN.TEST DECK SUPERVISOR Service: ? Author Type: Nurse Practitioner Type: [...] Sleep:Difficulty but not new Temperature Intolerance: variable DATA GOVERNANCE CONSULTANT: Menopause age 45-50 GI: denies loose stools, [...] left 11/2017 COPD (chronic obstructive pulmonary disease) ([facility]) Fracture of upper end of tibia 10/31/2015 [...] 4.200 mIU/L Fi (more content not included)... [facility] 02-23-2022 Instructions Nora Pedro APRN.TEST DECK SUPERVISOR - 02/23/2022 1:04 PM EDT Increase methimazole 5 mg tab to: AM 2 tabs PM 2 tabs 2. Repeat labs 4-5 wks. 3. Follow up 3 and 6 months. Nora Pedro, MSN, PICKING TECH, MANAGER BUSINESS OPERATIONS-C, CDE Endocrinology [facility] Office [facility]/[address] [place] [address] Fax: documented in this encounter [facility] 02-23-2022 History of Present illness [...] Sleep:Difficulty but not new Temperature Intolerance: variable DATA GOVERNANCE CONSULTANT: Menopause age 45-50 GI: denies loose stools, [...] left 11/2017 COPD (chronic obstructive pulmonary disease) ([facility]) Fracture of upper end of tibia 10/31/2015 [...] which included preparing to see the patient, asvn-tx-krtj patient care, completing clinical documentation, obtaining and/or reviewing separately obtained history, performing a medically appropriate examination, counseling and educating the patient/family/caregiver, and ordering medications, tests, or procedures. Nora Pedro, MSN, PICKING TECH, MANAGER BUSINESS OPERATIONS-C, CDE Endocrinology [facility]/[address] [place] [address] Fax: documented in this encounter [facility] 01-17-2022 Miscellaneous Notes Requester: Patient [...] advise. Hoa Mcnamara documented in this encounter [facility] 11-13-2021 History of Present illness [...] care with Dr. Prajapati, [facility], as scheduled. -Advised Low Vision Consult with [...] and treatment options. documented in this encounter [facility] 11-13-2021 Instructions Ovi Feliz, OD - 11/13/2021 1:26 PM EDT Images from the original note were not included. Please monitor each eye daily with the [employer] Grid. AREDS 2 Vitamins are available over the counter at any pharmacy. Refresh Artificial tears, 1 drop, three times a day, Both eyes. documented in this encounter [facility] documented as of this encounter (statuses as of 11/13/2021) [facility] History of Past illness Narrative* [...] of this encounter (statuses as of 01/17/2022) [facility] History of Past illness Narrative* [...] of this encounter (statuses as of 02/23/2022) [facility] History of Past illness Narrative* [...] of this encounter (statuses as of 06/07/2022) [facility] History of Past illness Narrative* [...] of this encounter (statuses as of 06/08/2022) [facility] History of Past illness Narrative* [...] of this encounter (statuses as of 06/11/2022) [facility] History of Past illness Narrative* [...] of this encounter (statuses as of 07/11/2022) [facility] History of Past illness Narrative* [...] of this encounter (statuses as of 08/17/2022) [facility] History of Past illness Narrative* [...] of this encounter (statuses as of 08/23/2022) [facility] History of Past illness Narrative* [...] of this encounter (statuses as of 09/26/2022) [facility] History of Past illness Narrative* [...] of this encounter (statuses as of 10/12/2022) [facility] History of Past illness Narrative* [...] of this encounter (statuses as of 11/02/2022) [facility] History of Past illness Narrative* [...] of this encounter (statuses as of 12/06/2022) [facility] History of Past illness Narrative* [...] of this encounter (statuses as of 12/10/2022) [facility] History of Past illness Narrative* [...] of this encounter (statuses as of 02/21/2023) [facility] History of Past illness Narrative* [...] of this encounter (statuses as of 06/12/2023) [facility] Diagnosis 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) Dry eye syndrome of both eyes Pseudophakia of both eyes Lens replaced by other means [facility] Diagnosis Hyperthyroidism Thyrotoxicosis without mention of goiter or other cause, without mention of thyrotoxic crisis or storm [facility] Diagnosis Hyperthyroidism- Primary Thyrotoxicosis without mention of goiter or other cause, without mention of thyrotoxic crisis or storm Abnormal weight loss Loss of weight [facility] Diagnosis Hyperthyroidism- Primary Thyrotoxicosis without mention of goiter or other cause, without mention of thyrotoxic crisis or storm [facility]* Diagnosis Malignant neoplasm of upper-outer quadrant of left breast in female, estrogen receptor positive (HCC)- Primary Encounter for screening mammogram for malignant neoplasm of breast Other screening mammogram [facility] Diagnosis Malignant neoplasm of upper-outer quadrant of left breast in female, estrogen receptor positive (HCC)- Primary [facility]* Diagnosis Hyperthyroidism- Primary Thyrotoxicosis without mention of goiter or other cause, without mention of thyrotoxic crisis or storm [facility]* Diagnosis Malignant neoplasm of upper-outer quadrant of left breast in female, estrogen receptor positive (HCC) [facility] Diagnosis Malignant neoplasm of left breast in female, estrogen receptor positive, unspecified site of breast (HCC)- Primary Encounter for screening for osteoporosis Special screening for osteoporosis Hypothyroidism, unspecified type Vitamin D deficiency Unspecified vitamin D deficiency [facility] Diagnosis Hyperthyroidism Thyrotoxicosis without mention of goiter or other cause, without mention of thyrotoxic crisis or storm documented in this encounter [facility] note* Diagnosis Malignant neoplasm of upper-outer quadrant of left breast in female, estrogen receptor positive (HCC) [facility]* Diagnosis Graves disease- Primary Toxic diffuse goiter without mention of thyrotoxic crisis or storm Primary hypertension Unspecified essential hypertension Elevated TSH Nonspecific abnormal results of thyroid function study documented in this encounter [facility] note* Diagnosis Graves disease- Primary Toxic diffuse goiter without mention of thyrotoxic crisis or storm documented in this encounter [facility] note* Diagnosis Malignant neoplasm of upper-outer quadrant of left breast in female, estrogen receptor positive (HCC) documented in this encounter [facility] for referral (narrative)* Diagnostic Procedure Only (Routine) - Pending Review Specialty Diagnoses / Procedures Referred By Elsy knapp Referred To Contact [facility] Diagnoses Encounter for screening mammogram for malignant neoplasm of breast Procedures REGINALD SCREENING W EVON SCREENING DIGITAL BREAST TOMOSYNTHESIS BI SCREENING MAMMOGRAPHY BI 2-[place] [address] [place] [address] [facility] [address] [place] [id number] Referral ID Status Reason Start Date Expiration Date Visits Requested Visits Authorized [id number] Pending Review Auto-Generat ed Referral 06/08/2022 07/07/2023 1 1 [facility] Summary Purpose Family History No Family History Records FoundNo Family History Records FoundNo Family History Records Found Advance Directives Documents on File Type Date Recorded Patient Wrapping Clerk Expl anation Advance Directive(s) 05/26/2021 9:21 PM [...] the event of a Fluress shortage, administer [place]-Fluor 1 drop into both eyes as directed [...] DATE CREATED AUTHOR AUTHOR'S ORGANIZ ATION 02/19/2023 [facility] DATE CREATED AUTHOR AUTHOR'S ORGANIZ ATION 02/22/2023 [facility] Source Comments (unrecognize d section and content) In the event this informatio n is protected by the Federal Confidentiality of Alcohol and Drug Abuse Patient Records regulations: The Federal rules restrict any use of the information to criminally investigate or prosecute any alcohol or drug abuse patient.[facility] the event this information is protected by the Federal Confidentiality of Alcohol and Drug Abuse Patient Records regulations: The Federal rules restrict any use of the information to criminally investigate or prosecute any alcohol or drug abuse patient.[facility] the event this information is protected by the Federal Confidentiality of Alcohol and Drug Abuse Patient Records regulations: The Federal rules restrict any use of the information to criminally investigate or prosecute any alcohol or drug abuse patient.[facility] the event this information is protected by the Federal Confidentiality of Alcohol and Drug Abuse Patient Records regulations: The Federal rules restrict any use of the information to criminally investigate or prosecute any alcohol or drug abuse patient.[facility] the event this information is protected by the Federal Confidentiality of Alcohol and Drug Abuse Patient Records regulations: The Federal rules restrict any use of the information to criminally investigate or prosecute any alcohol or drug abuse patient.[facility] the event this information is protected by the Federal Confidentiality of Alcohol and Drug Abuse Patient Records regulations: The Federal rules restrict any use of the information to criminally investigate or prosecute any alcohol or drug abuse patient.[facility] the event this information is protected by the Federal Confidentiality of Alcohol and Drug Abuse Patient Records regulations: The Federal rules restrict any use of the information to criminally investigate or prosecute any alcohol or drug abuse patient.[facility] the event this information is protected by the Federal Confidentiality of Alcohol and Drug Abuse Patient Records regulations: The Federal rules restrict any use of the information to criminally investigate or prosecute any alcohol or drug abuse patient.[facility] the event this information is protected by the Federal Confidentiality of Alcohol and Drug Abuse Patient Records regulations: The Federal rules restrict any use of the information to criminally investigate or prosecute any alcohol or drug abuse patient.[facility] the event this information is protected by the Federal Confidentiality of Alcohol and Drug Abuse Patient Records regulations: The Federal rules restrict any use of the information to criminally investigate or prosecute any alcohol or drug abuse patient.[facility] the event this information is protected by the Federal Confidentiality of Alcohol and Drug Abuse Patient Records regulations: The Federal rules restrict any use of the information to criminally investigate or prosecute any alcohol or drug abuse patient.[facility] the event this information is protected by the Federal Confidentiality of Alcohol and Drug Abuse Patient Records regulations: The Federal rules restrict any use of the information to criminally investigate or prosecute any alcohol or drug abuse patient.[facility] the event this information is protected by the Federal Confidentiality of Alcohol and Drug Abuse Patient Records regulations: The Federal rules restrict any use of the information to criminally investigate or prosecute any alcohol or drug abuse patient.[facility] the event this information is protected by the Federal Confidentiality of Alcohol and Drug Abuse Patient Records regulations: The Federal rules restrict any use of the information to criminally investigate or prosecute any alcohol or drug abuse patient.[facility] the event this information is protected by the Federal Confidentiality of Alcohol and Drug Abuse Patient Records regulations: The Federal rules restrict any use of the information to criminally investigate or prosecute any alcohol or drug abuse patient.[facility] the event this information is protected by the Federal Confidentiality of Alcohol and Drug Abuse Patient Records regulations: The Federal rules restrict any use of the information to criminally investigate or prosecute any alcohol or drug abuse patient.[facility] Reason for Visit (unrecogniz ed [...] ZOLEDRONIC ACID, [address] [place] [address] [place] [address] [facility] [address] [address] Referral ID Status Reason Start Date Expiration Date V isits Requested Visits Authorized [id number] Authorized 05/11/2021 05/09/2023 5 5 Reason Comments Benefits Investigation Reason Comments Results Reason Onset Date Comments Refill Request 08/22/2022 Reason Comments Follow Up Reason Comments Refill Request Reason Comments Follow Up Established Patient Care Teams (unrecognized sec tion and content) Passport Support Manager Relationship Specialty Start Date End Date Heron Sun MD [address] [place] [address] PCP - General Internal Medicine 05/20/17 Pee Mancuso MD [address] [place] [address] Referring Orthopedics 04/19/15 Pee Mancuso MD [address] [place] [address] Home Care Physician Orthopedics 04/19/15 Passport Support Manager Relationship Specialty Start Date End Date Heron Sun MD [address] [place] [address] PCP - General Internal Medicine 05/20/17 Pee Mancuso MD [address] [place] [address] Referring Orthopedics 04/19/15 Pee Mancuso MD [address] [place] [address] Home Care Physician Orthopedics 04/19/15 [employer]port Support Manager Relationship Specialty Start Date End Date Heron Sun MD [address] [place] [address] PCP - General Internal Medicine 05/20/17 Pee Mancuso MD [address] [place] [address] Referring Orthopedics 04/19/15 Pee Mancuso MD [address] [place] [address] Home Care Provider Orthopedics 04/19/15 [employer]port Support Manager Relationship Specialty Start Date End Date Heron Sun MD [address] [place] [address] PCP - General Internal Medicine 05/20/17 Pee Mancuso MD [address] [place] [address] Referring Orthopedics 04/19/15 Pee Mancuso MD [address] [place] [address] Home Care Provider Orthopedics 04/19/15 [employer]port Support Manager Relationship Specialty Start Date End Date Heron Sun MD [address] [place] [address] PCP - General Internal Medicine 05/20/17 Pee Mancuso MD [address] [place] [address] Referring Orthopedics 04/19/15 Pee Mancuso MD [address] [place] [address] Home Care Provider Orthopedics 04/19/15 Passport Support Manager Relationship Specialty Start Date End Date Heron Sun MD [address] [place] [address] PCP - General Internal Medicine 05/20/17 Pee Mancuso MD [address] [place] [address] Referring Orthopedics 04/19/15 Pee Mancuso MD [address] [place] [address] Home Care Provider Orthopedics 04/19/15 [employer]port Support Manager Relationship Specialty Start Date End Date Heron Sun MD [address] [place] [address] PCP - General Internal Medicine 05/20/17 Pee Mancuso MD [address] [place] [address] Referring Orthopedics 04/19/15 Pee Mancuso MD [address] [address] Home Care Provider Orthopedics 04/19/15 Passport Support Manager Relationship Specialty Start Date End Date Heron Sun MD [address] [address] PCP - General Internal Medicine 05/20/17 Pee Mancuso MD [address] [place] [address] Referring Orthopedics 04/19/15 Pee Mancuso MD [address] [place] [address] Home Care Provider Orthopedics 04/19/15 Passport Support Manager Relationship Specialty Start Date End Date Heron Sun MD [address] [address] PCP - General Internal Medicine 05/20/17 Pee Mancuso MD [address] [place] [address] Referring Orthopedics 04/19/15 Pee Mancuso MD [address] [place] [address] Home Care Provider Orthopedics 04/19/15 Passport Support Manager Relationship Specialty Start Date End Date Heron Sun MD [address] [address] PCP - General Internal Medicine 05/20/17 Pee Mancuso MD [address] [address] Referring Orthopedics 04/19/15 Pee Mancuso MD [address] [address] Home Care Provider Orthopedics 04/19/15 FOR RECORDS [...] BE BASED ON THE PRIMARY CLINICAL RECORDS. [employer] [facility]. provides no warranty or guarantee of the accuracy or completeness of information in this document.
[2023-07-17 09:03] LABS: Free T3 3.4 pg/mL (2.18-3.98); T4 Free Direct 1.18 ng/dL (0.76-1.46)
== END ==
LOC: OLS.SW 06:15
PROVIDERS: Visit Provider Internal Medicine
DX: E03.9 Hypothyroidism, unspecified (principal); R94.6 Abnormal results of thyroid function studies
CPT/HCPCS: 36415; 84439; 84481

== ENCOUNTER → 2023-07-22 | Outpatient (REF) | payer MEDICARE, SELFPAY ==
--- OUTSIDE RECORDS SUMMARY | 2023-07-22 04:17 | XMS RPT_ITS | CCD ---
Author Name Unknown Address [address] [place] [address] Organization [facility] Care Team Providers Care Glass Beveler Name Role Phone Doncals, Floridalma Unavailable Unavailable [...] Heron Sun MD Primary Care Provider [phone] Heron Sun MD Primary Care Provider NORA [...] to adverse reactions to drug 06-28-2010 Unknown [facility] Work Phone: (15 sources) Penicillins Propensity to adverse reactions to drug 06-28-2010 Unknown [facility] Work Phone: Medications Current Medications Medication Drug [...] Drug Class(es) Dates Sig (Normalized) Sig (Original) [id number] 200 actuat albuterol 0.09 mg/actuat metered dose [...] 94 mm[Hg] Janki John MD Work Phone: [facility] 12-06-2022 11:06-0400 Heart rate 92 /min Janki John MD Work Phone: [facility] 12-06-2022 11:06-0400 Systolic blood pressure 156 mm[Hg] Janki John MD Work Phone: [facility] 12-06-2022 10:31-0400 Body height 148.5 cm Janki John MD Work Phone: [facility] 12-06-2022 10:31-0400 Body weight 48.53 kg Janki John MD Work Phone: [facility] 12-06-2022 10:31-0400 Respiratory rate 16 /min Janki John MD Work Phone: [facility] 12-06-2022 10:31-0400 SaO2% (BldA) [Mass fraction] 97 % Janki John MD Work Phone: [facility] 09-26-2022 10:06-0400 Body temperature 97.81 [degF] Ragini Mcgee [employer] Work Phone: [facility] 09-26-2022 10:06-0400 Body weight 47.58 kg Ragini Mcgee [employer].SENIOR HUMAN RESOURCES REPRESENTATIVE Work Phone: [facility] 09-26-2022 10:06-0400 Diastolic blood pressure 76 mm[Hg] Ragini Mcgee [employer].SENIOR HUMAN RESOURCES REPRESENTATIVE Work Phone: [facility] 09-26-2022 10:06-0400 Heart rate 74 /min Ragini Mcgee [employer] Work Phone: [facility] 09-26-2022 10:06-0400 SaO2% (BldA) [Mass fraction] 93 % Ragini Mcgee [employer] Work Phone: [facility] 09-26-2022 10:06-0400 Systolic blood pressure 152 mm[Hg] Ragini Mcgee [employer] Work Phone: [facility] 06-11-2022 11:43-0500 Body temperature 98.71 [degF] Treatment Work Phone: [facility] 06-11-2022 11:43-0500 Body weight 45.9 kg Treatment Work Phone: [facility] 06-11-2022 11:43-0500 Diastolic blood pressure 67 mm[Hg] Treatment Work Phone: [facility] 06-11-2022 11:43-0500 Heart rate 68 /min Treatment Work Phone: [facility] 06-11-2022 11:43-0500 Respiratory rate 16 /min Treatment Work Phone: [facility] 06-11-2022 11:43-0500 SaO2% (BldA) [Mass fraction] 96 % Treatment Work Phone: [facility] 06-11-2022 11:43-0500 Systolic blood pressure 144 mm[Hg] Treatment Work Phone: [facility] 06-07-2022 14:00-0500 Body height 148.5 cm [facility] [employer] Work Phone: [facility] 06-07-2022 14:00-0500 Body weight 45.18 kg [facility] [employer] Work Phone: [facility] 06-07-2022 14:00-0500 Diastolic blood pressure 85 mm[Hg] Nora Kupiec [employer] Work Phone: [facility] 06-07-2022 14:00-0500 Heart rate 78 /min Nora Kupiec [employer] Work Phone: [facility] 06-07-2022 14:00-0500 Respiratory rate 20 /min Nora Kupiec [employer] Work Phone: [facility] 06-07-2022 14:00-0500 SaO2% (BldA) [Mass fraction] 97 % Nora Kupiec [employer] Work Phone: [facility] 06-07-2022 14:00-0500 Systolic blood pressure 135 mm[Hg] Nora Kupiec [employer] Work Phone: [facility] 02-23-2022 12:46-0400 Body weight 42.09 kg Nora Kupiec [employer] Work Phone: [facility] 02-23-2022 12:46-0400 Diastolic blood pressure 78 mm[Hg] Nora Kupiec [employer] Work Phone: [facility] 02-23-2022 12:46-0400 Heart rate 87 /min Nora Kupiec [employer] Work Phone: [facility] 02-23-2022 12:46-0400 SaO2% (BldA) [Mass fraction] 92 % Nora Kupiec [employer].SENIOR HUMAN RESOURCES REPRESENTATIVE Work Phone: [facility] 02-23-2022 12:46-0400 Systolic blood pressure 125 mm[Hg] Nora Pedro [employer].SENIOR HUMAN RESOURCES REPRESENTATIVE Work Phone: [facility] Encounters Encounter Date Encounter Type Care Provider [...] - S rian or Plasma Lipid Screening [facility] Start: 02-19-2028 LIPID SCREEN LIPID SCREEN [facility] Start: 11-20-2026 LIPID SCREEN LIPID SCREEN [facility] Start: 05-11-2026 LIPID SCREEN LIPID SCREEN [facility] Start: 02-18-2026 DIABETES SCREEN DIABETES SCREEN [facility] Start: 02-18-2026 Diabetes Screening Diabetes Screenin g [facility] Start: 08-13-2025 DIABETES SCREEN DIABETES SCREEN [facility] Start: 02-05-2025 DIABETES SCREEN DIABETES SCREEN [facility] Start: 11-20-2024 DIABETES SCREEN DIABETES SCREEN [facility] Start: 05-29-2024 DIABETES SCREEN DIABETES SCREEN [facility] Start: 03-08-2023 Covid-19 Vaccine ( season) Covid-19 Vaccine () [facility] Start: 03-08-[address] [facility] Start: 02-23-2023 BP CONTROLLED (<130/80) BP CON TROLLED (<130/80) [facility] Start: 01-09-2023 End: 03-11-2023 Thyrotropin [Units/volume] in Serum or Plasma TSH BLD Lab Routine Graves disease Expected: 01/09/2023, Expires: 03/11/2023 [facility] Work Phone: Immunizations Immunization Date Immunization Notes Care Provider Teresa mota 04-24-2021 influenza virus vacc ine, unspecified formulation Daisy An MD Work Phone: [facility] 04-11-2011 influenza virus vacc ine, unspecified formulation Ovi Feliz OD Work Phone: [facility] 06-07-2010 influenza virus vacc ine, unspecified formulation Ovi Feliz OD Work Phone: [facility] 06-07-2010 pneumococcal polysaccharide vaccine, 23 valent Ovi Feliz OD Work Phone: [facility] Payers Date Payer Category Payer Medicare 2022 Medicare [id number] 2021 Unknown ANTHEM [employer] S [employer] BLUE SHIELD ANTHEM MEDIBL[employer] [id number] 2021-Present [phone] [address] [id number] 2021 Unknown ANTHEM BLUE CROS S AND BLUE SHIELD ANTHEM MEDIBL[employer] [id number] 2021-Present [phone] [address] [place] [id number] [facility] [id number] 2021 Unknown [id number] Social History Date Type Detail Facility Start: 03-03-2018 End: 02-23-2022 Tobacco smoking status NHIS Smokes tobacco daily [facility] Start: 03-03-2018 History of tobacco use Cigarette Smo ker [facility] Start: 03-03-2018 End: 12-06-2022 Cigarettes smoked current (pack per day) - Reported 0.5 [facility] Start: 03-03-2018 End: 02-23-2022 Tobacco use and exposure Smokeless tobacco non-user [facility] Start: 11-13-2021 End: 12-06-2022 Alcohol intake Current non-drinker of alcohol (finding) [facility] Start: 1950 Sex Assigned At Not on file [facility] Start: 11-03-2021 End: 06-07-2022 Exposure to SARS-CoV-2 (event) Not sure [facility] Start: 03-03-2018 End: 12-06-2022 Tobacco use panel [facility] Adult Depression Scr eening Assessment 0 [facility] Medical Equipment Procedure Code Equipment Code Equipment Origin al Text Equipment Identifier Dates Kit Catheter Bactiseal [id number] - [id number] Start: 06-29-2010 Clinical Notes 05-27-2021 to [...] Janki John MD documented in this encounter [facility] 12-10-2022 Miscellaneous Notes Please notify the patient that her TSH has increased to 46 Stop methimazole at this time I would like to recheck TSH in 4 weeks Order is in Regards Janki John MD documented in this encounter [facility] 12-06-2022 Note HNO ID: [id number] Author: Janki John MD Service: ? Author [...] and TAKE 1 TABLET IN THE EVENING. 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 btpkhphasem-ezjxvftqn-pglfwrbc (TRELEGY ELLIPTA) 100-62.5-25 mcg inhalation powder metoprolol [...] malformation) 2003 left sylvian fissure Breast cancer ([facility]) 11/2017 left breast Breast mass, left 11/2017 COPD (chronic obstructive pulmonary disease) ([facility]) Fracture of upper end of tibia 10/31/2015 Macular degeneration Migraine PCO (posterior capsular opacification) 05/25/2016 Pseudophakia of right eye Retinal hemorrhage of left eye 2004 left central vision loss Subarachnoid hemorrhage ([facility]) 05/2010 Tubal PHYSICAL EXAM: BP 158/94 Pulse [...] Janki John MD documented in this encounter [facility] 10-12-2022 Miscellaneous Notes Requester: Pharmacy Last Visit [...] Abby Lazo MA documented in this encounter [facility] 10-04-2022 Note HNO ID: [id number] Author: KHRIS Caraballo Service: Radiology Author Type: [...] October 04, 2022 12:55 PM [facility] 09-26-2022 Note HNO ID: [id number] Author: Ragini Mcgee APRN.PATTIE Service: ? Author [...] blood in stool - denies dysuria, hematuria CHIEF DISPATCHER SERVICE- denies vaginal bleeding. No vaginal concerns SKIN- [...] adenopathy, no pain on exam Patient declined business objects. HEART: regular rate and rhythm LUNGS: clear [...] IgM 40 - 230 mg/dL 372 (H) [place] Free, Serum 3.3 - 19.4 mg/L 29.7 [...] Abs Lymph 1.00 - 4.00 k/uL 1.73 Sharp% % 5.9 Abs Sharp <0.87 k/uL 0.38 Eosin% % 5.9 Abs Eosin <0.46 k/uL 0.38 Baso% % 0.5 Abs Baso <0.11 k/uL 0.03 Immature Gran % % 0.3 IMMATURE GRAN (more content not included)... [facility] 09-26-2022 Instructions Ragini Mcgee APRN.CNP - [...] usual activities immediately. documented in this encounter [facility] 09-26-2022 History of Present illness Narrative Chief [...] blood in stool - denies dysuria, hematuria CHIEF DISPATCHER SERVICE- denies vaginal bleeding. No vaginal concerns SKIN- [...] adenopathy, no pain on exam Patient declined business objects. HEART: regular rate and rhythm LUNGS: clear [...] IgM 40 - 230 mg/dL 372 (H) [place] Free, Serum 3.3 - 19.4 mg/L 29.7 [...] Abs Lymph 1.00 - 4.00 k/uL 1.73 Sharp% % 5.9 Abs Sharp <0.87 k/uL 0.38 Eosin% % 5.9 Abs [...] which included preparing to see the patient, vtkc-on-kptu patient care, completing clinical documentation, obtaining and/or [...] September 26, 2022 documented in this encounter [facility] 08-22-2022 Miscellaneous Notes Pharmacy verified in [facility] Patient has been identified by name and [...] Ariadne Gonzalez Pss documented in this encounter [facility] 08-17-2022 Miscellaneous Notes Called and left voicemail [...] forwards to us. documented in this encounter [facility] 07-05-2022 Miscellaneous Notes 1st-time treatment report- non-oncology regimen. No assistance to support Reclast drug for Medicare-insured patients. No further assistance from at this time documented in this encounter [facility] 06-08-2022 Miscellaneous Notes Order placed Patient was last seen in office in May of 2021. She came into the office today to schedule a follow up with ragini mcgee and to schedule her mammogram. The current order expires prior to the first opening in [place]. Could a new order be placed so that she can get scheduled. She is coming in on Monday 06/11 for a reclast infusion. If the order could be placed prior to Saturday so that she can schedule this scan prior to her follow up with Ragini in July. documented in this encounter [facility] 06-07-2022 Note HNO ID: [id number] Author: Nora Pedro APRN.SENIOR HUMAN RESOURCES REPRESENTATIVE Service: ? Author Type: Nurse Practitioner Type: [...] variable Sleep: chronic insomnia Temperature Intolerance: variable CHIEF DISPATCHER SERVICE: Menopause age 45-50 GI: denies loose stools, [...] Current Outpatient Medications Medication Sig Dispense Refill luhluzxgllx-gdeedwmwp-zlbfgvdq (TRELEGY ELLIPTA) 100-62.5-25 mcg inhalation powder methIMAzole [...] T3 Date Value (more content not included)... [facility] 06-07-2022 History of Present illness Narrative [...] variable Sleep: chronic insomnia Temperature Intolerance: variable CHIEF DISPATCHER SERVICE: Menopause age 45-50 GI: denies loose stools, [...] left 11/2017 COPD (chronic obstructive pulmonary disease) ([facility]) Fracture of upper end of tibia 10/31/2015 Macular degeneration Migraine PCO (posterior capsular opacification) 05/25/2016 Pseudophakia of right eye Retinal hemorrhage of left eye 2004 left central vision loss Subarachnoid hemorrhage ([facility]) 05/2010 Tubal PAST SURGICAL HISTORY Procedure Laterality [...] Current Outpatient Medications Medication Sig Dispense Refill ycnixofmrgz-lbaoagpky-vxlswwwx (TRELEGY ELLIPTA) 100-62.5-25 mcg inhalation powder methIMAzole [...] which included preparing to see the patient, igmb-ix-bmkd patient care, completing clinical documentation, obtaining and/or reviewing separately obtained history, performing a medically appropriate examination, and counseling and educating the patient/family/caregiver. Nora Pedro, MSN, [employer], WELDING MACHINE ASSEMBLER-C, CDE Endocrinology [facility] Office [facility]/[address] [place] [address] Fax: documented in this encounter [facility] 02-23-2022 Note HNO ID: [id number] Author: Nora Perdo APRN.SENIOR HUMAN RESOURCES REPRESENTATIVE Service: ? Author Type: Nurse Practitioner Type: [...] Sleep:Difficulty but not new Temperature Intolerance: variable CHIEF DISPATCHER SERVICE: Menopause age 45-50 GI: denies loose stools, [...] left 11/2017 COPD (chronic obstructive pulmonary disease) ([facility]) Fracture of upper end of tibia 10/31/2015 [...] 4.200 mIU/L Fi (more content not included)... [facility] 02-23-2022 Instructions Nora Pedro APRN.SENIOR HUMAN RESOURCES REPRESENTATIVE - 02/23/2022 1:04 PM EDT Increase methimazole 5 mg tab to: AM 2 tabs PM 2 tabs 2. Repeat labs 4-5 wks. 3. Follow up 3 and 6 months. Nora Pedro, MSN, [employer], WELDING MACHINE ASSEMBLER-C, CDE Endocrinology [facility]/[address] [place] [address] Fax: documented in this encounter [facility] 02-23-2022 History of Present illness Narrative Reason [...] Sleep:Difficulty but not new Temperature Intolerance: variable CHIEF DISPATCHER SERVICE: Menopause age 45-50 GI: denies loose stools, [...] left 11/2017 COPD (chronic obstructive pulmonary disease) ([facility]) Fracture of upper end of tibia 10/31/2015 [...] which included preparing to see the patient, bofv-ph-sfrb patient care, completing clinical documentation, obtaining and/or reviewing separately obtained history, performing a medically appropriate examination, counseling and educating the patient/family/caregiver, and ordering medications, tests, or procedures. Nora Pedro, MSN, [employer], WELDING MACHINE ASSEMBLER-C, CDE Endocrinology [facility]/[address] [place] [address] Fax: documented in this encounter [facility] 01-17-2022 Miscellaneous Notes Requester: Patient Last Visit [...] advise. Hoa Mcnamara documented in this encounter [facility] 11-13-2021 History of Present illness Narrative Assessment [...] care with Dr. Prajapati, [facility], as scheduled. -Advised Low Vision Consult with [...] and treatment options. documented in this encounter [facility] 11-13-2021 Instructions Ovi Feliz, OD - 11/13/2021 1:26 PM EDT Images from the original note were not included. Please monitor each eye daily with the [employer] Grid. AREDS 2 Vitamins are available over the counter at any pharmacy. Refresh Artificial tears, 1 drop, three times a day, Both eyes. documented in this encounter [facility] documented as of this encounter (statuses as of 11/13/2021) [facility]11-20-2021 History of Past illness Narrative* Problem Noted [...] of this encounter (statuses as of 01/17/2022) [facility]11-20-2021 History of Past illness Narrative* Problem Noted [...] of this encounter (statuses as of 02/23/2022) [facility]-20[facility]2021 History of Past illness Narrative* Problem Noted [...] of this encounter (statuses as of 06/07/2022) [facility]-20[facility]2021 History of Past illness Narrative* Problem Noted [...] of this encounter (statuses as of 06/08/2022) [facility]20[facility]2021 History of Past illness Narrative* Problem Noted [...] of this encounter (statuses as of 06/11/2022) [facility] History of Past illness Narrative* Problem Noted [...] of this encounter (statuses as of 07/11/2022) [facility] History of Past illness Narrative* Problem Noted [...] of this encounter (statuses as of 08/17/2022) [facility] History of Past illness Narrative* Problem Noted [...] of this encounter (statuses as of 08/23/2022) [facility]2021 History of Past illness Narrative* Problem Noted [...] of this encounter (statuses as of 09/26/2022) [facility] History of Past illness Narrative* Problem Noted [...] of this encounter (statuses as of 10/12/2022) [facility]2021 History of Past illness Narrative* Problem Noted [...] of this encounter (statuses as of 11/02/2022) [facility] History of Past illness Narrative* Problem Noted [...] of this encounter (statuses as of 12/06/2022) [facility] History of Past illness Narrative* Problem Noted [...] of this encounter (statuses as of 12/10/2022) [facility] History of Past illness Narrative* Problem Noted [...] of this encounter (statuses as of 02/21/2023) [facility] History of Past illness Narrative* Problem Noted [...] of this encounter (statuses as of 06/12/2023) [facility] Diagnosis 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) Dry eye syndrome of both eyes Pseudophakia of both eyes Lens replaced by other means [facility] Hyperthyroidism Thyrotoxicosis without mention of goiter or other cause, without mention of thyrotoxic crisis or storm [facility] Diagnosis Hyperthyroidism- Primary Thyrotoxicosis without mention of goiter or other cause, without mention of thyrotoxic crisis or storm Abnormal weight loss Loss of weight [facility] Diagnosis Hyperthyroidism- Primary Thyrotoxicosis without mention of goiter or other cause, without mention of thyrotoxic crisis or storm [facility]* Diagnosis Malignant neoplasm of upper-outer quadrant of left breast in female, estrogen receptor positive (HCC)- Primary Encounter for screening mammogram for malignant neoplasm of breast Other screening [facility] Diagnosis Malignant neoplasm of upper-outer quadrant of left breast in female, estrogen receptor positive (HCC)- Primary [facility] Diagnosis Hyperthyroidism- Primary Thyrotoxicosis without mention of goiter or other cause, without mention of thyrotoxic crisis or storm [facility] Diagnosis Malignant neoplasm of upper-outer quadrant of left breast in female, estrogen receptor positive (HCC) [facility] Diagnosis Malignant neoplasm of left breast in female, estrogen receptor positive, unspecified site of breast (HCC)- Primary Encounter for screening for osteoporosis Special screening for osteoporosis Hypothyroidism, unspecified type Vitamin D deficiency Unspecified vitamin D deficiency [facility] [place] [facility]* Diagnosis Hyperthyroidism Thyrotoxicosis without mention of goiter or other cause, without mention of thyrotoxic crisis or storm documented in this encounter [facility] note* Diagnosis Malignant neoplasm of upper-outer quadrant of left breast in female, estrogen receptor positive (HCC) [facility] [place] [facility]* Diagnosis Graves disease- Primary Toxic diffuse goiter without mention of thyrotoxic crisis or storm Primary hypertension Unspecified essential hypertension Elevated TSH Nonspecific abnormal results of thyroid function study documented in this encounter [facility] note* Diagnosis Graves disease- Primary Toxic diffuse goiter without mention of thyrotoxic crisis or storm documented in this encounter [facility] note* Diagnosis Malignant neoplasm of upper-outer quadrant of left breast in female, estrogen receptor positive (HCC) documented in this encounter [facility] for referral (narrative)* Diagnostic Procedure Only (Routine) - Pending Review Specialty Diagnoses / Procedures Referred By Elsy knapp Referred To Contact [facility] Diagnoses Encounter for screening mammogram for malignant neoplasm of breast Procedures REGINALD SCREENING W EVON SCREENING DIGITAL BREAST TOMOSYNTHESIS BI SCREENING MAMMOGRAPHY BI 2-[place] [id number] [place] [address] [facility] [address] [place] [id number] Referral ID Status Reason Start Date Expiration Date Visits Requested Visits Authorized [id number] Pending Review Auto-Generat ed Referral 06/08/2022 07/07/2023 1 1 [facility] Summary Purpose Family History No Family History Records FoundNo Family History Records FoundNo Family History Records Found Advance Directives Documents on File Type Date Recorded Patient Environmental Resource Specialist Expl anation Advance Directive(s) 05/26/2021 9:21 PM Advance Directive(s) 11/21/2017 8:37 AM Advance Directive(s) 05/16/2017 6:20 AM Latest Code Status on File Code Status Date Activated Date Inactivated Comments DNR-CCA 05/27/2021 1:41 PM 05/29/2021 10:09 PM DNR Order Discussed With: Surrogate Decision Frank mora Surrogate Decision Maker Name: Meeta Foramn Surrogate Decision Maker Surrogate Decision Maker Relationship: [...] the event of a Fluress shortage, administer Madison-Fluor 1 drop into both eyes as directed [...] AUTHOR AUTHOR'S ORGANIZ ATION 02/19/2023 [facility] DATE CREATED AUTHOR AUTHOR'S ORGANIZ ATION 02/22/2023 [facility] Source Comments (unrecognize d section and content) In the event this informatio n is protected by the Federal Confidentiality of Alcohol and Drug Abuse Patient Records regulations: The Federal rules restrict any use of the information to criminally investigate or prosecute any alcohol or drug abuse patient.[facility] the event this information is protected by the Federal Confidentiality of Alcohol and Drug Abuse Patient Records regulations: The Federal rules restrict any use of the information to criminally investigate or prosecute any alcohol or drug abuse patient.[facility] General[facility] the event this information is protected by the Federal Confidentiality of Alcohol and Drug Abuse Patient Records regulations: The Federal rules restrict any use of the information to criminally investigate or prosecute any alcohol or drug abuse patient.[facility] General[facility] the event this information is protected by the Federal Confidentiality of Alcohol and Drug Abuse Patient Records regulations: The Federal rules restrict any use of the information to criminally investigate or prosecute any alcohol or drug abuse patient.[facility] the event this information is protected by the Federal Confidentiality of Alcohol and Drug Abuse Patient Records regulations: The Federal rules restrict any use of the information to criminally investigate or prosecute any alcohol or drug abuse patient.[facility] the event this information is protected by the Federal Confidentiality of Alcohol and Drug Abuse Patient Records regulations: The Federal rules restrict any use of the information to criminally investigate or prosecute any alcohol or drug abuse patient.[facility] General[facility] the event this information is protected by the Federal Confidentiality of Alcohol and Drug Abuse Patient Records regulations: The Federal rules restrict any use of the information to criminally investigate or prosecute any alcohol or drug abuse patient.[facility] the event this information is protected by the Federal Confidentiality of Alcohol and Drug Abuse Patient Records regulations: The Federal rules restrict any use of the information to criminally investigate or prosecute any alcohol or drug abuse patient.[facility] the event this information is protected by the Federal Confidentiality of Alcohol and Drug Abuse Patient Records regulations: The Federal rules restrict any use of the information to criminally investigate or prosecute any alcohol or drug abuse patient.[facility] the event this information is protected by the Federal Confidentiality of Alcohol and Drug Abuse Patient Records regulations: The Federal rules restrict any use of the information to criminally investigate or prosecute any alcohol or drug abuse patient.[facility] the event this information is protected by the Federal Confidentiality of Alcohol and Drug Abuse Patient Records regulations: The Federal rules restrict any use of the information to criminally investigate or prosecute any alcohol or drug abuse patient.[facility] the event this information is protected by the Federal Confidentiality of Alcohol and Drug Abuse Patient Records regulations: The Federal rules restrict any use of the information to criminally investigate or prosecute any alcohol or drug abuse patient.[facility] the event this information is protected by the Federal Confidentiality of Alcohol and Drug Abuse Patient Records regulations: The Federal rules restrict any use of the information to criminally investigate or prosecute any alcohol or drug abuse patient.[facility] the event this information is protected by the Federal Confidentiality of Alcohol and Drug Abuse Patient Records regulations: The Federal rules restrict any use of the information to criminally investigate or prosecute any alcohol or drug abuse patient.[facility] the event this information is protected by the Federal Confidentiality of Alcohol and Drug Abuse Patient Records regulations: The Federal rules restrict any use of the information to criminally investigate or prosecute any alcohol or drug abuse patient.[facility] the event this information is protected by the Federal Confidentiality of Alcohol and Drug Abuse Patient Records regulations: The Federal rules restrict any use of the information to criminally investigate or prosecute any alcohol or drug abuse patient.[facility] Reason for Visit (unrecogniz ed section and [...] ZOLEDRONIC ACID, [address] [place] [address] [place] [address] [facility] [address] [address] Referral ID Status Reason Start Date Expiration Date V isits Requested Visits Authorized [id number] Authorized 05/11/2021 05/09/2023 5 5 Reason Comments Benefits Investigation Reason Comments Results Reason Onset Date Comments Refill Request 08/22/2022 Reason Comments Follow Up Reason Comments Refill Request Reason Comments Follow Up Established Patient Care Teams (unrecognized sec tion and content) Glass Beveler Relationship Specialty Start Date End Date Heron Sun MD [address] [place] [address] PCP - General Internal Medicine 05/20/17 Pee Mancuso MD [address] [place] [address] Referring Orthopedics 04/19/15 Pee Mancuso MD [address] [place] [address] Home Care Physician Orthopedics 04/19/15 Glass Beveler Relationship Specialty Start Date End Date Heron Sun MD [address] [place] [address] PCP - General Internal Medicine 05/20/17 Pee Mancuso MD [address] [place] [address] Referring Orthopedics 04/19/15 Pee Mancuso MD [address] [place] [address] Home Care Physician Orthopedics 04/19/15 Glass Beveler Relationship Specialty Start Date End Date Heron Sun MD [address] [place] [address] PCP - General Internal Medicine 05/20/17 Pee Mancuso MD [address] [place] [address] Referring Orthopedics 04/19/15 Pee Mancuso MD [address] [place] [address] Home Care Provider Orthopedics 04/19/15 Glass Beveler Relationship Specialty Start Date End Date Heron Sun MD [address] [place] [address] PCP - General Internal Medicine 05/20/17 Pee Mancuso MD [address] [place] [address] Referring Orthopedics 04/19/15 Pee Mancuso MD [address] [place] [address] Home Care Provider Orthopedics 04/19/15 Glass Beveler Relationship Specialty Start Date End Date Heron Sun MD [address] [place] [address] PCP - General Internal Medicine 05/20/17 Pee Mancuso MD [address] [place] [address] Referring Orthopedics 04/19/15 Pee Mancuso MD [address] [place] [address] Home Care Provider Orthopedics 04/19/15 Glass Beveler Relationship Specialty Start Date End Date Heron Sun MD [address] [place] [address] PCP - General Internal Medicine 05/20/17 Pee Mancuso MD [address] [place] [address] Referring Orthopedics 04/19/15 Pee Mancuso MD [address] [place] [address] Home Care Provider Orthopedics 04/19/15 Glass Beveler Relationship Specialty Start Date End Date Heron Sun MD [address] [place] [address] PCP - General Internal Medicine 05/20/17 Pee Mancuso MD [address] [place] [address] Referring Orthopedics 04/19/15 Pee Mancuso MD [address] [address] Home Care Provider Orthopedics 04/19/15 Glass Beveler Relationship Specialty Start Date End Date Heron Sun MD [address] [address] PCP - General Internal Medicine 05/20/17 Pee Mancuso MD [address] [place] [address] Referring Orthopedics 04/19/15 Pee Mancuso MD [address] [place] [address] Home Care Provider Orthopedics 04/19/15 Glass Beveler Relationship Specialty Start Date End Date Heron Sun MD [address] [address] PCP - General Internal Medicine 05/20/17 Pee Mancuso MD [address] [place] [address] Referring Orthopedics 04/19/15 Pee Mancuso MD [address] [place] [address] Home Care Provider Orthopedics 04/19/15 Glass Beveler Relationship Specialty Start Date End Date Heron Sun MD [address] [address] PCP - General Internal Medicine 05/20/17 Pee Mancuso MD [address] [address] Referring Orthopedics 04/19/15 Pee Mancuso MD [address] [address] Home Care Provider Orthopedics 04/19/15 FOR RECORDS [...] BE BASED ON THE PRIMARY CLINICAL RECORDS. [employer] [facility]. provides no warranty or guarantee of the accuracy or completeness of information in this document.
[2023-07-22 08:36] LABS: Hematocrit 32.6 % (37-47); Hemoglobin 9.9 g/dL (12.0-15.0); Mean Corp Hgb Conc 30.4 g/dL (32-36); Mean Corpuscular Hgb 30.4 pg (27.0-32.0); Mean Platelet Vol. 11.7 fl (6.2-12.0); Platelet Count 282 K/mm3 (150-450); RBC Distribution Width CV 16.7 % (11.6-14.6); RBC Distribution Width SD 60.7 fl (35.1-43.9); Red Blood Count 3.26 M/mm3 (4.2-5.4); White Blood Count 9.3 K/mm3 (4.4-11.0)
[2023-07-22 09:47] LABS: Anion Gap 6 (5-15); BUN 30 mg/dL (7-18); BUN/Creat Ratio 80.2 RATIO (10-20); Calcium,Total 9.1 mg/dL (8.5-10.1); Chloride 108 mmol/L (98-107); Creatinine, Serum 0.37 mg/dL (0.55-1.02); EST Glomerular Filtration Rate 179 mL/min (>60); Est Glom Filt Rate - Afr Amer 217 mL/min (>60); Glucose 70 mg/dL (74-106); Potassium 4.4 mmol/L (3.5-5.1); Prealbumin 16.8 mg/dL (20.0-40.0); Sodium Level 141 mmol/L (136-145)
== END ==
LOC: OLS.SW 05:00
PROVIDERS: Visit Provider Internal Medicine
DX: E43 Unspecified severe protein-calorie malnutrition (principal); I10 Essential (primary) hypertension; E78.5 Hyperlipidemia, unspecified
CPT/HCPCS: 36415; 80048; 84134; 85027

== ENCOUNTER → 2023-07-29 | Outpatient (REF) | payer MEDICARE, SELFPAY ==
--- OUTSIDE RECORDS SUMMARY | 2023-07-29 04:34 | XMS RPT_ITS | CCD ---
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 Name Role Phone Doncals, Floridalma Unavailable Unavailable PROVIDER, UNKNOWN Unavailable Unavailable Dino, Heron Unavailable Unavailable Doncals, Floridalma Unavailable Unavailable PROVIDER, UNKNOWN Unavailable Unavailable Dino, Heron Unavailable Unavailable Bartloome LEON, Pee E Unavailable Bartolome LEON, Pee [...] to adverse reactions to drug 06-28-2010 Unknown [facility] Work Phone: (15 sources) Penicillins Propensity to adverse reactions to drug 06-28-2010 Unknown [facility] Work Phone: Medications Current Medications Medication [...] Drug Class(es) Dates Sig (Normalized) Sig (Original) [id number] 200 actuat albuterol 0.09 mg/actuat metered dose [...] 94 mm[Hg] Janki John MD Work Phone: [facility] 12-06-2022 11:06-0400 Heart rate 92 /min Janki John MD Work Phone: [facility] 12-06-2022 11:06-0400 Systolic blood pressure 156 mm[Hg] Janki John MD Work Phone: [facility] 12-06-2022 10:31-0400 Body height 148.5 cm Janki John MD Work Phone: [facility] 12-06-2022 10:31-0400 Body weight 48.53 kg Janki John MD Work Phone: [facility] 12-06-2022 10:31-0400 Respiratory rate 16 /min Janki John MD Work Phone: [facility] 12-06-2022 10:31-0400 SaO2% (BldA) [Mass fraction] 97 % Janki John MD Work Phone: [facility] 09-26-2022 10:06-0400 Body temperature 97.81 [degF] Ragini Mcgee PRODUCT SAFETY TESTER.[facility] Work Phone: [facility] 09-26-2022 10:06-0400 Body weight 47.58 kg Ragini Mcgee PRODUCT SAFETY TESTER.PICTURE FRAMES INSPECTOR Work Phone: [facility] 09-26-2022 10:06-0400 Diastolic blood pressure 76 mm[Hg] Ragini Mcgee PRODUCT SAFETY TESTER.PICTURE FRAMES INSPECTOR Work Phone: [facility] 09-26-2022 10:06-0400 Heart rate 74 /min Ragini Mcgee PRODUCT SAFETY TESTER.[facility] Work Phone: [facility] 09-26-2022 10:06-0400 SaO2% (BldA) [Mass fraction] 93 % Ragini Mcgee PRODUCT SAFETY TESTER.[facility] Work Phone: [facility] 09-26-2022 10:06-0400 Systolic blood pressure 152 mm[Hg] Ragini Mcgee PRODUCT SAFETY TESTER.[facility] Work Phone: [facility] 06-11-2022 11:43-0500 Body temperature 98.71 [degF] Treatment Work Phone: [facility] 06-11-2022 11:43-0500 Body weight 45.9 kg Treatment Work Phone: [facility] 06-11-2022 11:43-0500 Diastolic blood pressure 67 mm[Hg] Treatment Work Phone: [facility] 06-11-2022 11:43-0500 Heart rate 68 /min Treatment Work Phone: [facility] 06-11-2022 11:43-0500 Respiratory rate 16 /min Treatment Work Phone: [facility] 06-11-2022 11:43-0500 SaO2% (BldA) [Mass fraction] 96 % Treatment Work Phone: [facility] 06-11-2022 11:43-0500 Systolic blood pressure 144 mm[Hg] Treatment Work Phone: [facility] 06-07-2022 14:00-0500 Body height 148.5 cm [facility] PR[facility] SAFETY TESTER.[facility] Work Phone: [facility] 06-07-2022 14:00-0500 Body weight 45.18 kg [facility] PRODUCT SAFETY TESTER.[facility] Work Phone: [facility] 06-07-2022 14:00-0500 Diastolic blood pressure 85 mm[Hg] Nora Kupiec PRODUCT SAFETY TESTER.[facility] Work Phone: [facility] 06-07-2022 14:00-0500 Heart rate 78 /min Nora Kupiec PRODUCT SAFETY TESTER.[facility] Work Phone: [facility] 06-07-2022 14:00-0500 Respiratory rate 20 /min Nora Kupiec PRODUCT SAFETY TESTER.[facility] Work Phone: [facility] 06-07-2022 14:00-0500 SaO2% (BldA) [Mass fraction] 97 % Nora Kupiec PRODUCT SAFETY TESTER.[facility] Work Phone: [facility] 06-07-2022 14:00-0500 Systolic blood pressure 135 mm[Hg] Nora Kupiec PRODUCT SAFETY TESTER.[facility] Work Phone: [facility] 02-23-2022 12:46-0400 Body weight 42.09 kg Nora Kupiec PRODUCT SAFETY TESTER.[facility] Work Phone: [facility] 02-23-2022 12:46-0400 Diastolic blood pressure 78 mm[Hg] Nora Kupiec PRODUCT SAFETY TESTER.[facility] Work Phone: [facility] 02-23-2022 12:46-0400 Heart rate 87 /min Nora Kupiec PRODUCT SAFETY TESTER.[facility] Work Phone: [facility] 02-23-2022 12:46-0400 SaO2% (BldA) [Mass fraction] 92 % Nora Kupiec PRODUCT SAFETY TESTER.PICTURE FRAMES INSPECTOR Work Phone: [facility] 02-23-2022 12:46-0400 Systolic blood pressure 125 mm[Hg] Nora Pedro PRODUCT SAFETY TESTER.PICTURE FRAMES INSPECTOR Work Phone: [facility] Encounters Encounter Date Encounter Type Care [...] - S rian or Plasma Lipid Screening [facility] Start: 02-19-2028 LIPID SCREEN LIPID SCREEN [facility] Start: 11-20-2026 LIPID SCREEN LIPID SCREEN [facility] Start: 05-11-2026 LIPID SCREEN LIPID SCREEN [facility] Start: 02-18-2026 DIABETES SCREEN DIABETES SCREEN [facility] Start: 02-18-2026 Diabetes Screening Diabetes Screenin g [facility] Start: 08-13-2025 DIABETES SCREEN DIABETES SCREEN [facility] Start: 02-05-2025 DIABETES SCREEN DIABETES SCREEN [facility] Start: 11-20-2024 DIABETES SCREEN DIABETES SCREEN [facility] Start: 05-29-2024 DIABETES SCREEN DIABETES SCREEN [facility] Start: 03-08-2023 Covid-19 Vaccine ( season) Covid-19 Vaccine () [facility] Start: 03-08-2023 Influenza vaccination C [facility] Start: 02-23-2023 BP CONTROLLED (<130/80) BP CON TROLLED (<130/80) [facility] Start: 01-09-2023 End: 03-11-2023 Thyrotropin [Units/volume] in Serum or Plasma TSH BLD Lab Routine Graves disease Expected: 01/09/2023, Expires: 03/11/2023 [facility] Work Phone: Immunizations Immunization Date Immunization Notes Care Provider Teresa mota 04-24-2021 influenza virus vacc ine, unspecified formulation Daisy An MD Work Phone: [facility] 04-11-2011 influenza virus vacc ine, unspecified formulation Ovi Feliz OD Work Phone: [facility] 06-07-2010 influenza virus vacc ine, unspecified formulation Ovi Feliz OD Work Phone: [facility] 06-07-2010 pneumococcal polysaccharide vaccine, 23 valent Ovi Feliz OD Work Phone: [facility] Payers Date Payer Category Payer Medicare 2022 Medicare [id number] 2021 Unknown ANTHEM [employer] S [employer] BLUE SHIELD [employer] [id number] 2021-Present [phone] [address] [id number] 2021 Unknown ANTHEM BL[employer] CR[employer] S AND BLUE SHIELD AN[employer] MED[employer] [id number] 2021-Present [phone] [address] [place] [id number] [facility] [id number] 2021 Unknown [id number] Social History Date Type Detail Facility Start: 03-03-2018 End: 02-23-2022 Tobacco smoking status NHIS Smokes tobacco daily [facility] Start: 03-03-2018 History of tobacco use Cigarette Smo ker [facility] Start: 03-03-2018 End: 12-06-2022 Cigarettes smoked current (pack per day) - Reported 0.5 [facility] Start: 03-03-2018 End: 02-23-2022 Tobacco use and exposure Smokeless tobacco non-user [facility] Start: 11-13-2021 End: 12-06-2022 Alcohol intake Current non-drinker of alcohol (finding) [facility] Start: 1950 Sex Assigned At Not on file C [facility] Start: 11-03-2021 End: 06-07-2022 Exposure to SARS-CoV-2 (event) Not sure [facility] Start: 03-03-2018 End: 12-06-2022 Tobacco use panel [facility] Adult Depression Scr eening Assessment 0 [facility] Medical Equipment Procedure Code Equipment Code Equipment Origin al Text Equipment Identifier Dates Kit Catheter Bactiseal [id number] - [id number] Start: 06-29-2010 Clinical Notes 05-27-2021 to 02-21-2023 Telephone Encounter - Janki John MD - 02/21/2023 12:51 PM EDTTelephone Encounter - Janki Jhon MD - 12/10/2022 1:00 PM EDTPatient Cely John MD - 12/06/2022 10:49 AM EDT Note Date & Type Note Facility 02-21-2023 Miscellaneous Notes Please notify the patient that TSH is suppressed I would like her to increase methimazole to 10 mg twice a day I will recheck lab results at her follow up Janki John MD documented in this encounter [facility] 12-10-2022 Miscellaneous Notes Please notify the patient that her TSH has increased to 46 Stop methimazole at this time I would like to recheck TSH in 4 weeks Order is in Regards Janki John MD documented in this encounter [facility] 12-06-2022 Note HNO ID: [id number] Author: Janki John MD Service: ? Author [...] and TAKE 1 TABLET IN THE EVENING. yrdwdpsueoq-ygnykjsaa-ualzmddh (TRELEGY ELLIPTA) 100-62.5-25 mcg inhalation powder metoprolol [...] malformation) 2003 left sylvian fissure Breast cancer ([facility]) 11/2017 left breast Breast mass, left 11/2017 COPD (chronic obstructive pulmonary disease) (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) 05/2010 Tubal PHYSICAL EXAM: BP 158/94 [...] on the lab results Janki John MD [facility] 12-06-2022 Instructions Janki John MD - 12/06/2022 11:02 AM EDT Get thyroid labs drawn Stay off methimazole until we contact you with lab results documented in this encounter [facility] 12-06-2022 History of Present illness Narrative [...] and TAKE 1 TABLET IN THE EVENING. trhqphxyxlg-iwfmhrzmi-amkhoetj (TRELEGY ELLIPTA) 100-62.5-25 mcg inhalation powder metoprolol [...] malformation) 2003 left sylvian fissure Breast cancer ([facility]) 11/2017 left breast Breast mass, left 11/2017 COPD (chronic obstructive pulmonary disease) (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) 05/2010 Tubal PHYSICAL EXAM: BP 158/94 [...] Janki John MD documented in this encounter [facility] 10-12-2022 Miscellaneous Notes Requester: Pharmacy Last [...] Abby Lazo MA documented in this encounter [facility] 10-04-2022 Note HNO ID: [id number] Author: KHRIS Caraballo Service: Radiology Author Type: [...] KHRIS Caraballo October 04, 2022 12:55 PM [facility] 09-26-2022 Note HNO ID: [id number] Author: Ragini Mcgee APRN.PATTIE Service: ? Author [...] blood in stool - denies dysuria, hematuria TEXT TRANSCRIBER- denies vaginal bleeding. No vaginal concerns SKIN- [...] adenopathy, no pain on exam Patient declined ethylbenzene converter helper. HEART: regular rate and rhythm LUNGS: clear [...] IgM 40 - 230 mg/dL 372 (H) Milmay Free, Serum 3.3 - 19.4 mg/L 29.7 [...] Abs Lymph 1.00 - 4.00 k/uL 1.73 Gordon% % 5.9 Abs Gordon <0.87 k/uL 0.38 Eosin% % 5.9 Abs Eosin <0.46 k/uL 0.38 Baso% % 0.5 Abs Baso <0.11 k/uL 0.03 Immature Gran % % 0.3 IMMATURE GRAN (more content not included)... [facility] 09-26-2022 Instructions Ragini Mcgee APRN.CNP - [...] usual activities immediately. documented in this encounter [facility] 09-26-2022 History of Present illness Narrative [...] blood in stool - denies dysuria, hematuria TEXT TRANSCRIBER- denies vaginal bleeding. No vaginal concerns SKIN- [...] adenopathy, no pain on exam Patient declined ethylbenzene converter helper. HEART: regular rate and rhythm LUNGS: clear [...] IgM 40 - 230 mg/dL 372 (H) Milmay Free, Serum 3.3 - 19.4 mg/L 29.7 [...] Abs Lymph 1.00 - 4.00 k/uL 1.73 Gordon% % 5.9 Abs Gordon <0.87 k/uL 0.38 Eosin% % 5.9 Abs [...] which included preparing to see the patient, [id number] patient care, completing clinical documentation, obtaining and/or [...] September 26, 2022 documented in this encounter [facility] 08-22-2022 Miscellaneous Notes Pharmacy verified in [facility] Patient has been identified by name [...] Ariadne Gonzalez Pss documented in this encounter [facility] 08-17-2022 Miscellaneous Notes Called and left [...] forwards to us. documented in this encounter [facility] 07-05-2022 Miscellaneous Notes 1st-time treatment report- non-oncology regimen. No assistance to support Reclast drug for Medicare-insured patients. No further assistance from at this time documented in this encounter [facility] 06-08-2022 Miscellaneous Notes Order placed Patient was last seen in office in May of 2021. She came into the office today to schedule a follow up with ragini mcgee and to schedule her mammogram. The current order expires prior to the first opening in [place]. Could a new order be placed so that she can get scheduled. She is coming in on Monday 06/11 for a reclast infusion. If the order could be placed prior to Saturday so that she can schedule this scan prior to her follow up with Ragini in July. documented in this encounter [facility] 06-07-2022 Note HNO ID: [id number] Author: Nora Pedro APRN.PICTURE FRAMES INSPECTOR Service: ? Author Type: Nurse Practitioner Type: [...] variable Sleep: chronic insomnia Temperature Intolerance: variable TEXT TRANSCRIBER: Menopause age 45-50 GI: denies loose stools, [...] Current Outpatient Medications Medication Sig Dispense Refill ihmfwbwcozk-njchueiuo-nmamfvmq (TRELEGY ELLIPTA) 100-62.5-25 mcg inhalation powder methIMAzole [...] T3 Date Value (more content not included)... [facility] 06-07-2022 History of Present illness Narrative [...] variable Sleep: chronic insomnia Temperature Intolerance: variable TEXT TRANSCRIBER: Menopause age 45-50 GI: denies loose stools, [...] left 11/2017 COPD (chronic obstructive pulmonary disease) (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) 05/2010 Tubal PAST SURGICAL HISTORY Procedure [...] Current Outpatient Medications Medication Sig Dispense Refill bizgrattezu-ziiavxmza-uyxhsvmo (TRELEGY ELLIPTA) 100-62.5-25 mcg inhalation powder methIMAzole [...] which included preparing to see the patient, icbp-pu-[id number] patient care, completing clinical documentation, obtaining and/or reviewing separately obtained history, performing a medically appropriate examination, and counseling and educating the patient/family/caregiver. Nora Pedro, MSN, PRODUCT SAFETY TESTER, CABLE WIRER-C, CDE Endocrinology [facility] Office [facility]/[address] [place] [address] Fax: documented in this encounter [facility] 02-23-2022 Note HNO ID: [id number] Author: Nora Pedro APRN.PICTURE FRAMES INSPECTOR Service: ? Author Type: Nurse Practitioner Type: [...] Sleep:Difficulty but not new Temperature Intolerance: variable TEXT TRANSCRIBER: Menopause age 45-50 GI: denies loose stools, [...] left 11/2017 COPD (chronic obstructive pulmonary disease) ([facility]) Fracture of upper end of tibia [...] 4.200 mIU/L Fi (more content not included)... [facility] 02-23-2022 Instructions Nora Pedro APRN.PICTURE FRAMES INSPECTOR - 02/23/2022 1:04 PM EDT Increase methimazole 5 mg tab to: AM 2 tabs PM 2 tabs 2. Repeat labs 4-5 wks. 3. Follow up 3 and 6 months. Nora Pedro, MSN, PRODUCT SAFETY TESTER, CABLE WIRER-C, CDE Endocrinology [facility]/[address] [place] [address] Fax: documented in this encounter [facility] 02-23-2022 History of Present illness Narrative [...] Sleep:Difficulty but not new Temperature Intolerance: variable TEXT TRANSCRIBER: Menopause age 45-50 GI: denies loose stools, [...] left 11/2017 COPD (chronic obstructive pulmonary disease) ([facility]) Fracture of upper end of tibia [...] which included preparing to see the patient, [id number] patient care, completing clinical documentation, obtaining and/or reviewing separately obtained history, performing a medically appropriate examination, counseling and educating the patient/family/caregiver, and ordering medications, tests, or procedures. Nora Pedro, MSN, PRODUCT SAFETY TESTER, CABLE WIRER-C, CDE Endocrinology [facility]/[address] [place] [address] Fax: documented in this encounter [facility] 01-17-2022 Miscellaneous Notes Requester: Patient Last [...] advise. Hoa Mcnamara documented in this encounter [facility] 11-13-2021 History of Present illness Narrative [...] care with Dr. Prajapati, [facility], as scheduled. -Advised Low Vision Consult with [...] and treatment options. documented in this encounter [facility] 11-13-2021 Instructions Ovi Feliz, OD - 11/13/2021 1:26 PM EDT Images from the original note were not included. Please monitor each eye daily with the [employer] Grid. AREDS 2 Vitamins are available over the counter at any pharmacy. Refresh Artificial tears, 1 drop, three times a day, Both eyes. documented in this encounter [facility] documented as of this encounter (statuses as of 11/13/2021) [facility] History of Past illness Narrative* Problem [...] of this encounter (statuses as of 01/17/2022) [facility] History of Past illness Narrative* Problem [...] of this encounter (statuses as of 02/23/2022) [facility] History of Past illness Narrative* Problem [...] of this encounter (statuses as of 06/07/2022) [facility] History of Past illness Narrative* Problem [...] of this encounter (statuses as of 06/08/2022) [facility] History of Past illness Narrative* Problem [...] of this encounter (statuses as of 06/11/2022) [facility] History of Past illness Narrative* Problem [...] of this encounter (statuses as of 07/11/2022) [facility] History of Past illness Narrative* Problem [...] of this encounter (statuses as of 08/17/2022) [facility] History of Past illness Narrative* Problem [...] of this encounter (statuses as of 08/23/2022) [facility] History of Past illness Narrative* Problem [...] of this encounter (statuses as of 09/26/2022) [facility] History of Past illness Narrative* Problem [...] of this encounter (statuses as of 10/12/2022) [facility] of Past illness Narrative* Problem [...] of this encounter (statuses as of 11/02/2022) [facility] of Past illness Narrative* Problem [...] of this encounter (statuses as of 12/06/2022) [facility] of Past illness Narrative* Problem [...] of this encounter (statuses as of 12/10/2022) [facility] of Past [facility] Narrative* Problem [...] of this encounter (statuses as of 02/21/2023) [facility] of Past illness Narrative* Problem [...] of this encounter (statuses as of 06/12/2023) [facility] Diagnosis 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) Dry eye syndrome of both eyes Pseudophakia of both eyes Lens replaced by other means [facility] Diagnosis Hyperthyroidism Thyrotoxicosis without mention of goiter or other cause, without mention of thyrotoxic crisis or storm [facility] Diagnosis Hyperthyroidism- Primary Thyrotoxicosis without mention of goiter or other cause, without mention of thyrotoxic crisis or storm Abnormal weight loss Loss of weight [facility] Diagnosis Hyperthyroidism- Primary Thyrotoxicosis without mention of goiter or other cause, without mention of thyrotoxic crisis or storm [facility]* Diagnosis Malignant neoplasm of upper-outer quadrant of left breast in female, estrogen receptor positive (HCC)- Primary Encounter for screening mammogram for malignant neoplasm of breast Other screening mammogram [facility] Diagnosis Malignant neoplasm of upper-outer quadrant of left breast in female, estrogen receptor positive (HCC)- Primary [facility]* Diagnosis Hyperthyroidism- Primary Thyrotoxicosis without mention of goiter or other cause, without mention of thyrotoxic crisis or storm [facility] Diagnosis Malignant neoplasm of upper-outer quadrant of left breast in female, estrogen receptor positive (HCC) [facility] Diagnosis Malignant neoplasm of left breast in female, estrogen receptor positive, unspecified site of breast (HCC)- Primary Encounter for screening for osteoporosis Special screening for osteoporosis Hypothyroidism, unspecified type Vitamin D deficiency Unspecified vitamin D deficiency [facility]* Diagnosis Hyperthyroidism Thyrotoxicosis without mention of goiter or other cause, without mention of thyrotoxic crisis or storm documented in this encounter [facility] note* Diagnosis Malignant neoplasm of upper-outer quadrant of left breast in female, estrogen receptor positive (HCC) [facility]* Diagnosis Graves disease- Primary Toxic diffuse goiter without mention of thyrotoxic crisis or storm Primary hypertension Unspecified essential hypertension Elevated TSH Nonspecific abnormal results of thyroid function study documented in this encounter [facility] note* Diagnosis Graves disease- Primary Toxic diffuse goiter without mention of thyrotoxic crisis or storm documented in this encounter [facility] note* Diagnosis Malignant neoplasm of upper-outer quadrant of left breast in female, estrogen receptor positive (HCC) documented in this encounter [facility] for referral (narrative)* Diagnostic Procedure Only (Routine) - Pending Review Specialty Diagnoses / Procedures Referred By Elsy knapp Referred To Contact [facility] Diagnoses Encounter for screening mammogram for malignant neoplasm of breast Procedures REGINALD SCREENING W EVON SCREENING DIGITAL BREAST TOMOSYNTHESIS BI SCREENING MAMMOGRAPHY [place] [employer] [address] [place] [address] [facility] [address] [place] [id number] Referral ID Status Reason Start Date Expiration Date Visits Requested Visits Authorized [id number] Pending Review Auto-Generat ed Referral 06/08/2022 07/07/2023 1 1 [facility] Summary Purpose Family History No Family History Records FoundNo Family History Records FoundNo Family History Records Found Advance Directives Documents on File Type Date Recorded Patient Emissions Testing Technician Expl anation Advance Directive(s) 05/26/2021 9:21 PM [...] the event of a Fluress shortage, administer [place]-Fluor 1 drop into both eyes as directed [...] DATE CREATED AUTHOR AUTHOR'S ORGANIZ ATION 02/19/2023 [facility] DATE CREATED AUTHOR AUTHOR'S ORGANIZ ATION 02/22/2023 [facility] Source Comments (unrecognize d section and content) In the event this informatio n is protected by the Federal Confidentiality of Alcohol and Drug Abuse Patient Records regulations: The Federal rules restrict any use of the information to criminally investigate or prosecute any alcohol or drug abuse patient.[facility] the event this information is protected by the Federal Confidentiality of Alcohol and Drug Abuse Patient Records regulations: The Federal rules restrict any use of the information to criminally investigate or prosecute any alcohol or drug abuse patient.[facility] the event this information is protected by the Federal Confidentiality of Alcohol and Drug Abuse Patient Records regulations: The Federal rules restrict any use of the information to criminally investigate or prosecute any alcohol or drug abuse patient.[facility] the event this information is protected by the Federal Confidentiality of Alcohol and Drug Abuse Patient Records regulations: The Federal rules restrict any use of the information to criminally investigate or prosecute any alcohol or drug abuse patient.[facility] the event this information is protected by the Federal Confidentiality of Alcohol and Drug Abuse Patient Records regulations: The Federal rules restrict any use of the information to criminally investigate or prosecute any alcohol or drug abuse patient.[facility] the event this information is protected by the Federal Confidentiality of Alcohol and Drug Abuse Patient Records regulations: The Federal rules restrict any use of the information to criminally investigate or prosecute any alcohol or drug abuse patient.[facility] the event this information is protected by the Federal Confidentiality of Alcohol and Drug Abuse Patient Records regulations: The Federal rules restrict any use of the information to criminally investigate or prosecute any alcohol or drug abuse patient.[facility] the event this information is protected by the Federal Confidentiality of Alcohol and Drug Abuse Patient Records regulations: The Federal rules restrict any use of the information to criminally investigate or prosecute any alcohol or drug abuse patient.[facility] the event this information is protected by the Federal Confidentiality of Alcohol and Drug Abuse Patient Records regulations: The Federal rules restrict any use of the information to criminally investigate or prosecute any alcohol or drug abuse patient.[facility] the event this information is protected by the Federal Confidentiality of Alcohol and Drug Abuse Patient Records regulations: The Federal rules restrict any use of the information to criminally investigate or prosecute any alcohol or drug abuse patient.[facility] the event this information is protected by the Federal Confidentiality of Alcohol and Drug Abuse Patient Records regulations: The Federal rules restrict any use of the information to criminally investigate or prosecute any alcohol or drug abuse patient.[facility] the event this information is protected by the Federal Confidentiality of Alcohol and Drug Abuse Patient Records regulations: The Federal rules restrict any use of the information to criminally investigate or prosecute any alcohol or drug abuse patient.[facility] the event this information is protected by the Federal Confidentiality of Alcohol and Drug Abuse Patient Records regulations: The Federal rules restrict any use of the information to criminally investigate or prosecute any alcohol or drug abuse patient.[facility] the event this information is protected by the Federal Confidentiality of Alcohol and Drug Abuse Patient Records regulations: The Federal rules restrict any use of the information to criminally investigate or prosecute any alcohol or drug abuse patient.[facility] the event this information is protected by the Federal Confidentiality of Alcohol and Drug Abuse Patient Records regulations: The Federal rules restrict any use of the information to criminally investigate or prosecute any alcohol or drug abuse patient.[facility] the event this information is protected by the Federal Confidentiality of Alcohol and Drug Abuse Patient Records regulations: The Federal rules restrict any use of the information to criminally investigate or prosecute any alcohol or drug abuse patient.[facility] Reason for Visit (unrecogniz ed section [...] ZOLEDRONIC ACID, [address] [place] [address] [place] [address] [facility] [address] [address] Referral ID Status Reason Start Date Expiration Date V isits Requested Visits Authorized [id number] Authorized 05/11/2021 05/09/2023 5 5 Reason Comments Benefits Investigation Reason Comments Results Reason Onset Date Comments Refill Request 08/22/2022 Reason Comments Follow Up Reason Comments Refill Request Reason Comments Follow Up Established Patient Care Teams (unrecognized sec tion and content) 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 Specialty Start Date End Date Heron Sun MD [address] [place] [address] PCP - General Internal Medicine 05/20/17 Pee Mancuso MD [address] [place] [address] Referring Orthopedics 04/19/15 Pee Mancuso MD [address] [place] [address] Home Care Physician Orthopedics 04/19/15 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 Specialty Start Date End Date Heron Sun MD [address] [place] [address] PCP - General Internal Medicine 05/20/17 Pee Mancuso MD [address] [place] [address] Referring Orthopedics 04/19/15 Pee Mancuso MD [address] [place] [address] Home Care Physician Orthopedics 04/19/15 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 Specialty Start Date End Date Heron Sun MD [address] [place] [address] PCP - General Internal Medicine 05/20/17 Pee Mancuso MD [address] [place] [address] Referring Orthopedics 04/19/15 Pee Mancuso MD [address] [place] [address] Home Care Provider Orthopedics 04/19/15 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 Specialty Start Date End Date Heron Sun MD [address] [place] [address] PCP - General Internal Medicine 05/20/17 Pee Mancuso MD [address] [place] [address] Referring Orthopedics 04/19/15 Pee Mancuso MD [address] [place] [address] Home Care Provider Orthopedics 04/19/15 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 Specialty Start Date End Date Heron Sun MD [address] [place] [address] PCP - General Internal Medicine 05/20/17 Pee Mancuso MD [address] [place] [address] Referring Orthopedics 04/19/15 Pee Mancuso MD [address] [place] [address] Home Care Provider Orthopedics 04/19/15 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 Specialty Start Date End Date Heron Sun MD [address] [place] [address] PCP - General Internal Medicine 05/20/17 Pee Mancuso MD [address] [place] [address] Referring Orthopedics 04/19/15 Pee Mancuso MD [address] [place] [address] Home Care Provider Orthopedics 04/19/15 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 Specialty Start Date End Date Heron Sun MD [address] [place] [address] PCP - General Internal Medicine 05/20/17 Pee Mancuso MD [address] [place] [address] Referring Orthopedics 04/19/15 Pee Mancuso MD [address] [address] Home Care Provider Orthopedics 04/19/15 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 Specialty Start Date End Date Heron Sun MD [address] [address] PCP - General Internal Medicine 05/20/17 Pee Mancuso MD [address] [place] [address] Referring Orthopedics 04/19/15 Pee Mancuso MD [address] [place] [address] Home Care Provider Orthopedics 04/19/15 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 Specialty Start Date End Date Heron Sun MD [address] [address] PCP - General Internal Medicine 05/20/17 Pee Mancuso MD [address] [place] [address] Referring Orthopedics 04/19/15 Pee Mancuso MD [address] [place] [address] Home Care Provider Orthopedics 04/19/15 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 [employer] [facility]. provides no warranty or guarantee of the accuracy or completeness of information in this document.
[2023-07-29 09:00] LABS: Hematocrit 35.9 % (37-47); Hemoglobin 10.8 g/dL (12.0-15.0); Mean Corp Hgb Conc 30.1 g/dL (32-36); Mean Corpuscular Hgb 30.5 pg (27.0-32.0); Mean Corpuscular Volume 101.4 fL (81-99); Mean Platelet Vol. 12.2 fl (6.2-12.0); Platelet Count 240 K/mm3 (150-450); RBC Distribution Width CV 16.3 % (11.6-14.6); RBC Distribution Width SD 61.4 fl (35.1-43.9); Red Blood Count 3.54 M/mm3 (4.2-5.4); White Blood Count 10.6 K/mm3 (4.4-11.0)
[2023-07-29 09:33] LABS: Anion Gap 3 (5-15); BUN 18 mg/dL (7-18); BUN/Creat Ratio 48.1 RATIO (10-20); Calcium,Total 9.7 mg/dL (8.5-10.1); Chloride 108 mmol/L (98-107); Creatinine, Serum 0.37 mg/dL (0.55-1.02); EST Glomerular Filtration Rate 179 mL/min (>60); Est Glom Filt Rate - Afr Amer 217 mL/min (>60); Glucose 86 mg/dL (74-106); Potassium 4.8 mmol/L (3.5-5.1); Sodium Level 139 mmol/L (136-145)
== END ==
LOC: OLS.SW 04:00
PROVIDERS: Referring Provider Internal Medicine; Visit Provider Internal Medicine
DX: J44.9 Chronic obstructive pulmonary disease, unspecified (principal); E43 Unspecified severe protein-calorie malnutrition
CPT/HCPCS: 36415; 80048; 85027

== ENCOUNTER → 2023-08-19 | Outpatient (REF) | payer MEDICARE, SELFPAY ==
[2023-08-19 08:21] LABS: Absolute Lymphocyte Count 1.94 X10^3/uL (0.83-4.51); Absolute Neutrophil Count 2.7 X10^3/uL (2.0-7.7); Basophil# 0.03 X10^3/uL; Basophil% 0.5 % (0-1); Eosinophil# 0.56 X10^3/uL; Eosinophils% 9.6 % (0-5); Hematocrit 35.5 % (37-47); Hemoglobin 10.8 g/dL (12.0-15.0); Lymphocyte # 1.94 X10^3/ul (0.83-4.51); Lymphocyte % 33.2 % (19-41); Mean Corp Hgb Conc 30.4 g/dL (32-36); Mean Corpuscular Hgb 30.8 pg (27.0-32.0); Mean Corpuscular Volume 101.1 fL (81-99); Mean Platelet Vol. 11.7 fl (6.2-12.0); Monocyte# 0.61 X10^3/uL; Monocyte% 10.4 % (0-10); NRBC Flagged by Analyzer 0 % (0-5); Neutrophil # 2.68 X10^3/uL (2.7-7.7); Platelet Count 259 K/mm3 (150-450); RBC Distribution Width CV 15.4 % (11.6-14.6); RBC Distribution Width SD 57.6 fl (35.1-43.9); Red Blood Count 3.51 M/mm3 (4.2-5.4); White Blood Count 5.8 K/mm3 (4.4-11.0)
[2023-08-19 10:37] LABS: ALB/GLOB Ratio 0.6 RATIO (0.9-2.4); AST(SGOT) 17 U/L (15-37); Alanine Aminotransfer ALT/SGPT 18 U/L (13-56); Albumin, Serum 2.8 g/dL (3.2-5.0); Alkaline Phosphatase 185 U/L (45-117); Anion Gap 5 (5-15); BUN 17 mg/dL (7-18); BUN/Creat Ratio 42.5 RATIO (10-20); Calcium,Total 9.2 mg/dL (8.5-10.1); Chloride 107 mmol/L (98-107); EST Glomerular Filtration Rate 166 mL/min (>60); Est Glom Filt Rate - Afr Amer 201 mL/min (>60); Globulin 4.6 g/dL (2.2-4.2); Glucose 97 mg/dL (74-106); Protein, Total 7.4 g/dL (6.4-8.2); Sodium Level 139 mmol/L (136-145)
== END ==
LOC: OLS.SW 05:00
PROVIDERS: Visit Provider Internal Medicine
DX: R10.9 Unspecified abdominal pain (principal)
CPT/HCPCS: 36415; 80053; 85025

== ENCOUNTER → 2023-09-02 | Outpatient (REF) | payer MEDICARE, SELFPAY ==
--- OUTSIDE RECORDS SUMMARY | 2023-09-02 05:00 | XMS RPT_ITS | CCD ---
Author Name Unknown Address [address] [place] [address] Organization [facility] Care Team Providers Care On Air Personality Name Role Phone Doncals, Floridalma Unavailable Unavailable PROVIDER, UNKNOWN Unavailable Unavailable Dino, Heron Unavailable Unavailable Doncals, Floridalma Unavailable Unavailable PROVIDER, UNKNOWN Unavailable Unavailable Dino, Heron Unavailable Unavailable Bartolome LEON, Pee E Unavailable Bartolome LEON, Pee E Unavailable Heron Sun MD Primary Care Provider Bartolome LEON, Pee E Unavailable [phone] Bartolome LEON, Pee E Unavailable Dino LEON, Heron Primary Care Provider Bartolome LEON, Pee E Unavailable Bartolome LEON, Pee E Unavailable Heron Sun MD Primary Care Provider Heron Sun MD Primary Care Provider [phone] NORA PEDRO Referring Unavailable DINO, HERON Primary [...] to adverse reactions to drug 06-28-2010 Unknown [facility] Work Phone: (15 sources) Penicillins Propensity to adverse reactions to drug 06-28-2010 Unknown [facility] Work Phone: Medications Current Medications Medication Drug [...] Drug Class(es) Dates Sig (Normalized) Sig (Original) [id number] 200 actuat albuterol 0.09 mg/actuat metered dose [...] 94 mm[Hg] Janki John MD Work Phone: [facility] 12-06-2022 11:06-0400 Heart rate 92 /min Janki John MD Work Phone: [facility] 12-06-2022 11:06-0400 Systolic blood pressure 156 mm[Hg] Janki John MD Work Phone: [facility] 12-06-2022 10:31-0400 Body height 148.5 cm Janki John MD Work Phone: [facility] 12-06-2022 10:31-0400 Body weight 48.53 kg Janki John MD Work Phone: [facility] 12-06-2022 10:31-0400 Respiratory rate 16 /min Janki John MD Work Phone: [facility] 12-06-2022 10:31-0400 SaO2% (BldA) [Mass fraction] 97 % Janki John MD Work Phone: [facility] 09-26-2022 10:06-0400 Body temperature 97.81 [degF] Ragini Mcgee GROUP HOME WORKER.[facility] Work Phone: [facility] 09-26-2022 10:06-0400 Body weight 47.58 kg Ragini Mcgee GROUP HOME WORKER.PSYCHOLOGIST PERSONNEL Work Phone: [facility] 09-26-2022 10:06-0400 Diastolic blood pressure 76 mm[Hg] Ragini Mcgee GROUP HOME WORKER.PSYCHOLOGIST PERSONNEL Work Phone: [facility] 09-26-2022 10:06-0400 Heart rate 74 /min Ragini Mcgee GROUP HOME WORKER.[facility] Work Phone: [facility] 09-26-2022 10:06-0400 SaO2% (BldA) [Mass fraction] 93 % Ragini Mcgee GROUP HOME WORKER.[facility] Work Phone: [facility] 09-26-2022 10:06-0400 Systolic blood pressure 152 mm[Hg] Ragini Mcgee GROUP HOME WORKER.[facility] Work Phone: [facility] 06-11-2022 11:43-0500 Body temperature 98.71 [degF] Treatment Work Phone: [facility] 06-11-2022 11:43-0500 Body weight 45.9 kg Treatment Work Phone: [facility] 06-11-2022 11:43-0500 Diastolic blood pressure 67 mm[Hg] Treatment Work Phone: [facility] 06-11-2022 11:43-0500 Heart rate 68 /min Treatment Work Phone: [facility] 06-11-2022 11:43-0500 Respiratory rate 16 /min Treatment Work Phone: [facility] 06-11-2022 11:43-0500 SaO2% (BldA) [Mass fraction] 96 % Treatment Work Phone: [facility] 06-11-2022 11:43-0500 Systolic blood pressure 144 mm[Hg] Treatment Work Phone: [facility] 06-07-2022 14:00-0500 Body height 148.5 cm [facility] WORKER.[facility] Work Phone: [facility] 06-07-2022 14:00-0500 Body weight 45.18 kg [facility] GROUP [facility] WORKER.[facility] Work Phone: [facility] 06-07-2022 14:00-0500 Diastolic blood pressure 85 mm[Hg] Nora [place] GROUP HOME WORKER.[facility] Work Phone: [facility] 06-07-2022 14:00-0500 Heart rate 78 /min Nora [place] GROUP HOME WORKER.[facility] Work Phone: [facility] 06-07-2022 14:00-0500 Respiratory rate 20 /min Nora [place] GROUP HOME WORKER.[facility] Work Phone: [facility] 06-07-2022 14:00-0500 SaO2% (BldA) [Mass fraction] 97 % Nora [place] GROUP HOME WORKER.[facility] Work Phone: [facility] 06-07-2022 14:00-0500 Systolic blood pressure 135 mm[Hg] Nora [place]c GROUP HOME WORKER.[facility] Work Phone: [facility] 02-23-2022 12:46-0400 Body weight 42.09 kg Nora [place] GROUP HOME WORKER.[facility] Work Phone: [facility] 02-23-2022 12:46-0400 Diastolic blood pressure 78 mm[Hg] Nora [place]up[place]c GROUP HOME WORKER.[facility] Work Phone: [facility] 02-23-2022 12:46-0400 Heart rate 87 /min Nora [place]c GROUP HOME WORKER.[facility] Work Phone: [facility] 02-23-2022 12:46-0400 SaO2% (BldA) [Mass fraction] 92 % Nora Kup[place]c GROUP HOME WORKER.PSYCHOLOGIST PERSONNEL Work Phone: [facility] 02-23-2022 12:46-0400 Systolic blood pressure 125 mm[Hg] Nora Pedro GROUP HOME WORKER.PSYCHOLOGIST PERSONNEL Work Phone: [facility] Encounters Encounter Date Encounter Type Care Provider [...] - S rian or Plasma Lipid Screening [facility] Start: 02-19-2028 LIPID SCREEN LIPID SCREEN [facility] Start: 11-20-2026 LIPID SCREEN LIPID SCREEN [facility] Start: 05-11-2026 LIPID SCREEN LIPID SCREEN [facility] Start: 02-18-2026 DIABETES SCREEN DIABETES SCREEN [facility] Start: 02-18-2026 Diabetes Screening Diabetes Screenin g [facility] Start: 08-13-2025 DIABETES SCREEN DIABETES SCREEN [facility] Start: 02-05-2025 DIABETES SCREEN DIABETES SCREEN [facility] Start: 11-20-2024 DIABETES SCREEN DIABETES SCREEN [facility] Start: 05-29-2024 DIABETES SCREEN DIABETES SCREEN [facility] Start: 03-08-2023 Covid-19 Vaccine ( season) Covid-19 Vaccine () [facility] Start: 03-08-2023 Influenza vaccination C [facility] Start: 02-23-2023 BP CONTROLLED (<130/80) BP CON TROLLED (<130/80) [facility] Start: 01-09-2023 End: 03-11-2023 Thyrotropin [Units/volume] in Serum or Plasma TSH BLD Lab Routine Graves disease Expected: 01/09/2023, Expires: 03/11/2023 [facility] Work Phone: Immunizations Immunization Date Immunization Notes Care Provider Teresa mota 04-24-2021 influenza virus vacc ine, unspecified formulation Daisy An MD Work Phone: [facility] 04-11-2011 influenza virus vacc ine, unspecified formulation Ovi Feliz OD Work Phone: [facility] 06-07-2010 influenza virus vacc ine, unspecified formulation Ovi Feliz OD Work Phone: [facility] 06-07-2010 pneumococcal polysaccharide vaccine, 23 valent Ovi Feliz OD Work Phone: [facility] Payers Date Payer Category Payer Medicare 2022 Medicare [id number] 2021 Unknown ANTHEM BLUE CROS S AND BLUE SHIELD ANTHEM MEDIBLUE [employer] [id number] 2021-Present [phone] [address] [id number] 2021 Unknown ANTHEM BLUE CROS S AND BLUE SHIELD ANTHEM MEDIBLUE [employer] [id number] 2021-Present [phone] [address] [place] [id number] [facility] [id number] 2021 Unknown [id number] Social History Date Type Detail Facility Start: 03-03-2018 End: 02-23-2022 Tobacco smoking status NHIS Smokes tobacco daily [facility] Start: 03-03-2018 History of tobacco use Cigarette Smo ker [facility] Start: 03-03-2018 End: 12-06-2022 Cigarettes smoked current (pack per day) - Reported 0.5 [facility] Start: 03-03-2018 End: 02-23-2022 Tobacco use and exposure Smokeless tobacco non-user [facility] Start: 11-13-2021 End: 12-06-2022 Alcohol intake Current non-drinker of alcohol (finding) [facility] Start: 1950 Sex Assigned At Not on file C [facility] Start: 11-03-2021 End: 06-07-2022 Exposure to SARS-CoV-2 (event) Not sure [facility] Start: 03-03-2018 End: 12-06-2022 Tobacco use panel [facility] Adult Depression Scr eening Assessment 0 [facility] Medical Equipment Procedure Code Equipment Code Equipment Origin al Text Equipment Identifier Dates Kit Catheter Bactiseal [id number] - [id number] Start: 06-29-2010 Clinical Notes 05-27-2021 to [...] Janki John MD documented in this encounter [facility] 12-10-2022 Miscellaneous Notes Please notify the patient that her TSH has increased to 46 Stop methimazole at this time I would like to recheck TSH in 4 weeks Order is in Regards Janki Jhon MD documented in this encounter [facility] 12-06-2022 Note HNO ID: [id number] Author: Janki John MD Service: ? Author [...] and TAKE 1 TABLET IN THE EVENING. 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/25/2016 Pseudophakia of right eye Retinal hemorrhage of left eye 2004 left central vision loss Subarachnoid hemorrhage ([facility]) 05/2010 Tubal PHYSICAL EXAM: BP 158/94 [...] Janki John MD documented in this encounter [facility] 10-12-2022 Miscellaneous Notes Requester: Pharmacy Last Visit [...] Abby Lazo MA documented in this encounter [facility] 10-04-2022 Note HNO ID: [id number] Author: KHRIS Caraballo Service: Radiology Author Type: [...] KHRIS Caraballo October 04, 2022 12:55 PM [facility] 09-26-2022 Note HNO ID: [id number] Author: Ragini Mcgee APRN.PATTIE Service: ? 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 No vaginal concerns SKIN- [...] adenopathy, no pain on exam Patient declined patch sander. HEART: regular rate and rhythm LUNGS: clear [...] IgM 40 - 230 mg/dL 372 (H) [place] Free, Serum 3.3 - 19.4 mg/L 29.7 [...] Abs Lymph 1.00 - 4.00 k/uL 1.73 [place]% % 5.9 Abs [place] <0.87 k/uL 0.38 Eosin% % 5.9 Abs Eosin <0.46 k/uL 0.38 Baso% % 0.5 Abs Baso <0.11 k/uL 0.03 Immature Gran % % 0.3 IMMATURE GRAN (more content not included)... [facility] 09-26-2022 Instructions Ragini Mcgee APRN.CNP - [...] usual activities immediately. 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 No vaginal concerns SKIN- [...] adenopathy, no pain on exam Patient declined patch sander. HEART: regular rate and rhythm LUNGS: clear [...] IgM 40 - 230 mg/dL 372 (H) [place] Free, Serum 3.3 - 19.4 mg/L 29.7 [...] Abs Lymph 1.00 - 4.00 k/uL 1.73 [place]% % 5.9 Abs [place] <0.87 k/uL 0.38 Eosin% % 5.9 Abs [...] which included preparing to see the patient, [id number] patient care, completing clinical documentation, obtaining and/or [...] September 26, 2022 documented in this encounter [facility] 08-22-2022 Miscellaneous Notes Pharmacy verified in [facility] [...] Ariadne Gonzalez Pss documented in this encounter [facility] 08-17-2022 Miscellaneous Notes Called and left voicemail [...] forwards to us. documented in this encounter [facility] 07-05-2022 Miscellaneous Notes 1st-time treatment report- non-oncology regimen. No assistance to support Reclast drug for Medicare-insured patients. No further assistance from at this time documented in this encounter [facility] 06-08-2022 Miscellaneous Notes Order placed Patient was last seen in office in May of 2021. She came into the office today to schedule a follow up with ragini mcgee and to schedule her mammogram. The current order expires prior to the first opening in [place]. Could a new order be placed so that she can get scheduled. She is coming in on Monday 06/11 for a reclast infusion. If the order could be placed prior to Saturday so that she can schedule this scan prior to her follow up with Ragini in July. documented in this encounter [facility] 06-07-2022 Note HNO ID: [id number] Author: Nora Pedro APRN.PSYCHOLOGIST PERSONNEL Service: ? 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 age 45-50 GI: denies loose stools, [...] (chronic obstructive pulmonary disease) ([facility]) Fracture of upper end of tibia 10/31/2015 Macular degeneration Migraine PCO (posterior capsular opacification) 05/25/2016 Pseudophakia of right eye Retinal hemorrhage of left eye 2004 left central vision loss Subarachnoid hemorrhage ([facility]) 05/2010 Tubal PAST SURGICAL HISTORY Procedure [...] Current Outpatient Medications Medication Sig Dispense Refill eldfzprlnxf-pginndutp-ogazilhc (TRELEGY ELLIPTA) 100-62.5-25 mcg inhalation powder methIMAzole [...] which included preparing to see the patient, [id number]-[id number] patient care, completing clinical documentation, obtaining and/or reviewing separately obtained history, performing a medically appropriate examination, and counseling and educating the patient/family/caregiver. Nora Pedro, MSN, GROUP HOME WORKER, FRAME WIRER-C, CDE Endocrinology [facility] Office [facility]/[address] [place] [address] Fax: documented in this encounter [facility] 02-23-2022 Note HNO ID: [id number] Author: Nora Pedro APRN.PSYCHOLOGIST PERSONNEL Service: ? 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 [facility] 02-23-2022 Instructions Nora Pedro APRN.PSYCHOLOGIST PERSONNEL - 02/23/2022 1:04 PM EDT Increase methimazole 5 mg tab to: AM 2 tabs PM 2 tabs 2. Repeat labs 4-5 wks. 3. Follow up 3 and 6 months. 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 Nora Pedro, MSN, GROUP HOME WORKER, FRAME WIRER-C, CDE Endocrinology [facility] Office [facility]/[address] [place] [address] Fax: documented in this encounter [facility] 01-17-2022 Miscellaneous Notes Requester: Patient Last Visit [...] advise. Hoa Mcnamara documented in this encounter [facility] 11-13-2021 History of Present illness Narrative Assessment [...] care with Dr. Prajapati, [facility], as scheduled. -Advised Low Vision Consult with [...] and treatment options. documented in this encounter [facility] 11-13-2021 Instructions Ovi Feliz, OD - 11/13/2021 1:26 PM EDT Images from the original note were not included. Please monitor each eye daily with the [employer] Grid. AREDS 2 Vitamins are available over the counter at any pharmacy. Refresh Artificial tears, 1 drop, three times a day, Both eyes. documented in this encounter [facility] documented as of this encounter (statuses as of 11/13/2021) [facility] History of Past illness Narrative* Problem Noted [...] of this encounter (statuses as of 01/17/2022) [facility] History of Past illness Narrative* Problem Noted [...] of this encounter (statuses as of 02/23/2022) [facility] History of Past illness Narrative* Problem Noted [...] of this encounter (statuses as of 06/07/2022) [facility] History of Past illness Narrative* Problem Noted [...] of this encounter (statuses as of 06/08/2022) [facility] of Past illness Narrative* Problem Noted [...] of this encounter (statuses as of 06/11/2022) [facility] of Past illness Narrative* Problem Noted [...] of this encounter (statuses as of 07/11/2022) [facility] of Past illness Narrative* Problem Noted [...] of this encounter (statuses as of 08/17/2022) [facility] of Past illness Narrative* Problem Noted [...] of this encounter (statuses as of 08/23/2022) [facility] of Past illness Narrative* Problem Noted [...] of this encounter (statuses as of 09/26/2022) [facility] of Past illness Narrative* Problem Noted [...] of this encounter (statuses as of 10/12/2022) [facility] of Past illness Narrative* Problem Noted [...] of this encounter (statuses as of 11/02/2022) [facility] of [facility] Narrative* Problem Noted [...] of this encounter (statuses as of 12/06/2022) [facility] of [facility] Narrative* Problem Noted [...] of this encounter (statuses as of 12/10/2022) [facility] Narrative* Problem Noted [...] of this encounter (statuses as of 02/21/2023) [facility] of [facility] Narrative* Problem Noted [...] of this encounter (statuses as of 06/12/2023) [facility] 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) Dry eye syndrome of both eyes Pseudophakia of both eyes Lens replaced by other means [facility] Hyperthyroidism Thyrotoxicosis without mention of goiter or other cause, without mention of thyrotoxic crisis or storm [facility] Diagnosis Hyperthyroidism- Primary Thyrotoxicosis without mention of goiter or other cause, without mention of thyrotoxic crisis or storm Abnormal weight loss Loss of weight [facility] Diagnosis Hyperthyroidism- Primary Thyrotoxicosis without mention of goiter or other cause, without mention of thyrotoxic crisis or storm [facility] Diagnosis Malignant neoplasm of upper-outer quadrant of left breast in female, estrogen receptor positive (HCC)- Primary Encounter for screening mammogram for malignant neoplasm of breast Other screening mammogram [facility] Diagnosis Malignant neoplasm of upper-outer quadrant of left breast in female, estrogen receptor positive (HCC)- Primary [facility] Diagnosis Hyperthyroidism- Primary Thyrotoxicosis without mention of goiter or other cause, without mention of thyrotoxic crisis or storm [facility] Diagnosis Malignant neoplasm of upper-outer quadrant of left breast in female, estrogen receptor positive (HCC) [facility] Diagnosis Malignant neoplasm of left breast in female, estrogen receptor positive, unspecified site of breast (HCC)- Primary Encounter for screening for osteoporosis Special screening for osteoporosis Hypothyroidism, unspecified type Vitamin D deficiency Unspecified vitamin D deficiency [facility]* Diagnosis Hyperthyroidism Thyrotoxicosis without mention of goiter or other cause, without mention of thyrotoxic crisis or storm documented in this encounter [facility] note* Diagnosis Malignant neoplasm of upper-outer quadrant of left breast in female, estrogen receptor positive (HCC) [facility]* Diagnosis Graves disease- Primary Toxic diffuse goiter without mention of thyrotoxic crisis or storm Primary hypertension Unspecified essential hypertension Elevated TSH Nonspecific abnormal results of thyroid function study documented in this encounter [facility] note* Diagnosis Graves disease- Primary Toxic diffuse goiter without mention of thyrotoxic crisis or storm documented in this encounter [facility] note* Diagnosis Malignant neoplasm of upper-outer quadrant of left breast in female, estrogen receptor positive (HCC) documented in this encounter [facility] for referral (narrative)* Diagnostic Procedure Only (Routine) - Pending Review Specialty Diagnoses / Procedures Referred By Elsy knapp Referred To Contact [facility] Diagnoses Encounter for screening mammogram for malignant neoplasm of breast Procedures REGINALD SCREENING W EVON SCREENING DIGITAL BREAST TOMOSYNTHESIS BI SCREENING MAMMOGRAPHY BI 2-[place] [address] [place] [address] [facility] [address] [place] [id number] Referral ID Status Reason Start Date Expiration Date Visits Requested Visits Authorized [id number] Pending Review Auto-Generat ed Referral 06/08/2022 07/07/2023 1 1 [facility] Summary Purpose Family History No Family History Records FoundNo Family History Records FoundNo Family History Records Found Advance Directives Documents on File Type Date Recorded Patient Box Maker Expl anation Advance Directive(s) 05/26/2021 9:21 PM [...] DATE CREATED AUTHOR AUTHOR'S ORGANIZ ATION 02/19/2023 [facility] DATE CREATED AUTHOR AUTHOR'S ORGANIZ ATION 02/22/2023 [facility] Source Comments (unrecognize d section and content) In the event this informatio n is protected by the Federal Confidentiality of Alcohol and Drug Abuse Patient Records regulations: The Federal rules restrict any use of the information to criminally investigate or prosecute any alcohol or drug abuse patient.[facility] the event this information is protected by the Federal Confidentiality of Alcohol and Drug Abuse Patient Records regulations: The Federal rules restrict any use of the information to criminally investigate or prosecute any alcohol or drug abuse patient.[facility] the event this information is protected by the Federal Confidentiality of Alcohol and Drug Abuse Patient Records regulations: The Federal rules restrict any use of the information to criminally investigate or prosecute any alcohol or drug abuse patient.[facility] the event this information is protected by the Federal Confidentiality of Alcohol and Drug Abuse Patient Records regulations: The Federal rules restrict any use of the information to criminally investigate or prosecute any alcohol or drug abuse patient.[facility] the event this information is protected by the Federal Confidentiality of Alcohol and Drug Abuse Patient Records regulations: The Federal rules restrict any use of the information to criminally investigate or prosecute any alcohol or drug abuse patient.[facility] the event this information is protected by the Federal Confidentiality of Alcohol and Drug Abuse Patient Records regulations: The Federal rules restrict any use of the information to criminally investigate or prosecute any alcohol or drug abuse patient.[facility] the event this information is protected by the Federal Confidentiality of Alcohol and Drug Abuse Patient Records regulations: The Federal rules restrict any use of the information to criminally investigate or prosecute any alcohol or drug abuse patient.[facility] the event this information is protected by the Federal Confidentiality of Alcohol and Drug Abuse Patient Records regulations: The Federal rules restrict any use of the information to criminally investigate or prosecute any alcohol or drug abuse patient.[facility] the event this information is protected by the Federal Confidentiality of Alcohol and Drug Abuse Patient Records regulations: The Federal rules restrict any use of the information to criminally investigate or prosecute any alcohol or drug abuse patient.[facility] the event this information is protected by the Federal Confidentiality of Alcohol and Drug Abuse Patient Records regulations: The Federal rules restrict any use of the information to criminally investigate or prosecute any alcohol or drug abuse patient.[facility] the event this information is protected by the Federal Confidentiality of Alcohol and Drug Abuse Patient Records regulations: The Federal rules restrict any use of the information to criminally investigate or prosecute any alcohol or drug abuse patient.[facility] the event this information is protected by the Federal Confidentiality of Alcohol and Drug Abuse Patient Records regulations: The Federal rules restrict any use of the information to criminally investigate or prosecute any alcohol or drug abuse patient.[facility] the event this information is protected by the Federal Confidentiality of Alcohol and Drug Abuse Patient Records regulations: The Federal rules restrict any use of the information to criminally investigate or prosecute any alcohol or drug abuse patient.[facility] the event this information is protected by the Federal Confidentiality of Alcohol and Drug Abuse Patient Records regulations: The Federal rules restrict any use of the information to criminally investigate or prosecute any alcohol or drug abuse patient.[facility] the event this information is protected by the Federal Confidentiality of Alcohol and Drug Abuse Patient Records regulations: The Federal rules restrict any use of the information to criminally investigate or prosecute any alcohol or drug abuse patient.[facility] the event this information is protected by the Federal Confidentiality of Alcohol and Drug Abuse Patient Records regulations: The Federal rules restrict any use of the information to criminally investigate or prosecute any alcohol or drug abuse patient.[facility] Reason for Visit (unrecogniz ed section and [...] ZOLEDRONIC ACID, [address] [place] [address] [place] [address] [facility] [address] [address] Referral ID Status Reason Start Date Expiration Date V isits Requested Visits Authorized [id number] Authorized 05/11/2021 05/09/2023 5 5 Reason Comments Benefits Investigation Reason Comments Results Reason Onset Date Comments Refill Request 08/22/2022 Reason Comments Follow Up Reason Comments Refill Request Reason Comments Follow Up Established Patient Care Teams (unrecognized sec tion and content) On Air Personality Relationship Specialty Start Date End Date Heron Sun MD [address] [place] [address] PCP - General Internal Medicine 05/20/17 Pee Mancuso MD [address] [place] [address] Referring Orthopedics 04/19/15 Pee Mancuso MD [address] [place] [address] Home Care Physician Orthopedics 04/19/15 On Air Personality Relationship Specialty Start Date End Date Heron Sun MD [address] [place] [address] PCP - General Internal Medicine 05/20/17 Pee Mancuso MD [address] [place] [address] Referring Orthopedics 04/19/15 Pee Mancuso MD [address] [place] [address] Home Care Physician Orthopedics 04/19/15 On Air Personality Relationship Specialty Start Date End Date Heron Sun MD [address] [place] [address] PCP - General Internal Medicine 05/20/17 Pee Mancuso MD [address] [place] [address] Referring Orthopedics 04/19/15 Pee Mancuso MD [address] [place] [address] Home Care Provider Orthopedics 04/19/15 On Air Personality Relationship Specialty Start Date End Date Heron Sun MD [address] [place] [address] PCP - General Internal Medicine 05/20/17 Pee Mancuso MD [address] [place] [address] Referring Orthopedics 04/19/15 Pee Mancuso MD [address] [place] [address] Home Care Provider Orthopedics 04/19/15 On Air Personality Relationship Specialty Start Date End Date Heron Sun MD [address] [place] [address] PCP - General Internal Medicine 05/20/17 Pee Mancuso MD [address] [place] [address] Referring Orthopedics 04/19/15 Pee Mancuso MD [address] [place] [address] Home Care Provider Orthopedics 04/19/15 On Air Personality Relationship Specialty Start Date End Date Heron Sun MD [address] [place] [address] PCP - General Internal Medicine 05/20/17 Pee Mancuso MD [address] [place] [address] Referring Orthopedics 04/19/15 Pee Mancuso MD [address] [place] [address] Home Care Provider Orthopedics 04/19/15 On Air Personality Relationship Specialty Start Date End Date Heron Sun MD [address] [place] [address] PCP - General Internal Medicine 05/20/17 Pee Mancuso MD [address] [place] [address] Referring Orthopedics 04/19/15 Pee Mancuso MD [address] [address] Home Care Provider Orthopedics 04/19/15 On Air Personality Relationship Specialty Start Date End Date Heron Sun MD [address] [address] PCP - General Internal Medicine 05/20/17 Pee Mancuso MD [address] [place] [address] Referring Orthopedics 04/19/15 Pee Mancuso MD [address] [place] [address] Home Care Provider Orthopedics 04/19/15 On Air Personality Relationship Specialty Start Date End Date Heron Sun MD [address] [address] PCP - General Internal Medicine 05/20/17 Pee Mancuso MD [address] [place] [address] Referring Orthopedics 04/19/15 Pee Mancuso MD [address] [place] [address] Home Care Provider Orthopedics 04/19/15 On Air Personality Relationship Specialty Start Date End Date Heron Sun MD [address] [address] PCP - General Internal Medicine 05/20/17 Pee Mancuso MD [address] [address] Referring Orthopedics 04/19/15 Pee Mancuso MD [address] [address] Home Care Provider Orthopedics 04/19/15 FOR RECORDS [...] BE BASED ON THE PRIMARY CLINICAL RECORDS. [facility]. provides no warranty or guarantee of the accuracy or completeness of information in this document.
[2023-09-02 08:50] LABS: Absolute Lymphocyte Count 1.48 X10^3/uL (0.83-4.51); Absolute Neutrophil Count 4.4 X10^3/uL (2.0-7.7); Basophil# 0.03 X10^3/uL; Basophil% 0.4 % (0-1); Eosinophil# 0.65 X10^3/uL; Eosinophils% 8.9 % (0-5); Hematocrit 34.7 % (37-47); Hemoglobin 10.9 g/dL (12.0-15.0); Lymphocyte # 1.48 X10^3/ul (0.83-4.51); Lymphocyte % 20.2 % (19-41); Mean Corp Hgb Conc 31.4 g/dL (32-36); Mean Corpuscular Hgb 31.2 pg (27.0-32.0); Mean Corpuscular Volume 99.4 fL (81-99); Mean Platelet Vol. 10.9 fl (6.2-12.0); Monocyte# 0.76 X10^3/uL; Monocyte% 10.4 % (0-10); NRBC Flagged by Analyzer 0 % (0-5); Neutrophil # 4.39 X10^3/uL (2.7-7.7); Neutrophil % 59.7 % (47-70); Platelet Count 304 K/mm3 (150-450); RBC Distribution Width SD 54.7 fl (35.1-43.9); Red Blood Count 3.49 M/mm3 (4.2-5.4); White Blood Count 7.3 K/mm3 (4.4-11.0)
[2023-09-02 09:22] LABS: ALB/GLOB Ratio 0.6 RATIO (0.9-2.4); AST(SGOT) 17 U/L (15-37); Alanine Aminotransfer ALT/SGPT 43 U/L (13-56); Albumin, Serum 2.7 g/dL (3.2-5.0); Alkaline Phosphatase 334 U/L (45-117); Anion Gap 4 (5-15); BUN 20 mg/dL (7-18); Calcium,Total 9.3 mg/dL (8.5-10.1); Chloride 109 mmol/L (98-107); Creatinine, Serum 0.41 mg/dL (0.55-1.02); EST Glomerular Filtration Rate 162 mL/min (>60); Est Glom Filt Rate - Afr Amer 196 mL/min (>60); Globulin 4.8 g/dL (2.2-4.2); Glucose 86 mg/dL (74-106); Potassium 3.9 mmol/L (3.5-5.1); Protein, Total 7.5 g/dL (6.4-8.2); Sodium Level 138 mmol/L (136-145)
== END ==
LOC: OLS.SW 04:00
PROVIDERS: Referring Provider Internal Medicine; Visit Provider Internal Medicine
DX: I10 Essential (primary) hypertension (principal)
CPT/HCPCS: 36415; 80053; 85025

== ENCOUNTER → 2023-09-02 | Outpatient (CLI) | payer MEDICARE, SELFPAY ==
[2023-09-03 11:09] LABS: Free T3 4.2 pg/mL (2.18-3.98); T4 Free Direct 1.72 ng/dL (0.76-1.46); Thyroid Stim Hormone (TSH) < 0.01 uIU/mL (0.358-3.74)
== END | disposition home or self-care (01) ==
PROVIDERS: Visit Provider Internal Medicine Endocrinology, Diabetes & Metabolism
DX: E05.90 Thyrotoxicosis, unspecified without thyrotoxic crisis or storm (principal); E43 Unspecified severe protein-calorie malnutrition
CPT/HCPCS: 84439; 84443; 84481

== ENCOUNTER → 2023-09-09 | Outpatient (CLI) | payer MEDICARE, MEDICAID, SELFPAY ==
--- OUTSIDE RECORDS SUMMARY | 2023-09-09 10:43 | XMS RPT_ITS | CCD ---
Author Name Unknown Address [address] [place] [address] Organization [facility] Care Team Providers Care Clutch Mechanic Name Role Phone Doncals, Floridalma Unavailable Unavailable PROVIDER, UNKNOWN Unavailable Unavailable Dino, Heron Unavailable Unavailable Doncals, Floridalma Unavailable Unavailable PROVIDER, UNKNOWN Unavailable Unavailable Dino, Heron Unavailable Unavailable Bartolome LEON, Pee E Unavailable Bartolome LEON, Pee E Unavailable Heron Sun MD Primary Care Provider Bartolome LEON, Pee E Unavailable Bartolome LEON, Pee E Unavailable [phone] Dino LEON, Heron Primary Care Provider Bartolome [...] to adverse reactions to drug 06-28-2010 Unknown [facility] Work Phone: (15 sources) Penicillins Propensity to adverse reactions to drug 06-28-2010 Unknown [facility] Work Phone: Medications Current Medications [...] Drug Class(es) Dates Sig (Normalized) Sig (Original) [id number] 200 actuat albuterol 0.09 mg/actuat metered dose [...] 94 mm[Hg] Janki John MD Work Phone: [facility] 12-06-2022 11:06-0400 Heart rate 92 /min Janki John MD Work Phone: [facility] 12-06-2022 11:06-0400 Systolic blood pressure 156 mm[Hg] Janki John MD Work Phone: [facility] 12-06-2022 10:31-0400 Body height 148.5 cm Janki John MD Work Phone: [facility] 12-06-2022 10:31-0400 Body weight 48.53 kg Janki John MD Work Phone: [facility] 12-06-2022 10:31-0400 Respiratory rate 16 /min Janki John MD Work Phone: [facility] 12-06-2022 10:31-0400 SaO2% (BldA) [Mass fraction] 97 % Janki John MD Work Phone: [facility] 09-26-2022 10:06-0400 Body temperature 97.81 [degF] Ragini Mcgee SPRING UPHOLSTERER.[facility] Work Phone: [facility] 09-26-2022 10:06-0400 Body weight 47.58 kg Ragini Mcgee SPRING UPHOLSTERER.AQUATIC ECOLOGIST Work Phone: [facility] 09-26-2022 10:06-0400 Diastolic blood pressure 76 mm[Hg] Ragini Mcgee SPRING UPHOLSTERER.AQUATIC ECOLOGIST Work Phone: [facility] 09-26-2022 10:06-0400 Heart rate 74 /min Ragini Mcgee SPRING UPHOLSTERER.[facility] Work Phone: [facility] 09-26-2022 10:06-0400 SaO2% (BldA) [Mass fraction] 93 % Ragini Mcgee SPRING UPHOLSTERER.[facility] Work Phone: [facility] 09-26-2022 10:06-0400 Systolic blood pressure 152 mm[Hg] Ragini Mcgee SPRING UPHOLSTERER.[facility] Work Phone: [facility] 06-11-2022 11:43-0500 Body temperature 98.71 [degF] Treatment Work Phone: [facility] 06-11-2022 11:43-0500 Body weight 45.9 kg Treatment Work Phone: [facility] 06-11-2022 11:43-0500 Diastolic blood pressure 67 mm[Hg] Treatment Work Phone: [facility] 06-11-2022 11:43-0500 Heart rate 68 /min Treatment Work Phone: [facility] 06-11-2022 11:43-0500 Respiratory rate 16 /min Treatment Work Phone: [facility] 06-11-2022 11:43-0500 SaO2% (BldA) [Mass fraction] 96 % Treatment Work Phone: [facility] 06-11-2022 11:43-0500 Systolic blood pressure 144 mm[Hg] Treatment Work Phone: [facility] 06-07-2022 14:00-0500 Body height 148.5 cm [facility] Work Phone: [facility] 06-07-2022 14:00-0500 Body weight 45.18 [facility] Work Phone: [facility] 06-07-2022 14:00-0500 Diastolic blood pressure 85 mm[Hg] Nora Kupiec SPRING UPHOLSTERER.[facility] Work Phone: [facility] 06-07-2022 14:00-0500 Heart rate 78 /min Nora Kupiec SPRING UPHOLSTERER[facility] Work Phone: [facility] 06-07-2022 14:00-0500 Respiratory rate 20 /min Nora Kupiec SPRING UPHOLSTERER.[facility] Work Phone: [facility] 06-07-2022 14:00-0500 SaO2% (BldA) [Mass fraction] 97 % Nora Kupiec SPRING UPHOLSTERER.[facility] Work Phone: [facility] 06-07-2022 14:00-0500 Systolic blood pressure 135 mm[Hg] Nora Kupiec SPRING UPHOLSTERER.[facility] Work Phone: [facility] 02-23-2022 12:46-0400 Body weight 42.09 kg Nora Kupiec SPRING UPHOLSTERER.[facility] Work Phone: [facility] 02-23-2022 12:46-0400 Diastolic blood pressure 78 mm[Hg] Nora Kupiec SPRING UPHOLSTERER[facility] Work Phone: [facility] 02-23-2022 12:46-0400 Heart rate 87 /min Nora Kupiec SPRING UPHOLSTERER.[facility] Work Phone: [facility] 02-23-2022 12:46-0400 SaO2% (BldA) [Mass fraction] 92 % Nora Kupiec SPRING UPHOLSTERER.AQUATIC ECOLOGIST Work Phone: [facility] 02-23-2022 12:46-0400 Systolic blood pressure 125 mm[Hg] Nora Pedro SPRING UPHOLSTERER.AQUATIC ECOLOGIST Work Phone: [facility] Encounters Encounter Date Encounter Type [...] - S rian or Plasma Lipid Screening [facility] Start: 02-19-2028 LIPID SCREEN LIPID SCREEN [facility] Start: 11-20-2026 LIPID SCREEN LIPID SCREEN [facility] Start: 05-11-2026 LIPID SCREEN LIPID SCREEN [facility] Start: 02-18-2026 DIABETES SCREEN DIABETES SCREEN [facility] Start: 02-18-2026 Diabetes Screening Diabetes Screenin g [facility] Start: 08-13-2025 DIABETES SCREEN DIABETES SCREEN [facility] Start: 02-05-2025 DIABETES SCREEN DIABETES SCREEN [facility] Start: 11-20-2024 DIABETES SCREEN DIABETES SCREEN [facility] Start: 05-29-2024 DIABETES SCREEN DIABETES SCREEN [facility] Start: 03-08-2023 Covid-19 Vaccine ( season) Covid-19 Vaccine () [facility] Start: 03-08-2023 Influenza vaccination [facility] Start: 02-23-2023 BP CONTROLLED (<130/80) BP CON TROLLED (<130/80) [facility] Start: 01-09-2023 End: 03-11-2023 Thyrotropin [Units/volume] in Serum or Plasma TSH BLD Lab Routine Graves disease Expected: 01/09/2023, Expires: 03/11/2023 [facility] Work Phone: Immunizations Immunization Date Immunization Notes Care Provider Teresa mota 04-24-2021 influenza virus vacc ine, unspecified formulation Daisy An MD Work Phone: [facility] 04-11-2011 influenza virus vacc ine, unspecified formulation Ovi Feliz OD Work Phone: [facility] 06-07-2010 influenza virus vacc ine, unspecified formulation Ovi Feliz OD Work Phone: [facility] 06-07-2010 pneumococcal polysaccharide vaccine, 23 valent Ovi Feliz OD Work Phone: [facility] Payers Date Payer Category Payer Medicare 2022 Medicare [id number] 2021 Unknown ANTHEM BLUE CROS S AND BLUE SHIELD ANTHEM MEDIBL[employer] [id number] 2021-Present [phone] [id number] [id number] 2021 Unknown ANTHEM BLUE CROS S AND BLUE SHIELD ANTHEM MEDIBLUE [employer] [id number] 2021-Present [phone] [address] [place] [id number] [facility] [id number] 2021 Unknown [id number] Social History Date Type Detail Facility Start: 03-03-2018 End: 02-23-2022 Tobacco smoking status NHIS Smokes tobacco daily [facility] Start: 03-03-2018 History of tobacco use Cigarette Smo ker [facility] Start: 03-03-2018 End: 12-06-2022 Cigarettes smoked current (pack per day) - Reported 0.5 [facility] Start: 03-03-2018 End: 02-23-2022 Tobacco use and exposure Smokeless tobacco non-user [facility] Start: 11-13-2021 End: 12-06-2022 Alcohol intake Current non-drinker of alcohol (finding) [facility] Start: 1950 Sex Assigned At Not on file [facility] Start: 11-03-2021 End: 06-07-2022 Exposure to SARS-CoV-2 (event) Not sure [facility] Start: 03-03-2018 End: 12-06-2022 Tobacco use panel [facility] Adult Depression Scr eening Assessment 0 [facility] Medical Equipment Procedure Code Equipment Code Equipment Origin al Text Equipment Identifier Dates Kit Catheter Bactiseal [id number] - [id number] Start: 06-29-2010 Clinical Notes 05-27-2021 to [...] Janki John MD documented in this encounter [facility] 12-10-2022 Miscellaneous Notes Please notify the patient that her TSH has increased to 46 Stop methimazole at this time I would like to recheck TSH in 4 weeks Order is in Regards Janki John MD documented in this encounter [facility] 12-06-2022 Note HNO ID: [id number] Author: Janki John MD Service: ? Author [...] and TAKE 1 TABLET IN THE EVENING. 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 ztamnedkrok-dbmckbjnn-kiehpzgm (TRELEGY ELLIPTA) 100-62.5-25 mcg inhalation powder metoprolol [...] left sylvian fissure Breast cancer ([facility]) 11/2017 left breast Breast mass, left 11/2017 COPD (chronic obstructive pulmonary disease) ([facility]) Fracture of upper end of tibia 10/31/2015 Macular degeneration Migraine PCO (posterior capsular opacification) 05/25/2016 Pseudophakia of right eye Retinal hemorrhage of left eye 2004 left central vision loss Subarachnoid hemorrhage ([facility]) 05/2010 Tubal PHYSICAL EXAM: BP 158/94 [...] Janki John MD documented in this encounter [facility] 10-12-2022 Miscellaneous Notes Requester: Pharmacy [...] Abby Lazo MA documented in this encounter [facility] 10-04-2022 Note HNO ID: [id number] Author: KHRIS Caraballo Service: Radiology Author Type: [...] KHRIS Caraballo October 04, 2022 12:55 PM [facility] 09-26-2022 Note HNO ID: [id number] Author: Ragini Mcgee APRN.PATTIE Service: ? 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 No vaginal concerns [...] adenopathy, no pain on exam Patient declined sewer hand. HEART: regular rate and rhythm LUNGS: clear [...] IgM 40 - 230 mg/dL 372 (H) [place] Free, Serum 3.3 - 19.4 mg/L 29.7 [...] Abs Lymph 1.00 - 4.00 k/uL 1.73 [place]% % 5.9 Abs [place] <0.87 k/uL 0.38 Eosin% % 5.9 Abs Eosin <0.46 k/uL 0.38 Baso% % 0.5 Abs Baso <0.11 k/uL 0.03 Immature Gran % % 0.3 IMMATURE GRAN (more content not included)... [facility] 09-26-2022 Instructions Ragini Mcgee APRN.CNP - 09/26/2022 [...] usual activities immediately. 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 No vaginal concerns [...] adenopathy, no pain on exam Patient declined sewer hand. HEART: regular rate and rhythm LUNGS: clear [...] IgM 40 - 230 mg/dL 372 (H) [place] Free, Serum 3.3 - 19.4 mg/L 29.7 [...] Abs Lymph 1.00 - 4.00 k/uL 1.73 [place]% % 5.9 Abs [place] <0.87 k/uL 0.38 Eosin% % 5.9 Abs [...] which included preparing to see the patient, hmmv-sa-myph patient care, completing clinical documentation, obtaining and/or [...] September 26, 2022 documented in this encounter [facility] 08-22-2022 Miscellaneous Notes Pharmacy verified in [facility] Patient has been identified by name and [...] Ariadne Gonzalez Pss documented in this encounter [facility] 08-17-2022 Miscellaneous Notes Called and [...] forwards to us. documented in this encounter [facility] 07-05-2022 Miscellaneous Notes 1st-time treatment report- non-oncology regimen. No assistance to support Reclast drug for Medicare-insured patients. No further assistance from at this time documented in this encounter [facility] 06-08-2022 Miscellaneous Notes Order placed Patient was last seen in office in May of 2021. She came into the office today to schedule a follow up with ragini mcgee and to schedule her mammogram. The current order expires prior to the first opening in [place]. Could a new order be placed so that she can get scheduled. She is coming in on Monday 06/11 for a reclast infusion. If the order could be placed prior to Saturday so that she can schedule this scan prior to her follow up with Ragini in July. documented in this encounter [facility] 06-07-2022 Note HNO ID: [id number] Author: Nora Pedro APRN.AQUATIC ECOLOGIST Service: ? 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/2016 Pseudophakia of right eye Retinal hemorrhage of left eye 2004 left central vision loss Subarachnoid hemorrhage ([facility]) 05/2010 Tubal PAST SURGICAL HISTORY Procedure [...] Current Outpatient Medications Medication Sig Dispense Refill hpbkeljkghi-yzkqmqvmd-fcmtvaxc (TRELEGY ELLIPTA) 100-62.5-25 mcg inhalation powder methIMAzole [...] which included preparing to see the patient, ryqw-gl-prny patient care, completing clinical documentation, obtaining and/or reviewing separately obtained history, performing a medically appropriate examination, and counseling and educating the patient/family/caregiver. Nora Pedro, MSN, SPRING UPHOLSTERER, OD GRINDER OPERATOR-C, CDE Endocrinology [facility] Office [facility]/[address] [place] [address] Fax: documented in this encounter [facility] 02-23-2022 Note HNO ID: [id number] Author: Nora Pedro APRN.AQUATIC ECOLOGIST Service: ? 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 [facility] 02-23-2022 Instructions Nora Pedro APRN.AQUATIC ECOLOGIST - 02/23/2022 1:04 PM EDT Increase methimazole 5 mg tab to: AM 2 tabs PM 2 tabs 2. Repeat labs 4-5 wks. 3. Follow up 3 and 6 months. 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 Nora Pedro, MSN, SPRING UPHOLSTERER, OD GRINDER OPERATOR-C, CDE Endocrinology [facility] Medical Office [facility]/[address] [place] [address] Fax: documented in this encounter [facility] 01-17-2022 Miscellaneous Notes Requester: Patient [...] advise. Hoa Mcnamara documented in this encounter [facility] 11-13-2021 History of Present illness [...] care with Dr. Prajapati, [facility], as scheduled. -Advised Low Vision Consult with [...] and treatment options. documented in this encounter [facility] 11-13-2021 Instructions Ovi Feliz, OD - 11/13/2021 1:26 PM EDT Images from the original note were not included. Please monitor each eye daily with the Amsler Grid. AREDS 2 Vitamins are available over the counter at any pharmacy. Refresh Artificial tears, 1 drop, three times a day, Both eyes. documented in this encounter [facility] documented as of this encounter (statuses as of 11/13/2021) [facility] History of Past illness Narrative* [...] of this encounter (statuses as of 01/17/2022) [facility] History of Past illness Narrative* [...] of this encounter (statuses as of 02/23/2022) [facility] History of Past illness Narrative* [...] of this encounter (statuses as of 06/07/2022) [facility] History of Past illness Narrative* [...] of this encounter (statuses as of 06/08/2022) [facility] History of Past illness Narrative* [...] of this encounter (statuses as of 06/11/2022) [facility] History of Past illness Narrative* [...] of this encounter (statuses as of 07/11/2022) [facility] History of Past illness Narrative* [...] of this encounter (statuses as of 08/17/2022) [facility] History of Past illness Narrative* [...] of this encounter (statuses as of 08/23/2022) [facility] History of Past illness Narrative* [...] of this encounter (statuses as of 09/26/2022) [facility] History of Past illness Narrative* [...] of this encounter (statuses as of 10/12/2022) [facility] History of Past illness Narrative* [...] of this encounter (statuses as of 11/02/2022) [facility] History of Past illness Narrative* [...] of this encounter (statuses as of 12/06/2022) [facility] History of Past illness Narrative* [...] of this encounter (statuses as of 12/10/2022) [facility] of Past illness Narrative* [...] of this encounter (statuses as of 02/21/2023) [facility] of Past illness Narrative* [...] of this encounter (statuses as of 06/12/2023) [facility] Diagnosis 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) Dry eye syndrome of both eyes Pseudophakia of both eyes Lens replaced by other means [facility] Hyperthyroidism Thyrotoxicosis without mention of goiter or other cause, without mention of thyrotoxic crisis or storm [facility] Diagnosis Hyperthyroidism- Primary Thyrotoxicosis without mention of goiter or other cause, without mention of thyrotoxic crisis or storm Abnormal weight loss Loss of weight [facility] Diagnosis Hyperthyroidism- Primary Thyrotoxicosis without mention of goiter or other cause, without mention of thyrotoxic crisis or storm [facility] Diagnosis Malignant neoplasm of upper-outer quadrant of left breast in female, estrogen receptor positive (HCC)- Primary Encounter for screening mammogram for malignant neoplasm of breast Other screening mammogram [facility] Diagnosis Malignant neoplasm of upper-outer quadrant of left breast in female, estrogen receptor positive (HCC)- Primary [facility] Diagnosis Hyperthyroidism- Primary Thyrotoxicosis without mention of goiter or other cause, without mention of thyrotoxic crisis or storm [facility] Diagnosis Malignant neoplasm of upper-outer quadrant of left breast in female, estrogen receptor positive (HCC) [facility] Diagnosis Malignant neoplasm of left breast in female, estrogen receptor positive, unspecified site of breast (HCC)- Primary Encounter for screening for osteoporosis Special screening for osteoporosis Hypothyroidism, unspecified type Vitamin D deficiency Unspecified vitamin D deficiency [facility]* Diagnosis Hyperthyroidism Thyrotoxicosis without mention of goiter or other cause, without mention of thyrotoxic crisis or storm documented in this encounter [facility] note* Diagnosis Malignant neoplasm of upper-outer quadrant of left breast in female, estrogen receptor positive (HCC) [facility]* Diagnosis Graves disease- Primary Toxic diffuse goiter without mention of thyrotoxic crisis or storm Primary hypertension Unspecified essential hypertension Elevated TSH Nonspecific abnormal results of thyroid function study documented in this encounter [facility] note* Diagnosis Graves disease- Primary Toxic diffuse goiter without mention of thyrotoxic crisis or storm documented in this encounter [facility] note* Diagnosis Malignant neoplasm of upper-outer quadrant of left breast in female, estrogen receptor positive (HCC) documented in this encounter [facility] for referral (narrative)* Diagnostic Procedure Only (Routine) - Pending Review Specialty Diagnoses / Procedures Referred By Elsy knapp Referred To Contact [facility] Diagnoses Encounter for screening mammogram for malignant neoplasm of breast Procedures REGINALD SCREENING W EVON SCREENING DIGITAL BREAST TOMOSYNTHESIS BI SCREENING MAMMOGRAPHY BI 2-[place] [address] [place] [address] [facility] [address] [place] [phone] Referral ID Status Reason Start Date Expiration Date Visits Requested Visits Authorized [id number] Pending Review Auto-Generat ed Referral 06/08/2022 07/07/2023 1 1 Healthcare Summary Purpose Family History No Family History Records FoundNo Family History Records FoundNo Family History Records Found Advance Directives Documents on File Type Date 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 Advance Directive(s) 05/26/2021 9:21 PM [...] DATE CREATED AUTHOR AUTHOR'S ORGANIZ ATION 02/19/2023 [facility] DATE CREATED AUTHOR AUTHOR'S ORGANIZ ATION 02/22/2023 [facility] [facility] Comments (unrecognize d section and content) In the event this informatio n is protected by the Federal Confidentiality of Alcohol and Drug Abuse Patient Records regulations: The Federal rules restrict any use of the information to criminally investigate or prosecute any alcohol or drug abuse patient.[facility] the event this information is protected by the Federal Confidentiality of Alcohol and Drug Abuse Patient Records regulations: The Federal rules restrict any use of the information to criminally investigate or prosecute any alcohol or drug abuse patient.[facility] the event this information is protected by the Federal Confidentiality of Alcohol and Drug Abuse Patient Records regulations: The Federal rules restrict any use of the information to criminally investigate or prosecute any alcohol or drug abuse patient.[facility] the event this information is protected by the Federal Confidentiality of Alcohol and Drug Abuse Patient Records regulations: The Federal rules restrict any use of the information to criminally investigate or prosecute any alcohol or drug abuse patient.[facility] the event this information is protected by the Federal Confidentiality of Alcohol and Drug Abuse Patient Records regulations: The Federal rules restrict any use of the information to criminally investigate or prosecute any alcohol or drug abuse patient.[facility] the event this information is protected by the Federal Confidentiality of Alcohol and Drug Abuse Patient Records regulations: The Federal rules restrict any use of the information to criminally investigate or prosecute any alcohol or drug abuse patient.[facility] the event this information is protected by the Federal Confidentiality of Alcohol and Drug Abuse Patient Records regulations: The Federal rules restrict any use of the information to criminally investigate or prosecute any alcohol or drug abuse patient.[facility] the event this information is protected by the Federal Confidentiality of Alcohol and Drug Abuse Patient Records regulations: The Federal rules restrict any use of the information to criminally investigate or prosecute any alcohol or drug abuse patient.[facility] the event this information is protected by the Federal Confidentiality of Alcohol and Drug Abuse Patient Records regulations: The Federal rules restrict any use of the information to criminally investigate or prosecute any alcohol or drug abuse patient.[facility]In the event this information is protected by the Federal Confidentiality of Alcohol and Drug Abuse Patient Records regulations: The Federal rules restrict any use of the information to criminally investigate or prosecute any alcohol or drug abuse patient.[facility]In the event this information is protected by the Federal Confidentiality of Alcohol and Drug Abuse Patient Records regulations: The Federal rules restrict any use of the information to criminally investigate or prosecute any alcohol or drug abuse patient.[facility]In the event this information is protected by the Federal Confidentiality of Alcohol and Drug Abuse Patient Records regulations: The Federal rules restrict any use of the information to criminally investigate or prosecute any alcohol or drug abuse patient.[facility]In the event this information is protected by the Federal Confidentiality of Alcohol and Drug Abuse Patient Records regulations: The Federal rules restrict any use of the information to criminally investigate or prosecute any alcohol or drug abuse patient.[facility]In the event this information is protected by the Federal Confidentiality of Alcohol and Drug Abuse Patient Records regulations: The Federal rules restrict any use of the information to criminally investigate or prosecute any alcohol or drug abuse patient.[facility]In the event this information is protected by the Federal Confidentiality of Alcohol and Drug Abuse Patient Records regulations: The Federal rules restrict any use of the information to criminally investigate or prosecute any alcohol or drug abuse patient.[facility]In the event this information is protected by the Federal Confidentiality of Alcohol and Drug Abuse Patient Records regulations: The Federal rules restrict any use of the information to criminally investigate or prosecute any alcohol or drug abuse patient.[facility] Reason for Visit (unrecogniz ed [...] ZOLEDRONIC ACID, [address] [place] [address] [place] [address] [facility] [address] [address] Referral ID Status Reason Start Date Expiration Date V isits Requested Visits Authorized [id number] Authorized 05/11/2021 05/09/2023 5 5 Reason Comments Benefits Investigation Reason Comments Results Reason Onset Date Comments Refill Request 08/22/2022 Reason Comments Follow Up Reason Comments Refill Request Reason Comments Follow Up Established Patient Care Teams (unrecognized sec tion and content) Clutch Mechanic Relationship Specialty Start Date End Date Heron Sun MD [address] [place] [address] PCP - General Internal Medicine 05/20/17 Pee Mancuso MD [address] [place] [address] Referring Orthopedics 04/19/15 Pee Mnacuso MD [address] [place] [address] Home Care Physician Orthopedics 04/19/15 Clutch Mechanic Relationship Specialty Start Date End Date Heron Sun MD [address] [place] [address] PCP - General Internal Medicine 05/20/17 Pee Mancuso MD [address] [place] [address] Referring Orthopedics 04/19/15 Pee Mancuso MD [address] [place] [address] Home Care Physician Orthopedics 04/19/15 Clutch Mechanic Relationship Specialty Start Date End Date Heron Sun MD [address] [place] [address] PCP - General Internal Medicine 05/20/17 Pee Mancuso MD [address] [place] [address] Referring Orthopedics 04/19/15 Pee Mancuso MD [address] [place] [address] Home Care Provider Orthopedics 04/19/15 Clutch Mechanic Relationship Specialty Start Date End Date Hreon Sun MD [address] [place] [address] PCP - General Internal Medicine 05/20/17 Pee Mancuso MD [address] [place] [address] Referring Orthopedics 04/19/15 Pee Mancuso MD [address] [place] [address] Home Care Provider Orthopedics 04/19/15 Clutch Mechanic Relationship Specialty Start Date End Date Heron Sun MD [address] [place] [address] PCP - General Internal Medicine 05/20/17 Pee Mancuso MD [address] [place] [address] Referring Orthopedics 04/19/15 Pee Mancuso MD [address] [place] [address] Home Care Provider Orthopedics 04/19/15 Clutch Mechanic Relationship Specialty Start Date End Date Heron Sun MD [address] [place] [address] PCP - General Internal Medicine 05/20/17 Pee Mancuso MD [address] [place] [address] Referring Orthopedics 04/19/15 Pee Mancuso MD [address] [place] [address] Home Care Provider Orthopedics 04/19/15 Clutch Mechanic Relationship Specialty Start Date End Date Heron Sun MD [address] [place] [address] PCP - General Internal Medicine 05/20/17 Pee Mancuso MD [address] [place] [address] Referring Orthopedics 04/19/15 Pee Mancuso MD [address] [address] Home Care Provider Orthopedics 04/19/15 Clutch Mechanic Relationship Specialty Start Date End Date Heron Sun MD [address] [address] PCP - General Internal Medicine 05/20/17 Pee Mancuso MD [address] [place] [address] Referring Orthopedics 04/19/15 Pee Mancuos MD [address] [place] [address] Home Care Provider Orthopedics 04/19/15 Clutch Mechanic Relationship Specialty Start Date End Date Heron Sun MD [address] [address] PCP - General Internal Medicine 05/20/17 Pee Mancuso MD [address] [place] [address] Referring Orthopedics 04/19/15 Pee Mancuso MD [address] [place] [address] Home Care Provider Orthopedics 04/19/15 Clutch Mechanic Relationship Specialty Start Date End Date Heron Sun MD [address] [address] PCP - General Internal Medicine 05/20/17 Pee Mancuso MD [address] [address] Referring Orthopedics 04/19/15 Pee Mancuso MD [address] [address] Home Care Provider Orthopedics 04/19/15 FOR RECORDS [...] BE BASED ON THE PRIMARY CLINICAL RECORDS. [employer] [facility]. provides no warranty or guarantee of the accuracy or completeness of information in this document.
--- NOTE | 2023-09-09 13:56 | CPS ---
DESPITE MULTIPLE ATTEMPTS, PATIENT WAS UNABLE TO KEEP LIP SEAL OR PERFORM MANEUVERS NECESSARY TO OBTAIN VIABLE, ACCEPTABLE RESULTS FOR PFT. DR. PEREZ'S OFFICE NOTIFIED THE TEST WAS UNABLE TO BE COMPLETED.
== END | disposition home or self-care (01) ==
PROVIDERS: PCP Internal Medicine; Referring Provider Internal Medicine Critical Care Medicine; Visit Provider Internal Medicine Critical Care Medicine
DX: R06.00 Dyspnea, unspecified (principal); F17.200 Nicotine dependence, unspecified, uncomplicated

== ENCOUNTER 2023-09-30 11:00 | Inpatient (IN) | payer MEDICARE, MEDICAID, SELFPAY ==
[2023-09-30] VITALS (17 sets, daily range): BP systolic 120–181; BP diastolic 55–127; PULSE 78–106; RESP 15–27; TEMP 36.3–37.1; O2SAT 94–96; BMI 14.7; BMI 13.1
--- NOTE | 2023-09-30 11:45 | EX.ED.DYSGE1 ---
HPI History of Present Illness Chief Complaint: Confusion Narrative Narrative: 73-year-old female presents from assisted living via EMS with reported confusion, generalized weakness. She states that she may feel a little weak. She was reportedly sent in because of confusion. She has history of malnutrition. She has had previous diagnosis of failure to thrive. She denies any fevers or chills, no cough. She may have mild dysuria. No chest pain or shortness of breath. [facility] Medical History Allergic rhinitis Candidal esophagitis COPD (chronic obstructive pulmonary disease) Gastric ulcer Hyperlipidemia Intracranial hemorrhage Lower back pain Malignant neoplasm of unspecified site of left female breast Mild cognitive impairment Nicotine dependence Osteoporosis Thyrotoxicosis Home Medications amlodipine 2.5 mg tablet 2.5 mg PO BID 06/30/23 [History Last Taken Unknown] anastrozole 1 mg tablet 1 mg PO DAILY 06/30/23 [History Last Taken Unknown] fluticasone fur. 100 mcg-umeclid 62.5 mcg-vilant 25 mcg inhalat.powder (Trelegy Ellipta) 1 inh inhalation BID 06/30/23 [History Last Taken Unknown] loratadine 10 mg tablet 10 mg PO DAILY 06/30/23 [History Last Taken Unknown] metoprolol succinate 25 mg tablet,extended release 24 hr 25 mg PO BID htn 06/30/23 [History Last Taken Unknown] acetaminophen 325 mg tablet 650 mg (2 x 325 mg) PO Q6H PRN PRN Pain 1-10 Or Fever>100.7 #0 tabs 07/12/23 [Rx Last Taken Unknown] albuterol sulfate 2.5 mg/3 mL (0.083 %) solution for nebulization 2.5 mg (3 mL) inhalation Q2H PRN PRN Wheezing #75 mL 07/12/23 [Rx Last Taken Unknown] ipratropium 0.5 mg-albuterol 3 mg (2.5 mg base)/3 mL nebulization soln 3 ml inhalation Q6HWA.RT #0 mL 07/12/23 [Rx Last Taken Unknown] mirtazapine 15 mg tablet 15 mg PO QHS #0 tabs 07/12/23 [Rx Last Taken Unknown] multivitamin 1 tab PO BREAKFAST #0 tabs 07/12/23 [Rx Last Taken Unknown] escitalopram oxalate 10 mg tablet (Lexapro) 10 mg PO DAILY 08/23/23 [History Last Taken Unknown] guaifenesin 100 mg/5 mL oral liquid 200 mg PO Q4H PRN 08/23/23 [History Last Taken Unknown] lorazepam 0.5 mg tablet (Ativan) 0.5 mg PO QHS PRN 08/23/23 [History Last Taken Unknown] omeprazole 20 mg capsule,delayed release 20 mg PO DAILY 08/23/23 [History Last Taken Unknown] simethicone 80 mg chewable tablet (Gas Relief (simethicone)) 80 mg PO TID-QID PRN 08/23/23 [History Last Taken Unknown] methimazole 10 mg tablet 15 mg (1.5 x 10 mg) PO DAILY #45 tabs 09/03/23 [Rx Last Taken Unknown] sucralfate 1 gram tablet 1 g PO BID 09/03/23 [History Last Taken Unknown] denosumab 60 mg/mL subcutaneous syringe (Prolia) 60 mg subcut [id number] #1 mL 09/10/23 [Rx Last Taken Unknown] Allergy/AdvReac Type Severity Reaction Status Date / Time Penicillins Allergy Mild Other Verified 09/03/23 09:07 Family History Grandfather Intracranial hemorrhage Surgical History S/P [employer] shunt Social History Smoking Status: Current every day smoker tobacco type: cigarettes ROS ROS ED ROS Narrative Limited secondary to dementia/confusion. Constitutional: No fever, no chills. HEENT: No sore throat. No neck pain. No loss of vision. No rhinorrhea. Cardiovascular: No chest pain. No palpitations. No pedal edema. Respiratory: No cough, no shortness of breath. Abdominal: No abdominal pain. No nausea. No vomiting. Genitourinary: Mild dysuria. No hematuria. Musculoskeletal: No myalgias. No arthralgias. Neurologic: No headaches. No dizziness. No lightheadedness. Reported confusion. Skin: No rash. No change in color. Psychiatric: No depression. No anxiety. EXAM Physical Exam Narrative Exam Narrative: Afebrile. Vital signs noted. Cachectic. HEENT: Normocephalic. Atraumatic. PERRL, EOMI. Neck soft and supple. No point tenderness or step off. Cardiovascular: Regular rate and rhythm. No murmurs, rubs, or gallops appreciated. Respiratory: Intermittent tachypnea. Lungs clear to auscultation bilaterally. Gastrointestinal: Abdomen soft, nontender, with normoactive bowel sounds. No rebound or guarding. Neurological: Awake. Alert. Oriented to place, person, and month. Nonfocal, nonlateralizing. Skin: No rash. Normal color. No pallor. Musculoskeletal: No pedal edema. Full range of motion extremities. Psychiatric: Mildly tangential and repetitive. Const Vital Signs: 09/30/23 11:01 09/30/23 11:06 09/30/23 11:45 Temperature 97.4 F L 97.4 F L Temperature Source Oral Oral Pulse Rate 93 90 Respiratory Rate 26 H 26 H Blood Pressure 120/62 120/62 122/66 H Blood Pressure Mean 81 81 84 Pulse Ox 94 94 Oxygen Delivery Method Room Air Room Air 09/30/23 12:00 09/30/23 12:15 09/30/23 12:30 Temperature Temperature Source Pulse Rate 78 84 Respiratory Rate 26 H 18 Blood Pressure 134/63 H 139/68 H 141/66 H Blood Pressure Mean 83 89 88 Pulse Ox Oxygen Delivery Method 09/30/23 12:45 09/30/23 13:00 09/30/23 13:15 Temperature Temperature Source Pulse Rate 103 H 106 H Respiratory Rate 20 H 27 H Blood Pressure 147/95 H 134/64 H 155/117 H Blood Pressure Mean 109 84 130 Pulse Ox 94 Oxygen Delivery Method 09/30/23 13:30 09/30/23 13:45 09/30/23 14:00 Temperature Temperature Source Pulse Rate 98 101 H Respiratory Rate 20 H 18 Blood Pressure 159/55 H 181/127 H 133/66 H Blood Pressure Mean 78 136 84 Pulse Ox 95 Oxygen Delivery Method MDM MDM MDM Narrative Medical decision making narrative: Concern is for dehydration versus urinary tract infection versus occult pneumonia. Patient is oriented currently to person, place, and month. I reviewed her laboratory work and she has normal white count 4.5, hemoglobin stable at 12.2, hematocrit 39.3, platelet count normal at 267. BUN slightly elevated 21 with creatinine 0.62. Glucose appropriately elevated at 95. Alk phos slightly elevated at 233 which I think is nonspecific. I do not see evidence of profound dehydration. Her potassium is low at 2.9 which was replaced orally, and magnesium was drawn and is currently pending. Urinalysis is negative for infection with negative nitrites and 0-5 WBCs. I do not feel that antibiotics are indicated. I had a discussion with her niece and her DURABLE POWER OF BILINGUAL EXECUTIVE ASSISTANT for medical care, Scarlet Forman over the telephone. She states that she was admitted in June for failure to thrive. She was sent to [facility] nursing facility afterwards for rehabilitation. They did get her weight up a little bit. Additionally, she relates history that she has thyroid problems, and was not taking her medications for that as well. She was recently discharged from [facility] weeks ago, and now has an apartment in [facility] in assisted living. Her niece states that when she saw her on and Saturday of last week, she was not as confused as was reported today. She states that she was told that her aunt was leading and imaginary band, and hallucinating. She is not comfortable with her being discharged back to assisted living as her failure to thrive might worsen. She is agreeable that she may need placement in prison facility [facility] for rehabilitation. Patient will be discussed with the hospitalist for admission. I discussed patient with Dr. Kong. Additionally, she is unable to ambulate safely so presents as increased risk for falls in assisted living. She will be assigned to observation on the general medical floor. She is in stable condition. History & Record Review Discussion w/independent historian: Patient and Family (Knees) Additional record(s) reviewed:: Prior ED visit Lab Data Attestation: I reviewed the patient's lab results. Labs: Laboratory Results - last 24 hr 09/30/23 09/30/23 11:45 13:05 WBC 4.5 RBC 4.06 L Hgb 12.2 Hct 39.3 MCV 96.8 MCH 30.0 MCHC 31.0 L RDW Std Deviation 48.5 H RDW Coeff of Kriss 13.5 Plt Count 267 MPV 11.3 Sodium 140 Potassium 2.9 L Chloride 106 Carbon Dioxide 27.0 Anion Gap 7 BUN 21 H Creatinine 0.62 Estim Creat Clear Calc 34.48 Est GFR (MDRD) Af Amer 120 Est GFR (MDRD) Non-Af 99 BUN/Creatinine Ratio 33.7 H Glucose 95 Calcium 9.8 Magnesium 2.1 Total Bilirubin 0.90 AST 20 ALT 26 Alkaline Phosphatase 233 H Total Protein 8.2 Albumin 3.2 Globulin 5.0 H Albumin/Globulin Ratio 0.6 L TSH < 0.01 L Urine Color Yellow Urine Clarity Clear Urine pH 7.0 Ur Specific Campus 1.020 Urine Protein 30 H Urine Glucose (UA) Normal Urine Ketones 5 H Urine Occult Blood Negative Urine Nitrite Negative Urine Bilirubin Negative Urine Urobilinogen Normal Ur Leukocyte Esterase Negative Urine RBC 0 SEEN Urine WBC 0-5 SEEN Ur Squamous Epith Cells 0 SEEN Urine Bacteria 0 SEEN Hyaline Casts 0-5 SEEN Waxy Casts 0 SEEN Urine Mucus 0 SEEN Radiography Diagnostic Testing: Clinical Impression(s) from Imaging Studies Chest X-Ray 09/30/23 12:08 IMPRESSION: Hyperinflation. Stable increased markings in the right upper lobe suggestive of scarring. Electronically Signed: Jaskaran Zhang MD at 13:01 EDT , Discharge Plan Dx/Rx/DC Orders Clinical Impression: Confusion, Failure to thrive, Hypokalemia, At high risk for falls Disposition Disposition: Acute Care [facility]
[2023-09-30] MEDS: 0.9% Normal Saline (1000mL) 1,000 ML 1000 ML IV (11:51)
[2023-09-30 11:56] LABS: Hematocrit 39.3 % (37-47); Hemoglobin 12.2 g/dL (12.0-15.0); Mean Corpuscular Volume 96.8 fL (81-99); Mean Platelet Vol. 11.3 fl (6.2-12.0); Platelet Count 267 K/mm3 (150-450); RBC Distribution Width CV 13.5 % (11.6-14.6); RBC Distribution Width SD 48.5 fl (35.1-43.9); Red Blood Count 4.06 M/mm3 (4.2-5.4); White Blood Count 4.5 K/mm3 (4.4-11.0)
--- NOTE | 2023-09-30 12:08 | RAD_ITS ---
STUDY: X-RAY CHEST REASON FOR EXAM: Female, 73 years old. CAD TECHNIQUE: Single AP portable view of the chest. COMPARISON: Comparison is made with prior study dated July 01, 2023. FINDINGS: EKG electrodes are seen. The right-sided ventricular peritoneal shunt tube is seen. There is hyperinflation of the lungs consistent with chronic obstructive lung disease (COPD). Stable increased markings in the right upper lobe suggestive of scarring. Mild scarring in the left perihilar region. There is no demonstrated pleural abnormality. Normal size heart. Normal mediastinum and yuly. Normal visualized pulmonary arteries. There is atherosclerotic calcification of the aortic arch with tortuosity. Normal visualized thoracic spine. Normal visualized ribs, clavicles, and shoulders. There is no demonstrated abnormality of the visualized soft tissue structures of the upper abdomen. RAD/Chest 1 View (Portable) IMPRESSION: Hyperinflation. Stable increased markings in the right upper lobe suggestive of scarring. Electronically Signed: Jaskaran Zhang MD at 13:01 EDT ,
[2023-09-30 12:18] LABS: ALB/GLOB Ratio 0.6 RATIO (0.9-2.4); AST(SGOT) 20 U/L (15-37); Alanine Aminotransfer ALT/SGPT 26 U/L (13-56); Albumin, Serum 3.2 g/dL (3.2-5.0); Alkaline Phosphatase 233 U/L (45-117); Anion Gap 7 (5-15); BUN 21 mg/dL (7-18); BUN/Creat Ratio 33.7 RATIO (10-20); Calcium,Total 9.8 mg/dL (8.5-10.1); Chloride 106 mmol/L (98-107); Creatinine, Serum 0.62 mg/dL (0.55-1.02); EST Glomerular Filtration Rate 99 mL/min (>60); Est Glom Filt Rate - Afr Amer 120 mL/min (>60); Estimated Creatinine Clearance 34.48 ml/min; Glucose 95 mg/dL (74-106); Potassium 2.9 mmol/L (3.5-5.1); Protein, Total 8.2 g/dL (6.4-8.2); Sodium Level 140 mmol/L (136-145)
[2023-09-30 13:13] LABS: Bacteria 0 SEEN /hpf (None Seen); Mucous, Urine 0 SEEN /hpf (<or=2+); Red Blood Cells-Urine 0 SEEN /hpf (0-5); Squamous Epithelial Cells - UA 0 SEEN /hpf (5-10)
[2023-09-30 13:15] LABS: Color, Urine Yellow (Yellow); Glucose, Dipstick Normal (Normal); Ketone-Dipstick 5 mg/dl (Negative); Leukocyte Esterase-Dipstick Negative /ul (Negative); Nitrite-Dipstick Negative (Negative); Occult Blood-Urine Negative /ul (Negative); Protein-Dipstick 30 mg/dl (Negative); Urine Bilirubin Dipstick Negative (Negative); Urine Clarity Clear (Clear); Urine Urobilinogen Normal (Normal)
[2023-09-30 13:23] LABS: Hyaline Cast 0-5 SEEN /lpf (0-5); White Blood Cells 0-5 SEEN /hpf (0-5)
[2023-09-30 13:24] LABS: Waxy Cast-Urine 0 SEEN /lpf (None Seen)
[2023-09-30] MEDS: Potassium Chloride Oral Tablet 20 MEQ 60 MEQ PO (13:43)
--- NOTE | 2023-09-30 14:20 | ED.RN ---
ATTEMPT TO AMBULATE PT. PT UNSTEADY, DIFFICULT TO ORIENT TO SELF AND SURROUNDINGS. PT CONTINUES TO TALK TO PEOPLE THAT ARE NOT PRESENT IN THE ROOM
[2023-09-30 14:22] LABS: Magnesium 2.1 mg/dL (1.6-2.6); Thyroid Stim Hormone (TSH) < 0.01 uIU/mL (0.358-3.74)
--- NOTE | 2023-09-30 14:40 | PCM.HP.STD ---
HPI - General General Date of Service: 09/30/23 Chief Complaint: confusion HPI Narrative ALISSA MAK, is a 73 F who presents from assisted living with confusion. Patient is a poor historian and unable provide any adequate history. The patient was noted to be confused at her assisted living. Unclear of the specificity of that. Urinalysis negative for any infection, however specific gravity was increased at 1.02. Patient did receive IV fluids as well as correction of hypokalemia with a potassium 2.9. They did get her up and patient was deemed unsafe and a fall risk, therefore the hospital service was contacted for admission. Patient complaint to me is not have any thing to eat. [facility] Medical History Allergic rhinitis Candidal esophagitis COPD (chronic obstructive pulmonary disease) Gastric ulcer Hyperlipidemia Intracranial hemorrhage Lower back pain Malignant neoplasm of unspecified site of left female breast Mild cognitive impairment Nicotine dependence Osteoporosis Thyrotoxicosis Home Medications amlodipine 2.5 mg tablet 2.5 mg PO BID 06/30/23 [History Last Taken Unknown] anastrozole 1 mg tablet 1 mg PO DAILY 06/30/23 [History Last Taken Unknown] fluticasone fur. 100 mcg-umeclid 62.5 mcg-vilant 25 mcg inhalat.powder (Trelegy Ellipta) 1 inh inhalation BID 06/30/23 [History Last Taken Unknown] loratadine 10 mg tablet 10 mg PO QHS 06/30/23 [History Last Taken Unknown] metoprolol succinate 25 mg tablet,extended release 24 hr 25 mg PO BID htn 06/30/23 [History Last Taken Unknown] acetaminophen 325 mg tablet 650 mg (2 x 325 mg) PO Q6H PRN PRN Pain 1-10 Or Fever>100.7 #0 tabs 07/12/23 [Rx Last Taken Unknown] albuterol sulfate 2.5 mg/3 mL (0.083 %) solution for nebulization 2.5 mg (3 mL) inhalation Q2H PRN PRN Wheezing #75 mL 07/12/23 [Rx Last Taken Unknown] ipratropium 0.5 mg-albuterol 3 mg (2.5 mg base)/3 mL nebulization soln 3 ml inhalation Q6HWA.RT #0 mL 07/12/23 [Rx Last Taken Unknown] mirtazapine 15 mg tablet 15 mg PO QHS #0 tabs 07/12/23 [Rx Last Taken Unknown] multivitamin 1 tab PO BREAKFAST #0 tabs 07/12/23 [Rx Last Taken Unknown] escitalopram oxalate 10 mg tablet (Lexapro) 10 mg PO DAILY 08/23/23 [History Last Taken Unknown] guaifenesin 100 mg/5 mL oral liquid 200 mg PO Q4H PRN congestion 08/23/23 [History Last Taken Unknown] lorazepam 0.5 mg tablet (Ativan) 0.5 mg PO QHS PRN anxiety 08/23/23 [History Last Taken Unknown] omeprazole 20 mg capsule,delayed release 20 mg PO DAILY 08/23/23 [History Last Taken Unknown] simethicone 80 mg chewable tablet (Gas Relief (simethicone)) 80 mg PO TID-QID PRN abdominal distention 08/23/23 [History Last Taken Unknown] methimazole 10 mg tablet 15 mg (1.5 x 10 mg) PO DAILY #45 tabs 09/03/23 [Rx Last Taken Unknown] sucralfate 1 gram tablet 1 g PO BID 09/03/23 [History Last Taken Unknown] denosumab 60 mg/mL subcutaneous syringe (Prolia) 60 mg subcut [id number] #1 mL 09/10/23 [Rx Last Taken Unknown] calcium carbonate-vitamin D3 .Route 09/30/23 [History Last Taken Unknown] cholecalciferol (vitamin D3) 25 mcg (1,000 unit) capsule 25 mcg PO DAILY 09/30/23 [History Last Taken Unknown] docusate sodium 100 mg capsule (Colace) 200 mg PO .COMPLEX constipation 09/30/23 [History Last Taken Unknown] donepezil 5 mg tablet (Aricept) 5 mg PO QHS 09/30/23 [History Last Taken Unknown] guaifenesin 200 mg tablet 200 mg PO BID related to copd 09/30/23 [History Last Taken Unknown] ondansetron HCl 4 mg tablet 4 mg PO Q8H PRN PRN nausea and vomiting 09/30/23 [History Last Taken Unknown] vitamin B complex (Complex B-100 tablet,extended release) 1 tab PO DAILY 09/30/23 [History Last Taken Unknown] Allergy/AdvReac Type Severity Reaction Status Date / Time Penicillins Allergy Mild Other Verified 02/27/24 09:07 Family History Grandfather Intracranial hemorrhage Surgical History 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 Vital Signs Vital Signs Vital Signs: 09/30/23 11:01 09/30/23 11:06 09/30/23 11:45 Temperature 36.3 C L 36.3 C L Temperature Source Oral Oral Pulse Rate 93 90 Respiratory Rate 26 H 26 H Blood Pressure 120/62 120/62 122/66 H Blood Pressure Mean 81 81 84 Pulse Ox 94 94 Oxygen Delivery Method Room Air Room Air 09/30/23 12:00 09/30/23 12:15 09/30/23 12:30 Temperature Temperature Source Pulse Rate 78 84 Respiratory Rate 26 H 18 Blood Pressure 134/63 H 139/68 H 141/66 H Blood Pressure Mean 83 89 88 Pulse Ox Oxygen Delivery Method 09/30/23 12:45 09/30/23 13:00 09/30/23 13:15 Temperature Temperature Source Pulse Rate 103 H 106 H Respiratory Rate 20 H 27 H Blood Pressure 147/95 H 134/64 H 155/117 H Blood Pressure Mean 109 84 130 Pulse Ox 94 Oxygen Delivery Method 09/30/23 13:30 09/30/23 13:45 09/30/23 14:00 Temperature Temperature Source Pulse Rate 98 101 H Respiratory Rate 20 H 18 Blood Pressure 159/55 H 181/127 H 133/66 H Blood Pressure Mean 78 136 84 Pulse Ox 95 Oxygen Delivery Method 09/30/23 14:34 Temperature 37.1 C Temperature Source Pulse Rate 92 Respiratory Rate 18 Blood Pressure 136/70 H Blood Pressure Mean 92 Pulse Ox 95 Oxygen Delivery Method Weight Weight: 35.4 kg Body Mass Index (BMI) 14.7 Physical Exam Const alert Constitutional Narrative: Alert to self and place. Knew the month but did not know the year. Release did not say the year. Cachectic. Afebrile. HEENT HEENT Narrative: Temporal wasting. Mucous membranes incredibly dry. Eyes Eyes Narrative: No thyromegaly. No lymphadenopathy. Resp normal respiratory effort, no retractions, no use of accessory muscles and clear to auscultation bilaterally Cardio regular rate, regular rhythm, S1 normal heart sound and S2 normal heart sound GI normal to inspection, nondistended, normoactive bowel sounds, soft to palpation, non-tender, non-distended and hepatosplenomegaly Neuro moves all extremities Sensorium / Orientation: awake Results Lab / Micro Data 09/30/23 11:45 09/30/23 11:45 Labs: Laboratory Results - last 24 hr 09/30/23 11:45: WBC 4.5, RBC 4.06 L, Hgb 12.2, Hct 39.3, MCV 96.8, MCH 30.0, MCHC 31.0 L, RDW Std Deviation 48.5 H, RDW Coeff of Kriss 13.5, Plt Count 267, MPV 11.3, Sodium 140, Potassium 2.9 L, Chloride 106, Carbon Dioxide 27.0, Anion Gap 7, BUN 21 H, Creatinine 0.62, Estim Creat Clear Calc 34.48, Est GFR (MDRD) Af Amer 120, Est GFR (MDRD) Non-Af 99, BUN/Creatinine Ratio 33.7 H, Glucose 95, Calcium 9.8, Magnesium 2.1, Total Bilirubin 0.90, AST 20, ALT 26, Alkaline Phosphatase 233 H, Total Protein 8.2, Albumin 3.2, Globulin 5.0 H, Albumin/Globulin Ratio 0.6 L, TSH < 0.01 L 09/30/23 13:05: Urine Color Yellow, Urine Clarity Clear, Urine pH 7.0, Ur Specific [place] 1.020, Urine Protein 30 H, Urine Glucose (UA) Normal, Urine Ketones 5 H, Urine Occult Blood Negative, Urine Nitrite Negative, Urine Bilirubin Negative, Urine Urobilinogen Normal, Ur Leukocyte Esterase Negative, Urine RBC 0 SEEN, Urine WBC 0-5 SEEN, Ur Squamous Epith Cells 0 SEEN, Urine Bacteria 0 SEEN, Hyaline Casts 0-5 SEEN, Waxy Casts 0 SEEN, Urine Mucus 0 SEEN Micro: Microbiology 09/30/23 11:55 Mucosa - Nose SARS-CoV-2, Influenza & RSV (PCR) - Final Imaging Radiology Impression Chest X-Ray 09/30/23 12:08 IMPRESSION: Hyperinflation. Stable increased markings in the right upper lobe suggestive of scarring. Electronically Signed: Jaskaran Zhang MD at 13:01 EDT , Assessment & Plan Assessment/Plan (1) At high risk for falls: PLAN: Plan Debility Patient with baseline poor performance status as evidenced by prior hospitalizations, cachexia, hypothyroidism. Patient was gotten up in the emergency room and was deemed unsafe. Patient be brought into the hospital and patient will see therapy services. Patient was from assisted living. Him concerned patient may require care home facility. Dehydration IV fluids Hypothyroidism: TSH is again undetectable. Check free T4 and free T3. Continue with methimazole. Recently increased from 10-15. Hypokalemia Replaced in the emergency room Follow-up. Check magnesium. Severe protein calorie malnutrition BMI is 14.7 kg/m?. Ensure supplements Nutrition consult VTE prophylaxis with low molecular heparin. Charges/Coding Visit Charges Inpatient E&M: 09161 Init Hosp L3
[2023-09-30 15:12] LABS: Free T3 10.9 pg/mL (2.18-3.98); T4 Free Direct 4.54 ng/dL (0.76-1.46)
[2023-09-30] MEDS: 0.9% Normal Saline (1000mL) 1,000 ML 150 ML IV (16:05)
[2023-09-30] MEDS: Ensure Plus High Protein 120 ML LIQUID PO (16:12)
[2023-09-30] MEDS: Sucralfate 1 GM Tablet PO (16:12)
[2023-09-30] MEDS: 0.9% Saline Lock 10 ML Syringe IV (17:37)
[2023-09-30] MEDS: Budesonide Respules 0.5 MG/2 ML AMPUL.NEB. INHALATION (19:20)
[2023-09-30] MEDS: Ipratropium/Albuterol Sulfate 3 ML AMPUL.NEB INHALATION (19:20)
[2023-09-30] MEDS: Loratadine 10 MG Tablet PO (21:51)
[2023-09-30] MEDS: amLODIPine 2.5 MG Tablet PO (21:51)
[2023-09-30] MEDS: Mirtazapine 15 MG Tablet PO (21:51)
[2023-09-30] MEDS: Metoprolol(XL)Succ 25 MG Tablet PO (21:51)
[2023-10-01] VITALS (13 sets, daily range): BP systolic 107–144; BP diastolic 52–64; PULSE 78–93; RESP 14–20; TEMP 36.5–36.9; O2SAT 92–97
[2023-10-01] MEDS: Sucralfate 1 GM Tablet PO ×2 (05:22→15:46)
[2023-10-01 06:02] LABS: Absolute Neutrophil Count 2.9 X10^3/uL (2.0-7.7); Basophil# 0.02 X10^3/uL; Basophil% 0.3 % (0-1); Eosinophil# 0.23 X10^3/uL; Hematocrit 32.2 % (37-47); Lymphocyte % 34.8 % (19-41); Mean Corp Hgb Conc 31.1 g/dL (32-36); Mean Corpuscular Hgb 30.1 pg (27.0-32.0); Mean Platelet Vol. 10.1 fl (6.2-12.0); Monocyte# 0.57 X10^3/uL; Monocyte% 9.9 % (0-10); NRBC Flagged by Analyzer 0 % (0-5); Neutrophil # 2.92 X10^3/uL (2.7-7.7); Neutrophil % 50.8 % (47-70); Platelet Count 248 K/mm3 (150-450); RBC Distribution Width CV 13.6 % (11.6-14.6); RBC Distribution Width SD 48.3 fl (35.1-43.9); Red Blood Count 3.32 M/mm3 (4.2-5.4); White Blood Count 5.8 K/mm3 (4.4-11.0)
[2023-10-01 06:31] LABS: ALB/GLOB Ratio 0.6 RATIO (0.9-2.4); AST(SGOT) 14 U/L (15-37); Alanine Aminotransfer ALT/SGPT 19 U/L (13-56); Albumin, Serum 2.6 g/dL (3.2-5.0); Alkaline Phosphatase 189 U/L (45-117); Anion Gap 4 (5-15); BUN 9 mg/dL (7-18); Calcium,Total 8.7 mg/dL (8.5-10.1); Chloride 115 mmol/L (98-107); Creatinine, Serum 0.27 mg/dL (0.55-1.02); EST Glomerular Filtration Rate 258 mL/min (>60); Est Glom Filt Rate - Afr Amer 312 mL/min (>60); Estimated Creatinine Clearance 31.85 ml/min; Globulin 4.4 g/dL (2.2-4.2); Glucose 81 mg/dL (74-106); Magnesium 1.9 mg/dL (1.6-2.6); Phosphorus 2.7 mg/dL (2.5-4.9); Potassium 3.6 mmol/L (3.5-5.1); Sodium Level 142 mmol/L (136-145)
[2023-10-01] MEDS: Metoprolol(XL)Succ 25 MG Tablet PO ×2 (08:03→21:06)
[2023-10-01] MEDS: Enoxaparin 40 MG/0.4 ML Syringe SC (08:04)
[2023-10-01] MEDS: Escitalopram Oxalate 10 MG Tablet PO (08:04)
[2023-10-01] MEDS: amLODIPine 2.5 MG Tablet PO ×2 (08:04→21:05)
[2023-10-01] MEDS: Methimazole 5 MG Tablet 15 MG PO (08:04)
[2023-10-01] MEDS: Pantoprazole Sodium 20 MG Tablet PO (08:04)
[2023-10-01] MEDS: Multivitamins,Therapeutic Tablet 1 TABLET PO (08:04)
[2023-10-01] MEDS: Ipratropium/Albuterol Sulfate 3 ML AMPUL.NEB INHALATION ×2 (13:25→18:49)
[2023-10-01] MEDS: Budesonide Respules 0.5 MG/2 ML AMPUL.NEB. INHALATION ×2 (13:26→18:49)
--- NOTE | 2023-10-01 14:19 | PCM.PN.HOSP ---
Reason for Visit Reason for Visit: Confusion Subjective Subjective Mr. Valadez is a 73-year-old white female who presented from assisted living with confusion. Patient had her admission here from late June to early July for similar presentation and found to be markedly hypothyroid. She had been on methimazole previously but this was discontinued due to the fact that it had caused hypothyroidism. At discharge, she was sent to [facility] for ongoing care and then about 2 weeks prior to presentation she was discharged back to her assisted living environment. Her niece who is her primary contact and DPOA states that she was having increased confusion, generalized weakness, weight loss and not eating as much. Her niece states that she was eating a few bites at the dining abel and then taking her food back to her room telling them she was going to eat and then would dump it. She was consistently drinking her supplements. Vital signs on presentation were overtly unremarkable. CBC showed a chronic stable anemia. Her chemistry panel was unremarkable. Her TSH was still undetectable however her free T4 was 4.54 which is markedly elevated compared to the what she was at the time of discharge which was 1.12. With her transferring to assisted living in the last 2 weeks I suspect she may not be taking her medications as prescribed. She did have a tendency to pocket medications previously and I wonder if she has been doing this in the outpatient setting. She was placed on the medical floor with consultations to PT/OT/speech therapy and her methimazole was restarted. Today she remains confused however is oriented to self but only herself. She denies any issues but was sleepy. Objective Data Objective Data Vital Signs: Vital Signs Temp Pulse Resp BP Pulse Ox O2 Del Method 98.0 F 90 20 H 107/55 L 92 Room Air 10/01/23 14:04 10/01/23 14:05 10/01/23 14:04 10/01/23 14:04 10/01/23 14:05 10/01/23 14:05 Oxygen Delivery Method Room Air Weight: 32.704 kg Body Mass Index (BMI) 13.1 Intake & Output: Intake and Output for Last 24 Hours 09/29/23 09/30/23 10/01/23 23:59 23:59 23:59 Intake Total 1000 / 1000 1120 / 1120 Balance 1000 / 1000 1120 / 1120 Lab / Micro Data 10/01/23 05:40 10/01/23 05:40 Labs: Laboratory Results - last 24 hr 09/30/23 11:45: Magnesium 2.1, TSH < 0.01 L, Free T4 4.54 H, Free T3 pg/dL 10.9 H 10/01/23 05:40: WBC 5.8, RBC 3.32 L, Hgb 10.0 L, Hct 32.2 L, MCV 97.0, MCH 30.1, MCHC 31.1 L, RDW Std Deviation 48.3 H, RDW Coeff of Kriss 13.6, Plt Count 248, MPV 10.1, Immature Gran % (Auto) 0.200, Neut % (Auto) 50.8, Lymph % (Auto) 34.8, [place] % (Auto) 9.9, Eos % (Auto) 4.0, Baso % (Auto) 0.3, Absolute Neuts (auto) 2.9, Absolute Lymphs (auto) 2.00, Nucleated RBC % 0, Sodium 142, Potassium 3.6, Chloride 115 H, Carbon Dioxide 23.0, Anion Gap 4 L, BUN 9, Creatinine 0.27 L, Estim Creat Clear Calc 31.85, Est GFR (MDRD) Af Amer 312, Est GFR (MDRD) Non-Af 258, BUN/Creatinine Ratio 33.0 H, Glucose 81, Calcium 8.7, Phosphorus 2.7, Magnesium 1.9, Total Bilirubin 0.40, AST 14 L, ALT 19, Alkaline Phosphatase 189 H, Total Protein 7.0, Albumin 2.6 L, Globulin 4.4 H, Albumin/Globulin Ratio 0.6 L Micro: Microbiology 09/30/23 11:55 Mucosa - Nose SARS-CoV-2, Influenza & RSV (PCR) - Final Physical Exam Const alert and no apparent distress; Negative for oriented x3, average body habitus, healthy appearing or well nourished Constitutional Narrative: Cachectic, older, white female, lying in bed sleeping, awakens easily, appears comfortable, nontoxic Orientation / Consciousness: confused HEENT head/scalp atraumatic and moist oral mucous membranes HEENT Narrative: Dentition is poor, Mallampati is 1, no thrush Head and Scalp: normocephalic Resp normal respiratory effort, no retractions, no use of accessory muscles and No clear to auscultation bilaterally Resp Narrative: Diffusely diminished with few scattered end expiratory wheezes but otherwise clear Auscultation: wheezes; Negative for rales or rhonchi Cardio regular rate, regular rhythm, S1 normal heart sound, S2 normal heart sound, no murmurs, no rub, no gallops and no clicks GI normal to inspection, nondistended, normoactive bowel sounds, soft to palpation and non-tender GI Narrative: Scaphoid abdomen with prominent pelvic bones Extremity no clubbing, cyanosis or edema Extremity Narrative: Severely diminished lean muscle mass, pedal pulses are 1+ bilaterally, radial pulses are 2+ bilaterally Neuro moves all extremities and no focal motor deficits Neuro Narrative: Marked generalized weakness noted but no focal deficits Sensorium / Orientation: alert and oriented to person; Negative for oriented to place or oriented to time Speech: speech normal Psych Psych Narrative: Patient confused but pleasant Assessment & Plan Assessment/Plan (1) At high risk for falls: (2) Confusion: PLAN: Plan Toxic/metabolic encephalopathy -As previously identified I highly suspect this is related to noncompliance with methimazole -Her thyroid studies are markedly abnormal again as they had normalized previously Adult failure to thrive -Patient seems to fail every time she returns to assisted living -Highly suspect at this point she may be better served in an ECF -PT/OT consultation Dysphagia -MBS done 07/04/2023 and mild to moderate oropharyngeal dysphagia noted -Diet recommendations at that time more mechanical soft with soft and bite-size textures and thin liquids -Meds were to be crushed in applesauce with oral care after meals and removal of dentures to check for pocketing -Small bites with small sips, no straws, slow rate and alternate bites of solids and liquids with remaining upright 30 minutes after p.o. intake was recommended -Reconsultation to speech therapy to see if she still needs restrictions with regard to her oral intake Severe malnutrition -Malnutrition issues are multifactorial -Continue Remeron -Patient states her appetite seems to be moving -Thyroid issues likely playing an factor -Dietitian is following -Continue liberalized diet and supplements -Continue multivitamin -5 pound weight loss in last 2 weeks -Likely related from hypermetabolic activity with her hyperthyroidism however will check CT of the chest to rule out malignancy with her tobacco abuse history Hyperthyroidism secondary to Graves' disease -Patient has history of hypothyroid documented however had not been taking methimazole from what we can tell -TSH was undetectable -Free T4 and T3 were elevated again but had normalized -Free T4 is now up to 4.54 -Methimazole restarted on admission -Continue beta-evan -Will repeat free T4 tomorrow -Will need to continue to follow with endocrinology after discharge -Was seen by Dr. Corrigan on 09/03/2023 Suspected COPD -Patient was seen by pulmonary medicine on 08/28/[address] and at [address] of the chest, walking pulse oximetry, and PFTs were ordered -These tests were never performed -Would highly recommend completion after discharge -Continue nebulizers as ordered Debility/generalized weakness -PT/OT/speech consultation History of intracranial hemorrhage -Status post ORGANIZATIONAL RESEARCH CONSULTANT shunt -No acute issues -CT of the brain was unremarkable Tobacco abuse -Recommend ongoing cessation Depression -Continue Remeron 15 mg nightly DVT prophylaxis -Low molecular weight heparin daily CODE STATUS -DNR CCA with no intubation order was placed based on previous admission Charges/Coding Visit Charges Inpatient E&M: 20651 Subs Hosp L3
--- NOTE | 2023-10-01 14:33 | CT_ITS ---
INDICATION: wgt loss EXAMINATION: CT CHEST WITHOUT CONTRAST - CT Chest W/O Contrast Injection TECHNIQUE: Helically acquired images were obtained of the chest. A radiation dose optimization technique was used for this scan. IV Contrast dosage and agent: None. COMPARISON: Chest x-ray 09/30/2023 FINDINGS: Right-sided ventriculoperitoneal shunt catheter. LUNGS, PLEURA AND LARGE AIRWAYS: Moderate emphysema. Bilateral linear scarring. 2 cm linear nodular density in the right upper lobe on image 29 may represent a scar bronchogenic carcinoma cannot be excluded. 1 cm triangular density in the subpleural left lower lobe may represent atelectasis or scar. No pleural effusion or thickening. No pneumothorax. THYROID: No thyroid lesions. HEART AND PERICARDIUM: Heart size is normal. No pericardial effusion. CORONARY ARTERIES: Coronary artery calcification is seen. VESSELS: Thoracic aorta is not dilated. MEDIASTINUM AND SANAZ: No mediastinal or hilar adenopathy. Esophagus is unremarkable. No hiatal hernia. UPPER ABDOMEN: No acute pathology. BONES: Multiple chronic compression fractures of thoracic spine with increased kyphosis. CT/Chest without Contrast IMPRESSION: Moderate emphysema with bilateral scarring including a 2 cm of the nodular area in the right upper lobe which may represent scar bronchogenic carcinoma. PET CT scan would be useful to Electronically Signed: Ja Carter MD at 23:57 EDT ,
--- NOTE | 2023-10-01 15:37 | CASEMGMT ---
Addendum entered by Joslyn Rosas 10/01/23 16:23: Social Work SW spoke w/pt's niece again, SNF list was sent via email. She does not need a [place] list, [facility] facilities [facility]. SW sent referral to [facility] via [facility]. SW will continue to follow. ILEANA Bowen Original Note: Social Work SW called [facility], pt came here from there. SW spoke w/Amelie, she states pt does not have LW/POA but that her niece Xochitl, who is the INTERMEDIATE CARD TENDER at [facility], helps w/decisions. Amelie states spoke w/Xochitl and Xochitl had said pt may need SNF, possibly [facility]. SW called Xochitl, spoke w/her initially about LW/POA. She states she is not pt's POA, but she and pt's other niece Hyun help to make decisions. She states pt does need to do LW/POA papers though is aware pt has been too confused. The only other family pt has is a sister who as per Xochitl is more confused Lizett and a brother who is in rehab recovering from a stroke. SW reviewed SNF options w/Xochitl on the phone. She would like referrals sent to 1. [facility] 2. [facility] and 3. [facility]. She may also consider SNFs in [place], though is concerned that if pt were able to get back to [facility], it would be more difficult. GABY will email daughter the lists of shelter facilities via [email or web address] that includes quality and resource use data, that are in pt's insurance network and preferred geographic area. GABY will also send the initial referral to the facilities Xochitl prefers for pt. ILEANA Bowen
[2023-10-01] MEDS: Donepezil HCl 5 MG Tablet PO (21:02)
[2023-10-01] MEDS: guaiFENesin 10 ML UDC (200MG/10ML) PO (21:10)
[2023-10-01] MEDS: Loratadine 10 MG Tablet PO (22:00)
[2023-10-01] MEDS: CMPD PO (22:00)
[2023-10-01] MEDS: Mirtazapine 15 MG Tablet PO (22:00)
[2023-10-01] MEDS: GUAIFENESIN 200 MG/10 ML PO (22:00)
[2023-10-01] MEDS: Calcium Carbonate 500 MG Tablet PO (22:00)
[2023-10-02] VITALS (12 sets, daily range): BP systolic 106–135; BP diastolic 52–61; PULSE 70–100; RESP 15–18; TEMP 36.1–37.1; O2SAT 92–95
[2023-10-02] MEDS: Ipratropium/Albuterol Sulfate 3 ML AMPUL.NEB INHALATION ×2 (07:10→19:20)
[2023-10-02] MEDS: Budesonide Respules 0.5 MG/2 ML AMPUL.NEB. INHALATION ×2 (07:10→19:20)
[2023-10-02 07:41] LABS: Absolute Lymphocyte Count 1.42 X10^3/uL (0.83-4.51); Absolute Neutrophil Count 2.3 X10^3/uL (2.0-7.7); Basophil# 0.02 X10^3/uL; Basophil% 0.4 % (0-1); Eosinophil# 0.34 X10^3/uL; Eosinophils% 7.5 % (0-5); Hematocrit 37.2 % (37-47); Hemoglobin 11.3 g/dL (12.0-15.0); Lymphocyte # 1.42 X10^3/ul (0.83-4.51); Lymphocyte % 31.1 % (19-41); Mean Corp Hgb Conc 30.4 g/dL (32-36); Mean Corpuscular Volume 98.7 fL (81-99); Mean Platelet Vol. 10.6 fl (6.2-12.0); Monocyte# 0.45 X10^3/uL; Monocyte% 9.9 % (0-10); NRBC Flagged by Analyzer 0 % (0-5); Neutrophil # 2.32 X10^3/uL (2.7-7.7); Neutrophil % 50.9 % (47-70); Platelet Count 237 K/mm3 (150-450); RBC Distribution Width CV 13.5 % (11.6-14.6); RBC Distribution Width SD 49.1 fl (35.1-43.9); Red Blood Count 3.77 M/mm3 (4.2-5.4); White Blood Count 4.6 K/mm3 (4.4-11.0)
[2023-10-02] MEDS: Menthol/Lanolin/Calamine/Znox 113 GM Tube 1 APPLIC TOPICAL ×3 (08:28→20:43)
[2023-10-02] MEDS: Sucralfate 1 GM Tablet PO ×2 (08:28→15:24)
[2023-10-02 08:52] LABS: Anion Gap 7 (5-15); BUN 12 mg/dL (7-18); BUN/Creat Ratio 30.2 RATIO (10-20); Calcium,Total 9.1 mg/dL (8.5-10.1); Chloride 113 mmol/L (98-107); EST Glomerular Filtration Rate 167 mL/min (>60); Est Glom Filt Rate - Afr Amer 202 mL/min (>60); Estimated Creatinine Clearance 31.85 ml/min; Glucose 67 mg/dL (74-106); Phosphorus 4.1 mg/dL (2.5-4.9); Potassium 3.6 mmol/L (3.5-5.1); Sodium Level 144 mmol/L (136-145); T4 Free Direct 3.43 ng/dL (0.76-1.46)
[2023-10-02] MEDS: Enoxaparin 40 MG/0.4 ML Syringe SC (10:11)
[2023-10-02] MEDS: Escitalopram Oxalate 10 MG Tablet PO (10:12)
[2023-10-02] MEDS: Pantoprazole Sodium 20 MG Tablet PO (10:12)
[2023-10-02] MEDS: Metoprolol(XL)Succ 25 MG Tablet PO ×2 (10:12→20:46)
[2023-10-02] MEDS: Anastrozole 1 MG TABLET PO (10:13)
[2023-10-02] MEDS: Calcium Carbonate 500 MG Tablet PO ×2 (10:13→20:53)
[2023-10-02] MEDS: Cholecalciferol (VIT D3) 25 MCG TABLET (1,000 UNITS) PO (10:13)
[2023-10-02] MEDS: Methimazole 5 MG Tablet 15 MG PO (10:13)
[2023-10-02] MEDS: Multivitamins,Therapeutic Tablet 1 TABLET PO (10:14)
[2023-10-02] MEDS: amLODIPine 2.5 MG Tablet PO ×2 (10:14→20:44)
--- NOTE | 2023-10-02 11:09 | CASEMGMT ---
Addendum entered by Cintia Kaufman 10/02/23 14:22: Social Work Return call from niaye Leung and updated that [facility] has accepted and precert has been started. Xochitl apreciative of information. MAXIMO Reyna Original Note: Social Work Pt has been accepted at [facility]. SW requested precert be started at this time. VM left with pt's michelle Leung requesting call back. GABY met with pt and informed pt of plan to go to [facility]. Pt with some confusion, able to state she is in [place] but does not know where. Pt is agreeable to plan to go to [facility]. Phone call to Isabela at [facility] and notified that pt will not be returning and will be going to [facility] when ready. Plan: [facility], pending precert MAXIMO Reyna
[2023-10-02] MEDS: guaiFENesin 10 ML UDC (200MG/10ML) PO (11:50)
--- NOTE | 2023-10-02 14:29 | PCM.PN.HOSP ---
Reason for Visit Reason for Visit: Altered mental status Subjective Subjective No issues overnight. Patient is more alert today and is able to tell me her name and birthday as well as where she is at currently but still does not know time orientation. No complaints at this time. Objective Data Objective Data Vital Signs: Vital Signs Temp Pulse Resp BP Pulse Ox O2 Del Method 97.0 F L 84 18 135/61 H 93 Room Air 10/02/23 10:07 10/02/23 10:12 10/02/23 10:07 10/02/23 10:07 10/02/23 10:07 10/02/23 10:07 Oxygen Delivery Method Room Air Weight: 32.704 kg Body Mass Index (BMI) 13.1 Intake & Output: Intake and Output for Last 24 Hours 09/30/23 10/01/23 10/02/23 23:59 23:59 23:59 Intake Total 1000 / 1000 1120 / 1120 200 / 200 Balance 1000 / 1000 1120 / 1120 200 / 200 Medical Nutrition Assessment Dietitian: Malnutrition Criteria Met Start: 10/01/23 15:14 Freq: Status: Active Protocol: Document 10/01/23 15:14 RMA (Rec: 10/01/23 15:14 RMA [id number]) Nutrition Malnutrition Evidence of Malnutrition Exists Yes Malnutrition (severe): Chronic Evidenced By Suboptimal Energy Intake ( Severe),Physical Changes ( Severe) Clinical Problem Chronic Disease or Condition Related Malnutrition Etiology severe pro-natalie malnutrition in the context of chronic disease/debility/adult failure to thrive related to inadequate oral intake and increased energy expenditure Signs/Symptoms as evidenced by BMI 13.2, severe muscle wasting and fat depletion in the clavicle, orbitals, temporal region, arms and legs, inadequate oral intake meeting less than 50% estimated nutrition needs Status Active Problem Recommendation Dietitian Recommendations/Changes Continue liberalized regular diet with texture/consistency as per CONTENT MANAGEMENT SPECIALIST. Will continue ensure plus HP 3 times per day w/ medpass as ordered. Will add magic cup w/ lunch and dinner. Will add 240mL ensure plus HP w/ breakfast meal. Consider enteral nutrition support as indicated for energy/protein repletion as it is doubtful that pt will be able to consume increased nutrition needs as estimated for repletion. Lab / Micro Data 10/02/23 07:22 10/02/23 07:22 Labs: Laboratory Results - last 24 hr 10/02/23 07:22: WBC 4.6, RBC 3.77 L, Hgb 11.3 L, Hct 37.2, MCV 98.7, MCH 30.0, MCHC 30.4 L, RDW Std Deviation 49.1 H, RDW Coeff of Kriss 13.5, Plt Count 237, MPV 10.6, Immature Gran % (Auto) 0.200, Neut % (Auto) 50.9, Lymph % (Auto) 31.1, [place] % (Auto) 9.9, Eos % (Auto) 7.5 H, Baso % (Auto) 0.4, Absolute Neuts (auto) 2.3, Absolute Lymphs (auto) 1.42, Nucleated RBC % 0, Sodium 144, Potassium 3.6, Chloride 113 H, Carbon Dioxide 24.0, Anion Gap 7, BUN 12, Creatinine 0.40 L, Estim Creat Clear Calc 31.85, Est GFR (MDRD) Af Amer 202, Est GFR (MDRD) Non-Af 167, BUN/Creatinine Ratio 30.2 H, Glucose 67 L, Calcium 9.1, Phosphorus 4.1, Magnesium 2.0, Free T4 3.43 H Micro: Microbiology 09/30/23 11:55 Mucosa - Nose SARS-CoV-2, Influenza & RSV (PCR) - Final Radiography Diagnostic Testing: Radiology Impression Chest CT 10/01/23 14:33 IMPRESSION: Moderate emphysema with bilateral scarring including a 2 cm of the nodular area in the right upper lobe which may represent scar bronchogenic carcinoma. PET CT scan would be useful to Electronically Signed: Ja Carter MD at 23:57 EDT , Physical Exam Const alert and no apparent distress; Negative for oriented x3, average body habitus, healthy appearing or well nourished Constitutional Narrative: Cachectic, older, white female, sitting up in a chair at the bedside, appears comfortable, nontoxic, oriented to self and place but not time HEENT head/scalp atraumatic and moist oral mucous membranes HEENT Narrative: Dentition is poor, Mallampati is 1, no thrush Head and Scalp: normocephalic Resp normal respiratory effort, no retractions, no use of accessory muscles and clear to auscultation bilaterally Resp Narrative: Diffusely diminished Auscultation: Negative for rales, rhonchi or wheezes Cardio regular rate, regular rhythm, S1 normal heart sound, S2 normal heart sound, no murmurs, no rub, no gallops and no clicks GI normal to inspection, nondistended, normoactive bowel sounds, soft to palpation and non-tender GI Narrative: Scaphoid abdomen with prominent pelvic bones Extremity no clubbing, cyanosis or edema Extremity Narrative: Severely diminished lean muscle mass, pedal pulses are 1+ bilaterally, radial pulses are 2+ bilaterally Neuro moves all extremities and no focal motor deficits Neuro Narrative: Marked generalized weakness noted but no focal deficits Sensorium / Orientation: awake, alert, oriented to person and oriented to place; Negative for oriented to time Speech: speech normal Psych Psych Narrative: Very pleasant, interacts appropriately, still mildly confused but improved Assessment & Plan Assessment/Plan (1) At high risk for falls: (2) Confusion: PLAN: Plan Toxic/metabolic encephalopathy -As previously identified I highly suspect this is related to noncompliance with methimazole -Her thyroid studies are markedly abnormal again as they had normalized previously -Improving Adult failure to thrive -Patient seems to fail every time she returns to assisted living -Highly suspect at this point she may be better served in an ECF/SNF -PT/OT following and she will need ongoing therapy services at discharge Dysphagia -MBS done 07/04/2023 and mild to moderate oropharyngeal dysphagia noted -Diet recommendations at that time more mechanical soft with soft and bite-size textures and thin liquids -Meds were to be crushed in applesauce with oral care after meals and removal of dentures to check for pocketing -Small bites with small sips, no straws, slow rate and alternate bites of solids and liquids with remaining upright 30 minutes after p.o. intake was recommended -Speech therapy is following and has evaluated the patient and she does have ongoing significant dysphagia -Recommended diet is direct supervision with no straws, hard swallows with sips with food consistency that is soft and bite sized and regular thin liquids Severe malnutrition -Malnutrition issues are multifactorial -Continue Remeron -Patient states her appetite seems to be moving -Thyroid issues likely playing an factor -Dietitian is following -Continue liberalized diet and supplements -Continue multivitamin -5 pound weight loss in last 2 weeks -Likely related from hypermetabolic activity with her hyperthyroidism however will check CT of the chest to rule out malignancy with her tobacco abuse history Hyperthyroidism secondary to Graves' disease -Patient has history of hypothyroid documented however had not been taking methimazole from what we can tell -TSH was undetectable -Free T4 and T3 were elevated again but had normalized -Free T4 on admission was 4.54--> 3.48 after 48 hours of receiving methimazole here -Methimazole 15 mg to continue -Continue beta-evan -Repeat free T4 on the day of discharge -Will need to continue to follow with endocrinology after discharge -Was seen by Dr. 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 Patient has been accepted and pre-CERT is pending Charges/Coding Visit Charges Inpatient E&M: 55072 Subs Hosp L2
--- NOTE | 2023-10-02 14:44 | SP.MBSS_ITS ---
Modified Barium Swallow Patient Information Study Date: 10/02/23 Study Time: 13:30 Direct Billable Minutes: 100 Total Minutes procedure & reportin Diagnosis: Dysphagia R13.10 Referring Physician: Luzmaria Hollis Reason for Referral: Objectively assess swallow function, assess risk for aspiration, and determine recommendations for least restrictive diet textures and compensatory strategies to improve safety of swallow. Medical History: Patient presented to [facility] ED on 10/02/2023 with confusion. Pt?s urinalysis was n egative for any infection. 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 Pt?s chest x-ray revealed hyperinflation and stable increased markings in the right upper lobe suggestive of scarring. 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 ST was consulted d/t swallowing difficulty. Pt had a MBSS in June of [address] [facility] hospital for several days to target oropharyngeal dysphagia. See MBSS for full details of study. Pt had strict aspiration precautions including small sips w/ effortful swallow. Pt?s RN made her NPO this morning 10/02/23 d/t consistent coughing with water. ST saw pt at bedside today 10/02/23 and concluded that MBSS was warranted d/t intermittent coughing with trials despite cueing for use of compensatory strategies. Current Diet Ordered: Soft and bite size / Thin liquids Dentition: Natural Teeth and Missing Teeth Mental Status: Impaired Respiratory Status: Oxygenating on Room Air Penetration-Aspiration Scale Penetration-Aspiration Scale: OBJECTIVE ASSESSMENT OF SWALLOW FUNCTION (QUANTITATIVE ? PER TRIAL): PENETRATION / ASPIRATION SCALE (KRUSE): 1 = does not enter airway 2 = enters airway/above vocal folds/ejected 3 = enters airway/above vocal folds/not ejected 4 = enters airway/contacts vocal folds/ejected 5 = enters airway/contacts vocal folds/not ejected 6 = enters airway/below vocal folds/ejected 7 = enters airway/below vocal folds/not ejected despite effort 8 = enters airway/below vocal folds/no effort VIDEOFLOROSCOPIC SCALE SCORE (KRUSE): Grade I = aspiration of material that has penetrated into the laryngeal vestibule, intact cough reflex Grade II = aspiration < 10 % of the bolus, intact cough reflex Grade III = aspiration of < 10 % of the bolus, reduced cough reflex or aspiration of > 10 % of the bolus, intact cough reflex Grade IV = aspiration of > 10 % of the bolus, reduced cough reflex Penetration-Aspiration Scale Score Thin Liquid via teaspoon: Result: 5= enters airways/contacts vocal folds/not ejected Thin Liquid via teaspoon Trial 2: Result: 8= enters airway/below vocal folds/no effort Thin Liquid via small single sip: cup: Result: 8= enters airway/below vocal folds/no effort Cushing Thick Liquid via small single sip: cup: Result: 1= does not enter airway Pudding via teaspoon: Result: 1= does not enter airway Comment: esophageal screen Thin Liquid via small single sip: cup Effortful swallow: Result: 8= enters airway/below vocal folds/no effort (trace silent aspiration) / Cookie: Result: 1= does not enter airway Thin Liquid via small single sip: cup Chin tuck: Result: 1= does not enter airway Thin Liquid via small single sip: cup Chin tuck Trial 2: Result: 1= does not enter airway Cushing Thick Liquid via small single sip: cup Trial 2: Result: 1= does not enter airway Oral Phase Labial Seal: Interlabial escape, no progression to anterior lip Tongue Control During Bolus Hold: Posterior escape of less than half of bolus Bolus Preparation/Mastication: Disorganized chewing/mashing with solid pieces of bolus unchewed Bolus Transport/Lingual Motion: Brisk tongue motion Oral Residue: Majority of bolus remaining (piecemeal deglutition) Pharyngeal Phase Initiation of Pharyngeal Swallow: Bolus head at posterior laryngeal surgace of epiglottis Soft Palate Elevation: Trace column of contrast/air between soft palate and pharyngeal wall Laryngeal Elevation: Partial superior movement thyroid cart/partial apprx aryt- epig petiole Anterior Hyoid Excursion: Partial anterior movement Epiglottic Movement: Complete inversion Laryngeal Vestibule Closure at Height of Swallow: Incomplete; narrow column of air/contrast in laryngeal vestibule Pharyngeal Stripping Wave: Present - diminished Pharyngoesophageal Segment Opening: Parital distension and partial duration; parital obstruction of flow Tongue Base Retraction: Narrow column of contrast between tongue base & post. pharyngeal wall Pharyngeal Residue: Collection of residue within or on pharyngeal structures Esophageal Phase Esophageal Clearance: Esophageal retention Diagnosis/Impression Diagnosis: Moderate Oropharyngeal Dysphagia R13.12 Impression: The oral phase is primarily marked by... -Decreased bolus control with the bolus spilling posteriorly to the posterior surface of the epiglottis prior to swallow onset. -Slowed and disorganized tongue motion for A-P transport. -Moderate oral residue after the swallow d/t piecemeal deglutition of cookie and pudding trials that mostly cleared with independent initiation of a multiple swallows as needed. -Prolonged, but adequate mastication of cookie trial. The pharyngeal phase is primarily marked by... -Decreased airway closure during the swallow due to mildly decreased anterior hyoid excursion, mildly decreased laryngeal elevation. -Decreased tongue base retraction, decreased UES opening/duration, and decreased pharyngeal stripping wave with resulting mild-moderate pharyngeal residues after the swallow. -SILENT aspiration of thin liquids by tsp and cup was observed 3X during the study. Laryngeal penetration occurred with thin liquid by tsp and did not eject from the laryngeal vestibule after the swallow. Use of effortful swallow with thin liquids by cup was somewhat effective in decreasing amount of laryngeal penetration and aspiration. Use of chin tuck was most effective in decreasing risk for aspiration. The esophageal phase is primarily marked by... -Esophageal retention of pudding in the lower esophagus observed during pudding trial. Thin liquid wash was effective in clearing pudding contrast from the lower esophagus. -Mild retention of cookie in upper esophagus, which cleared with subsequent liquid washes Recommendations Diet: Mechanical Soft Textures (Soft and Bite Sized - IDDSI Level 6) and Thin Liquids Compensatory Strategies: Small Bites, Small Sips, No Straws, Slow Rate, Chin Tuck (with sips), Sitting upright, Remain sitting upright for 30 minutes after PO intake and Assist with verbal cues to use recommended strategies Supervision: 1:1 Close Supervision Recommend Repeat Modified Barium Swallow: TBD Need for Skilled Speech Therapy Services: Yes Comment: -Train the patient in use of strategies to decrease risk for aspiration. -Ongoing assessment of diet tolerance of recommended textures. -Train the patient oropharyngeal exercise program to improve bolus control, airway closure, and swallow onset (lingual resistance, Chelsie, CTAR). Education Completed: 1. Described result of evaluation., 2. Pt understands evaluation & agrees with goals and treatment plan. and 7. Pt requires further education on strategies & risks. Status Active ST Patient: Active Contact Information [facility] Speech Therapy:: Ratna Wilhelm M.A. [facility]? Speech-Language Pathologist?? [place] [address] [address]?? [place] [address]?? [email or web address]?? [phone]
[2023-10-02] MEDS: Donepezil HCl 5 MG Tablet PO (20:43)
[2023-10-02] MEDS: Loratadine 10 MG Tablet PO (20:44)
[2023-10-02] MEDS: Docusate Sodium 100 MG Capsule 200 MG PO (20:45)
[2023-10-02] MEDS: Mirtazapine 15 MG Tablet PO (20:46)
[2023-10-03] VITALS (9 sets, daily range): BP systolic 104–117; BP diastolic 60–79; PULSE 67–82; RESP 15–18; TEMP 36.3–37.6; O2SAT 93–98
[2023-10-03] MEDS: Ipratropium/Albuterol Sulfate 3 ML AMPUL.NEB INHALATION ×2 (07:02→18:01)
[2023-10-03] MEDS: Budesonide Respules 0.5 MG/2 ML AMPUL.NEB. INHALATION ×2 (07:03→18:01)
[2023-10-03] MEDS: Metoprolol(XL)Succ 25 MG Tablet PO ×2 (08:38→21:24)
[2023-10-03] MEDS: Cholecalciferol (VIT D3) 25 MCG TABLET (1,000 UNITS) PO (08:38)
[2023-10-03] MEDS: Methimazole 5 MG Tablet 15 MG PO (08:38)
[2023-10-03] MEDS: Pantoprazole Sodium 20 MG Tablet PO (08:39)
[2023-10-03] MEDS: amLODIPine 2.5 MG Tablet PO ×2 (08:39→21:24)
[2023-10-03] MEDS: Multivitamins,Therapeutic Tablet 1 TABLET PO (08:40)
[2023-10-03] MEDS: Menthol/Lanolin/Calamine/Znox 113 GM Tube 1 APPLIC TOPICAL ×3 (08:40→21:25)
[2023-10-03] MEDS: Escitalopram Oxalate 10 MG Tablet PO (08:40)
[2023-10-03] MEDS: Anastrozole 1 MG TABLET PO (08:40)
[2023-10-03] MEDS: Enoxaparin 40 MG/0.4 ML Syringe SC (08:40)
--- NOTE | 2023-10-03 13:03 | PCM.TXEXTCAR ---
Diet Diet Order/Speech Therapy: 10/02/23 09:57 Diet: Regular - General Food consistency:: Soft & Bite Sized Liquid Consistency:: Regular/Thin Is pt able to select menu?: No Diet Comments: Direct Supervision, No straws, Hard swallows with sips Routine Orders/Code Status Suppository Frequency: Daily PRN O2 Frequency: PRN Keep PO Greater than or Equal to (%): 89 Routine Lab Work: CBC (As needed), BMP (As needed) and - (Free T4 in 7 days) Code Status: DNRCC-A (No intubation) Wound(s) upper back: Wound Type: Pressure Injury low back: Wound Type: Pressure Injury Therapies Weight Bearing: Full weight bearing Physical Therapy: Eval and Treat Occupational Therapy: Eval and Treat Speech Therapy: Eval and Treat Problem/Diagnosis (1) At high risk for falls: Status: Acute Code(s): Z91.81 - History of falling (2) Confusion: Status: Acute Code(s): R41.0 - Disorientation, unspecified Allergies/Procedures Done in Hospital Allergies Penicillins Allergy (Mild, Verified 09/03/23 09:07) Other Procedures: - (Modified barium swallow) Type of Care/Length of Stay Estimated LOS: More Than 30 Days Type of Care Needed: Intermediate Rehab Potential: Fair Prognosis: Fair Additional Orders/Day of Discharge Day of Discharge: 10/03/23 Dietary and Speech Recommendations Dietitian Recommendations/Changes: Continue liberalized regular diet with texture/consistency as per SENIOR AUDIT MANAGER. Will continue ensure plus HP 3 times per day w/ medpass as ordered. Will add magic cup w/ lunch and dinner. Will add 240mL ensure plus HP w/ breakfast meal. Consider enteral nutrition support as indicated for energy/protein repletion as it is doubtful that pt will be able to consume increased nutrition needs as estimated for repletion. Speech Linguistic Eval Summary: Modified Barium Swallow Patient Information Study Date: 10/02/23 Study Time: 13:30 Direct Billable Minutes: 100 Total Minutes procedure & reportin Diagnosis: Dysphagia R13.10 Referring Physician: Luzmaria Hollis Reason for Referral: Objectively assess swallow function, assess risk for aspiration, and determine recommendations for least restrictive diet textures and compensatory strategies to improve safety of swallow. Medical History: Patient presented to [facility] ED on 10/02/2023 with confusion. Pt?s urinalysis was negative for any infection. 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 Pt?s chest x-ray revealed hyperinflation and stable increased markings in the right upper lobe suggestive of scarring. 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 ST was consulted d/t swallowing difficulty. Pt had a MBSS in June of [address] [facility] for several days to target oropharyngeal dysphagia. See MBSS for full details of study. Pt had strict aspiration precautions including small sips w/ effortful swallow. Pt?s RN made her NPO this morning 10/02/23 d/t consistent coughing with water. ST saw pt at bedside today 10/02/23 and concluded that MBSS was warranted d/t intermittent coughing with trials despite cueing for use of compensatory strategies. Current Diet Ordered: Soft and bite size / Thin liquids Dentition: Natural Teeth and Missing Teeth Mental Status: Impaired Respiratory Status: Oxygenating on Room Air Penetration-Aspiration Scale Penetration-Aspiration Scale: OBJECTIVE ASSESSMENT OF SWALLOW FUNCTION (QUANTITATIVE ? PER TRIAL): PENETRATION / ASPIRATION SCALE (KRUSE): 1 = does not enter airway 2 = enters airway/above vocal folds/ejected 3 = enters airway/above vocal folds/not ejected 4 = enters airway/contacts vocal folds/ejected 5 = enters airway/contacts vocal folds/not ejected 6 = enters airway/below vocal folds/ejected 7 = enters airway/below vocal folds/not ejected despite effort 8 = enters airway/below vocal folds/no effort VIDEOFLOROSCOPIC SCALE SCORE (KRUSE): Grade I = aspiration of material that has penetrated into the laryngeal vestibule, intact cough reflex Grade II = aspiration < 10 % of the bolus, intact cough reflex Grade III = aspiration of < 10 % of the bolus, reduced cough reflex or aspiration of > 10 % of the bolus, intact cough reflex Grade IV = aspiration of > 10 % of the bolus, reduced cough reflex Penetration-Aspiration Scale Score Thin Liquid via teaspoon: Result: 5= enters airways/contacts vocal folds/not ejected Thin Liquid via teaspoon Trial 2: Result: 8= enters airway/below vocal folds/no effort Thin Liquid via small single sip: cup: Result: 8= enters airway/below vocal folds/no effort Sand Pillow Thick Liquid via small single sip: cup: Result: 1= does not enter airway Pudding via teaspoon: Result: 1= does not enter airway Comment: esophageal screen Thin Liquid via small single sip: cup Effortful swallow: Result: 8= enters airway/below vocal folds/no effort (trace silent aspiration) 1/ Cookie: Result: 1= does not enter airway Thin Liquid via small single sip: cup Chin tuck: Result: 1= does not enter airway Thin Liquid via small single sip: cup Chin tuck Trial 2: Result: 1= does not enter airway Sand Pillow Thick Liquid via small single sip: cup Trial 2: Result: 1= does not enter airway Oral Phase Labial Seal: Interlabial escape, no progression to anterior lip Tongue Control During Bolus Hold: Posterior escape of less than half of bolus Bolus Preparation/Mastication: Disorganized chewing/mashing with solid pieces of bolus unchewed Bolus Transport/Lingual Motion: Brisk tongue motion Oral Residue: Majority of bolus remaining (piecemeal deglutition) Pharyngeal Phase Initiation of Pharyngeal Swallow: Bolus head at posterior laryngeal surgace of epiglottis Soft Palate Elevation: Trace column of contrast/air between soft palate and pharyngeal wall Laryngeal Elevation: Partial superior movement thyroid cart/partial apprx aryt-epig petiole Anterior Hyoid Excursion: Partial anterior movement Epiglottic Movement: Complete inversion Laryngeal Vestibule Closure at Height of Swallow: Incomplete; narrow column of air/contrast in laryngeal vestibule Pharyngeal Stripping Wave: Present - diminished Pharyngoesophageal Segment Opening: Parital distension and partial duration; parital obstruction of flow Tongue Base Retraction: Narrow column of contrast between tongue base & post. pharyngeal wall Pharyngeal Residue: Collection of residue within or on pharyngeal structures Esophageal Phase Esophageal Clearance: Esophageal retention Diagnosis/Impression Diagnosis: Moderate Oropharyngeal Dysphagia R13.12 Impression: The oral phase is primarily marked by... -Decreased bolus control with the bolus spilling posteriorly to the posterior surface of the epiglottis prior to swallow onset. -Slowed and disorganized tongue motion for A-P transport. -Moderate oral residue after the swallow d/t piecemeal deglutition of cookie and pudding trials that mostly cleared with independent initiation of a multiple swallows as needed. -Prolonged, but adequate mastication of cookie trial. The pharyngeal phase is primarily marked by... -Decreased airway closure during the swallow due to mildly decreased anterior hyoid excursion, mildly decreased laryngeal elevation. -Decreased tongue base retraction, decreased UES opening/duration, and decreased pharyngeal stripping wave with resulting mild-moderate pharyngeal residues after the swallow. -SILENT aspiration of thin liquids by tsp and cup was observed 3X during the study. Laryngeal penetration occurred with thin liquid by tsp and did not eject from the laryngeal vestibule after the swallow. Use of effortful swallow with thin liquids by cup was somewhat effective in decreasing amount of laryngeal penetration and aspiration. Use of chin tuck was most effective in decreasing risk for aspiration. The esophageal phase is primarily marked by... -Esophageal retention of pudding in the lower esophagus observed during pudding trial. Thin liquid wash was effective in clearing pudding contrast from the lower esophagus. -Mild retention of cookie in upper esophagus, which cleared with subsequent liquid washes Recommendations Diet: Mechanical Soft Textures (Soft and Bite Sized - IDDSI Level 6) and Thin Liquids Compensatory Strategies: Small Bites, Small Sips, No Straws, Slow Rate, Chin Tuck (with sips), Sitting upright, Remain sitting upright for 30 minutes after PO intake and Assist with verbal cues to use recommended strategies Supervision: 1:1 Close Supervision Recommend Repeat Modified Barium Swallow: TBD Need for Skilled Speech Therapy Services: Yes Comment: -Train the patient in use of strategies to decrease risk for aspiration. -Ongoing assessment of diet tolerance of recommended textures. -Train the patient oropharyngeal exercise program to improve bolus control, airway closure, and swallow onset (lingual resistance, Chelsie, CTAR). Education Completed: 1. Described result of evaluation., 2. Pt understands evaluation & agrees with goals and treatment plan. and 7. Pt requires further education on strategies & risks. Status Active ST Patient: Active Follow Up Care Please follow up with your Primary Care Physician in: In 1 to 2 weeks Please Follow Up With: Librado Corrigan MD When: 2 weeks Please Follow Up With: Sharon Lozada NP, PRODUCT STRATEGY DIRECTOR-C When: After pulmonary function tests/6-minute walk are completed Discharge Plan Admission Admit Date/Time: 09/30/23 14:33 Attending Provider: Luzmaria Hollis Primary Care Provider: Ligia Sanders Consulting Providers: Ck Kong Discharge Orders/Prescriptions Prescriptions: No Action lorazepam [Ativan] 0.5 mg tablet 0.5 mg PO QHS guaifenesin 100 mg/5 mL liquid 200 mg PO Q4H PRN (Reason: congestion) escitalopram oxalate [Lexapro] 10 mg tablet 10 mg PO DAILY omeprazole 20 mg capsule,delayed release(DR/EC) 20 mg PO DAILY simethicone [Gas Relief (simethicone)] 80 mg tablet,chewable 80 mg PO TID-QID PRN (Reason: abdominal distention) sucralfate 1 gram tablet 1 g PO BID Rx Instructions: for 14 days. started on 09/13/23 anastrozole 1 mg tablet 1 mg PO DAILY amlodipine 2.5 mg tablet 2.5 mg PO BID Patient Comments: hold if systolic is less than 110 metoprolol succinate 25 mg tablet extended release 24 hr 25 mg PO BID loratadine 10 mg tablet 10 mg PO QHS Patient Comments: TAKE 1 TABLET BY MOUTH NIGHTLY Trelegy Ellipta 100-62.5-25 mcg blister with device 1 inh INHALATION DAILY Patient Comments: INHALE 1 PUFF DIRECTED EVERY DAY multivitamin Tablet 1 tab PO BREAKFAST Qty: 0 0RF acetaminophen 325 mg Tablet 650 mg PO Q6H PRN PRN (Reason: Pain 1-10 Or Fever>100.7) Qty: 0 0RF albuterol sulfate 2.5 mg /3 mL (0.083 %) Solution For Nebulization 2.5 mg inhalation Q2H PRN PRN (Reason: Wheezing) Qty: 75 0RF mirtazapine 15 mg Tablet 15 mg PO QHS Qty: 0 0RF docusate sodium [Colace] 100 mg capsule 200 mg PO .COMPLEX Rx Instructions: 200 mg orally at bedtime; guaifenesin 200 mg tablet 200 mg PO BID Complex B-100 Tablet Extended Release 1 tab PO DAILY cholecalciferol (vitamin D3) 25 mcg (1,000 unit) capsule 25 mcg PO DAILY donepezil [Aricept] 5 mg tablet 5 mg PO QHS calcium carbonate-vitamin D3 [Calcium 600 with Vitamin D3] 1 tab PO BID Rx Instructions: 1 TAB orally; 600-10 take 1 tablet bid ondansetron HCl 4 mg tablet 4 mg PO Q8H PRN PRN (Reason: nausea and vomiting) ipratropium-albuterol 0.5 mg-3 mg(2.5 mg base)/3 mL Solution For Nebulization 3 ml inhalation Q6HWA.RT PRN (Reason: shortness of breath or wheezing) methimazole 10 mg tablet 15 mg PO DAILY Qty: 45 4RF Prolia 60 mg/mL syringe 60 mg subcut [id number] Qty: 1 1RF Referrals / Follow Up: Ligia Sanders MD [Primary Care Provider] -
--- NOTE | 2023-10-03 14:02 | CASEMGMT ---
Social Work Per [facility], pt has been denied skilled care stay by insurance. SW reviewed therapy notes, peer to peer would not likely overturn denial. SW spoke with pt's niece Scarlet and informed. Scarlet would like pt to go to [facility] under intermediate level of care as pt cannot return to [facility] due to cognitive decline. SW spoke with [facility] and they would be able to accept pt under scullion chief intermediate level of care on Saturday. LOC will need to be obtained. Physician updated. MAXIMO Reyna
[2023-10-03] MEDS: Ensure Plus High Protein 120 ML LIQUID PO ×2 (14:19→21:25)
--- NOTE | 2023-10-03 15:43 | CASEMGMT ---
Addendum entered and electronically signed by Amanda Philip 10/03/23 18:18: This commercial insurance underwriter did speak with patient's nurse today regarding assistance level for ADL completion. Per RN Love, patient admits that does not wash back as cannot reach it, so would need hands on assist for this. Grooming of lower body extremity care would also benefit hands on assist and washing of feet. This ADL information updated in the level of care request, and sent via secure email to Courtney Pope at the [facility]. -rehana MARS Original Note: Social Work PASRR screen completed through [facility]. Faxed PASRR screen, results, history and physical, transfer summary, and ADL information to the [facility] for Intermediate Level of care request. Plan[place] [facility] [place] [facility] [place], pending intermediate level of care approval with the [facility]. Social Work following -JERAD Knox
--- NOTE | 2023-10-03 16:07 | PCM.PN.HOSP ---
Reason for Visit Reason for Visit: Altered mental status Subjective Subjective Patient is much more appropriate and interactive today. Seems to be clinically improving. Was turned down for skilled facility so we will plan is for long-term placement at [facility]. Objective Data Objective Data Vital Signs: Vital Signs Temp Pulse Resp BP Pulse Ox O2 Del Method 99.6 F H 67 18 105/79 97 Room Air 10/03/23 14:28 10/03/23 14:28 10/03/23 14:28 10/03/23 14:28 10/03/23 14:28 10/03/23 14:28 Oxygen Delivery Method Room Air Weight: 32.704 kg Body Mass Index (BMI) 13.1 Intake & Output: Intake and Output for Last 24 Hours 10/01/23 10/02/23 10/03/23 23:59 23:59 23:59 Intake Total 1120 / 1120 200 / 300 100 / 100 Balance 1120 / 1120 200 / 300 100 / 100 Medical Nutrition Assessment Dietitian: Malnutrition Criteria Met Start: 10/01/23 15:14 Freq: Status: Active Protocol: Document 10/01/23 15:14 RMA (Rec: 10/01/23 15:14 RMA [id number]) Nutrition Malnutrition Evidence of Malnutrition Exists Yes Malnutrition (severe): Chronic Evidenced By Suboptimal Energy Intake ( Severe),Physical Changes ( Severe) Clinical Problem Chronic Disease or Condition Related Malnutrition Etiology severe pro-natalie malnutrition in the context of chronic disease/debility/adult failure to thrive related to inadequate oral intake and increased energy expenditure Signs/Symptoms as evidenced by BMI 13.2, severe muscle wasting and fat depletion in the clavicle, orbitals, temporal region, arms and legs, inadequate oral intake meeting less than 50% estimated nutrition needs Status Active Problem Recommendation Dietitian Recommendations/Changes Continue liberalized regular diet with texture/consistency as per CODING COMPLIANCE MANAGER. Will continue ensure plus HP 3 times per day w/ medpass as ordered. Will add magic cup w/ lunch and dinner. Will add 240mL ensure plus HP w/ breakfast meal. Consider enteral nutrition support as indicated for energy/protein repletion as it is doubtful that pt will be able to consume increased nutrition needs as estimated for repletion. Lab / Micro Data 10/02/23 07:22 10/02/23 07:22 Micro: Microbiology 09/30/23 11:55 Mucosa - Nose SARS-CoV-2, Influenza & RSV (PCR) - Final Physical Exam Const alert and no apparent distress; Negative for oriented x3, average body habitus, healthy appearing or well nourished Constitutional Narrative: Cachectic, older, white female, lying in bed watching television, appears comfortable, nontoxic, oriented to self and time but tells me she [place] a [place] [facility] [place] rather than the [facility] HEENT head/scalp atraumatic and moist oral mucous membranes HEENT Narrative: Dentition is poor, Mallampati is 1, no thrush, severe temporal wasting Head and Scalp: normocephalic Eyes Eyes Narrative: . Resp normal respiratory effort, no retractions, no use of accessory muscles and clear to auscultation bilaterally Resp Narrative: Diffusely diminished Auscultation: Negative for rales, rhonchi or wheezes Cardio regular rate, regular rhythm, S1 normal heart sound, S2 normal heart sound, no murmurs, no rub, no gallops and no clicks GI normal to inspection, nondistended, normoactive bowel sounds, soft to palpation, non-tender, non-distended and hepatosplenomegaly GI Narrative: Scaphoid abdomen with prominent pelvic bones Extremity no clubbing, cyanosis or edema Extremity Narrative: Severely diminished lean muscle mass, pedal pulses are 1+ bilaterally, radial pulses are 2+ bilaterally Neuro moves all extremities and no focal motor deficits Neuro Narrative: Marked generalized weakness noted but no focal deficits Sensorium / Orientation: awake, alert, oriented to person and oriented to time Speech: speech normal Psych Psych Narrative: Very pleasant, interacts appropriately, confusion has improved significantly since admission Assessment & Plan Assessment/Plan (1) At high risk for falls: (2) Confusion: (3) Pulmonary nodule 1 cm or greater in diameter: PLAN: Plan Toxic/metabolic encephalopathy -Secondary to hyperthyroidism due to noncompliance with methimazole -Her thyroid studies were markedly abnormal again on admission as they had normalized previously -Resolving Adult failure to thrive -Patient seems to fail every time she returns to assisted living -Highly suspect at this point she may be better served in an ECF/SNF -PT/OT following and she will need ongoing therapy services at discharge Dysphagia -MBS done on 10/02/2023 which showed moderate oropharyngeal dysphagia and a diet of mechanical soft with thin liquids was recommended with direct supervision, no straws and hard swallows with sips -Continue ongoing speech therapy 2 cm right upper lobe pulmonary nodule -Concerning for bronchogenic carcinoma -Will need outpatient PET/CT at follow-up -Niece, Scarlet Forman, was updated with regards to these findings and need for outpatient follow-up -She does already have a scheduled appointment to be seen in follow-up on November 27 with Sharon Lozada NP Severe malnutrition -Malnutrition issues are multifactorial -Continue Remeron -Thyroid issues likely playing an factor -Dietitian is following -Continue liberalized diet and supplements -Continue multivitamin -5 pound weight loss in last 2 weeks -Likely related from hypermetabolic activity with her hyperthyroidism however will check CT of the chest to rule out malignancy with her tobacco abuse history Hyperthyroidism secondary to Graves' disease -Patient has history of hypothyroid documented however had not been taking methimazole from what we can tell -TSH was undetectable -Free T4 and T3 were elevated again but had normalized -Free T4 on admission was 4.54--> 3.48 after 48 hours of receiving methimazole here -Methimazole 15 mg to continue -Continue beta-evan -Repeat free T4 on the day of discharge -Will need to continue to follow with endocrinology after discharge -Was seen by Dr. Corrigan on 09/03/2023 Suspected COPD -Patient was seen by pulmonary medicine on 08/28/[address] and at [address] of the chest, walking pulse oximetry, and PFTs were ordered -These tests were never performed -Would highly recommend completion after discharge -Continue nebulizers as ordered Debility/generalized weakness -PT/OT/speech following History of intracranial hemorrhage -Status post ASSISTANT PROFESSOR OF ECONOMICS shunt -No acute issues -CT of the brain was unremarkable Tobacco abuse -Recommend ongoing cessation Depression -Continue Remeron 15 mg nightly DVT prophylaxis -Low molecular weight heparin daily CODE STATUS -DNR CCA with no intubation order was placed based on previous admission Disposition: -Plan is for discharge to [facility] with plans for discharge tomorrow Charges/Coding Visit Charges Inpatient E&M: 99643 Subs Hosp L2
[2023-10-03] MEDS: Sucralfate 1 GM Tablet PO (19:01)
[2023-10-03] MEDS: Donepezil HCl 5 MG Tablet PO (21:24)
[2023-10-03] MEDS: Mirtazapine 15 MG Tablet PO (21:24)
[2023-10-03] MEDS: Loratadine 10 MG Tablet PO (21:24)
[2023-10-04] VITALS (12 sets, daily range): BP systolic 82–136; BP diastolic 48–72; PULSE 70–118; RESP 16–24; TEMP 36.5–38.6; O2SAT 87–100
[2023-10-04] MEDS: Sucralfate 1 GM Tablet PO ×2 (05:06→15:32)
[2023-10-04] MEDS: Menthol/Lanolin/Calamine/Znox 113 GM Tube 1 APPLIC TOPICAL ×3 (05:06→22:10)
[2023-10-04] MEDS: Budesonide Respules 0.5 MG/2 ML AMPUL.NEB. INHALATION ×2 (06:56→19:18)
[2023-10-04] MEDS: Ipratropium/Albuterol Sulfate 3 ML AMPUL.NEB INHALATION ×3 (06:56→19:18)
[2023-10-04 07:54] LABS: Absolute Neutrophil Count 3.5 X10^3/uL (2.0-7.7); Basophil# 0.01 X10^3/uL; Basophil% 0.2 % (0-1); Eosinophil# 0.41 X10^3/uL; Eosinophils% 8.2 % (0-5); Hematocrit 37.6 % (37-47); Hemoglobin 11.4 g/dL (12.0-15.0); Mean Corp Hgb Conc 30.3 g/dL (32-36); Mean Corpuscular Hgb 29.8 pg (27.0-32.0); Mean Corpuscular Volume 98.4 fL (81-99); Mean Platelet Vol. 10.9 fl (6.2-12.0); Monocyte# 0.04 X10^3/uL; Monocyte% 0.8 % (0-10); NRBC Flagged by Analyzer 0 % (0-5); Neutrophil # 3.54 X10^3/uL (2.7-7.7); Neutrophil % 70.6 % (47-70); Platelet Count 214 K/mm3 (150-450); RBC Distribution Width CV 13.7 % (11.6-14.6); RBC Distribution Width SD 49.4 fl (35.1-43.9); Red Blood Count 3.82 M/mm3 (4.2-5.4)
[2023-10-04 08:14] LABS: Anion Gap 4 (5-15); BUN 19 mg/dL (7-18); BUN/Creat Ratio 39.8 RATIO (10-20); Calcium,Total 9.2 mg/dL (8.5-10.1); Chloride 109 mmol/L (98-107); Creatinine, Serum 0.48 mg/dL (0.55-1.02); EST Glomerular Filtration Rate 135 mL/min (>60); Est Glom Filt Rate - Afr Amer 164 mL/min (>60); Estimated Creatinine Clearance 31.85 ml/min; Glucose 81 mg/dL (74-106); Potassium 4.5 mmol/L (3.5-5.1); Sodium Level 138 mmol/L (136-145); T4 Free Direct 2.48 ng/dL (0.76-1.46)
[2023-10-04] MEDS: Acetaminophen 325 MG Tablet 650 MG PO (09:53)
[2023-10-04] MEDS: Ondansetron ODT 4 MG Tablet PO (10:14)
[2023-10-04] MEDS: Pantoprazole Sodium 20 MG Tablet PO (10:25)
[2023-10-04] MEDS: Escitalopram Oxalate 10 MG Tablet PO (10:25)
[2023-10-04] MEDS: amLODIPine 2.5 MG Tablet PO (10:25)
[2023-10-04] MEDS: Calcium Carbonate 500 MG Tablet PO ×2 (10:25→22:09)
[2023-10-04] MEDS: Enoxaparin 40 MG/0.4 ML Syringe SC (10:25)
[2023-10-04] MEDS: Metoprolol(XL)Succ 25 MG Tablet PO (10:25)
[2023-10-04] MEDS: Multivitamins,Therapeutic Tablet 1 TABLET PO ×2 (10:26→10:42)
[2023-10-04] MEDS: Anastrozole 1 MG TABLET PO (10:27)
[2023-10-04] MEDS: Methimazole 5 MG Tablet 15 MG PO (10:27)
[2023-10-04] MEDS: Cholecalciferol (VIT D3) 25 MCG TABLET (1,000 UNITS) PO (10:31)
[2023-10-04] MEDS: guaiFENesin 10 ML UDC (200MG/10ML) PO (10:34)
--- NOTE | 2023-10-04 11:17 | CASEMGMT ---
Discharge Planning LOC sent to [facility] via [facility]. Updated them on possible wknd discharge. Lizzy Mckeon DC Planning Asst.
[2023-10-04] MEDS: levoFLOXacin IV 750 MG/150 ML BAG 100 MG IV (12:40)
[2023-10-04] MEDS: 0.9% Saline Lock 10 ML Syringe IV ×2 (12:40→15:31)
[2023-10-04] MEDS: Ensure Plus High Protein 120 ML LIQUID PO ×3 (12:46→22:09)
--- NOTE | 2023-10-04 15:22 | PN.HOSP_ITS ---
Reason for Visit Reason for Visit: Confusion Subjective Subjective Overnight patient has developed a temperature with a Tmax of 101, some tachypnea and hypoxia with some intermittent tachycardia and now some mild hypotension. We started antibiotics this morning. Highly suspect aspiration pneumonia is present. She had taken a cup and was drinking out it while lying in bed when I walked in the room. We discussed why she should not be doing this and she seems understand however she then grabbed the cup again and started trying to drink. I discussed with nursing her need for supervision at all times while eating and drinking. Objective Data Objective Data Vital Signs: Vital Signs Temp Pulse Resp BP Pulse Ox O2 Del Method O2 Flow Rate 98.2 F 77 24 H 82/48 L 95 Nasal Cannula 2 10/04/23 14:48 10/04/23 14:48 10/04/23 14:48 10/04/23 14:48 10/04/23 14:48 10/04/23 14:48 10/04/23 14:48 Oxygen Flow Rate (L/min) 2 Oxygen Delivery Method Nasal Cannula Weight: 32.704 kg Body Mass Index (BMI) 13.1 Intake & Output: Intake and Output for Last 24 Hours 10/02/23 10/03/23 10/04/23 23:59 23:59 23:59 Intake Total 200 / 300 100 / 100 500 / 500 Balance 200 / 300 100 / 100 500 / 500 Medical Nutrition Assessment Dietitian: Malnutrition Criteria Met Start: 10/01/23 15:14 Freq: Status: Active Protocol: Document 10/04/23 13:26 AYDEN (Rec: 10/04/23 13:26 AYDEN Desktop) Nutrition Malnutrition Evidence of Malnutrition Exists Yes Malnutrition (severe): Chronic Evidenced By Suboptimal Energy Intake ( Severe),Physical Changes ( Severe) Clinical Problem Chronic Disease or Condition Related Malnutrition Etiology severe pro-natalie malnutrition in the context of chronic disease/debility/adult failure to thrive related to inadequate oral intake and increased energy expenditure Signs/Symptoms as evidenced by BMI 13.2, severe muscle wasting and fat depletion in the clavicle, orbitals, temporal region, arms and legs, inadequate oral intake meeting less than 50% estimated nutrition needs Status Active Problem Recommendation Dietitian Recommendations/Changes Continue liberalized regular diet with texture/consistency as per INSTRUMENTATION DESIGNER. Will continue ensure plus HP 3 times per day w/ medpass as ordered. Will add magic cup w/ lunch and dinner. Will add 240mL ensure plus HP w/ breakfast meal. Consider enteral nutrition support as indicated for energy/protein repletion as it is doubtful that pt will be able to consume increased nutrition needs as estimated for repletion. Lab / Micro Data 10/04/23 07:24 10/04/23 07:24 Labs: Laboratory Results - last 24 hr 10/04/23 07:24: WBC 5.0, RBC 3.82 L, Hgb 11.4 L, Hct 37.6, MCV 98.4, MCH 29.8, MCHC 30.3 L, RDW Std Deviation 49.4 H, RDW Coeff of Kriss 13.7, Plt Count 214, MPV 10.9, Immature Gran % (Auto) 0.200, Neut % (Auto) 70.6 H, Lymph % (Auto) 20.0, [place] % (Auto) 0.8, Eos % (Auto) 8.2 H, Baso % (Auto) 0.2, Absolute Neuts (auto) 3.5, Absolute Lymphs (auto) 1.00, Nucleated RBC % 0, Sodium 138, Potassium 4.5, Chloride 109 H, Carbon Dioxide 25.0, Anion Gap 4 L, BUN 19 H, Creatinine 0.48 L, Estim Creat Clear Calc 31.85, Est GFR (MDRD) Af Amer 164, Est GFR (MDRD) Non-Af 135, BUN/Creatinine Ratio 39.8 H, Glucose 81, Calcium 9.2, Free T4 2.48 H Micro: Microbiology 09/30/23 11:55 Mucosa - Nose SARS-CoV-2, Influenza & RSV (PCR) - Final Physical Exam Const alert and no apparent distress; Negative for oriented x3, average body habitus, healthy appearing or well nourished Constitutional Narrative: Cachectic, older, white female, lying in bed, trying to drink water while lying in bed, appears comfortable currently but slightly tachypneic HEENT head/scalp atraumatic and moist oral mucous membranes HEENT Narrative: Dentition is poor, Mallampati is 1, no thrush Head and Scalp: normocephalic Eyes Eyes Narrative: . Resp no retractions and no use of accessory muscles Resp Narrative: Scattered rhonchi with newly developed moist rhonchorous sounding cough intermittently, mild tachypnea but no signs of respiratory extremis Auscultation: rhonchi; Negative for rales or wheezes Cardio regular rhythm, S1 normal heart sound, S2 normal heart sound, no murmurs, no rub, no gallops and no clicks Cardio Narrative: Mild tachycardia GI normal to inspection, nondistended, normoactive bowel sounds, soft to palpation and non-tender GI Narrative: Scaphoid abdomen with prominent pelvic bones Extremity no clubbing, cyanosis or edema Extremity Narrative: Severely diminished lean muscle mass, pedal pulses are 1+ bilaterally, radial pulses are 2+ bilaterally Neuro moves all extremities and no focal motor deficits Neuro Narrative: Marked generalized weakness noted but no focal deficits Speech: speech normal Psych Psych Narrative: Very pleasant, interacts appropriately, confusion does continue to improve Assessment & Plan Assessment/Plan (1) At high risk for falls: (2) Confusion: (3) Pulmonary nodule 1 cm or greater in diameter: (4) Hypoxia: (5) Hypotension: (6) Aspiration pneumonia: PLAN: Plan Hypoxia/hypotension secondary to aspiration pneumonia -Newly developed this morning -Tmax 101 this morning -White count still elevated but she does now have a mild left shift which was not present previously -Not able to produce a sputum culture but does have a new rhonchorous sounding cough -Chest x-ray is pending -Lactic acid is pending -2 L IV bolus with LR -Start Zosyn -Repeat lab in a.m. Toxic/metabolic encephalopathy -Secondary to hyperthyroidism due to noncompliance with methimazole -Her thyroid studies were markedly abnormal again on admission as they had normalized previously -Resolving Adult failure to thrive -Patient seems to fail every time she returns to assisted living -Highly suspect at this point she may be better served in an ECF/SNF -PT/OT following and she will need ongoing therapy services at discharge Dysphagia -MBS done on 10/02/2023 which showed moderate oropharyngeal dysphagia and a diet of mechanical soft with thin liquids was recommended with direct supervision, no straws and hard swallows with sips -Continue ongoing speech therapy 2 cm right upper lobe pulmonary nodule -Concerning for bronchogenic carcinoma -Will need outpatient PET/CT at follow-up -Niece, Scarlet Forman, was updated with regards to these findings and need for outpatient follow-up -She does already have a scheduled appointment to be seen in follow-up on November 27 with Sharon Lozada, NETWORK SUPPORT ADMINISTRATOR -I discussed the case with the talent acquisition coordinator on this week and he ordered an outpatient PET scan to be done and indicated that if the PET is abnormal they should be able to move her outpatient follow-up visit up Severe malnutrition -Malnutrition issues are multifactorial -Continue Remeron -Thyroid issues likely playing an factor -Dietitian is following -Continue liberalized diet and supplements -Continue multivitamin -5 pound weight loss in last 2 weeks -PET scan does show possible malignancy and workup is in progress Hyperthyroidism secondary to Graves' disease -Patient has history of hypothyroid documented however had not been taking methimazole from what we can tell -TSH was undetectable -Free T4 and T3 were elevated again but had normalized -Free T4 on admission was 4.54--> 3.48 after 48 hours of receiving methimazole here--> now at 2.4 4:08 days of treatment with her methimazole -Methimazole 15 mg to continue -Continue beta-evan -Repeat free T4 on the day of discharge -Will need to continue to follow with endocrinology after discharge -Was seen by Dr. Corrigan on 09/03/2023 Suspected COPD -Patient was seen by pulmonary medicine on 08/28/[address] and at that time CT of the chest, walking pulse oximetry, and PFTs were ordered -These tests were never performed -Patient has appointment to have these done next week -Continue nebulizers as ordered Debility/generalized weakness -PT/OT/speech following History of intracranial hemorrhage -Status post CUTLET MAKER PORK shunt -No acute issues -CT of the brain was unremarkable Tobacco abuse -Recommend ongoing cessation Depression -Continue Remeron 15 mg nightly DVT prophylaxis -Low molecular weight heparin daily CODE STATUS -DNR CCA with no intubation order was placed based on previous admission Disposition: -Plan was for discharge to [facility] today however with her new fever and suspicion for pneumonia will have to hold discharge and see if she is clinically stable to go in the next 24 to 48 hours Charges/Coding Visit Charges Inpatient E&M: 37325 Subs Hosp L2
--- NOTE | 2023-10-04 15:30 | RAD_ITS ---
INDICATION: aspiration pna EXAMINATION/TECHNIQUE: X-RAY - XR Chest 1 View COMPARISON: September 30, 2023 FINDINGS: LINES/DEVICES: There is a right-sided shunt catheter. LUNGS: Hyperaeration with right upper lobe and left basilar scarring/interstitial prominence. No consolidation, edema or effusion. No pneumothorax. MEDIASTINUM AND CARDIOVASCULAR STRUCTURES: Cardiac silhouette not enlarged. Central airways and mediastinal contour are unremarkable. BONES AND SOFT TISSUES: Unremarkable. RAD/Chest 1 View (Portable) IMPRESSION: Hyperaeration with right upper lobe and left basilar scarring/interstitial prominence. Electronically Signed: Jeromy Hilliard DO at 19:43 EDT ,
[2023-10-04] MEDS: Lactated Ringers 1,000 ML 999 ML IV ×2 (15:31→16:40)
--- NOTE | 2023-10-04 16:30 | CASEMGMT ---
Social Work Spoke with physical today, and patient is not ready for discharge due to spiking a fever overnight. May be ready for discharge this weekend. Level of Care determination back from [facility]. Patient may admit to , intermediate level of care. Spoke with patient's niece Scarlet Forman to updated that all necessary paperwork is back, and patient is ready to admit to [facility] as soon as medically cleared. Updated discharge anticipated to be over the weekend. Scarlet asked about admitting patient to a facility in [place], as there is family up in that area, and since this is going to be technician terminal and repeater considering moving patient to [place], in order to make this less moves in the end for patient. At time of conversation Scarlet had no [facility] facility in mind. Let Scarlet know, that when patient is ready for discharge, will have to proceed and reinforced that a placement is secured for this patient. Scarlet agreeable to continue with plan for [facility], with longer term plans to look into facilities in [place] for longer term care. Plan: [facility], intermediate level of care, longer than 30 days. Green Sheet placed on chart for nursing to follow, in case patient is ready for discharge this weekend. -JERAD Knox
[2023-10-04 16:38] LABS: Lactic Acid 1.9 mmol/L (0.4-1.9)
[2023-10-04] MEDS: Loratadine 10 MG Tablet PO (22:09)
[2023-10-04] MEDS: Mirtazapine 15 MG Tablet PO (22:09)
[2023-10-04] MEDS: Donepezil HCl 5 MG Tablet PO (22:10)
[2023-10-05] VITALS (12 sets, daily range): BP systolic 103–120; BP diastolic 48–67; PULSE 78–92; RESP 16–18; TEMP 36.7–37.6; O2SAT 85–98
[2023-10-05] MEDS: Sucralfate 1 GM Tablet PO ×2 (05:52→17:54)
[2023-10-05] MEDS: Menthol/Lanolin/Calamine/Znox 113 GM Tube 1 APPLIC TOPICAL ×3 (05:52→20:28)
[2023-10-05 06:26] LABS: Absolute Lymphocyte Count 1.13 X10^3/uL (0.83-4.51); Basophil# 0.01 X10^3/uL; Basophil% 0.1 % (0-1); Eosinophil# 0.14 X10^3/uL; Eosinophils% 1.3 % (0-5); Hematocrit 31.8 % (37-47); Hemoglobin 9.8 g/dL (12.0-15.0); Lymphocyte # 1.13 X10^3/ul (0.83-4.51); Lymphocyte % 10.3 % (19-41); Mean Corp Hgb Conc 30.8 g/dL (32-36); Mean Corpuscular Hgb 30.2 pg (27.0-32.0); Mean Corpuscular Volume 98.1 fL (81-99); Mean Platelet Vol. 10.7 fl (6.2-12.0); Monocyte# 0.71 X10^3/uL; Monocyte% 6.4 % (0-10); NRBC Flagged by Analyzer 0 % (0-5); Neutrophil # 8.98 X10^3/uL (2.7-7.7); Neutrophil % 81.5 % (47-70); Platelet Count 170 K/mm3 (150-450); RBC Distribution Width CV 13.7 % (11.6-14.6); Red Blood Count 3.24 M/mm3 (4.2-5.4)
[2023-10-05 06:44] LABS: Anion Gap 4 (5-15); BUN 14 mg/dL (7-18); BUN/Creat Ratio 45.9 RATIO (10-20); Calcium,Total 8.8 mg/dL (8.5-10.1); Chloride 108 mmol/L (98-107); EST Glomerular Filtration Rate 227 mL/min (>60); Est Glom Filt Rate - Afr Amer 274 mL/min (>60); Estimated Creatinine Clearance 31.85 ml/min; Glucose 92 mg/dL (74-106); Potassium 3.7 mmol/L (3.5-5.1); Sodium Level 139 mmol/L (136-145)
[2023-10-05] MEDS: Budesonide Respules 0.5 MG/2 ML AMPUL.NEB. INHALATION ×2 (07:14→20:35)
[2023-10-05] MEDS: Ipratropium/Albuterol Sulfate 3 ML AMPUL.NEB INHALATION ×3 (07:14→20:35)
[2023-10-05] MEDS: Enoxaparin 40 MG/0.4 ML Syringe SC (12:47)
[2023-10-05] MEDS: Multivitamins,Therapeutic Tablet 1 TABLET PO (12:47)
[2023-10-05] MEDS: Calcium Carbonate 500 MG Tablet PO ×2 (12:48→20:27)
[2023-10-05] MEDS: Cholecalciferol (VIT D3) 25 MCG TABLET (1,000 UNITS) PO (12:48)
[2023-10-05] MEDS: Pantoprazole Sodium 20 MG Tablet PO (12:49)
[2023-10-05] MEDS: Methimazole 5 MG Tablet 15 MG PO (12:49)
[2023-10-05] MEDS: Escitalopram Oxalate 10 MG Tablet PO (12:50)
[2023-10-05] MEDS: Anastrozole 1 MG TABLET PO (12:50)
[2023-10-05] MEDS: guaiFENesin 10 ML UDC (200MG/10ML) PO (12:56)
[2023-10-05] MEDS: Ensure Plus High Protein 120 ML LIQUID PO ×3 (12:56→20:27)
[2023-10-05] MEDS: 0.9% Saline Lock 10 ML Syringe IV (12:57)
--- NOTE | 2023-10-05 13:51 | NURSING ---
10/05/23@1350- PT 93% ON RA. PT DROPPED TO 85% ON RA AMBULATING. 2L/NC WAS APPLIED TO PT DURING AMBULATION, PT WAS 87% ON 2L. O2 WAS TURNED UP TO 3L/NC DURING AMBULATION AND SATS YIELDED 94%.
--- NOTE | 2023-10-05 14:28 | PN.HOSP_ITS ---
Reason for Visit Reason for Visit: Altered mental status Subjective Subjective Patient with no complaints today. We were able to wean the oxygen on room air and she needs 3 L with exertion to maintain sats greater than 88%. This may be chronic as she has pretty significant COPD however we will recheck on the day of discharge to see if she needs any with exertion at that time given the fact that we suspect she has an aspiration pneumonia. Objective Data Objective Data Vital Signs: Vital Signs Temp Pulse Resp BP Pulse Ox O2 Del Method O2 Flow Rate 99.7 F H 87 16 103/61 93 Room Air 2 10/05/23 10:00 10/05/23 12:52 10/05/23 10:00 10/05/23 12:52 10/05/23 12:00 10/05/23 12:00 10/05/23 10:00 Oxygen Flow Rate (L/min) 2 Oxygen Delivery Method Room Air Weight: 32.704 kg Body Mass Index (BMI) 13.1 Intake & Output: Intake and Output for Last 24 Hours 10/03/23 10/04/23 10/05/23 23:59 23:59 23:59 Intake Total 100 / 100 2500 / 2500 Balance 100 / 100 2500 / 2500 Medical Nutrition Assessment Dietitian: Malnutrition Criteria Met Start: 10/01/23 15:14 Freq: Status: Active Protocol: Document 10/04/23 13:26 AYDEN (Rec: 10/04/23 13:26 AYDEN Desktop) Nutrition Malnutrition Evidence of Malnutrition Exists Yes Malnutrition (severe): Chronic Evidenced By Suboptimal Energy Intake ( Severe),Physical Changes ( Severe) Clinical Problem Chronic Disease or Condition Related Malnutrition Etiology severe pro-natalie malnutrition in the context of chronic disease/debility/adult failure to thrive related to inadequate oral intake and increased energy expenditure Signs/Symptoms as evidenced by BMI 13.2, severe muscle wasting and fat depletion in the clavicle, orbitals, temporal region, arms and legs, inadequate oral intake meeting less than 50% estimated nutrition needs Status Active Problem Recommendation Dietitian Recommendations/Changes Continue liberalized regular diet with texture/consistency as per ENGLISH AS A SECOND LANGUAGE INSTRUCTOR. Will continue ensure plus HP 3 times per day w/ medpass as ordered. Will add magic cup w/ lunch and dinner. Will add 240mL ensure plus HP w/ breakfast meal. Consider enteral nutrition support as indicated for energy/protein repletion as it is doubtful that pt will be able to consume increased nutrition needs as estimated for repletion. Lab / Micro Data 10/05/23 06:03 10/05/23 06:03 Labs: Laboratory Results - last 24 hr 10/04/23 15:57: Lactic Acid 1.9 10/05/23 06:03: WBC 11.0, RBC 3.24 L, Hgb 9.8 L, Hct 31.8 L, MCV 98.1, MCH 30.2, MCHC 30.8 L, RDW Std Deviation 49.0 H, RDW Coeff of Kriss 13.7, Plt Count 170, MPV 10.7, Immature Gran % (Auto) 0.400, Neut % (Auto) 81.5 H, Lymph % (Auto) 10.3 L, [place] % (Auto) 6.4, Eos % (Auto) 1.3, Baso % (Auto) 0.1, Absolute Neuts (auto) 9.0 H, Absolute Lymphs (auto) 1.13, Nucleated RBC % 0, Sodium 139, Potassium 3.7, Chloride 108 H, Carbon Dioxide 27.0, Anion Gap 4 L, BUN 14, Creatinine 0.30 L, Estim Creat Clear Calc 31.85, Est GFR (MDRD) Af Amer 274, Est GFR (MDRD) Non- Af 227, BUN/Creatinine Ratio 45.9 H, Glucose 92, Calcium 8.8 Micro: Microbiology 09/30/23 11:55 Mucosa - Nose SARS-CoV-2, Influenza & RSV (PCR) - Final Radiography Diagnostic Testing: Radiology Impression Chest X-Ray 10/04/23 15:30 IMPRESSION: Hyperaeration with right upper lobe and left basilar scarring/interstitial prominence. Electronically Signed: Jeromy Hilliard DO at 19:43 EDT Reading Location ID and State: [facility] / [place] Tel [phone], Service support , Physical Exam Const alert and no apparent distress; Negative for oriented x3, average body habitus, healthy appearing or well nourished Constitutional Narrative: Cachectic, older, white female, sitting up in bed watching television, appears comfortable, nontoxic, significant proved since yesterday HEENT head/scalp atraumatic and moist oral mucous membranes HEENT Narrative: Dentition is poor, Mallampati is 1, no thrush Head and Scalp: normocephalic Eyes Eyes Narrative: . Resp normal respiratory effort, no retractions, no use of accessory muscles and clear to auscultation bilaterally Resp Narrative: Rhonchi have resolved, diffusely diminished Auscultation: Negative for rales, rhonchi or wheezes Cardio regular rate, regular rhythm, S1 normal heart sound, S2 normal heart sound, no murmurs, no rub, no gallops and no clicks Cardio Narrative: Tachycardia resolved GI normal to inspection, nondistended, normoactive bowel sounds, soft to palpation, non-tender, non-distended and hepatosplenomegaly GI Narrative: Scaphoid abdomen with prominent pelvic bones Extremity no clubbing, cyanosis or edema Extremity Narrative: Severely diminished lean muscle mass, pedal pulses are 1+ bilaterally, radial pulses are 2+ bilaterally Neuro moves all extremities and no focal motor deficits Neuro Narrative: Marked generalized weakness noted but no focal deficits, patient was oriented to self, place, and could tell me the year and the president of [employer] but was confused on the month Sensorium / Orientation: awake, alert, oriented to person and oriented to place Speech: speech normal Psych Psych Narrative: Very pleasant, interacts appropriately, confusion does continue to improve Assessment & Plan Assessment/Plan (1) At high risk for falls: (2) Confusion: (3) Pulmonary nodule 1 cm or greater in diameter: (4) Hypoxia: (5) Hypotension: (6) Aspiration pneumonia: PLAN: Plan Hypoxia/hypotension secondary to aspiration pneumonia -Newly developed this morning -Hypoxia at rest has resolved and hypotension has resolved -Afebrile for 24 hours now -White count did trend up today and left shift is stable -Cough is improving -Chest x-ray i was unremarkable -Continue Zosyn for now--> will likely transition to Levaquin at discharge due to penicillin allergy with nausea taking oral penicillins Toxic/metabolic encephalopathy -Secondary to hyperthyroidism due to noncompliance with methimazole -Her thyroid studies were markedly abnormal again on admission as they had normalized previously -Continues to be resolving Adult failure to thrive -Patient seems to fail every time she returns to assisted living -Continue PT/OT/speech therapy -Plan is ECF at discharge however her niece who is POA for healthcare has changed her discharge plan and we are currently trying to facilitate this for the next 24 to 48 hours Dysphagia -MBS done on 10/02/2023 which showed moderate oropharyngeal dysphagia and a diet of mechanical soft with thin liquids was recommended with direct supervision, no straws and hard swallows with sips -Continue ongoing speech therapy 2 cm right upper lobe pulmonary nodule -Concerning for bronchogenic carcinoma -Will need outpatient PET/CT at follow-up -Niece, Scarlet Forman, was updated with regards to these findings and need for outpatient follow-up -She does already have a scheduled appointment to be seen in follow-up on November 27 with Sharon Lozada NP -I discussed the case with the dining room attendant on this week and he ordered an outpatient PET scan to be done and indicated that if the PET is abnormal they should be able to move her outpatient follow-up visit up Severe malnutrition -Malnutrition issues are multifactorial -Continue Remeron -Thyroid issues likely playing an factor -Dietitian is following -Continue liberalized diet and supplements -Continue multivitamin -5 pound weight loss in last 2 weeks -PET scan does show possible malignancy and workup is in progress Hyperthyroidism secondary to Graves' disease -Patient has history of hypothyroid documented however had not been taking methimazole from what we can tell -TSH was undetectable -Free T4 and T3 were elevated again but had normalized -Free T4 on admission was 4.54--> 3.48 after 48 hours of receiving methima zole here--> 2.4 after 4 days of treatment with her methimazole -Methimazole 15 mg to continue -Continue beta-evan -Repeat free T4 on the day of discharge -Will need to continue to follow with endocrinology after discharge -Was seen by Dr. 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 -No acute issues -CT of the brain was unremarkable Tobacco abuse -Recommend ongoing cessation Depression -Continue Remeron 15 mg nightly DVT prophylaxis -Low molecular weight heparin daily CODE STATUS -DNR CCA with no intubation order was placed based on previous admission Disposition: -Plan was for discharge to [facility] today or tomorrow and I was going to wait till tomorrow but now her niece has evidently changed the discharge plan to a possible ECF in [place] awaiting more input from social work with regards to this but will discharge tomorrow to [facility] if the changes not going to occur. At this point I would like her to have 24 more hours of IV antibiotics before transitioning to oral Charges/Coding Visit Charges Inpatient E&M: 79485 Subs Hosp L2
--- NOTE | 2023-10-05 16:30 | CASEMGMT ---
Social Work Spoke with physician today who reports anticipation of patient being ready for discharge on Saturday. Green sheet for nursing to follow in case of discharge on Saturday. Patient is accepted at [facility] and all required admission paperwork in place for admit to this facility. Received call from patient's niece Scarlet, requesting a referral be placed to [facility]. Scarlet reports belief that patient will be in hospital through the weekend. Let Scarlet know physician now thinking Saturday. Scarlet expressed insistence that [facility] be referred to, stating there are two beds at this facility, and Scarlet is going in to sign admission paperwork today. Scarlet reports to have a family member at this facility, and other family lives in [place] so would be closer to be able to visit patient. This customs entry writer clarified whether [facility] has accepted patient, if Scarlet is going to sign paperwork, without any type of referral information being sent. Scarlet reports was told by staff at this [facility], from what Scarlet shared with the [facility], the patient's care needs would be within the realm of accepting patient. Updated Dr. Hollis. Referral sent via [facility] to [facility], and asked for an answer as soon as possible. Called facility and spoke with Salud in the business office. From financial standpoint, could accept patient, but from a clinical standpoint cannot make that determination. Waiting on admissions team to respond. Plan: NF, intermediate level of care at either [facility] or [facility]. [facility] if first choice of the family. -JERAD Knox
[2023-10-05] MEDS: Donepezil HCl 5 MG Tablet PO (20:27)
[2023-10-05] MEDS: Loratadine 10 MG Tablet PO (20:27)
[2023-10-05] MEDS: Metoprolol(XL)Succ 25 MG Tablet PO (20:27)
[2023-10-05] MEDS: Mirtazapine 15 MG Tablet PO (20:27)
[2023-10-06] VITALS (11 sets, daily range): BP systolic 101–113; BP diastolic 53–57; PULSE 64–88; RESP 16–26; TEMP 36.6–37.2; O2SAT 95–100
[2023-10-06 04:24] LABS: Absolute Lymphocyte Count 1.32 X10^3/uL (0.83-4.51); Absolute Neutrophil Count 4.4 X10^3/uL (2.0-7.7); Basophil# 0.01 X10^3/uL; Basophil% 0.2 % (0-1); Eosinophil# 0.15 X10^3/uL; Eosinophils% 2.3 % (0-5); Lymphocyte # 1.32 X10^3/ul (0.83-4.51); Lymphocyte % 19.9 % (19-41); Mean Corp Hgb Conc 29.4 g/dL (32-36); Mean Corpuscular Hgb 29.4 pg (27.0-32.0); Mean Platelet Vol. 10.7 fl (6.2-12.0); Monocyte# 0.76 X10^3/uL; Monocyte% 11.4 % (0-10); NRBC Flagged by Analyzer 0 % (0-5); Neutrophil # 4.37 X10^3/uL (2.7-7.7); Neutrophil % 65.7 % (47-70); Platelet Count 168 K/mm3 (150-450); RBC Distribution Width CV 13.7 % (11.6-14.6); RBC Distribution Width SD 49.8 fl (35.1-43.9); White Blood Count 6.6 K/mm3 (4.4-11.0)
[2023-10-06] MEDS: Menthol/Lanolin/Calamine/Znox 113 GM Tube 1 APPLIC TOPICAL ×3 (04:43→21:32)
[2023-10-06] MEDS: Sucralfate 1 GM Tablet PO ×2 (04:43→13:06)
[2023-10-06 04:56] LABS: Anion Gap 0 (5-15); BUN 17 mg/dL (7-18); BUN/Creat Ratio 52.5 RATIO (10-20); Chloride 109 mmol/L (98-107); Creatinine, Serum 0.32 mg/dL (0.55-1.02); EST Glomerular Filtration Rate 211 mL/min (>60); Est Glom Filt Rate - Afr Amer 256 mL/min (>60); Estimated Creatinine Clearance 31.85 ml/min; Glucose 98 mg/dL (74-106); Potassium 4.3 mmol/L (3.5-5.1); Sodium Level 141 mmol/L (136-145); T4 Free Direct 2.32 ng/dL (0.76-1.46)
[2023-10-06] MEDS: Ipratropium/Albuterol Sulfate 3 ML AMPUL.NEB INHALATION ×3 (07:38→20:43)
[2023-10-06] MEDS: Budesonide Respules 0.5 MG/2 ML AMPUL.NEB. INHALATION ×2 (07:38→20:43)
[2023-10-06] MEDS: Multivitamins,Therapeutic Tablet 1 TABLET PO ×2 (07:43→09:37)
[2023-10-06] MEDS: levoFLOXacin IV 750 MG/150 ML BAG 100 MG IV (09:35)
[2023-10-06] MEDS: 0.9% Saline Lock 10 ML Syringe IV (09:36)
[2023-10-06] MEDS: Calcium Carbonate 500 MG Tablet PO ×2 (09:37→21:30)
[2023-10-06] MEDS: Escitalopram Oxalate 10 MG Tablet PO (09:37)
[2023-10-06] MEDS: Pantoprazole Sodium 20 MG Tablet PO (09:37)
[2023-10-06] MEDS: Cholecalciferol (VIT D3) 25 MCG TABLET (1,000 UNITS) PO (09:37)
[2023-10-06] MEDS: Anastrozole 1 MG TABLET PO (09:38)
[2023-10-06] MEDS: Methimazole 5 MG Tablet 15 MG PO (09:38)
[2023-10-06] MEDS: Enoxaparin 40 MG/0.4 ML Syringe SC (09:39)
[2023-10-06] MEDS: Metoprolol(XL)Succ 25 MG Tablet PO ×2 (09:40→21:30)
--- NOTE | 2023-10-06 12:30 | PCM.PN.HOSP ---
Reason for Visit Reason for Visit: Altered mental status Subjective Subjective No fevers since a.m. of 10/04/2023. We have been able to wean her off oxygen. Mental status still fluctuates but she is much better than on presentation. Objective Data Objective Data Vital Signs: Vital Signs Temp Pulse Resp BP Pulse Ox O2 Del Method O2 Flow Rate 97.9 F 80 18 113/53 L 95 Nasal Cannula 2 10/06/23 04:00 10/06/23 09:40 10/06/23 08:16 10/06/23 04:00 10/06/23 08:16 10/06/23 08:16 10/06/23 08:16 Oxygen Flow Rate (L/min) [ 3 AMBULATING with Oxygen #1] Oxygen Flow Rate (L/min) [At 2 REST with Oxygen] Oxygen Flow Rate (L/min) [ 0 AMBULATING on Room Air] Oxygen Flow Rate (L/min) [At 0 REST on Room Air] Oxygen Flow Rate (L/min) 2 Oxygen Delivery Method Nasal Cannula Weight: 32.704 kg Body Mass Index (BMI) 13.1 Intake & Output: Intake and Output for Last 24 Hours 10/04/23 10/05/23 10/06/23 23:59 23:59 23:59 Intake Total 2500 / 2500 1200 / 1200 550 / 550 Balance 2500 / 2500 1200 / 1200 550 / 550 Medical Nutrition Assessment Dietitian: Malnutrition Criteria Met Start: 10/01/23 15:14 Freq: Status: Active Protocol: Document 10/04/23 13:26 SLA (Rec: 10/04/23 13:26 AYDEN Desktop) Nutrition Malnutrition Evidence of Malnutrition Exists Yes Malnutrition (severe): Chronic Evidenced By Suboptimal Energy Intake ( Severe),Physical Changes ( Severe) Clinical Problem Chronic Disease or Condition Related Malnutrition Etiology severe pro-natalie malnutrition in the context of chronic disease/debility/adult failure to thrive related to inadequate oral intake and increased energy expenditure Signs/Symptoms as evidenced by BMI 13.2, severe muscle wasting and fat depletion in the clavicle, orbitals, temporal region, arms and legs, inadequate oral intake meeting less than 50% estimated nutrition needs Status Active Problem Recommendation Dietitian Recommendations/Changes Continue liberalized regular diet with texture/consistency as per TIE UP WORKER. Will continue ensure plus HP 3 times per day w/ medpass as ordered. Will add magic cup w/ lunch and dinner. Will add 240mL ensure plus HP w/ breakfast meal. Consider enteral nutrition support as indicated for energy/protein repletion as it is doubtful that pt will be able to consume increased nutrition needs as estimated for repletion. Lab / Micro Data 10/06/23 04:05 10/06/23 04:05 Labs: Laboratory Results - last 24 hr 10/06/23 04:05: WBC 6.6, RBC 3.40 L, Hgb 10.0 L, Hct 34.0 L, MCV 100.0 H, MCH 29.4, MCHC 29.4 L, RDW Std Deviation 49.8 H, RDW Coeff of Kriss 13.7, Plt Count 168, MPV 10.7, Immature Gran % (Auto) 0.500, Neut % (Auto) 65.7, Lymph % (Auto) 19.9, Rolette % (Auto) 11.4 H, Eos % (Auto) 2.3, Baso % (Auto) 0.2, Absolute Neuts (auto) 4.4, Absolute Lymphs (auto) 1.32, Nucleated RBC % 0, Sodium 141, Potassium 4.3, Chloride 109 H, Carbon Dioxide 32.0, Anion Gap 0 L, BUN 17, Creatinine 0.32 L, Estim Creat Clear Calc 31.85, Est GFR (MDRD) Af Amer 256, Est GFR (MDRD) Non-Af 211, BUN/Creatinine Ratio 52.5 H, Glucose 98, Calcium 9.0, Free T4 2.32 H Micro: Microbiology 09/30/23 11:55 Mucosa - Nose SARS-CoV-2, Influenza & RSV (PCR) - Final Physical Exam Const alert and no apparent distress; Negative for oriented x3, average body habitus, healthy appearing or well nourished Constitutional Narrative: Cachectic, older, white female, s lying in bed sleeping, awakens easily,, appears comfortable, nontoxic, oriented to self, knows she is in [place] but confused on the building, told me it was October 2023, knows that Etelvina is president HEENT head/scalp atraumatic and moist oral mucous membranes HEENT Narrative: Dentition is poor, Mallampati is 1, no thrush, marked temporal wasting Head and Scalp: normocephalic Eyes Eyes Narrative: . Resp normal respiratory effort, no retractions, no use of accessory muscles and clear to auscultation bilaterally Resp Narrative: Diminished diffusely but clear Auscultation: Negative for rales, rhonchi or wheezes Cardio regular rate, regular rhythm, S1 normal heart sound, S2 normal heart sound, no murmurs, no rub, no gallops and no clicks GI normal to inspection, nondistended, normoactive bowel sounds, soft to palpation and non-tender GI Narrative: Scaphoid abdomen with prominent pelvic bones Extremity no clubbing, cyanosis or edema Extremity Narrative: Severely diminished lean muscle mass, pedal pulses are 1+ bilaterally Neuro moves all extremities and no focal motor deficits Neuro Narrative: Marked generalized weakness noted but no focal deficits Sensorium / Orientation: awake, alert, oriented to person and oriented to time Speech: speech normal Psych Psych Narrative: Very pleasant, interacts appropriately, confusion does continue to improve Assessment & Plan Assessment/Plan (1) At high risk for falls: (2) Confusion: (3) Pulmonary nodule 1 cm or greater in diameter: (4) Hypoxia: (5) Hypotension: (6) Aspiration pneumonia: PLAN: Plan Hypoxia/hypotension secondary to aspiration pneumonia -Hypoxia has resolved at rest anticipate she may need oxygen with exertion but will need to test prior to discharge -Afebrile for 48 hours now -Left shift has resolved and white count is back to her baseline -Cough is resolved for the most part -Continue Zosyn for now--> will likely transition to Levaquin at discharge due to penicillin allergy with nausea taking oral penicillins -Today is day 3 of 7 for antibiotics Toxic/metabolic encephalopathy -Secondary to hyperthyroidism due to noncompliance with methimazole -Her thyroid studies were markedly abnormal again on admission as they had normalized previously -Continues to be resolving Adult failure to thrive -Patient seems to fail every time she returns to assisted living -Continue PT/OT/speech therapy -Plan is ECF at discharge however her niece who is POA for healthcare has changed her discharge plan and we are currently trying to facilitate this for the next 24 to 48 hours Dysphagia -MBS done on 10/02/2023 which showed moderate oropharyngeal dysphagia and a diet of mechanical soft with thin liquids was recommended with direct supervision, no straws and hard swallows with sips -Continue ongoing speech therapy 2 cm right upper lobe pulmonary nodule -Concerning for bronchogenic carcinoma -Will need outpatient PET/CT at follow-up -Niece, Scarlet Forman, was updated with regards to these findings and need for outpatient follow-up -She does already have a scheduled appointment to be seen in follow-up on November 27 with Sharon Lozada NP -I discussed the case with the pelletizer operator on this week and he ordered an outpatient PET scan to be done and indicated that if the PET is abnormal they should be able to move her outpatient follow-up visit up Severe malnutrition -Malnutrition issues are multifactorial -Continue Remeron -Thyroid issues likely playing an factor -Dietitian is following -Continue liberalized diet and supplements -Continue multivitamin -5 pound weight loss in last 2 weeks -PET scan does show possible malignancy and workup is in progress Hyperthyroidism secondary to Graves' disease -Patient has history of hypothyroid documented however had not been taking methimazole from what we can tell -TSH was undetectable -Free T4 and T3 were elevated again but had normalized -Free T4 on admission was 4.54--> 3.48 after 48 hours of receiving methimazole here--> 2.4 after 4 days of treatment with her methimazole -Methimazole 15 mg to continue -Continue beta-evan -Repeat free T4 on the day of discharge -Will need to continue to follow with endocrinology after discharge -Was seen by Dr. 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 Charges/Coding Visit Charges Inpatient E&M: 87488 Subs Hosp L2
[2023-10-06] MEDS: Ensure Plus High Protein 120 ML LIQUID PO (13:07)
[2023-10-06] MEDS: Loratadine 10 MG Tablet PO (21:30)
[2023-10-06] MEDS: Donepezil HCl 5 MG Tablet PO (21:30)
[2023-10-06] MEDS: Mirtazapine 15 MG Tablet PO (21:30)
[2023-10-07 04:35] VITALS: RESP 20; O2SAT 86
[2023-10-07 04:40] VITALS: BP 146/70; PULSE 80; RESP 20; TEMP 36.6; O2SAT 92
[2023-10-07] MEDS: Sucralfate 1 GM Tablet PO (04:43)
[2023-10-07 06:10] LABS: Anion Gap 4 (5-15); BUN 14 mg/dL (7-18); BUN/Creat Ratio 36.8 RATIO (10-20); Calcium,Total 8.9 mg/dL (8.5-10.1); Chloride 108 mmol/L (98-107); Creatinine, Serum 0.38 mg/dL (0.55-1.02); EST Glomerular Filtration Rate 176 mL/min (>60); Est Glom Filt Rate - Afr Amer 213 mL/min (>60); Estimated Creatinine Clearance 31.85 ml/min; Glucose 108 mg/dL (74-106); Potassium 4.1 mmol/L (3.5-5.1); Sodium Level 141 mmol/L (136-145)
[2023-10-07 06:13] LABS: Hematocrit 33.1 % (37-47); Mean Corp Hgb Conc 30.2 g/dL (32-36); Mean Corpuscular Hgb 29.9 pg (27.0-32.0); Mean Corpuscular Volume 98.8 fL (81-99); Mean Platelet Vol. 11.1 fl (6.2-12.0); Platelet Count 192 K/mm3 (150-450); RBC Distribution Width CV 13.5 % (11.6-14.6); RBC Distribution Width SD 49.4 fl (35.1-43.9); Red Blood Count 3.35 M/mm3 (4.2-5.4); White Blood Count 6.3 K/mm3 (4.4-11.0)
[2023-10-07] MEDS: Budesonide Respules 0.5 MG/2 ML AMPUL.NEB. INHALATION (07:13)
[2023-10-07] MEDS: Ipratropium/Albuterol Sulfate 3 ML AMPUL.NEB INHALATION (07:13)
[2023-10-07 07:15] VITALS: PULSE 75; RESP 16; O2SAT 99
--- NOTE | 2023-10-07 08:11 | CPS ---
decreased pt to 2L NC
[2023-10-07 09:16] VITALS: BP 128/71; PULSE 76; RESP 16; TEMP 36.4; O2SAT 98
[2023-10-07] MEDS: Anastrozole 1 MG TABLET PO (09:21)
[2023-10-07] MEDS: Methimazole 5 MG Tablet 15 MG PO (09:21)
[2023-10-07 09:22] VITALS: PULSE 76
[2023-10-07] MEDS: Metoprolol(XL)Succ 25 MG Tablet PO (09:22)
[2023-10-07] MEDS: Pantoprazole Sodium 20 MG Tablet PO (09:22)
[2023-10-07] MEDS: Escitalopram Oxalate 10 MG Tablet PO (09:22)
[2023-10-07] MEDS: Enoxaparin 40 MG/0.4 ML Syringe SC (09:22)
[2023-10-07] MEDS: Cholecalciferol (VIT D3) 25 MCG TABLET (1,000 UNITS) PO (09:22)
[2023-10-07] MEDS: Calcium Carbonate 500 MG Tablet PO (09:23)
--- NOTE | 2023-10-07 10:17 | PN.HOSP_ITS ---
Reason for Visit Reason for Visit: Diagnoses Hypotension, unspecified (09/30/23) Pneumonitis due to inhalation of food and vomit (09/30/23) Hypoxemia (09/30/23) Disorientation, unspecified (09/30/23) Solitary pulmonary nodule (09/30/23) History of falling (09/30/23) Objective Data Objective Data Vital Signs: Vital Signs Temp Pulse Resp BP Pulse Ox O2 Del Method O2 Flow Rate 97.6 F L 76 16 128/71 H 98 Nasal Cannula 2 10/07/23 09:16 10/07/23 09:22 10/07/23 09:16 10/07/23 09:16 10/07/23 09:16 10/07/23 09:16 10/07/23 09:16 Oxygen Flow Rate (L/min) [ 3 AMBULATING with Oxygen #1] Oxygen Flow Rate (L/min) [At 2 REST with Oxygen] Oxygen Flow Rate (L/min) [ 0 AMBULATING on Room Air] Oxygen Flow Rate (L/min) [At 0 REST on Room Air] Oxygen Flow Rate (L/min) 2 Oxygen Delivery Method Nasal Cannula Weight: 32.704 kg Body Mass Index (BMI) 13.1 Intake & Output: Intake and Output for Last 24 Hours 10/05/23 10/06/23 10/07/23 23:59 23:59 23:59 Intake Total 1200 / 1200 700 / 700 Balance 1200 / 1200 700 / 700 Medical Nutrition Assessment Dietitian: Malnutrition Criteria Met Start: 10/01/23 15:14 Freq: Status: Active Protocol: Document 10/04/23 13:26 AYDEN (Rec: 10/04/23 13:26 AYDEN Desktop) Nutrition Malnutrition Evidence of Malnutrition Exists Yes Malnutrition (severe): Chronic Evidenced By Suboptimal Energy Intake ( Severe),Physical Changes ( Severe) Clinical Problem Chronic Disease or Condition Related Malnutrition Etiology severe pro-natalie malnutrition in the context of chronic disease/debility/adult failure to thrive related to inadequate oral intake and increased energy expenditure Signs/Symptoms as evidenced by BMI 13.2, severe muscle wasting and fat depletion in the clavicle, orbitals, temporal region, arms and legs, inadequate oral intake meeting less than 50% estimated nutrition needs Status Active Problem Recommendation Dietitian Recommendations/Changes Continue liberalized regular diet with texture/consistency as per FINANCIAL ADVISOR. Will continue ensure plus HP 3 times per day w/ medpass as ordered. Will add magic cup w/ lunch and dinner. Will add 240mL ensure plus HP w/ breakfast meal. Consider enteral nutrition support as indicated for energy/protein repletion as it is doubtful that pt will be able to consume increased nutrition needs as estimated for repletion. Lab / Micro Data 10/07/23 05:40 10/07/23 05:40 Labs: Laboratory Results - last 24 hr 10/07/23 05:40: WBC 6.3, RBC 3.35 L, Hgb 10.0 L, Hct 33.1 L, MCV 98.8, MCH 29.9, MCHC 30.2 L, RDW Std Deviation 49.4 H, RDW Coeff of Kriss 13.5, Plt Count 192, MPV 11.1, Sodium 141, Potassium 4.1, Chloride 108 H, Carbon Dioxide 29.0, Anion Gap 4 L, BUN 14, Creatinine 0.38 L, Estim Creat Clear Calc 31.85, Est GFR (MDRD) Af Amer 213, Est GFR (MDRD) Non-Af 176, BUN/Creatinine Ratio 36.8 H, Glucose 108 H, Calcium 8.9 Micro: Microbiology 09/30/23 11:55 Mucosa - Nose SARS-CoV-2, Influenza & RSV (PCR) - Final Assessment & Plan Assessment/Plan (1) At high risk for falls: (2) Confusion: (3) Pulmonary nodule 1 cm or greater in diameter: (4) Hypoxia: (5) Hypotension: (6) Aspiration pneumonia: PLAN: Plan Hypoxia/hypotension secondary to aspiration pneumonia -Hypoxia has resolved at rest anticipate she may need oxygen with exertion but will need to test prior to discharge -Afebrile for 48 hours now -Left shift has resolved and white count is back to her baseline -Cough is resolved for the most part -Continue Zosyn for now--> will likely transition to Levaquin at discharge due to penicillin allergy with nausea taking oral penicillins -Today is day 3 of 7 for antibiotics Toxic/metabolic encephalopathy -Secondary to hyperthyroidism due to noncompliance with methimazole -Her thyroid studies were markedly abnormal again on admission as they had n ormalized previously -Continues to be resolving Adult failure to thrive -Patient seems to fail every time she returns to assisted living -Continue PT/OT/speech therapy -Plan is ECF at discharge however her niece who is POA for healthcare has changed her discharge plan and we are currently trying to facilitate this for the next 24 to 48 hours Dysphagia -MBS done on 10/02/2023 which showed moderate oropharyngeal dysphagia and a diet of mechanical soft with thin liquids was recommended with direct supervision, no straws and hard swallows with sips -Continue ongoing speech therapy 2 cm right upper lobe pulmonary nodule -Concerning for bronchogenic carcinoma -Will need outpatient PET/CT at follow-up -Niece, Scarlet Forman, was updated with regards to these findings and need for outpatient follow-up -She does already have a scheduled appointment to be seen in follow-up on November 27 with Sharon Lozada NP -I discussed the case with the wig sales consultant on this week and he ordered an outpatient PET scan to be done and indicated that if the PET is abnormal they should be able to move her outpatient follow-up visit up Severe malnutrition -Malnutrition issues are multifactorial -Continue Remeron -Thyroid issues likely playing an factor -Dietitian is following -Continue liberalized diet and supplements -Continue multivitamin -5 pound weight loss in last 2 weeks -PET scan does show possible malignancy and workup is in progress Hyperthyroidism secondary to Graves' disease -Patient has history of hypothyroid documented however had not been taking methimazole from what we can tell -TSH was undetectable -Free T4 and T3 were elevated again but had normalized -Free T4 on admission was 4.54--> 3.48 after 48 hours of receiving methimazo le here--> 2.4 after 4 days of treatment with her methimazole -Methimazole 15 mg to continue -Continue beta-evan -Repeat free T4 on the day of discharge -Will need to continue to follow with endocrinology after discharge -Was seen by Dr. Corrigan on 09/03/2023 Suspected COPD -Patient was seen by pulmonary medicine on 08/28/2023 and at that time CT of the chest, walking pulse oximetry, and PFTs were ordered -These tests were never performed--> we did get the CT of the chest here see above -Patient has appointment to have these done next week -Continue nebulizers as ordered Debility/generalized weakness -PT/OT/speech following History of intracranial hemorrhage -Status post INFORMATICS EDUCATOR shunt -No acute issues -CT of the brain was unremarkable Tobacco abuse -Recommend ongoing cessation Depression -Continue Remeron 15 mg nightly DVT prophylaxis -Low molecular weight heparin daily CODE STATUS -DNR CCA with no intubation order was placed based on previous admission Disposition: -Plan is [facility] or a new ECF in [place] which ever is approved.
--- NOTE | 2023-10-07 10:21 | DS.PCM_ITS ---
Providers Date of Admission: 09/30/23 Date of Discharge: 10/07/23 Primary Care Physician: Dr. Ligia Sanders MD Reason For Visit: DEBILITY, DEHYDRATION, HYPOKALEMIA Diagnosis Discharge Diagnosis (1) At high risk for falls: Status: Acute Code(s): Z91.81 - History of falling (2) Confusion: Status: Acute Code(s): R41.0 - Disorientation, unspecified (3) Pulmonary nodule 1 cm or greater in diameter: Status: Acute Code(s): R91.1 - Solitary pulmonary nodule (4) Hypoxia: Status: Acute Code(s): R09.02 - Hypoxemia (5) Hypotension: Status: Acute Code(s): I95.9 - Hypotension, unspecified (6) Aspiration pneumonia: Status: Acute Code(s): J69.0 - Pneumonitis due to inhalation of food and vomit Medications at Discharge Home Medications amlodipine 2.5 mg tablet 2.5 mg PO BID 06/30/23 anastrozole 1 mg tablet 1 mg PO DAILY 06/30/23 fluticasone fur. 100 mcg-umeclid 62.5 mcg-vilant 25 mcg inhalat.powder (Trelegy Ellipta) 1 inh inhalation DAILY lungs 06/30/23 loratadine 10 mg tablet 10 mg PO QHS 06/30/23 metoprolol succinate 25 mg tablet,extended release 24 hr 25 mg PO BID htn 06/30/23 acetaminophen 325 mg tablet 650 mg (2 x 325 mg) PO Q6H PRN PRN Pain 1-10 Or Fev er>100.7 #0 tabs 07/12/23 albuterol sulfate 2.5 mg/3 mL (0.083 %) solution for nebulization 2.5 mg (3 mL) inhalation Q2H PRN PRN Wheezing #75 mL 07/12/23 mirtazapine 15 mg tablet 15 mg PO QHS #0 tabs 07/12/23 multivitamin 1 tab PO BREAKFAST #0 tabs 07/12/23 escitalopram oxalate 10 mg tablet (Lexapro) 10 mg PO DAILY 08/23/23 guaifenesin 100 mg/5 mL oral liquid 200 mg PO Q4H PRN congestion 08/23/23 omeprazole 20 mg capsule,delayed release 20 mg PO DAILY 08/23/23 simethicone 80 mg chewable tablet (Gas Relief (simethicone)) 80 mg PO TID-QID PRN abdominal distention 08/23/23 methimazole 10 mg tablet 15 mg (1.5 x 10 mg) PO DAILY #45 tabs 09/03/23 sucralfate 1 gram tablet 1 g PO BID gi distress 09/03/23 denosumab 60 mg/mL subcutaneous syringe (Prolia) 60 mg subcut [id number] #1 mL 09/10/23 calcium carbonate-vitamin D3 1 tab PO BID supplement 09/30/23 cholecalciferol (vitamin D3) 25 mcg (1,000 unit) capsule 25 mcg PO DAILY 09/30/23 docusate sodium 100 mg capsule (Colace) 200 mg PO .COMPLEX constipation 09/30/23 donepezil 5 mg tablet (Aricept) 5 mg PO QHS 09/30/23 guaifenesin 200 mg tablet 200 mg PO BID related to copd 09/30/23 ipratropium 0.5 mg-albuterol 3 mg (2.5 mg base)/3 mL nebulization soln 3 ml inhalation Q6HWA.RT PRN shortness of breath or wheezing 09/30/23 ondansetron HCl 4 mg tablet 4 mg PO Q8H PRN PRN nausea and vomiting 09/30/23 vitamin B complex (Complex B-100 tablet,extended release) 1 tab PO DAILY 09/30/23 food supplemt, lactose-reduced 0.08 gram-1.5 kcal/mL oral liquid (Ensure Plus High Protein) 120 ml PO 4X/DAY #0 mL 10/07/23 levofloxacin 500 mg tablet 500 mg PO DAILY #5 tabs 10/07/23 metronidazole 500 mg tablet 500 mg PO TID #15 tabs 10/07/23 ondansetron 4 mg disintegrating tablet 4 mg PO Q6H PRN PRN Nausea #0 tabs 10/07/23 Hospital Course Summary of Care Provided Minutes Spent on Discharge: 35 Hospital Course: Patient is a 73-year-old lady admitted with shortness of breath 1. Acute hypoxia ? Secondary to aspiration pneumonia patient was managed with Levaquin added Flagyl on discharge 2. Physical deconditioning - Requested for PT OT eval and social psychologist to assist with discharge planning 3. Toxic/metabolic encephalopathy ? Secondary to hyperthyroidism due to noncompliance with methimazole methimazole resumed on discharge 4. 2 cm right upper lobe nodule ? Concerning for bronchogenic carcinoma patient has an appointment with pulmonary medicine on November 27 5. Severe protein calorie malnutrition ? Complicating care patient was seen by dietitian noted recommendations reviewed 6. Hypothyroidism ? Secondary to Graves' disease patient is on methimazole presuming patient to follow-up with endocrinology following discharge 7. Suspected COPD ? Aerosol treatment as needed 8. History of intracranial hemorrhage ? 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 Tobacco dependence - Counseled on cessation, offered nicotine patch for tobacco cravings 10. GERD ? On PPI 11. Depression ? Patient is on Remeron at night DVT prophylaxis ? SC Lovenox Physical Exam Narrative GENERAL: cooperative but frail looking HEENT: Atraumatic; normocephalic EYES; Anicteric, Normal Conjunctiva NECK; supple, normal thyroid, RESPIRATORY: Diminished to auscultation CARDIOVASCULAR: Regular S1 S2, GI: soft, normoactive bowel sounds, : No Renal angle tenderness; EXTREMITIES: No edema, no clubbing, MUSCULOSKELETAL: no muscle wasting NEURO: Awake; no lateralizing signs. SKIN: No Rash PSYCH; Flat affect Medical Records Data Medical Nutrition Assessment Dietitian: Malnutrition Criteria Met Start: 10/01/23 15:14 Freq: Status: Active Protocol: Document 10/04/23 13:26 SLA (Rec: 10/04/23 13:26 AYDEN Desktop) Nutrition Malnutrition Evidence of Malnutrition Exists Yes Malnutrition (severe): Chronic Evidenced By Suboptimal Energy Intake ( Severe),Physical Changes ( Severe) Clinical Problem Chronic Disease or Condition Related Malnutrition Etiology severe pro-natalie malnutrition in the context of chronic disease/debility/adult failure to thrive related to inadequate oral intake and increased energy expenditure Signs/Symptoms as evidenced by BMI 13.2, severe muscle wasting and fat depletion in the clavicle, orbitals, temporal region, arms and legs, inadequate oral intake meeting less than 50% estimated nutrition needs Status Active Problem Recommendation Dietitian Recommendations/Changes Continue liberalized regular diet with texture/consistency as per BUSINESS SUPPORT ASSISTANT. Will continue ensure plus HP 3 times per day w/ medpass as ordered. Will add magic cup w/ lunch and dinner. Will add 240mL ensure plus HP w/ breakfast meal. Consider enteral nutrition support as indicated for energy/protein repletion as it is doubtful that pt will be able to consume increased nutrition needs as estimated for repletion. Weight / BMI Weight Weight: 32.704 kg Body Mass Index (BMI) 13.1 ABG / Lab / Microbiology Data 10/07/23 05:40 10/07/23 05:40 Laboratory: Laboratory Results - last 24 hr 10/07/23 05:40: WBC 6.3, RBC 3.35 L, Hgb 10.0 L, Hct 33.1 L, MCV 98.8, MCH 29.9, MCHC 30.2 L, RDW Std Deviation 49.4 H, RDW Coeff of Kriss 13.5, Plt Count 192, MPV 11.1, Sodium 141, Potassium 4.1, Chloride 108 H, Carbon Dioxide 29.0, Anion Gap 4 L, BUN 14, Creatinine 0.38 L, Estim Creat Clear Calc 31.85, Est GFR (MDRD) Af Amer 213, Est GFR (MDRD) Non-Af 176, BUN/Creatinine Ratio 36.8 H, Glucose 108 H, Calcium 8.9 Microbiology: Microbiology 09/30/23 11:55 Mucosa - Nose SARS-CoV-2, Influenza & RSV (PCR) - Final D/C Instructions Discharge Diet: No restrictions Discharge Activity: Return to Normal Activity Call your doctor if you observe: Fever of 101 or Higher, Shortness of breath, Fainting spells and Chest pain Please Follow Up With: Librado Corrigan MD Meaningful Use Info Meaningful Use Diagnoses (Choose all that apply): None applicable Discharge Plan Admission Admit Date/Time: 09/30/23 14:33 Attending Provider: Tomas Webber Primary Care Provider: Ligia Sanders Consulting Providers: Ck Kong; Luzmaria Hollis Discharge Orders/Prescriptions Prescriptions: New ondansetron 4 mg Tablet,Disintegrating 4 mg PO Q6H PRN PRN (Reason: Nausea) Qty: 0 0RF Ensure Plus High Protein 0.08 gram-1.5 kcal/mL Liquid 120 ml PO 4X/DAY Qty: 0 0RF metronidazole 500 mg tablet 500 mg PO TID Qty: 15 0RF levofloxacin 500 mg tablet 500 mg PO DAILY Qty: 5 0RF Continued guaifenesin 100 mg/5 mL liquid 200 mg PO Q4H PRN (Reason: congestion) escitalopram oxalate [Lexapro] 10 mg tablet 10 mg PO DAILY omeprazole 20 mg capsule,delayed release(DR/EC) 20 mg PO DAILY simethicone [Gas Relief (simethicone)] 80 mg tablet,chewable 80 mg PO TID-QID PRN (Reason: abdominal distention) sucralfate 1 gram tablet 1 g PO BID Rx Instructions: for 14 days. started on 09/13/23 anastrozole 1 mg tablet 1 mg PO DAILY amlodipine 2.5 mg tablet 2.5 mg PO BID Patient Comments: hold if systolic is less than 110 metoprolol succinate 25 mg tablet extended release 24 hr 25 mg PO BID loratadine 10 mg tablet 10 mg PO QHS Patient Comments: TAKE 1 TABLET BY MOUTH NIGHTLY Trelegy Ellipta 100-62.5-25 mcg blister with device 1 inh INHALATION DAILY Patient Comments: INHALE 1 PUFF DIRECTED EVERY DAY multivitamin Tablet 1 tab PO BREAKFAST Qty: 0 0RF acetaminophen 325 mg Tablet 650 mg PO Q6H PRN PRN (Reason: Pain 1-10 Or Fever>100.7) Qty: 0 0RF albuterol sulfate 2.5 mg /3 mL (0.083 %) Solution For Nebulization 2.5 mg inhalation Q2H PRN PRN (Reason: Wheezing) Qty: 75 0RF mirtazapine 15 mg Tablet 15 mg PO QHS Qty: 0 0RF docusate sodium [Colace] 100 mg capsule 200 mg PO .COMPLEX Rx Instructions: 200 mg orally at bedtime; guaifenesin 200 mg tablet 200 mg PO BID Complex B-100 Tablet Extended Release 1 tab PO DAILY cholecalciferol (vitamin D3) 25 mcg (1,000 unit) capsule 25 mcg PO DAILY donepezil [Aricept] 5 mg tablet 5 mg PO QHS calcium carbonate-vitamin D3 [Calcium 600 with Vitamin D3] 1 tab PO BID Rx Instructions: 1 TAB orally; 600-10 take 1 tablet bid ondansetron HCl 4 mg tablet 4 mg PO Q8H PRN PRN (Reason: nausea and vomiting) ipratropium-albuterol 0.5 mg-3 mg(2.5 mg base)/3 mL Solution For Nebulization 3 ml inhalation Q6HWA.RT PRN (Reason: shortness of breath or wheezing) methimazole 10 mg tablet 15 mg PO DAILY Qty: 45 4RF Prolia 60 mg/mL syringe 60 mg subcut [id number] Qty: 1 1RF Discontinued lorazepam [Ativan] 0.5 mg tablet 0.5 mg PO QHS Referrals / Follow Up: Ligia Sanders MD [Primary Care Provider] - Within 2 Weeks Librado Corrigan MD [Med Staff - Courtesy Staff] - Within 2 Weeks Disposition Disposition (needs filled in before D/C Order can be placed): [facility] Charges/Coding Visit Charges Inpatient E&M: 77152 Disch Hosp >30min
--- NOTE | 2023-10-07 10:22 | PCM.TXEXTCAR ---
Diet Diet Order/Speech Therapy: 10/02/23 09:57 Diet: Regular - General Food consistency:: Soft & Bite Sized Liquid Consistency:: Regular/Thin Is pt able to select menu?: No Diet Comments: 240 ml EPHP w/ B, MC w/ L&D, close supervision, no straws Routine Orders/Code Status Suppository Frequency: Daily PRN O2 Frequency: PRN Keep PO Greater than or Equal to (%): 89 Routine Lab Work: CBC (As needed), BMP (As needed) and - (Free T4 in 7 days) Code Status: DNRCC-A (No intubation) Wound(s) upper back: Wound Type: Pressure Injury low back: Wound Type: Pressure Injury Therapies Physical Therapy: Eval and Treat Occupational Therapy: Eval and Treat Speech Therapy: Eval and Treat Problem/Diagnosis (1) At high risk for falls: Status: Acute Code(s): Z91.81 - History of falling (2) Confusion: Status: Acute Code(s): R41.0 - Disorientation, unspecified (3) Pulmonary nodule 1 cm or greater in diameter: Status: Acute Code(s): R91.1 - Solitary pulmonary nodule (4) Hypoxia: Status: Acute Code(s): R09.02 - Hypoxemia (5) Hypotension: Status: Acute Code(s): I95.9 - Hypotension, unspecified (6) Aspiration pneumonia: Status: Acute Code(s): J69.0 - Pneumonitis due to inhalation of food and vomit Allergies/Procedures Done in Hospital Allergies Penicillins Allergy (Mild, Verified 09/03/23 09:07) Other Procedures: - (Modified barium swallow) Type of Care/Length of Stay Estimated LOS: More Than 30 Days Type of Care Needed: Intermediate Rehab Potential: Fair Prognosis: Fair Additional Orders/Day of Discharge Day of Discharge: 10/03/23 Dietary and Speech Recommendations Dietitian Recommendations/Changes: Continue liberalized regular diet with texture/consistency as per FOOD COOKING MACHINE OPERATOR. Will continue ensure plus HP 3 times per day w/ medpass as ordered. Will add magic cup w/ lunch and dinner. Will add 240mL ensure plus HP w/ breakfast meal. Consider enteral nutrition support as indicated for energy/protein repletion as it is doubtful that pt will be able to consume increased nutrition needs as estimated for repletion. Speech Linguistic Eval Summary: Modified Barium Swallow Patient Information Study Date: 10/02/23 Study Time: 13:30 Direct Billable Minutes: 100 Total Minutes procedure & reportin Diagnosis: Dysphagia R13.10 Referring Physician: Luzmaria Hollis Reason for Referral: Objectively assess swallow function, assess risk for aspiration, and determine recommendations for least restrictive diet textures and compensatory strategies to improve safety of swallow. Medical History: Patient presented to [facility] ED on 10/02/2023 with confusion. Pt?s urinalysis was negative for any infection. 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 Pt?s chest x-ray revealed hyperinflation and stable increased markings in the right upper lobe suggestive of scarring. 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 ST was consulted d/t swallowing difficulty. Pt had a MBSS in June of [address] [facility] hospital for several days to target oropharyngeal dysphagia. See MBSS for full details of study. Pt had strict aspiration precautions including small sips w/ effortful swallow. Pt?s RN made her NPO this morning 10/02/23 d/t consistent coughing with water. ST saw pt at bedside today 10/02/23 and concluded that MBSS was warranted d/t intermittent coughing with trials despite cueing for use of compensatory strategies. Current Diet Ordered: Soft and bite size / Thin liquids Dentition: Natural Teeth and Missing Teeth Mental Status: Impaired Respiratory Status: Oxygenating on Room Air Penetration-Aspiration Scale Penetration-Aspiration Scale: OBJECTIVE ASSESSMENT OF SWALLOW FUNCTION (QUANTITATIVE ? PER TRIAL): PENETRATION / ASPIRATION SCALE (KRUSE): 1 = does not enter airway 2 = enters airway/above vocal folds/ejected 3 = enters airway/above vocal folds/not ejected 4 = enters airway/contacts vocal folds/ejected 5 = enters airway/contacts vocal folds/not ejected 6 = enters airway/below vocal folds/ejected 7 = enters airway/below vocal folds/not ejected despite effort 8 = enters airway/below vocal folds/no effort VIDEOFLOROSCOPIC SCALE SCORE (KRUSE): Grade I = aspiration of material that has penetrated into the laryngeal vestibule, intact cough reflex Grade II = aspiration < 10 % of the bolus, intact cough reflex Grade III = aspiration of < 10 % of the bolus, reduced cough reflex or aspiration of > 10 % of the bolus, intact cough reflex Grade IV = aspiration of > 10 % of the bolus, reduced cough reflex Penetration-Aspiration Scale Score Thin Liquid via teaspoon: Result: 5= enters airways/contacts vocal folds/not ejected Thin Liquid via teaspoon Trial 2: Result: 8= enters airway/below vocal folds/no effort Thin Liquid via small single sip: cup: Result: 8= enters airway/below vocal folds/no effort Vergas Thick Liquid via small single sip: cup: Result: 1= does not enter airway Pudding via teaspoon: Result: 1= does not enter airway Comment: esophageal screen Thin Liquid via small single sip: cup Effortful swallow: Result: 8= enters airway/below vocal folds/no effort (trace silent aspiration) 07/11 Cookie: Result: 1= does not enter airway Thin Liquid via small single sip: cup Chin tuck: Result: 1= does not enter airway Thin Liquid via small single sip: cup Chin tuck Trial 2: Result: 1= does not enter airway Vergas Thick Liquid via small single sip: cup Trial 2: Result: 1= does not enter airway Oral Phase Labial Seal: Interlabial escape, no progression to anterior lip Tongue Control During Bolus Hold: Posterior escape of less than half of bolus Bolus Preparation/Mastication: Disorganized chewing/mashing with solid pieces of bolus unchewed Bolus Transport/Lingual Motion: Brisk tongue motion Oral Residue: Majority of bolus remaining (piecemeal deglutition) Pharyngeal Phase Initiation of Pharyngeal Swallow: Bolus head at posterior laryngeal surgace of epiglottis Soft Palate Elevation: Trace column of contrast/air between soft palate and pharyngeal wall Laryngeal Elevation: Partial superior movement thyroid cart/partial apprx aryt-epig petiole Anterior Hyoid Excursion: Partial anterior movement Epiglottic Movement: Complete inversion Laryngeal Vestibule Closure at Height of Swallow: Incomplete; narrow column of air/contrast in laryngeal vestibule Pharyngeal Stripping Wave: Present - diminished Pharyngoesophageal Segment Opening: Parital distension and partial duration; parital obstruction of flow Tongue Base Retraction: Narrow column of contrast between tongue base & post. pharyngeal wall Pharyngeal Residue: Collection of residue within or on pharyngeal structures Esophageal Phase Esophageal Clearance: Esophageal retention Diagnosis/Impression Diagnosis: Moderate Oropharyngeal Dysphagia R13.12 Impression: The oral phase is primarily marked by... -Decreased bolus control with the bolus spilling posteriorly to the posterior surface of the epiglottis prior to swallow onset. -Slowed and disorganized tongue motion for A-P transport. -Moderate oral residue after the swallow d/t piecemeal deglutition of cookie and pudding trials that mostly cleared with independent initiation of a multiple swallows as needed. -Prolonged, but adequate mastication of cookie trial. The pharyngeal phase is primarily marked by... -Decreased airway closure during the swallow due to mildly decreased anterior hyoid excursion, mildly decreased laryngeal elevation. -Decreased tongue base retraction, decreased UES opening/duration, and decreased pharyngeal stripping wave with resulting mild-moderate pharyngeal residues after the swallow. -SILENT aspiration of thin liquids by tsp and cup was observed 3X during the study. Laryngeal penetration occurred with thin liquid by tsp and did not eject from the laryngeal vestibule after the swallow. Use of effortful swallow with thin liquids by cup was somewhat effective in decreasing amount of laryngeal penetration and aspiration. Use of chin tuck was most effective in decreasing risk for aspiration. The esophageal phase is primarily marked by... -Esophageal retention of pudding in the lower esophagus observed during pudding trial. Thin liquid wash was effective in clearing pudding contrast from the lower esophagus. -Mild retention of cookie in upper esophagus, which cleared with subsequent liquid washes Recommendations Diet: Mechanical Soft Textures (Soft and Bite Sized - IDDSI Level 6) and Thin Liquids Compensatory Strategies: Small Bites, Small Sips, No Straws, Slow Rate, Chin Tuck (with sips), Sitting upright, Remain sitting upright for 30 minutes after PO intake and Assist with verbal cues to use recommended strategies Supervision: 1:1 Close Supervision Recommend Repeat Modified Barium Swallow: TBD Need for Skilled Speech Therapy Services: Yes Comment: -Train the patient in use of strategies to decrease risk for aspiration. -Ongoing assessment of diet tolerance of recommended textures. -Train the patient oropharyngeal exercise program to improve bolus control, airway closure, and swallow onset (lingual resistance, Chelsie, CTAR). Education Completed: 1. Described result of evaluation., 2. Pt understands evaluation & agrees with goals and treatment plan. and 7. Pt requires further education on strategies & risks. Status Active ST Patient: Active Follow Up Care Please follow up with your Primary Care Physician in: In 1 to 2 weeks Please Follow Up With: Librado Corrigan MD When: 2 weeks Please Follow Up With: Sharon Lozada NP, GRADING MACHINE OPERATOR-C When: After pulmonary function tests/6-minute walk are completed Discharge Plan Admission Admit Date/Time: 09/30/23 14:33 Attending Provider: Tomas Webber Primary Care Provider: Ligia Sanders Consulting Providers: Ck Kong; Luzmaria Hollis Discharge Orders/Prescriptions Prescriptions: New ondansetron 4 mg Tablet,Disintegrating 4 mg PO Q6H PRN PRN (Reason: Nausea) Qty: 0 0RF Ensure Plus High Protein 0.08 gram-1.5 kcal/mL Liquid 120 ml PO 4X/DAY Qty: 0 0RF metronidazole 500 mg tablet 500 mg PO TID Qty: 15 0RF levofloxacin 500 mg tablet 500 mg PO DAILY Qty: 5 0RF Continued guaifenesin 100 mg/5 mL liquid 200 mg PO Q4H PRN (Reason: congestion) escitalopram oxalate [Lexapro] 10 mg tablet 10 mg PO DAILY omeprazole 20 mg capsule,delayed release(DR/EC) 20 mg PO DAILY simethicone [Gas Relief (simethicone)] 80 mg tablet,chewable 80 mg PO TID-QID PRN (Reason: abdominal distention) sucralfate 1 gram tablet 1 g PO BID Rx Instructions: for 14 days. started on 09/13/23 anastrozole 1 mg tablet 1 mg PO DAILY amlodipine 2.5 mg tablet 2.5 mg PO BID Patient Comments: hold if systolic is less than 110 metoprolol succinate 25 mg tablet extended release 24 hr 25 mg PO BID loratadine 10 mg tablet 10 mg PO QHS Patient Comments: TAKE 1 TABLET BY MOUTH NIGHTLY Trelegy Ellipta 100-62.5-25 mcg blister with device 1 inh INHALATION DAILY Patient Comments: INHALE 1 PUFF DIRECTED EVERY DAY multivitamin Tablet 1 tab PO BREAKFAST Qty: 0 0RF acetaminophen 325 mg Tablet 650 mg PO Q6H PRN PRN (Reason: Pain 1-10 Or Fever>100.7) Qty: 0 0RF albuterol sulfate 2.5 mg /3 mL (0.083 %) Solution For Nebulization 2.5 mg inhalation Q2H PRN PRN (Reason: Wheezing) Qty: 75 0RF mirtazapine 15 mg Tablet 15 mg PO QHS Qty: 0 0RF docusate sodium [Colace] 100 mg capsule 200 mg PO .COMPLEX Rx Instructions: 200 mg orally at bedtime; guaifenesin 200 mg tablet 200 mg PO BID Complex B-100 Tablet Extended Release 1 tab PO DAILY cholecalciferol (vitamin D3) 25 mcg (1,000 unit) capsule 25 mcg PO DAILY donepezil [Aricept] 5 mg tablet 5 mg PO QHS calcium carbonate-vitamin D3 [Calcium 600 with Vitamin D3] 1 tab PO BID Rx Instructions: 1 TAB orally; 600-10 take 1 tablet bid ondansetron HCl 4 mg tablet 4 mg PO Q8H PRN PRN (Reason: nausea and vomiting) ipratropium-albuterol 0.5 mg-3 mg(2.5 mg base)/3 mL Solution For Nebulization 3 ml inhalation Q6HWA.RT PRN (Reason: shortness of breath or wheezing) methimazole 10 mg tablet 15 mg PO DAILY Qty: 45 4RF Prolia 60 mg/mL syringe 60 mg subcut [id number] Qty: 1 1RF Discontinued lorazepam [Ativan] 0.5 mg tablet 0.5 mg PO QHS Referrals / Follow Up: Ligia Sanders MD [Primary Care Provider] - Within 2 Weeks Disposition Disposition (needs filled in before D/C Order can be placed): Residential Facility
--- NOTE | 2023-10-07 10:56 | PHA.DC_ITS ---
Pharmacy [facility] Med Reconciliation Pharmacy Service has performed discharge medication reconciliation for this patient. The patient's discharge medication list was reviewed for discrepancies and discrepancies were resolved. Medications at Discharge Home Medications amlodipine 2.5 mg tablet 2.5 mg PO BID 06/30/23 anastrozole 1 mg tablet 1 mg PO DAILY 06/30/23 fluticasone fur. 100 mcg-umeclid 62.5 mcg-vilant 25 mcg inhalat.powder (Trelegy Ellipta) 1 inh inhalation DAILY lungs 06/30/23 loratadine 10 mg tablet 10 mg PO QHS 06/30/23 metoprolol succinate 25 mg tablet,extended release 24 hr 25 mg PO BID htn 06/30/23 acetaminophen 325 mg tablet 650 mg (2 x 325 mg) PO Q6H PRN PRN Pain 1-10 Or F ever>100.7 #0 tabs 07/12/23 albuterol sulfate 2.5 mg/3 mL (0.083 %) solution for nebulization 2.5 mg (3 mL) inhalation Q2H PRN PRN Wheezing #75 mL 07/12/23 mirtazapine 15 mg tablet 15 mg PO QHS #0 tabs 07/12/23 multivitamin 1 tab PO BREAKFAST #0 tabs 07/12/23 escitalopram oxalate 10 mg tablet (Lexapro) 10 mg PO DAILY 08/23/23 guaifenesin 100 mg/5 mL oral liquid 200 mg PO Q4H PRN congestion 08/23/23 omeprazole 20 mg capsule,delayed release 20 mg PO DAILY 08/23/23 simethicone 80 mg chewable tablet (Gas Relief (simethicone)) 80 mg PO TID-QID PRN abdominal distention 08/23/23 methimazole 10 mg tablet 15 mg (1.5 x 10 mg) PO DAILY #45 tabs 09/03/23 sucralfate 1 gram tablet 1 g PO BID gi distress 09/03/23 denosumab 60 mg/mL subcutaneous syringe (Prolia) 60 mg subcut [id number] #1 mL 09/10/23 calcium carbonate-vitamin D3 1 tab PO BID supplement 09/30/23 cholecalciferol (vitamin D3) 25 mcg (1,000 unit) capsule 25 mcg PO DAILY 09/30/23 docusate sodium 100 mg capsule (Colace) 200 mg PO .COMPLEX constipation 09/30/23 donepezil 5 mg tablet (Aricept) 5 mg PO QHS 09/30/23 guaifenesin 200 mg tablet 200 mg PO BID related to copd 09/30/23 ipratropium 0.5 mg-albuterol 3 mg (2.5 mg base)/3 mL nebulization soln 3 ml inhalation Q6HWA.RT PRN shortness of breath or wheezing 09/30/23 ondansetron HCl 4 mg tablet 4 mg PO Q8H PRN PRN nausea and vomiting 09/30/23 vitamin B complex (Complex B-100 tablet,extended release) 1 tab PO DAILY 09/30/23 food supplemt, lactose-reduced 0.08 gram-1.5 kcal/mL oral liquid (Ensure Plus High Protein) 120 ml PO 4X/DAY #0 mL 10/07/23 levofloxacin 500 mg tablet 500 mg PO DAILY #5 tabs 10/07/23 metronidazole 500 mg tablet 500 mg PO TID #15 tabs 10/07/23 ondansetron 4 mg disintegrating tablet 4 mg PO Q6H PRN PRN Nausea #0 tabs 10/07/23
--- NOTE | 2023-10-07 11:30 | CASEMGMT ---
Social Work SW spoke with [facility] and they are able to accept pt today. Physician updated and pt is ready for discharge today. Discharge orders sent to [facility] via [facility]. Transportation arranged with [facility] for 1230 picking machine operator via [facility]. Phone call to pt's michelle Novak and updated on dc plan and she is agreeable. Referral to [facility] cancelled. RN and [facility] updated on dc time. Plan: [facility], intermediate level of care under level of care MAXIMO Reyna
== END 2023-10-07 12:09 | DRG 643 ==
LOC: ED 13:55 → MS3 15:25
PROVIDERS: Internal Medicine; Emergency Provider Emergency Medicine; PCP Internal Medicine; Visit Provider Internal Medicine
DX: E05.00 Thyrotoxicosis with diffuse goiter without thyrotoxic crisis or storm (principal); J69.0 Pneumonitis due to inhalation of food and vomit; G92.8 Other toxic encephalopathy; E43 Unspecified severe protein-calorie malnutrition; C34.11 Malignant neoplasm of upper lobe, right bronchus or lung; Z68.1 Body mass index [BMI] 19.9 or less, adult; R62.7 Adult failure to thrive; E03.9 Hypothyroidism, unspecified; E86.0 Dehydration; I95.9 Hypotension, unspecified; J44.9 Chronic obstructive pulmonary disease, unspecified; F32.A Depression, unspecified; E87.6 Hypokalemia; E78.5 Hyperlipidemia, unspecified; K21.9 Gastro-esophageal reflux disease without esophagitis; F17.210 Nicotine dependence, cigarettes, uncomplicated; T38.2X6A Underdosing of antithyroid drugs, initial encounter; Z91.148 Patient's other noncompliance with medication regimen for other reason; R53.81 Other malaise; Y92.099 Unspecified place in other non-institutional residence as the place of occurrence of the external cause; R13.12 Dysphagia, oropharyngeal phase; Z66 Do not resuscitate; R09.02 Hypoxemia; Z79.51 Long term (current) use of inhaled steroids; Z79.899 Other long term (current) drug therapy; Z91.81 History of falling; Z98.2 Presence of cerebrospinal fluid drainage device; Z88.0 Allergy status to penicillin
CPT/HCPCS: 36415; 71045; 71250; 74230; 80048; 80053; 81001; 83605; 83735; 84100; 84439; 84443; 84481; 85025; 85027; 87631; 92526; 92610; 92611; 94640; 97161; 97166; 97802; 99283; J7030; J7120; A4216

== ENCOUNTER → 2023-10-09 | Outpatient (CLI) | payer MEDICARE, MEDICAID, SELFPAY ==
--- NOTE | 2023-10-09 12:59 | CT_ITS ---
STUDY: LOW DOSE CT LUNG CANCER SCREENING REASON FOR EXAM: Female, 73 years old. Screening. Patient smoked 2 packs per day for 60 years. Patient quit smoking 4 months ago. History of breast cancer and prior aspiration. RADIATION DOSAGE (If Supplied By Facility): CTDIvol = ( 1.01 ) mGy, DLP = ( 33.63 ) mGycm TECHNIQUE: No contrast was administered. Low dose technique was utilized (average mAS-38 and kVp 120). 1.25 mm axial source images with a slice interval of 1.25-mm were reconstructed in lung windows. 2.5 mm axial source images with a slice interval of 2.5-mm were reconstructed in lung windows. 5.0 mm axial source images with a slice interval of 5.0-mm were reconstructed in soft tissue windows. COMPARISON: Comparison is made with prior study dated October 01, 2023. NODULES: No evidence of a suspicious nodule. Emphysema: Hyperinflation and emphysematous changes worse in the upper lobes. Persistent linear scarring in the right upper lobe. Since prior study, this has improved. There is also evidence of a 1 cm triangular density in the subpleural left lower lobe most likely related to a scar. Since prior study, there is evidence of liver atelectasis and/or infiltration in the left lower lobe. Endobronchial lesion: None Aorta: Atherosclerotic plaque formation of the aortic arch. CORONARY ARTERIES: Coronary artery calcification is seen. Heart: Unremarkable Pulmonary artery: Unremarkable Mediastinal nodes: Unremarkable Other chest and abdominal findings: CT/Low Dose CT Lung Screening IMPRESSION: Lung-RADS category 3 - Continue screening with LDCT in 6 months. IMPORTANT NOTES FOR USE: ACR Lung-RADS Version 1.1 Assessment Categories Release Date: 2018 Category: Coded 0-4 bases on nodule(s) with highest degree of suspicion. Negative screen is defined as categories 1 and 2; a positive screen is defined as categories 3 and 4. Category 3 and 4A nodules that are unchanged on interval CT should be coded as category 2, and individuals returned to screening in 12 months. Category 4X: Category 3 or 4 nodules with additional imaging findings that increase the suspicion of lung cancer, such as spiculation, GGN that doubles in size in 1 year, enlarged lymph notes, etc. Category Modifiers: S (significant finding unrelated to lung cancer) Electronically Signed: Jaskaran Zhang MD at 14:27 EDT ,
--- NOTE | 2023-10-09 13:10 | CPS ---
Patient was scheduled for a 6 minute walk test today at 12:30. Patient came with out shoes on. Patient stated she hasn't walked much at all in several months. I held onto patient as she stood up out of wheelchair. She was very wobbly and stated that she did not feel very strong in her legs. Patient unable to do 6 minute walk testing, test canceled for now.
== END | disposition home or self-care (01) ==
PROVIDERS: PCP Internal Medicine; Referring Provider Internal Medicine Critical Care Medicine; Visit Provider Internal Medicine Critical Care Medicine
DX: Z12.2 Encounter for screening for malignant neoplasm of respiratory organs (principal); F17.211 Nicotine dependence, cigarettes, in remission; R06.00 Dyspnea, unspecified
CPT/HCPCS: 71271